=== PATIENT | female | born 1955 | race American Indian/Alaskan Native ===

== ENCOUNTER 2017-04-14 17:59 | Emergency (ER) | payer OTHER ==
[2017-04-14 18:11] VITALS: TEMP 98.7
[2017-04-14] MEDS ORDERED: Albuterol 0.083% Inhal Sol (2.5 mg/3 mL) UD INH STA (19:04)
[2017-04-14] MEDS ORDERED: Albuterol-Ipratrop 3 mg / 0.5 (3 ml) UD ONE (19:13)
--- NOTE | 2017-04-14 19:21 | ED PDOC ---
HPI: General Adult Time Seen by Provider: 04/14/17 18:43 Chief Complaint (Nursing): Cough, Cold, Congestion History Per: Patient Additional Complaint(s): Pt. states for the past week she's been having a cough productive of thick yellow sputum associated with SOB and wheezing. Pt. states she has been using Robitussin DM everyday for the past week without any relief. Pt. further reports having 2 episodes of post tussive vomiting but no nausea. Denies hemoptysis, palpitations, fever, sick contacts, recent travel, [place], leg pain. Past Medical History Reviewed: Historical Data, Nursing Documentation, Vital Signs Vital Signs: Last Vital Signs Temp 98.7 F 04/14/17 18:08 Pulse 80 04/14/17 19:45 Resp 22 04/14/17 18:08 BP 184/102 H 04/14/17 18:08 Pulse Ox 97 04/14/17 19:45 - Medical History PMH: Anemia, Arthritis, Asthma, HTN, Hypothyroidism, Chronic Kidney Disease - Family History Family History: States: No Known Family Hx - Home Medications Home Medications: Ambulatory Orders Medication Instructions Recorded Albuterol HFA [Ventolin HFA 90 2 puff IH Q4H PRN 12/09/16 mcg/actuation (8 g)] Cinacalcet [Sensipar] 60 mg PO DAILY 12/09/16 Ergocalciferol (Vitamin D2) 50,000 unit PO MO 12/09/16 [Vitamin D2] Esomeprazole Magnesium [Nexium] 40 mg PO DAILY 12/09/16 Febuxostat [Uloric] 80 mg PO DAILY 12/09/16 Iron Polysaccharide [Ferrex-150] 150 mg PO DAILY 12/09/16 Levothyroxine [Synthroid] 25 mcg PO DAILY 12/09/16 Losartan [Cozaar] 100 mg PO DAILY 12/09/16 Metoprolol Succinate 50 mg PO DAILY 12/09/16 amLODIPine [Norvasc] 5 mg PO DAILY 12/09/16 Fluticasone/Salmeterol 250/50 1 dsk IH Q12 #1 puff 12/14/16 [Advair Diskus] Moxifloxacin [Avelox] 400 mg PO DAILY #7 tab 12/14/16 Prednisone [Deltasone] 20 mg PO BID #21 tablet 03/01/17 - Allergies Allergies/Adverse Reactions: Allergies Allergy/AdvReac Type Severity Reaction Status Date / Time aspirin Allergy other Verified 12/09/16 12:18 metoclopramide HCl Allergy other Verified 12/09/16 12:18 [From Reglan] Review of Systems ROS Statement: Except As Marked, All Systems Reviewed And Found Negative Respiratory: Positive for: Cough, Wheezing Physical Exam - Reviewed Nursing Documentation Reviewed: Yes Vital Signs Reviewed: Yes - Physical Exam Appears: Positive for: Well, Non-toxic, No Acute Distress Head Exam: Positive for: ATRAUMATIC, NORMAL INSPECTION, NORMOCEPHALIC Skin: Positive for: Normal Color, Warm. Negative for: Rash Eye Exam: Positive for: EOMI, Normal appearance, PERRL ENT: Positive for: Normal ENT Inspection Neck: Positive for: Normal, Painless ROM Cardiovascular/Chest: Positive for: Regular Rate, Rhythm Respiratory: Positive for: Decreased Breath Sounds (b/l), Wheezing. Negative for: Accessory Muscle Use, Respiratory Distress Gastrointestinal/Abdominal: Positive for: Normal Exam, Soft. Negative for: Tenderness Back: Positive for: Normal Inspection Extremity: Positive for: Normal ROM Neurologic/Psych: Positive for: Alert, Oriented. Negative for: Aphasia, Facial Droop - Laboratory Results Result Diagrams: 04/14/17 19:28 04/14/17 19:28 - ECG ECG: Positive for: Interpreted By Me ECG Rhythm: Positive for: Sinus Rhythm. Negative for: ST/T Changes Rate: 60 O2 Sat by Pulse Oximetry: 97 - Radiology X-Ray: Interpreted by Me (CXR) - Progress ED Course And Treament: Labs ordered. Solu-medrol 125mg IV, albuterol neb x 2 given. CXR ordered. EKG ordered. Disposition - Clinical Impression Clinical Impression: Cough - Patient ED Disposition Is Patient to be Admitted: Transfer of Care (Signed out to Cristela MCNEAL pending lab results.) - Disposition Disposition Time: 20:00 Condition: STABLE
[2017-04-14] MEDS ORDERED: Albuterol 0.083% Inhal Sol (2.5 mg/3 mL) UD ONE ×2 (19:23→19:43)
[2017-04-14 19:39] LABS: BASO % 0.2 % (0.0-2.0); EOS # 0.1 K/uL (0.0-0.7); EOS % 1.4 % (0.0-4.0); LYMPH # 1.1 K/uL (1.0-4.3); LYMPH % 18.3 % (20.0-40.0); MEAN CELL VOLUME 73.1 fl (81.0-99.0); MEAN CORPUSCULAR HGB CONC 28.8 g/dL (33.0-37.0); MEAN PLATELET VOLUME 9.7 fl (7.2-11.7); MONO # 0.6 K/uL (0.0-0.8); MONO % 9.2 % (0.0-10.0); NEUT # 4.4 K/uL (1.8-7.0); NEUT % 70.9 % (50.0-75.0); NRBC % 0.1 % (0.0-0.0); RBC 4.77 Mil/uL (3.80-5.20); RED CELL DISTRIBUTION WIDTH 16.5 % (11.5-14.5); WHITE BLOOD COUNT 6.3 K/uL (4.8-10.8)
[2017-04-14 19:51] LABS: ALB/GLOB RATIO 1.2 (1.0-2.1); ALBUMIN 3.7 g/dL (3.5-5.0); ALT/SGPT 27 U/L (9-52); AST/SGOT 18 U/L (14-36); BLOOD UREA NITROGEN 48 mg/dl (7-17); CALCIUM 10.2 mg/dL (8.4-10.2); GFR AFRICAN-AMERICAN 18; GFR NON-AFRICAN AMERICAN 15
[2017-04-14 20:03] LABS: B-TYPE NATRIURETIC PEPTIDE 1300 pg/ml (0-900)
[2017-04-14 20:19] VITALS: PULSE 60
[2017-04-14 20:21] VITALS: RESP 18; O2SAT 98
[2017-04-14 20:26] VITALS: BP 175/92
--- NOTE | 2017-04-14 21:50 | ED PDOC ---
- Laboratory Results Result Diagrams: 04/14/17 19:28 04/14/17 19:28 - ECG O2 Sat by Pulse Oximetry: 98 Medical Decision Making Medical Decision Making: Labs and case discussed with Dr. Uriostegui. Discussed with Dr. Brunner who will f/u with patient on monday. Pt states she is feeling better and has stuffy nose currently. Disposition - Clinical Impression Clinical Impression: Cough - POA Present On Arrival: None - Disposition Disposition: Routine/Home Disposition Time: 21:46 Condition: GOOD Additional Instructions: Return to ER for any worsening symptoms including increased cough, fever, or shortness of breath. Prescriptions: Albuterol 0.083% [Albuterol 0.083% Inhal Natacha (2.5 mg/3 ml) UD] 2.5 mg IH QID PRN #20 PRN Reason: Shortness Of Breath Albuterol HFA [Ventolin HFA 90 mcg/actuation (8 g)] 1 puff IH BID PRN #1 unit PRN Reason: Shortness Of Breath Azithromycin [Zithromax] 250 mg PO DAILY #6 tab predniSONE [predniSONE Tab] 20 mg PO DAILY #12 tab Instructions: Acute Cough (ED)
--- NOTE | 2017-04-15 07:44 | RAD ---
HISTORY: cough COMPARISON: No prior. TECHNIQUE: Chest PA and lateral FINDINGS: LUNGS: No active pulmonary disease. PLEURA: No significant pleural effusion identified. No pneumothorax apparent. CARDIOVASCULAR: Normal. OSSEOUS STRUCTURES: No significant abnormalities. VISUALIZED UPPER ABDOMEN: Normal. OTHER FINDINGS: None. IMPRESSION: No active disease.
--- NOTE | 2017-04-17 07:02 | CARD ---
APPROVED REPORT EKG Measurement Heart [id number] <Conclusion> Normal sinus rhythm Normal ECG
== END 2017-04-14 23:00 | disposition home or self-care (01) ==
LOC: H.ER 17:59
DX: R05 Cough (principal); R06.02 Shortness of breath; J45.909 Unspecified asthma, uncomplicated; I10 Essential (primary) hypertension

== ENCOUNTER 2017-09-02 12:47 | Inpatient (IN) | payer BC, OTHER ==
[2017-09-02] MEDS ORDERED: Albuterol-Ipratrop 3 mg / 0.5 (3 ml) UD INH STA ×2 (13:15→15:05)
--- NOTE | 2017-09-02 13:20 | ED PDOC ---
HPI: SOB/CHF/COPD Time Seen by Provider: 09/02/17 13:03 Chief Complaint (Nursing): Cough, Cold, Congestion Additional Complaint(s): Patient is a 61 y/o F with hx of HTN, Asthma, GERD, CKD, with stress test on showing EF 65-70%, with defect to inferolateral wall which could be technique vs lesion, presenting with shortness of breath. She reports that she has baseline SOB due to obesity but she reports her symptoms are worsening with exertion. She reports a 6 day history of productive cough with sputum and shortness of breath. She reports that she gets shortness of breath when lying down and improves when sitting upright. Denies pedal edema or leg swelling. Reports chest pain yesterday. Denies fever, rhinorrhea, abdominal pain, weakness, numbness. Using albuterol nebulizer without much relief PMD: Dr. Brunner Social Work Professor: Dr. Alivia Best Past Medical History Vital Signs: Last Vital Signs Temp 98.1 F 09/02/17 16:47 Pulse 75 09/02/17 16:47 Resp 20 09/02/17 16:47 BP 160/99 H 09/02/17 16:47 Pulse Ox 95 09/02/17 16:47 - Medical History PMH: Anemia, Arthritis, Asthma, HTN, Hypothyroidism, Chronic Kidney Disease - Family History Family History: States: Unknown Family Hx - Home Medications Home Medications: Ambulatory Orders Medication Instructions Recorded Albuterol HFA [Ventolin HFA 90 2 puff IH Q4 PRN 09/02/17 mcg/actuation (8 g)] Cinacalcet [Sensipar] 60 mg PO DAILY 09/02/17 Diclofenac Sodium [Voltaren] 100 gm TP DAILY 09/02/17 Febuxostat [Uloric] 2 tab PO DAILY 09/02/17 Iron Polysaccharide [Ferrex-150] 150 mg PO DAILY 09/02/17 Levothyroxine [Synthroid] 25 mcg PO DAILY 09/02/17 Metoprolol Succinate [Toprol XL] 50 mg PO DAILY 09/02/17 Omeprazole Magnesium [Prilosec Otc] 40 mg PO DAILY 09/02/17 amLODIPine [Norvasc] 10 mg PO DAILY 09/02/17 - Allergies Allergies/Adverse Reactions: Allergies Allergy/AdvReac Type Severity Reaction Status Date / Time aspirin Allergy other Verified 12/09/16 12:18 metoclopramide HCl Allergy other Verified 12/09/16 12:18 [From [facility]] Review of Systems ROS Statement: Except As Marked, All Systems Reviewed And Found Negative Constitutional: Negative for: Fever, Chills Cardiovascular: Positive for: Chest Pain (yesterday, none currently). Negative for: Edema, Light Headedness Respiratory: Positive for: Cough, Shortness of Breath, SOB with Exertion, Wheezing. Negative for: Pleuritic Pain Gastrointestinal: Negative for: Nausea, Vomiting, Abdominal Pain, Diarrhea, Constipation Genitourinary Female: Negative for: Dysuria Neurological: Negative for: Weakness, Numbness Physical Exam - Reviewed Nursing Documentation Reviewed: Yes Vital Signs Reviewed: Yes - Physical Exam Appears: Positive for: Well, Non-toxic Head Exam: Positive for: ATRAUMATIC, NORMAL INSPECTION Neck: Positive for: Normal, Supple Cardiovascular/Chest: Positive for: Regular Rate, Rhythm. Negative for: Edema Respiratory: Positive for: Decreased Breath Sounds, Wheezing. Negative for: Respiratory Distress Gastrointestinal/Abdominal: Positive for: Soft. Negative for: Tenderness Back: Positive for: Normal Inspection. Negative for: L CVA Tenderness, R CVA Tenderness Extremity: Positive for: Normal ROM - Laboratory Results Result Diagrams: 09/02/17 13:50 09/02/17 13:50 - ECG O2 Sat by Pulse Oximetry: 94 Medical Decision Making Medical Decision Making: Patient presenting with dyspnea on exertion. O2 sat:94% RA. --ekg --cxray --labs --duonebs 1:35PM EKG shows NSR at 70bpm with non-specific ST changes. Cxray shows mild pulmonary venous congestion consistent with chf. Trop x 1 negative. BNP elevated. Creatinine at baseline. K high normal. Some improvement after duoneb but due to persistent dyspnea on exertion will need admission for further evaluation. Asthma vs chf. Considered PE in differential but no hypoxia or complaint of leg swelling. Unable to get CTA due to creatinine, will need V/Q on Monday if inpatient team deems necessary. Spoke to Dr. Brunner. Will admit for further evaluation of worsening dyspnea on exertion. Disposition - Clinical Impression Clinical Impression: Dyspnea on exertion - Disposition Disposition Time: 15:05 Condition: FAIR - Pt Status Changed To: Hospital Disposition Of: Inpatient - Admit Certification Admit to Inpatient:: After my assessment, the patient will require hospitalization for at least two midnights. This is because of the severity of symptoms shown, intensity of services needed, and/or the medical risk in this patient being treated as an outpatient.
[2017-09-02 14:18] LABS: BASO % 0.3 % (0.0-2.0); EOS # 0.1 K/uL (0.0-0.7); EOS % 0.9 % (0.0-4.0); HEMATOCRIT 32.3 % (34.0-47.0); LYMPH # 0.8 K/uL (1.0-4.3); LYMPH % 13.2 % (20.0-40.0); MEAN CELL VOLUME 74.5 fl (81.0-99.0); MEAN CORPUSCULAR HGB CONC 28.2 g/dL (33.0-37.0); MEAN PLATELET VOLUME 9.2 fl (7.2-11.7); MONO # 0.5 K/uL (0.0-0.8); MONO % 8.3 % (0.0-10.0); NEUT # 4.7 K/uL (1.8-7.0); NEUT % 77.3 % (50.0-75.0); NRBC % 0.1 % (0.0-0.0); RED CELL DISTRIBUTION WIDTH 17.6 % (11.5-14.5); WHITE BLOOD COUNT 6.1 K/uL (4.8-10.8)
[2017-09-02 14:25] LABS: ALB/GLOB RATIO 1.1 (1.0-2.1); BILIRUBIN,TOTAL 0.5 mg/dl (0.2-1.3); CALCIUM 9.5 mg/dL (8.4-10.2); MAGNESIUM 1.2 MG/DL (1.6-2.3); PHOSPHOROUS 4.5 mg/dl (2.5-4.5); POTASSIUM 5.1 MMOL/L (3.6-5.0); TOTAL PROTEIN 6.6 G/DL (6.3-8.2)
[2017-09-02 14:36] LABS: TROPONIN I 0.017 ng/mL (0.00-0.120)
[2017-09-02] MEDS ORDERED: Albuterol-Ipratrop 3 mg / 0.5 (3 ml) UD ONE (16:10)
[2017-09-02] MEDS ORDERED: Albuterol-Ipratrop 3 mg / 0.5 (3 ml) UD INH PRN (16:42)
[2017-09-02] MEDS ORDERED: Sod Polystyrene Sulf 15 gm/60 ml Susp PO ONE (16:42)
[2017-09-02] MEDS ORDERED: FEBUXOSTAT PO SCH (17:00)
--- NOTE | 2017-09-02 18:03 | RAD ---
HISTORY: shortness of breath COMPARISON: Chest radiographs 04/14/2017. TECHNIQUE: Chest PA and lateral FINDINGS: LUNGS: No active pulmonary disease. Reticular markings are mildly increased diffusely. PLEURA: No significant pleural effusion identified. No pneumothorax apparent. CARDIOVASCULAR: Mild cardiomegaly is appreciated with prominent pulmonary vascular suggesting active CHF. OSSEOUS STRUCTURES: No significant abnormalities. VISUALIZED UPPER ABDOMEN: Normal. OTHER FINDINGS: None. IMPRESSION: Mild active CHF. No alveolar infiltrate bilaterally.
[2017-09-02] MEDS: Cinacalcet 60 MG TAB PO SCH (18:14)
[2017-09-02] MEDS: Metoprolol Succinate 50 mg XL Tab PO SCH (18:50)
[2017-09-02] MEDS ORDERED: Pneumococcal 23-Valent Vaccine IM ONE ×2 (20:01→21:00)
[2017-09-03] MEDS: Levothyroxine 25 MCG TAB PO SCH ×2 (05:46→08:55)
[2017-09-03] MEDS: Cinacalcet 60 MG TAB PO SCH (08:54)
[2017-09-03] MEDS: Pantoprazole 40 mg EC Tab PO SCH (08:54)
[2017-09-03] MEDS: Metoprolol Succinate 50 mg XL Tab PO SCH (08:55)
[2017-09-03] MEDS ORDERED: Metoprolol Succinate 50 mg XL Tab PO SCH (09:00)
--- NOTE | 2017-09-03 11:47 | CP.PCM.CON ---
History of Present Illness - History of Present Illness History of Present Illness: I was asked toe evaluate patient by Dr Brunner. Patient is a 61 year old female with PMH HTN, chronic renal insufficiency obestiy who presents with dysphnea on exertion. The patient states she has become incresing symptomatic with minimal walking. The patient walks less than one block before symptoms occur. She denies chest pain. She had a stress test of which I have reviewed. Review of Systems - Constitutional Constitutional: absent: As Per HPI, Anorexia, Chills, Daytime Sleepiness, Excessive Sweating, Fatigue, Fever, Frequent Falls, Headache, Increased Appetite , Lethargy, Malaise, Night Sweats, Snoring, Sleep Apnea, Weight Gain, Weight Loss, Weakness, Other - EENT Eyes: absent: As Per HPI, Blind Spots, Blurred Vision, Change in Vision, Decreased Night Vision, Diplopia, Discharge, Dry Eye, Exophthalmos, Floaters, Irritation, Itchy Eyes, Loss of Peripheral Vision, Pain, Photophobia, Requires Corrective Lenses, Sees Flashes, Spots in Vision, Tunnel Vision, Other Visual Disturbances, Loss of Vision, Other Ears: absent: As Per HPI, Decreased Hearing, Ear Discharge, Ear Pain, Tinnitus, Abnormal Hearing, Disequilibrium, Dizziness, Other Nose/Mouth/Throat: absent: As Per HPI, Epistaxis, Nasal Congestion, Nasal Discharge, Nasal Obstruction, Nasal Trauma, Nose Pain, Post Nasal Drip, Sinus Pain, Sinus Pressure, Bleeding Gums, Change in Voice, Dental Pain, Dry Mouth, Dysphagia, Halitosis, Hoarsness, Lip Swelling, Mouth Lesions, Mouth Pain, Odynophagia, Sore Throat, Throat Swelling, Tongue Swelling, Facial Pain, Neck Pain, Neck Mass, Other - Cardiovascular Cardiovascular: Dyspnea - Respiratory Respiratory: Dyspnea - Gastrointestinal Gastrointestinal: absent: As Per HPI, Abdominal Pain, Belching, Bloating, Change in Bowel Habits, Change in Stool Character, Coffee Ground Emesis, Constipation, Cramping, Diarrhea, Dyspepsia, Dysphagia, Early Satiety, Excessive Flatus, Fecal Incontinence, Heartburn, Hematemesis, Hematochezia, Loose Stools, Melena, Nausea, Odynophagia, Temesmus, Vomiting, Other - Genitourinary Genitourinary: absent: As Per HPI, Change in Urinary Stream, Difficulty Urinating, Dysuria, Flank Pain, Hematuria, Pyuria, Nocturia, Urinary Incontinence, Urinary Frequency, Urinary Hesitance, Urinary Urgency, Voiding Freq/Small Amts, Freq UTI, Hx Renal/Bladder Calculi, Hx /Renal Surgery, Bladder Distension, Other - Musculoskeletal Musculoskeletal: absent: As Per HPI, Abnormal Gait, Arthralgias, Atrophy, Back Pain, Deformity, Joint Swelling, Limited Range of Motion, Loss of Height, Muscle Cramps, Muscle Weakness, Myalgias, Neck Pain, Numbness, Radiating Pain into Limb, Stiffness, Tingling, Other - Integumentary Integumentary: absent: As Per HPI, Acne, Alopecia, Bleeding Lesions, Change in Hair, Change in Nails, Change in Pigmentation, Changing Lesions, Dry Skin, Erythema, Furuncle, Hirsutism, Lesions, New Lesions, Non-Healing Lesions, Photosensitivity, Pruritus, Rash, Skin Pain, Skin Ulcer, Sores, Striae, Swelling , Unusual Bruising, Wounds, Jaundice, Other - Neurological Neurological: absent: As Per HPI, Abnormal Gait, Abnormal Hearing, Abnormal Movements, Abnormal Speech, Behavioral Changes, Burning Sensations, Confusion, Convulsions, Disequilibrium, Dizziness, Numbness, Focal Weakness, Frequent Falls , Headaches, Lack of Coordination, Loss of Vision, Memory Loss, Paresthesias, Radicular Pain, Restless Legs, Sensory Deficit, Syncope, Tingling, Tremor, Vertigo, Weakness, Other Visual Disturbances, Other - Psychiatric Psychiatric: absent: As Per HPI, Abnormal Sleep Pattern, Anhedonia, Anxiety, Auditory Hallucinations, Behavioral Changes, Change in Appetite, Change in Libido, Confusion, Depression, Difficulty Concentrating, Hallucinations, Homicidal Ideation, Hopelessness, Irritability, Memory Loss, Mood Swings, Panic Attacks, Paranoia, Suicidal Ideation, Visual Hallucinations, Tactile Hallucinations, Other - Endocrine Endocrine: absent: As Per HPI, Change in Body Appearance, Change in Libido, Cold Intolorance, Deepening of Voice, Excessive Sweating, Fatigue, Flushing, Heat Intolorance, Increase in Ring/Shoe/Hat Size, Palpitations, Polydipsia, Polyphagia, Polyuria, Other - Hematologic/Lymphatic Hematologic: absent: As Per HPI, Easy Bleeding, Easy Bruising, Lymphadenopathy, Other Past Patient History - Infectious Disease Hx of Infectious Diseases: None - Past Medical History & Family History Past Medical History?: Yes - Past Social History Smoking Status: Never Smoked - CARDIAC Hx Hypertension: Yes - PULMONARY Hx Asthma: Yes - HEENT Hx Epistaxis: Yes (at young age) - RENAL Hx Chronic Kidney Disease: Yes - ENDOCRINE/METABOLIC Hx Hypothyroidism: Yes - HEMATOLOGICAL/ONCOLOGICAL Hx Anemia: Yes - MUSCULOSKELETAL/RHEUMATOLOGICAL Hx Arthritis: Yes - GASTROINTESTINAL Hx Diverticulitis: Yes Hx Gastroesophageal Reflux: Yes - PSYCHIATRIC Hx Substance Use: No - SURGICAL HISTORY Hx Herniorrhaphy: Yes (8 yrs ago) Other/Comment: lap band 8 yrs ago,obesity - ANESTHESIA Hx Anesthesia: Yes Hx Anesthesia Reactions: No Hx Malignant Hyperthermia: No Has any member of the family had a problem w/ anesthesia?: No Meds Allergies/Adverse Reactions: Allergies Allergy/AdvReac Type Severity Reaction Status Date / Time aspirin Allergy other Verified 12/09/16 12:18 metoclopramide HCl Allergy other Verified 12/09/16 12:18 [From Reglan] - Medications Medications: Current Medications Acetaminophen (Tylenol 325mg Tab) 650 mg PO Q4 PRN PRN Reason: Pain, Mild (1-3) Last Admin: 09/02/17 23:29 Dose: 650 mg Albuterol/Ipratropium (Duoneb 3 Mg/0.5 Mg (3 Ml) Ud) 3 ml INH RQ6 PRN PRN Reason: Shortness of Breath Amlodipine Besylate (Norvasc) 10 mg PO DAILY [facility] Last Admin: 09/03/17 08:54 Dose: 10 mg Cinacalcet (Sensipar) 60 mg PO DAILY [facility] Last Admin: 09/03/17 08:54 Dose: 60 mg Furosemide (Lasix) 40 mg IV Q12 [facility] Last Admin: 09/03/17 08:54 Dose: 40 mg Heparin Sodium (Porcine) (Heparin) 5,000 units SC Q8@0500,1300,2100 [facility] PRN Reason: Protocol Last Admin: 09/03/17 05:46 Dose: 5,000 units Home Med (Febuxostat [Uloric]) 2 tab PO DAILY [facility] Home Med (Iron Polysaccharide [Ferrex-150]) 150 mg PO DAILY [facility] Levothyroxine Sodium (Synthroid) 25 mcg PO DAILY [facility] Last Admin: 09/03/17 08:55 Dose: Not Given Metoprolol Succinate (Toprol Xl) 50 mg PO DAILY [facility] Last Admin: 11/19/17 08:55 Dose: 50 mg Pantoprazole Sodium (Protonix Ec Tab) 40 mg PO DAILY [facility] Last Admin: 09/03/17 08:54 Dose: 40 mg Physical Exam - Constitutional Appears: Non-toxic - Head Exam Head Exam: NORMAL INSPECTION - Eye Exam Eye Exam: Normal appearance - ENT Exam ENT Exam: Mucous Membranes Moist - Neck Exam Neck exam: Positive for: Full Rom - Respiratory Exam Respiratory Exam: NORMAL BREATHING PATTERN - Cardiovascular Exam Cardiovascular Exam: REGULAR RHYTHM - GI/Abdominal Exam GI & Abdominal Exam: Normal Bowel Sounds - Rectal Exam Rectal Exam: Deferred - Extremities Exam Extremities exam: Positive for: pedal edema - Back Exam Back exam: NORMAL INSPECTION - Neurological Exam Neurological exam: Alert, Oriented x3 - Psychiatric Exam Psychiatric exam: Normal Affect - Skin Skin Exam: Normal Color Results - Vital Signs Recent Vital Signs: Last Vital Signs Temp 98.5 F 09/03/17 08:00 Pulse 76 09/03/17 09:00 Resp 18 09/03/17 08:00 BP 174/94 H 09/03/17 08:55 Pulse Ox 94 L 09/03/17 08:00 - Labs Result Diagrams: 09/02/17 13:50 09/02/17 13:50 Labs: Laboratory Results - last 24 hr 09/02/17 09/02/17 09/03/17 13:50 13:50 06:10 WBC 6.1 RBC 4.34 Hgb 9.1 L Hct 32.3 L MCV 74.5 L MCH 21.0 L MCHC 28.2 L RDW 17.6 H Plt Count 207 MPV 9.2 Neut % (Auto) 77.3 H Lymph % (Auto) 13.2 L [place] % (Auto) 8.3 Eos % (Auto) 0.9 Baso % (Auto) 0.3 Neut # 4.7 Lymph # 0.8 L [place] # 0.5 Eos # 0.1 Baso # 0.0 Sodium 142 Potassium 5.1 H Chloride 111 H Carbon Dioxide 22 Anion Gap 14 BUN 46 H Creatinine 4.0 H Est GFR ( Amer) 14 Est GFR (Non-Af Amer) 11 Random Glucose 99 Calcium 9.5 Phosphorus 4.5 Magnesium 1.2 L Total Bilirubin 0.5 AST 19 ALT 32 Alkaline Phosphatase 99 Total Creatine Kinase 71 CK-MB (Mass) 1.59 Troponin I 0.0170 0.0210 NT-Pro-B Natriuret Pep 1820 H Total Protein 6.6 Albumin 3.5 Globulin 3.1 Albumin/Globulin Ratio 1.1 - EKG Data EKG Interpreted by: Myself Assessment & Plan (1) Dyspnea on exertion Assessment and Plan: I reviewed the stress test. THere does not appear to be an infeloateral wall defect. The patient may have underlying CAD, however she is at risk of contrat induced nephropathy if cardiac cath is performed. I agree with V/Q scan. check echocardiogram Status: Acute (2) HTN (hypertension) Assessment and Plan: blood pressure control. avoid nephrotoxic agnets Status: Acute
[2017-09-03] MEDS: Albuterol-Ipratrop 3 mg / 0.5 (3 ml) UD INH SCH ×2 (13:56→19:28)
[2017-09-03] MEDS: guaiFENesin 600 mg ER Tab PO SCH (17:14)
--- NOTE | 2017-09-03 18:14 | CP.PCM.CON ---
History of Present Illness - History of Present Illness History of Present Illness: pt is seen and examined, full consult is dictated #[id number] 1. htn 2. ckd-4, most likely sec to htn nephrosclerosis, can't r/o ch. Gn such as FSGS due to obesity 3. anemia, sec to ckd, r/o fe deficiency 4. hyperparathyroidism, primary and / or secondary 5. CHF vs acute bronchitis check ct scan to r/o pneumonia agree with gentle diuresis c/w current mamagement Past Patient History - Infectious Disease Hx of Infectious Diseases: None - Past Medical History & Family History Past Medical History?: Yes - Past Social History Smoking Status: Never Smoked - CARDIAC Hx Hypertension: Yes - PULMONARY Hx Asthma: Yes - HEENT Hx Epistaxis: Yes (at young age) - RENAL Hx Chronic Kidney Disease: Yes - ENDOCRINE/METABOLIC Hx Hypothyroidism: Yes - HEMATOLOGICAL/ONCOLOGICAL Hx Anemia: Yes - MUSCULOSKELETAL/RHEUMATOLOGICAL Hx Arthritis: Yes - GASTROINTESTINAL Hx Diverticulitis: Yes Hx Gastroesophageal Reflux: Yes - PSYCHIATRIC Hx Substance Use: No - SURGICAL HISTORY Hx Herniorrhaphy: Yes (8 yrs ago) Other/Comment: lap band 8 yrs ago,obesity - ANESTHESIA Hx Anesthesia: Yes Hx Anesthesia Reactions: No Hx Malignant Hyperthermia: No Has any member of the family had a problem w/ anesthesia?: No Meds Allergies/Adverse Reactions: Allergies Allergy/AdvReac Type Severity Reaction Status Date / Time aspirin Allergy other Verified 12/09/16 12:18 metoclopramide HCl Allergy other Verified 12/09/16 12:18 [From Reglan] shellfish derived Allergy SWELLING Verified 09/03/17 17:50 - Medications Medications: Current Medications Acetaminophen (Tylenol 325mg Tab) 650 mg PO Q4 PRN PRN Reason: Pain, Mild (1-3) Last Admin: 09/03/17 16:07 Dose: 650 mg Albuterol/Ipratropium (Duoneb 3 Mg/0.5 Mg (3 Ml) Ud) 3 ml INH RQ6 PRN PRN Reason: Shortness of Breath Albuterol/Ipratropium (Duoneb 3 Mg/0.5 Mg (3 Ml) Ud) 3 ml INH RQ6 [facility] Last Admin: 09/03/17 13:56 Dose: 3 ml Amlodipine Besylate (Norvasc) 10 mg PO DAILY [facility] Last Admin: 09/03/17 08:54 Dose: 10 mg Cinacalcet (Sensipar) 60 mg PO DAILY [facility] Last Admin: 09/03/17 08:54 Dose: 60 mg Furosemide (Lasix) 40 mg IV Q12 [facility] Last Admin: 09/03/17 08:54 Dose: 40 mg Guaifenesin (Mucinex La) 600 mg PO BID [facility] Last Admin: 09/03/17 17:14 Dose: 600 mg Heparin Sodium (Porcine) (Heparin) 5,000 units SC Q8@0500,1300,2100 [facility] PRN Reason: Protocol Last Admin: 09/03/17 12:21 Dose: 5,000 units Home Med (Febuxostat [Uloric]) 2 tab PO DAILY [facility] Home Med (Iron Polysaccharide [Ferrex-150]) 150 mg PO DAILY [facility] Levothyroxine Sodium (Synthroid) 25 mcg PO DAILY [facility] Last Admin: 09/03/17 08:55 Dose: Not Given Metoprolol Succinate (Toprol Xl) 50 mg PO DAILY [facility] Last Admin: 09/03/17 08:55 Dose: 50 mg Oxycodone/Acetaminophen (Percocet 5/325 Mg Tab) 2 tab PO Q6 PRN PRN Reason: Pain, severe (8-10) Stop: 09/06/17 17:01 Pantoprazole Sodium (Protonix Ec Tab) 40 mg PO DAILY [facility] Last Admin: 09/03/17 08:54 Dose: 40 mg Results - Vital Signs Recent Vital Signs: Last Vital Signs Temp 98.6 F 09/03/17 16:05 Pulse 74 09/03/17 16:05 Resp 16 09/03/17 16:05 BP 128/78 09/03/17 16:05 Pulse Ox 95 09/03/17 16:05 - Labs Result Diagrams: 09/02/17 13:50 09/02/17 13:50 Labs: Laboratory Results - last 24 hr 09/03/17 06:10 Troponin I 0.0210
[2017-09-03] MEDS: Oxycodone/Acetaminophen 5/325 mg Tab PO PRN (19:47)
--- NOTE | 2017-09-04 01:08 | HP ---
HISTORY OF PRESENT ILLNESS: This is a 61-year-old female who is morbidly obese status post bariatric surgery. The patient presented to emergency room with symptoms of progressive cough, mostly dry and shortness of breath over 1 week duration. The patient has tried to use [id number] medications without improvement.. The patient presented to emergency room for evaluation where she was found to have pulmonary congestion as well as serum creatinine of 4. Subsequently, the patient was admitted for further management. OTHER REVIEW OF SYSTEMS: Negative. ALLERGIES: POSITIVE FOR ASPIRIN, METOCLOPRAMIDE, SHELLFISH. SOCIAL HISTORY: No history of smoking, EtOH, or substance abuse. FAMILY HISTORY: Noncontributory. HOME MEDICATIONS: As per MAR. PAST MEDICAL HISTORY: Chronic kidney disease, stage IV; gouty arthritis; hypertension; morbid obesity status post complicated bariatric surgery; hypothyroidism; hyperparathyroidism. PHYSICAL EXAMINATION: GENERAL: The patient is in bed, not in any cardiopulmonary distress at the time of this examination though patient complained of exertional shortness of breath. VITAL SIGNS: Blood pressure is 128/78, temperature 98.6, respiratory rate 16, and pulse 74. HEENT: Pupils equal, reactive to light. Normal-appearing mucosa of the conjunctivae, oropharynx, and nasal membrane mucosa. NECK: Supple. No JVD. No carotid bruit. No lymph node. No thyromegaly. CHEST AND LUNGS: Bilateral symmetrical expansion. Good air exchange. No rales. No rhonchi. CARDIOVASCULAR SYSTEM: PMI not localized. S1 and S2. No additional sounds. ABDOMEN: Normoactive bowel sounds. No tenderness. No organomegaly. No masses. EXTREMITIES: No cyanosis. No clubbing. No edema. CENTRAL NERVOUS SYSTEM: Alert, awake, oriented x3. No neurological deficit could be appreciated. LABORATORY DATA: Chest x-ray showed bilateral pulmonary congestion. Again, serum creatinine 4. ASSESSMENT: 1. Progressive shortness of breath with pulmonary congestion and serum creatinine of 4. Likely volume overload with chronic kidney disease, stage IV. 2. Hypertension. 3. Gouty arthritis. 4. hypothyroidism. PLAN: We will discuss patient's condition with cold roll inspector and we will give the patient Lasix 40 mg IV push q. 12 hours. We will check V/Q scan and venous Doppler to rule out any thromboembolism. Cardiology consult. We will do also CT chest to rule out any underlying pulmonary infection. Same MD Kann[facility] # [id number]
[2017-09-04] MEDS: Albuterol-Ipratrop 3 mg / 0.5 (3 ml) UD INH SCH ×4 (01:33→19:50)
[2017-09-04] MEDS: Levothyroxine 25 MCG TAB PO SCH (06:40)
--- NOTE | 2017-09-04 08:50 | CON ---
RENAL CONSULTATION LOCATION: The patient is located in telemetry, room 414, bed 1. REQUESTING PHYSICIAN: Konstantin Brunner MD REASON FOR CONSULTATION: Chronic kidney disease with worsening renal function and shortness of breath. HISTORY OF PRESENT ILLNESS: Mrs. Hidalgo is a 61 years old morbidly obese, was admitted with chief complaints of shortness of breath for the last 7 days. As per the patient, she was fine until last week Monday and after working, she started having shortness of breath and it was gradually progressing to certain extent that she cannot even go to the bathroom and difficult to ambulate even from the bed to the bathroom, and also complains of cough associated with whitish sputum. Denies any fever. Denies any chest pain. Denies any palpitation. Denies any nausea, vomiting, diarrhea. Denies any abdominal pain. The patient does complain of slight lower extremity swelling. PAST MEDICAL HISTORY: Significant for arthritis, hypertension, hypothyroidism, chronic kidney disease stage IV and also proteinuria. PAST SURGICAL HISTORY: Denies. ALLERGIES: ALLERGIC TO ASPIRIN, REGLAN, SHELLFISH. SOCIAL HISTORY: No smoking. No alcohol. No drugs. CURRENT MEDICATION: Included DuoNeb inhaler, Ventolin, Sensipar, diclofenac, Uloric, Ferrex, Synthroid, metoprolol, omeprazole and amlodipine. FAMILY HISTORY: Is not significant. REVIEW OF SYSTEMS: Significant for shortness of breath, dyspnea on exertion, cough associated with white sputum. PHYSICAL EXAMINATION: VITAL SIGNS: As follows; blood pressure 145/80, pulse 68, respirations 16, temperature 98.9, saturation 100%. Height 5 feet 4 inches and weight is 320 pounds. GENERAL: Mrs. Hidalgo is 61 years old elderly, moderately obese -Citizen Of [place] female, not in acute distress, without any oxygen at this time. HEENT: Pupils normal, reactive to light and accommodation. Conjunctivae pink. Sclerae anicteric. Tongue is moist. Trachea is midline. LUNGS: Symmetric on both sides. Bilateral breath sounds present. Clear on auscultation. CARDIOVASCULAR SYSTEM: [place] at the fifth intercostal space, midclavicular line. S1 and S2 audible. No murmur or gallop. ABDOMEN: Protuberant, soft, tympanic. No guarding, no rigidity. No hepatosplenomegaly. CENTRAL NERVOUS SYSTEM: The patient is alert, awake, oriented x3. Nonfocal neuro examination. Cranial nerves II through XII grossly intact. Sensory and motor system are within normal limits. EXTREMITIES: No cyanosis, no clubbing. The patient has trace edema in both lower extremities. LABORATORY DATA: Include as follows as of 09/02/2017; WBC 6.1, hemoglobin 9.1, hematocrit is 32.3, MCV 74.5, platelets 207. Sodium 142, potassium 5.1, chloride 111, CO2 of 22, BUN 46, creatinine 4.0, glucose 99, calcium 9.5, phosphorus 4.5, magnesium 1.2, total bili 0.5, AST 19, ALT 32, alkaline phosphatase 99, CK-MB 1.59, CPK 71, total protein 0.017 and 0.021, proBNP 1820, total protein 6.6, albumin is 3.5. Other laboratory data as of 07/08/2017; WBC 5.5, hemoglobin 9.3,hematocrit is 32.4, platelets 212. Sodium 147, potassium 5.9, chloride 110, CO2 of 22, BUN 63, creatinine 4.2. As of 05/02/2017; BUN and creatinine are 60 and 3.9. A 24-hour urine volume is 1724. Urine protein is 4.86 g and creatinine clearance is 24 mL and with serum creatinine about 3.9. Also as of 05/02/2017; cholesterol is 204, triglyceride 82, LDL is 101 and HDL 54 and PTH is 859. As of 07/08/2017; PTH is 811. Myocardial perfusion scan as of 07/11/2017, abnormal relaxation with fixed lesion or poor technique. Clinical correlation is recommended and good contractility of all valves with ejection fraction about 65% to 70%. Chest x-ray as of 09/02/2017; mild active CHF, no alveolar infiltrate bilaterally. Other reports; rheumatoid arthritis panel is negative as of 07/24/2014 and serology as of 02/20/2015, hepatitis C antibody IgM is negative, B surface antigen is negative, B core antibody is negative, IgM hep C antibody was negative. ASSESSMENT: In summary, Mrs. Hidalgo is a 61 years old elderly obese -Citizen Of [place] female with history of hypertension, morbidly obese, proteinuria, chronic kidney disease, high PTH, hypothyroidism, gout with shortness of breath and cough associated with white sputum for 1 week and dyspnea on exertion. 1. Chronic kidney disease stage IV, most likely secondary to hypertensive nephrosclerosis, cannot rule out underlying chronic glomerulonephritis, such as focal segmental glomerulosclerosis due to morbid obesity. 2. Anemia secondary to chronic renal failure, rule-out iron-deficiency anemia. 3. Proteinuria, most likely secondary to chronic glomerulonephritis. 4. Dyspnea on exertion, shortness of breath, rule out acute bronchitis, rule out congestive heart failure. PLAN: Continue Lasix 40 mg b.i.d. and consider to get a CAT scan to rule out CHF versus pneumonia. Case discussed with Dr. Konstantin Brunner in rounds. I agree with the plan. We will check urine protein electrophoresis and serum protein electrophoresis and repeat hepatitis B and C serology and also continue Sensipar as per the Endocrinology recommendation for possible primary hyperparathyroidism. Thank you for allowing me to participate in your patient's care. Ember Nicole MD
[2017-09-04] MEDS: guaiFENesin 600 mg ER Tab PO SCH ×2 (09:29→18:02)
[2017-09-04] MEDS: Cinacalcet 60 MG TAB PO SCH (09:30)
[2017-09-04] MEDS: Metoprolol Succinate 50 mg XL Tab PO SCH (09:30)
[2017-09-04] MEDS: Pantoprazole 40 mg EC Tab PO SCH (09:30)
--- NOTE | 2017-09-04 10:14 | CT ---
PROCEDURE: CT Chest without contrast HISTORY: pneumonia COMPARISON: None. TECHNIQUE: Contiguous axial images were obtained through the chest without intravenous contrast enhancement. Sagittal and coronal reconstructions were performed. Radiation dose (DLP): 720.68 mGy-cm. This CT exam was performed using one or more of the following dose reduction techniques: Automated exposure control, adjustment of the mA and/or kV according to patient size, and/or use of iterative reconstruction technique. FINDINGS: LUNGS: Clear lungs. Visualized airway clear. MEDIASTINUM: Unremarkable thoracic aorta. No aneurysm. No radiographic findings to suggest acute or significant cardiovascular disease. Small pericardial effusion. Main pulmonary artery unremarkable. No vascular congestion. No lymphadenopathy. PLEURA: No pleural fluid. No pneumothorax. BONES: No fracture. No destructive lesion. UPPER ABDOMEN: Grossly unremarkable. Postoperative findings related lap band surgery. OTHER FINDINGS: Mildly enlarged thyroid without focal abnormalities apparent. IMPRESSION: No active pulmonary disease. Additional benign and/or incidental findings described above. Process
--- NOTE | 2017-09-04 10:31 | CARD ---
APPROVED REPORT EXAM: Two-dimensional and M-mode echocardiogram with Doppler and color Doppler. Other Information Quality : GoodRhythm : NSR INDICATION Hypertension/HCVD 2D DIMENSIONS IVSd1.35 (0.7-1.1cm)LVDd4.25 (3.9-5.9cm) LVOT Diameter1.99 (1.8-2.4cm)PWd1.28 (0.7-1.1cm) IVSs1.73 (0.8-1.2cm)LVDs3.00 (2.5-4.0cm) FS (%) 29.4 %PWs1.53 (0.8-1.2cm) M-Mode DIMENSIONS Left Atrium (MM)3.75 (2.5-4.0cm)IVSd1.22 (0.7-1.1cm) Aortic Root3.38 (2.2-3.7cm)LVDd5.47 (4.0-5.6cm) Aortic Cusp Exc.1.88 (1.5-2.0cm)PWd1.13 (0.7-1.1cm) IVSs1.88 cmFS (%) 41 % LVDs3.22 (2.0-3.8cm)PWs1.53 cm Mitral Valve MV E Ncluwzvt10.6cm/sMV DECEL [id number] A Qtaulviq09.2cm/s MV [id number]/A ratio0.7MVA (PHT)1.91cm2 TDI Lateral E' Peak V6.60cm/sMedial E' Peak V8.88cm/sE/Lateral E'10.1 E/Medial E'7.5 Pulmonary Valve PV Peak Dnxonljl505.0cm/s LEFT VENTRICLE The left ventricle is normal size. There is mild concentric left ventricular hypertrophy. Left ventricle systolic function is normal. The Ejection Fraction is 55-60%. There is normal LV segmental wall motion. Transmitral Doppler flow pattern is Grade I-abnormal relaxation pattern. RIGHT VENTRICLE The right ventricle is normal size. There is normal right ventricular wall thickness. The right ventricular systolic function is normal. ATRIA The left atrium size is normal. The right atrium size is normal. AORTIC VALVE The aortic valve is mildly sclerotic. There is mild aortic regurgitation. There is no aortic valvular stenosis. MITRAL VALVE The mitral valve is normal in structure. There is no evidence of mitral valve prolapse. There is no mitral valve stenosis. There is no mitral valve regurgitation noted. TRICUSPID VALVE The tricuspid valve is normal in structure. There is no tricuspid valve regurgitation noted. PULMONIC VALVE The pulmonary valve is normal in structure. There is no pulmonic valvular regurgitation. GREAT VESSELS The aortic root diameter was at upper limits of normal. Due to poor image quality, the IVC could not be assessed. PERICARDIAL EFFUSION The pericardium appears normal. <Conclusion> The echowindow was poor with suboptimal imges. The left ventricle is normal size. There is mild concentric left ventricular hypertrophy. There is normal LV segmental wall motion. Left ventricle systolic function is normal. The Ejection Fraction is 55-60%. Transmitral Doppler flow pattern is Grade I-abnormal relaxation pattern.
--- NOTE | 2017-09-04 10:50 | US ---
PROCEDURE: Bilateral lower extremity venous duplex Doppler. HISTORY: b/l lower extremity pain COMPARISON: None available. TECHNIQUE: Bilateral common femoral, superficial femoral, popliteal and posterior tibial veins were evaluated. Flow was assessed with color Doppler, compressibility, assessment of phasic flow and augmentation response. FINDINGS: COMMON FEMORAL VEIN: Right CFV: Unremarkable. Left CFV: Unremarkable. SUPERFICIAL FEMORAL VEIN: Right SFV: Unremarkable. Left SFV: Unremarkable. POPLITEAL VEIN: Right Popliteal: Unremarkable. Left Popliteal: Unremarkable. POSTERIOR TIBIAL VEIN: Right PTV: Unremarkable. Left PTV: Unremarkable. OTHER FINDINGS: None. IMPRESSION: No evidence of deep venous thrombosis.
--- NOTE | 2017-09-04 12:34 | CARD ---
APPROVED REPORT EKG Measurement Heart [id number] <Conclusion> Normal sinus rhythm Low voltage QRS Nonspecific ST abnormality Abnormal ECG
--- NOTE | 2017-09-04 15:33 | NM ---
COMPARISON: September 02, 2017X-ray chest September 04, 2017. CT Thorax TECHNIQUE: 31.2 mCi technetium 99-m DTPA aerosol. 5.7 MCI technetium 99-m MAA administered intravenously. FINDINGS: VENTILATION COMPONENT: Heterogeneous Ventilation. Retention of radionuclide in the tracheobronchial tree and ingestion of radionuclide in the stomach, incidental findings PERFUSION COMPONENT: Heterogeneous distribution of radionuclide. No geographic, segmental, lobar abnormalities apparent on the present examination. IMPRESSION: Low probability ventilation perfusion scan for pulmonary embolism.
[2017-09-04 16:53] LABS: BASO % 0.4 % (0.0-2.0); EOS # 0.1 K/uL (0.0-0.7); EOS % 1.2 % (0.0-4.0); LYMPH # 0.8 K/uL (1.0-4.3); LYMPH % 12.9 % (20.0-40.0); MEAN CELL VOLUME 73.5 fl (81.0-99.0); MEAN CORPUSCULAR HGB CONC 28.6 g/dL (33.0-37.0); MEAN PLATELET VOLUME 9.6 fl (7.2-11.7); MONO # 0.6 K/uL (0.0-0.8); MONO % 9.4 % (0.0-10.0); NEUT # 4.6 K/uL (1.8-7.0); NEUT % 76.1 % (50.0-75.0); NRBC % 0.1 % (0.0-0.0); RED CELL DISTRIBUTION WIDTH 17.4 % (11.5-14.5)
[2017-09-04 17:26] LABS: BILIRUBIN,TOTAL 0.4 mg/dl (0.2-1.3); CALCIUM 8.4 mg/dL (8.4-10.2); PHOSPHOROUS 4.2 mg/dl (2.5-4.5); POTASSIUM 4.9 MMOL/L (3.6-5.0); TOTAL PROTEIN 6.2 G/DL (6.3-8.2)
[2017-09-04 17:40] LABS: ALB/GLOB RATIO 1.2 (1.0-2.1)
--- NOTE | 2017-09-04 19:39 | CP.PCM.PN ---
Subjective - Date & Time of Evaluation Date of Evaluation: 09/04/17 Time of Evaluation: 19:20 - Subjective Subjective: patient feels better. less dyspnea Objective - Vital Signs/Intake and Output Vital Signs (last 24 hours): Temp Pulse Resp BP Pulse Ox 98.3 F 59 L 20 127/80 94 L 09/04/17 17:00 09/04/17 17:00 09/04/17 17:00 09/04/17 17:00 09/04/17 17:00 - Medications Medications: Current Medications Acetaminophen (Tylenol 325mg Tab) 650 mg PO Q4 PRN PRN Reason: Pain, Mild (1-3) Last Admin: 09/04/17 13:41 Dose: 650 mg Albuterol/Ipratropium (Duoneb 3 Mg/0.5 Mg (3 Ml) Ud) 3 ml INH RQ6 PRN PRN Reason: Shortness of Breath Albuterol/Ipratropium (Duoneb 3 Mg/0.5 Mg (3 Ml) Ud) 3 ml INH RQ6 [facility] Last Admin: 09/04/17 14:02 Dose: 3 ml Amlodipine Besylate (Norvasc) 10 mg PO DAILY [facility] Last Admin: 09/04/17 09:29 Dose: 10 mg Cinacalcet (Sensipar) 60 mg PO DAILY [facility] Last Admin: 09/04/17 09:30 Dose: 60 mg Furosemide (Lasix) 40 mg IV Q12 [facility] Last Admin: 09/04/17 09:29 Dose: 40 mg Guaifenesin (Mucinex La) 600 mg PO BID [facility] Last Admin: 09/04/17 18:02 Dose: 600 mg Heparin Sodium (Porcine) (Heparin) 5,000 units SC Q8@0500,1300,2100 [facility] PRN Reason: Protocol Last Admin: 09/04/17 13:42 Dose: 5,000 units Home Med (Febuxostat [Uloric]) 2 tab PO DAILY [facility] Home Med (Iron Polysaccharide [Ferrex-150]) 150 mg PO DAILY [facility] Levothyroxine Sodium (Synthroid) 25 mcg PO DAILY@0630 [facility] Last Admin: 09/04/17 06:40 Dose: 25 mcg Metoprolol Succinate (Toprol Xl) 50 mg PO DAILY [facility] Last Admin: 09/04/17 09:30 Dose: 50 mg Oxycodone/Acetaminophen (Percocet 5/325 Mg Tab) 2 tab PO Q6 PRN PRN Reason: Pain, severe (8-10) Stop: 09/06/17 17:01 Last Admin: 09/03/17 19:47 Dose: 2 tab Pantoprazole Sodium (Protonix Ec Tab) 40 mg PO DAILY [facility] Last Admin: 09/04/17 09:30 Dose: 40 mg - Labs Labs: 09/04/17 16:47 09/04/17 16:47 - Constitutional Appears: Non-toxic - Head Exam Head Exam: NORMAL INSPECTION - Eye Exam Eye Exam: Normal appearance - ENT Exam ENT Exam: Mucous Membranes Moist - Neck Exam Neck Exam: Full ROM - Respiratory Exam Respiratory Exam: NORMAL BREATHING PATTERN - Cardiovascular Exam Cardiovascular Exam: REGULAR RHYTHM - GI/Abdominal Exam GI & Abdominal Exam: Normal Bowel Sounds - Rectal Exam Rectal Exam: Deferred - Extremities Exam Extremities Exam: absent: Pedal Edema - Back Exam Back Exam: NORMAL INSPECTION - Neurological Exam Neurological Exam: Alert - Psychiatric Exam Psychiatric exam: Normal Affect - Skin Skin Exam: Normal Color Assessment and Plan (1) Dyspnea on exertion Assessment & Plan: Improved with blood pressure control. Symptoms likely due to diastolic dysfunction. Status: Acute (2) HTN (hypertension) Assessment & Plan: continue current regimen. Status: Acute
[2017-09-05] MEDS: Albuterol-Ipratrop 3 mg / 0.5 (3 ml) UD INH SCH ×4 (01:00→19:07)
[2017-09-05] MEDS: Levothyroxine 25 MCG TAB PO SCH (05:39)
[2017-09-05 06:37] LABS: ALB/GLOB RATIO 1.1 (1.0-2.1); BILIRUBIN,TOTAL 0.3 mg/dl (0.2-1.3); CALCIUM 8.2 mg/dL (8.4-10.2); POTASSIUM 4.7 MMOL/L (3.6-5.0)
[2017-09-05 06:44] LABS: HEMATOCRIT 29.7 % (34.0-47.0); MEAN CELL VOLUME 73.3 fl (81.0-99.0); MEAN CORPUSCULAR HEMOGLOBIN 21.6 pg (27.0-31.0); MEAN CORPUSCULAR HGB CONC 29.4 g/dL (33.0-37.0); WHITE BLOOD COUNT 5.3 K/uL (4.8-10.8)
[2017-09-05] MEDS: Cinacalcet 60 MG TAB PO SCH (08:26)
[2017-09-05] MEDS: guaiFENesin 600 mg ER Tab PO SCH ×2 (08:26→18:27)
[2017-09-05] MEDS: Pantoprazole 40 mg EC Tab PO SCH (08:26)
[2017-09-05] MEDS: Metoprolol Succinate 50 mg XL Tab PO SCH (08:27)
--- NOTE | 2017-09-05 09:21 | CP.PCM.PN ---
Subjective - Date & Time of Evaluation Date of Evaluation: 09/05/17 Time of Evaluation: 09:20 - Subjective Subjective: pt is s een and examined, follow up consult is dictated #[id number] vascular surgery consult for avf venous mapping of both ue avoid iv lines and blood draw from left UE hold diuretics Objective - Vital Signs/Intake and Output Vital Signs (last 24 hours): Temp Pulse Resp BP Pulse Ox 99.3 F 72 18 129/80 95 09/05/17 08:27 09/05/17 08:27 09/05/17 08:27 09/05/17 08:27 09/05/17 08:27 - Medications Medications: Current Medications Acetaminophen (Tylenol 325mg Tab) 650 mg PO Q4 PRN PRN Reason: Pain, Mild (1-3) Last Admin: 09/04/17 13:41 Dose: 650 mg Albuterol/Ipratropium (Duoneb 3 Mg/0.5 Mg (3 Ml) Ud) 3 ml INH RQ6 PRN PRN Reason: Shortness of Breath Albuterol/Ipratropium (Duoneb 3 Mg/0.5 Mg (3 Ml) Ud) 3 ml INH RQ6 [facility] Last Admin: 09/05/17 07:47 Dose: 3 ml Amlodipine Besylate (Norvasc) 10 mg PO DAILY [facility] Last Admin: 09/05/17 08:26 Dose: 10 mg Cinacalcet (Sensipar) 60 mg PO DAILY [facility] Last Admin: 09/05/17 08:26 Dose: 60 mg Guaifenesin (Mucinex La) 600 mg PO BID [facility] Last Admin: 09/05/17 08:26 Dose: 600 mg Heparin Sodium (Porcine) (Heparin) 5,000 units SC Q8@0500,1300,2100 [facility] PRN Reason: Protocol Last Admin: 09/05/17 05:39 Dose: 5,000 units Home Med (Febuxostat [Uloric]) 2 tab PO DAILY [facility] Home Med (Iron Polysaccharide [Ferrex-150]) 150 mg PO DAILY [facility] Levothyroxine Sodium (Synthroid) 25 mcg PO DAILY@0630 [facility] Last Admin: 09/05/17 05:39 Dose: 25 mcg Metoprolol Succinate (Toprol Xl) 50 mg PO DAILY [facility] Last Admin: 09/05/17 08:27 Dose: 50 mg Oxycodone/Acetaminophen (Percocet 5/325 Mg Tab) 2 tab PO Q6 PRN PRN Reason: Pain, severe (8-10) Stop: 09/06/17 17:01 Last Admin: 09/03/17 19:47 Dose: 2 tab Pantoprazole Sodium (Protonix Ec Tab) 40 mg PO DAILY [facility] Last Admin: 09/05/17 08:26 Dose: 40 mg - Labs Labs: 09/05/17 05:15 09/05/17 05:15
--- NOTE | 2017-09-05 09:59 | CP.PCM.CON ---
History of Present Illness - History of Present Illness History of Present Illness: Vascular surgery- Dr. Mcfarland 61year old morbidily obese female pmhx of ESRD stage IV admitted for shortness of breath, CHF exacerbation. Vascular was consulted for AV fistula formation, as patient will need dialysis in the future. No indications for urgent or emergent dialysis. During encounter patient sitting at bedside comfortably eating breakfast. Denies current fever, chills, chest pain, nausea, vomiting, blood in stool, changes in urinary or bowel habits PMH: Osteoarthritis, CHF, Asthma, HTN PSH: Ventral hernia repair, c-sec x2, tonsillectomy, lap band ALL: Asprin, metoclopramide, shellfish SocialHx: Former smoker quit 40years ago, social ETOH, denies recreational drug use Review of Systems - Review of Systems All systems: reviewed and no additional remarkable complaints except - Constitutional Constitutional: As Per HPI Past Patient History - Infectious Disease Hx of Infectious Diseases: None - Past Medical History & Family History Past Medical History?: Yes - Past Social History Smoking Status: Never Smoked - CARDIAC Hx Hypertension: Yes - PULMONARY Hx Asthma: Yes - HEENT Hx Epistaxis: Yes (at young age) - RENAL Hx Chronic Kidney Disease: Yes - ENDOCRINE/METABOLIC Hx Hypothyroidism: Yes - HEMATOLOGICAL/ONCOLOGICAL Hx Anemia: Yes - MUSCULOSKELETAL/RHEUMATOLOGICAL Hx Arthritis: Yes - GASTROINTESTINAL Hx Diverticulitis: Yes Hx Gastroesophageal Reflux: Yes - PSYCHIATRIC Hx Substance Use: No - SURGICAL HISTORY Hx Herniorrhaphy: Yes (8 yrs ago) Other/Comment: lap band 8 yrs ago,obesity - ANESTHESIA Hx Anesthesia: Yes Hx Anesthesia Reactions: No Hx Malignant Hyperthermia: No Has any member of the family had a problem w/ anesthesia?: No Meds Allergies/Adverse Reactions: Allergies Allergy/AdvReac Type Severity Reaction Status Date / Time aspirin Allergy other Verified 12/09/16 12:18 metoclopramide HCl Allergy other Verified 12/09/16 12:18 [From Reglan] shellfish derived Allergy SWELLING Verified 09/03/17 17:50 - Medications Medications: Current Medications Acetaminophen (Tylenol 325mg Tab) 650 mg PO Q4 PRN PRN Reason: Pain, Mild (1-3) Last Admin: 09/04/17 13:41 Dose: 650 mg Albuterol/Ipratropium (Duoneb 3 Mg/0.5 Mg (3 Ml) Ud) 3 ml INH RQ6 PRN PRN Reason: Shortness of Breath Albuterol/Ipratropium (Duoneb 3 Mg/0.5 Mg (3 Ml) Ud) 3 ml INH RQ6 [facility] Last Admin: 09/05/17 07:47 Dose: 3 ml Amlodipine Besylate (Norvasc) 10 mg PO DAILY [facility] Last Admin: 09/05/17 08:26 Dose: 10 mg Cinacalcet (Sensipar) 60 mg PO DAILY [facility] Last Admin: 09/05/17 08:26 Dose: 60 mg Guaifenesin (Mucinex La) 600 mg PO BID [facility] Last Admin: 09/05/17 08:26 Dose: 600 mg Heparin Sodium (Porcine) (Heparin) 5,000 units SC Q8@0500,1300,2100 [facility] PRN Reason: Protocol Last Admin: 09/05/17 05:39 Dose: 5,000 units Home Med (Febuxostat [Uloric]) 2 tab PO DAILY [facility] Home Med (Iron Polysaccharide [Ferrex-150]) 150 mg PO DAILY [facility] Levothyroxine Sodium (Synthroid) 25 mcg PO DAILY@0630 [facility] Last Admin: 09/05/17 05:39 Dose: 25 mcg Metoprolol Succinate (Toprol Xl) 50 mg PO DAILY [facility] Last Admin: 09/05/17 08:27 Dose: 50 mg Oxycodone/Acetaminophen (Percocet 5/325 Mg Tab) 2 tab PO Q6 PRN PRN Reason: Pain, severe (8-10) Stop: 09/06/17 17:01 Last Admin: 09/03/17 19:47 Dose: 2 tab Pantoprazole Sodium (Protonix Ec Tab) 40 mg PO DAILY [facility] Last Admin: 09/05/17 08:26 Dose: 40 mg Physical Exam - Constitutional Appears: Non-toxic, No Acute Distress - Eye Exam Eye Exam: EOMI. absent: Scleral icterus - ENT Exam ENT Exam: Mucous Membranes Moist - Respiratory Exam Respiratory Exam: NORMAL BREATHING PATTERN. absent: Accessory Muscle Use, Respiratory Distress - Cardiovascular Exam Cardiovascular Exam: Tachycardia, +S1, +S2. absent: Bradycardia - GI/Abdominal Exam GI & Abdominal Exam: Distended, Hernia, Soft. absent: Firm, Guarding, Tenderness Additional comments: Ventral Hernia at midline superior to the umbilicus - Extremities Exam Extremities exam: Positive for: pedal edema. Negative for: calf tenderness - Neurological Exam Neurological exam: Alert, Oriented x3 - Skin Skin Exam: Intact, Warm Results - Vital Signs Recent Vital Signs: Last Vital Signs Temp 99.3 F 09/05/17 08:27 Pulse 72 09/05/17 08:27 Resp 18 09/05/17 08:27 BP 129/80 09/05/17 08:27 Pulse Ox 95 09/05/17 08:27 - Labs Result Diagrams: 09/05/17 05:15 09/05/17 05:15 Labs: Laboratory Results - last 24 hr 09/04/17 09/04/17 09/05/17 16:47 16:47 05:15 WBC 6.0 5.3 RBC 4.07 4.05 Hgb 8.6 L 8.7 L Hct 30.0 L 29.7 L MCV 73.5 L 73.3 L MCH 21.0 L 21.6 L MCHC 28.6 L 29.4 L RDW 17.4 H 17.0 H Plt Count 186 177 MPV 9.6 Neut % (Auto) 76.1 H Lymph % (Auto) 12.9 L Grady % (Auto) 9.4 Eos % (Auto) 1.2 Baso % (Auto) 0.4 Neut # 4.6 Lymph # 0.8 L Grady # 0.6 Eos # 0.1 Baso # 0.0 Sodium 141 Potassium 4.9 Chloride 106 Carbon Dioxide 26 Anion Gap 14 BUN 47 H Creatinine 4.7 H Est GFR ( Amer) 11 Est GFR (Non-Af Amer) 9 Random Glucose 104 Calcium 8.4 Phosphorus 4.2 Total Bilirubin 0.4 AST 29 ALT 26 Alkaline Phosphatase 88 Total Protein 6.2 L Albumin 3.3 L Globulin 2.9 Albumin/Globulin Ratio 1.2 09/05/17 05:15 WBC RBC Hgb Hct MCV MCH MCHC RDW Plt Count MPV Neut % (Auto) Lymph % (Auto) Grady % (Auto) Eos % (Auto) Baso % (Auto) Neut # Lymph # Grady # Eos # Baso # Sodium 141 Potassium 4.7 Chloride 107 Carbon Dioxide 25 Anion Gap 14 BUN 47 H Creatinine 4.9 H Est GFR ( Amer) 11 Est GFR (Non-Af Amer) 9 Random Glucose 94 Calcium 8.2 L Phosphorus Total Bilirubin 0.3 AST 17 ALT 28 Alkaline Phosphatase 82 Total Protein 6.0 L Albumin 3.2 L Globulin 2.8 Albumin/Globulin Ratio 1.1 Assessment & Plan - Assessment and Plan (Free Text) Assessment: 61F admitted for shortness of breath w/ ESRD consulted for AV fistula Plan: - vein mapping - no need for emergent dialysis, no temporary dialysis catheter at this time - will plan for AV fisuta possibly monday pending vein mapping - continue medical management per primary team - discussed w/ Dr. Bruna Carey PGY1
--- NOTE | 2017-09-05 11:26 | PN ---
DATE: 09/05/2017 SUBJECTIVE: Patient is seen today, 09/05/2017. She is less short of breath, but her serum creatinine went up to 4.9. PHYSICAL EXAMINATION VITAL SIGNS: Blood pressure is 145/80, temperature 98.9, respiratory rate 18, pulse 71. HEENT: Pupils equal, reactive to light. Normal-appearing mucosa of the conjunctivae, oropharyngeal and nasal membrane mucosa. NECK: Supple. No JVD. No carotid bruit. No lymph node. No thyromegaly. CHEST AND LUNGS: Bilateral symmetrical expansion. Good air exchange. No rales, no rhonchi. CARDIOVASCULAR SYSTEM: PMI not localized. S1 and S2. No additional sounds. ABDOMEN: Normoactive bowel sounds. No tenderness. No organomegaly, no masses. EXTREMITIES: No cyanosis, no clubbing, no edema. CENTRAL NERVOUS SYSTEM: Alert, awake, oriented x3. No neurological deficit could be appreciated. ASSESSMENT: 1. Exertional shortness of breath likely secondary to volume overload as patient's GFR has been decreasing to 10 mL per minute. CAT scan of the chest as well as VQ scan were unremarkable. 2. Gouty arthritis. 3. Primary hyperparathyroidism. 4. Morbid obesity. PLAN: We will discuss with glove factory sewer regarding the further recommendation for possible starting hemodialysis. Discussed with patient who is considering the option also. Konstantin Brunner MD
[2017-09-05] MEDS: Oxycodone/Acetaminophen 5/325 mg Tab PO PRN (12:13)
[2017-09-05] MEDS ORDERED: FEBUXOSTAT PO SCH (12:18)
[2017-09-05 15:14] LABS: IRON 34 ug/dL (37-170)
--- NOTE | 2017-09-05 15:55 | PN ---
DATE: 09/04/2017 SUBJECTIVE: She was seen on 09/04/2017. She still has exertional shortness of breath. PHYSICAL EXAMINATION VITAL SIGNS: Blood pressure 125/82, temperature 98.5, respiratory rate 20, pulse 69. HEENT: Pupils equal, reactive to light. Normal-appearing mucosa of the conjunctivae, oropharyngeal and nasal membrane mucosa. NECK: Supple. No JVD. No carotid bruit. No lymph node. No thyromegaly. CHEST AND LUNGS: Bilateral symmetrical expansion. Good air exchange. No rales, no rhonchi. CARDIOVASCULAR SYSTEM: PMI not localized. S1 and S2. No additional sounds. ABDOMEN: Normoactive bowel sounds. No tenderness. No organomegaly, no masses. EXTREMITIES: No cyanosis, no clubbing, no edema. CENTRAL NERVOUS SYSTEM: Alert, awake, oriented x3. No neurological deficit could be appreciated. ASSESSMENT: Pulmonary congestion likely secondary to volume overload. Rule out pulmonary embolism. Rule out underlying lower respiratory tract infection. Patient is for CAT scan and VQ scan on 09/04/2017. Further recommendations of literacy teacher regarding the worsening of her kidney function. Konstantin Brunner MD
[2017-09-05 16:05] VITALS: BP 104/65; PULSE 58; RESP 20; TEMP 98.1; O2SAT 96
--- NOTE | 2017-09-05 17:03 | US ---
PROCEDURE: Bilateral duplex Doppler upper extremity venous ultrasound HISTORY: venous mapping for HD access COMPARISON: Not available TECHNIQUE: Ultrasound examination of the upper extremities was performed utilizing a linear array color Doppler transducer. The internal jugular vein, subclavian, axillary, tracheal and basilic and cephalic veins were evaluated bilaterally. The right ulnar and radial veins are also evaluated. The left ulnar and radial veins were not visualized due to the presence of an intravenous catheter. Examined vessels were evaluated for compressibility, augmentation and respiratory phasic behavior. FINDINGS: There is no evidence of deep venous thrombosis in the right or left upper extremity. No intraluminal thrombus is identified. Examined vessels are compressible throughout their examined length. Measurements of the basilic and cephalic veins were made: Right basilic: Mid 5 mm and distal 5 mm proximal basilic not visualized. Right cephalic: Proximal 4 mm, mid 5 mm and distal 6 mm Left basilic: Proximal not visualized. Mid 6 mm and distal 6 mm Left cephalic: Proximal 5 mm, mid 5 mm and distal 6 mm IMPRESSION: No evidence of right or left upper extremity deep venous thrombosis. Basilic and cephalic diameters as detailed above.
--- NOTE | 2017-09-06 06:58 | PN ---
LOCATION: The patient is located in room 414, bed 1. REQUESTING PHYSICIAN: Konstantin Brunner MD REASON FOR FOLLOWUP: Acute renal failure, chronic kidney disease, here for further evaluation. HISTORY OF PRESENT ILLNESS: Mrs. Hidalgo is a 61-year-old morbidly obese -Burkinan female with past medical history significant for hypertension, asthma, CHF, osteoarthritis, history of ventral hernia repair, x2, tonsillectomy, lap band, who was admitted with chief complaints of dyspnea on exertion, shortness of breath, cough associated with white sputum. CAT scan was negative for CHF or pneumonia. The patient was given Lasix for 2 days, and serum creatinine gaetano to 4.7 and Lasix was discontinued this morning. The patient is feeling better, not in any acute distress. Denies any headache or dizziness. Denies any chest pain or palpitations. Denies any fever or cough. No abdominal pain. No nausea, vomiting, or diarrhea. PHYSICAL EXAMINATION: VITAL SIGNS: This morning, blood pressure 129/80, pulse 72, respirations 18, temperature 99.3, saturations 94%. Height 5 feet 4 inches and weight is 314 pounds. GENERAL: Mrs. Hidalgo is a 61-year-old morbidly obese -Burkinan female, not in any acute distress. HEENT: Pupils normal, reactive to light and accommodation. Conjunctivae pink. Sclerae anicteric. Tongue is moist. Trachea is midline. LUNGS: Symmetric on both sides. Bilateral breath sounds present. Clear on auscultation. CARDIOVASCULAR: [place] at the fifth intercostal space, midclavicular line. S1 and S2 audible. No murmur or gallop. ABDOMEN: Normal in appearance. Soft, tympanic. No guarding. No rigidity. No hepatosplenomegaly. CENTRAL NERVOUS SYSTEM: The patient is alert, awake, oriented x3. Nonfocal neuro examination. Cranial nerves II through XII are grossly intact. Sensory and motor system are within normal limits. EXTREMITIES: No cyanosis. No clubbing. No edema. CURRENT MEDICATIONS: Include Xyzal 5 mg daily, Prilosec 40 mg p.o. daily, Ventolin inhaler 2 puffs q. 4 hours p.r.n., Sensipar 60 mg p.o. daily, Voltaren topical daily, Uloric 2 tablets p.o. daily, Ferrex 150 mg p.o. daily, Synthroid 25 mcg daily, amlodipine 10 mg daily, metoprolol 50 mg p.o. daily, and pneumococcal vaccine given on 12/09/2016. LABORATORY DATA: Include as follows: As of 09/05/2017, WBC 5.3, hemoglobin 8.7, hematocrit is 29.7, MCV 73.3, platelets 177,000. Sodium 141, potassium 4.7, chloride 107, CO2 of 21, BUN 47, creatinine 4.9, glucose 94, calcium 8.2, total bili 0.3, AST 17, ALT 28, alkaline phosphatase 82, total protein 6.0, albumin 3.2. B12 is 259, iodine is 34, TIBC is 236, ferritin is 55, and saturation is *------*. ASSESSMENT: In summary, Mrs. Hidalgo is a 61-year-old elderly obese -Burkinan female with history of hypertension, hypothyroidism, hyperparathyroidism, chronic kidney disease stage IV, nephrotic-range proteinuria, asthma, congestive heart failure, arthritis, who was admitted with shortness of breath, cough, associated with white sputum, status post Lasix 40 b.i.d. x2 days with increasing serum creatinine from 4 to 4.7 and Lasix was discontinued this morning. 1. Renal failure, chronic kidney disease, stage IV. 2. Acute on chronic kidney disease secondary to diuretics. The patient is off diuretics this morning. 3. Anemia secondary to chronic kidney disease and iron deficiency anemia. 4. Rule out acute bronchitis. 5. Hypothyroidism. 6. Hyperparathyroidism, most likely secondary to primary hyperparathyroidism. PLAN: Venous mapping and also Vascular Surgery consult for AV fistula placement, if possible as an inpatient, otherwise as an outpatient. Case discussed with the nurse practitioner in rounds. We will follow up with you. I agree to discontinue IV Lasix. Thank you for allowing me to participate in your patient's care. Ember Nicole MD
--- NOTE | 2017-09-06 08:04 | DS ---
REASON FOR ADMISSION: This is a 61-year-old morbidly obese female was admitted for exertional shortness of breath. The patient was evaluated. COURSE OF HOSPITALIZATION: The patient was admitted to telemetry floor and she had an initial chest x-ray showed pulmonary congestion. CAT scan of the chest was done that did not show any active pulmonary disease. The patient was placed on 40 mg Lasix IV q.12 hours. The patient's symptoms were relieved. The patient had Nephrology consultation done by Dr. Nicole and Cardiology consult done by Dr. Best. The patient also had a vascular surgery done by Dr. Mcfarland. The patient had venous mapping on the left upper extremity and she was discharged home in a stable condition to have an AV fistula placed as an outpatient. The patient stated that she would like to think about the start of dialysis as she feels she is not ready for this. FINAL DIAGNOSES: 1. Volume overload secondary to chronic kidney disease stage V. 2. Morbid obesity. 3. Hypertension. 4. Primary hyperparathyroidism. Konstantin Brunner MD
== END 2017-09-05 19:20 | disposition home or self-care (01) | DRG 292 ==
LOC: H.ER 12:47 → H.ERHOLD 15:03 → H.TEL 16:22
PROVIDERS: ADMIT Internal Medicine; ATTEND Internal Medicine
PROC: 3E0F7GC Introduction of Other Therapeutic Substance into Respiratory Tract, Via Natural or Artificial Opening (ICD-10-PCS; principal; 2017-09-03)
DX: I13.2 Hypertensive heart and chronic kidney disease with heart failure and with stage 5 chronic kidney disease, or end stage renal disease (principal); N18.5 Chronic kidney disease, stage 5; I50.9 Heart failure, unspecified; N17.9 Acute kidney failure, unspecified; Z68.43 Body mass index [BMI] 50.0-59.9, adult; K21.9 Gastro-esophageal reflux disease without esophagitis; E66.01 Morbid (severe) obesity due to excess calories; M19.90 Unspecified osteoarthritis, unspecified site; D64.9 Anemia, unspecified; M10.9 Gout, unspecified; E21.0 Primary hyperparathyroidism; D63.1 Anemia in chronic kidney disease; R80.9 Proteinuria, unspecified; D50.9 Iron deficiency anemia, unspecified; T50.2X5A Adverse effect of carbonic-anhydrase inhibitors, benzothiadiazides and other diuretics, initial encounter; E03.9 Hypothyroidism, unspecified; Z98.84 Bariatric surgery status; Z87.891 Personal history of nicotine dependence

== ENCOUNTER 2017-09-14 07:23 | Inpatient (IN) | payer BC ==
[2017-09-14 07:45] VITALS: BMI 53.5
[2017-09-14 08:20] LABS: BASO % 0.3 % (0.0-2.0); EOS # 0.2 K/uL (0.0-0.7); EOS % 2.2 % (0.0-4.0); HEMATOCRIT 32.3 % (34.0-47.0); LYMPH % 14.4 % (20.0-40.0); MEAN CELL VOLUME 72.9 fl (81.0-99.0); MEAN CORPUSCULAR HEMOGLOBIN 21.3 pg (27.0-31.0); MEAN CORPUSCULAR HGB CONC 29.2 g/dL (33.0-37.0); MEAN PLATELET VOLUME 9.5 fl (7.2-11.7); MONO # 0.5 K/uL (0.0-0.8); MONO % 7.1 % (0.0-10.0); NEUT # 5.4 K/uL (1.8-7.0); NRBC % 0.1 % (0.0-0.0); RED CELL DISTRIBUTION WIDTH 16.8 % (11.5-14.5); WHITE BLOOD COUNT 7.1 K/uL (4.8-10.8)
[2017-09-14 08:46] LABS: ALB/GLOB RATIO 1.1 (1.0-2.1); BILIRUBIN,TOTAL 0.4 mg/dl (0.2-1.3); CALCIUM 8.8 mg/dL (8.4-10.2); POTASSIUM 5.9 MMOL/L (3.6-5.0); TOTAL PROTEIN 6.7 G/DL (6.3-8.2)
[2017-09-14] MEDS ORDERED: Protamine 50mg/5mL Inj IV ONE (09:11)
[2017-09-14] MEDS ORDERED: Lidocaine 1% Inj (20ml) ONE (09:11)
[2017-09-14] MEDS ORDERED: ceFAZolin IV 1 gm in Dextrose 1 GM/50 ML BAG IVPB ONE (09:12)
[2017-09-14] MEDS ORDERED: Dextrose 50% SYRINGE Inj (50 ml) IVP ONE (09:26)
[2017-09-14] MEDS ORDERED: Propofol 10 mg/ml Inj (20 ML) ONE (09:51)
[2017-09-14] MEDS ORDERED: Phenylephrine 10 mg/ml Inj ONE (09:51)
[2017-09-14] MEDS ORDERED: Midazolam 2 MG/2 ML VIAL ONE ×2 (09:51→10:58)
[2017-09-14] MEDS ORDERED: Succinylcholine 200 mg/10 ml Inj IV ONE (09:51)
[2017-09-14] MEDS ORDERED: ePHEDrine 50 mg/ml Inj ONE (09:51)
[2017-09-14 10:33] LABS: CALCIUM 8.8 mg/dL (8.4-10.2); POTASSIUM 5.5 MMOL/L (3.6-5.0)
[2017-09-14] MEDS ORDERED: Ketamine 50 mg/ml Inj (10 ml) ONE (10:40)
[2017-09-14] MEDS ORDERED: Sodium Chloride 0.9% 500 ML IV ONE (11:15)
[2017-09-14] MEDS ORDERED: ceFAZolin IV 1 gm in Dextrose 2 GM/100 ML BAG IVPB ONE (11:16)
[2017-09-14] MEDS ORDERED: Lidocaine 1% Inj (20ml) IJ ONE (11:25)
--- NOTE | 2017-09-14 13:29 | PCM.SURG1 ---
Surgeon's Initial Post Op Note - Surgeon's Notes Surgeon: Dr. Mcfarland Aviation Safety Technician: Dr. Carey PGY1 Type of Anesthesia: General IV Pre-Operative Diagnosis: CKD Operative Findings: see dictation Post-Operative Diagnosis: same Operation Performed: Right AV fistula Specimen/Specimens Removed: none Estimated Blood Loss: EBL {In ML}: 40 Drains Used: No Drains Post-Op Condition: Good Date of Surgery/Procedure: 09/14/17 Time of Surgery/Procedure: 11:10
[2017-09-14] MEDS ORDERED: Oxycodone/Acetaminophen 5/325 mg Tab PO PRN (13:32)
[2017-09-14] MEDS ORDERED: Albuterol HFA 90 mcg/actuation (8 g) IH PRN (13:38)
[2017-09-14] MEDS ORDERED: Sodium Chloride 0.9% 250 ML IV SCH (15:00)
[2017-09-14] MEDS ORDERED: Sodium Chloride 0.9% 1,000 ML IV SCH (15:30)
[2017-09-14] MEDS: HYDROmorphone 0.5 mg/0.5 ml ISec IVP PRN ×2 (17:17→23:40)
--- NOTE | 2017-09-14 18:14 | CP.PCM.PN ---
Subjective - Date & Time of Evaluation Date of Evaluation: 09/14/17 Time of Evaluation: 18:13 - Subjective Subjective: pt is seen and examined, follow up consult is dictated #[id number] Objective - Vital Signs/Intake and Output Vital Signs (last 24 hours): Temp Pulse Resp BP Pulse Ox 97.8 F 44 L 20 124/69 94 L 09/14/17 15:55 09/14/17 15:55 09/14/17 15:55 09/14/17 15:55 09/14/17 15:55 Intake and Output: 09/14/17 09/14/17 06:59 18:59 Intake Total 450 Balance 450 - Medications Medications: Current Medications Acetaminophen (Tylenol 325mg Tab) 650 mg PO Q6 PRN PRN Reason: Fever >100.4 F/ mild pain Last Admin: 09/14/17 14:43 Dose: 650 mg Albuterol (Ventolin Hfa 90 Mcg/Actuation (8 G)) 2 puff IH Q4 PRN PRN Reason: Shortness of Breath Albuterol/Ipratropium (Duoneb 3 Mg/0.5 Mg (3 Ml) Ud) 3 ml INH RQ4 [facility] Amlodipine Besylate (Norvasc) 10 mg PO DAILY [facility] Cinacalcet (Sensipar) 60 mg PO DAILY [facility] Home Med (Diclofenac Sodium [Voltaren]) 100 gm TP DAILY [facility] Home Med (Febuxostat [Uloric]) 2 tab PO DAILY [facility] Home Med (Iron Polysaccharide [Ferrex-150]) 150 mg PO DAILY [facility] Home Med (Levocetirizine Dihydrochloride [Xyzal]) 5 mg PO DAILY [facility] Home Med (Omeprazole Magnesium [Prilosec Otc]) 40 mg PO DAILY [facility] Hydromorphone HCl (Dilaudid) 0.5 mg IVP Q3 PRN PRN Reason: Pain, severe (8-10) Stop: 09/15/17 14:16 Last Admin: 09/14/17 17:17 Dose: 0.5 mg Sodium Chloride (Sodium Chloride 0.9%) 250 mls @ 250 mls/hr IV .Q1H NINA Stop: 09/15/17 14:50 Last Admin: 09/14/17 15:00 Dose: 250 mls Sodium Chloride (Sodium Chloride 0.9%) 1,000 mls @ 70 mls/hr IV .[id number] [facility] Stop: 09/15/17 15:41 Last Admin: 09/14/17 15:54 Dose: 70 mls/hr Insulin Human Regular (Humulin R) 5 units IV ONCE ONE Stop: 09/15/17 09:26 Levothyroxine Sodium (Synthroid) 25 mcg PO DAILY@0630 [facility] Metoprolol Succinate (Toprol Xl) 50 mg PO DAILY [facility] Ondansetron HCl (Zofran Inj) 4 mg IVP Q4 PRN PRN Reason: Nausea/Vomiting Oxycodone/Acetaminophen (Percocet 5/325 Mg Tab) 1 tab PO Q4 PRN PRN Reason: Pain, moderate (4-7) Stop: 09/17/17 13:33 Pantoprazole Sodium (Protonix Ec Tab) 40 mg PO DAILY [facility] - Labs Labs: 09/14/17 08:06 09/14/17 10:09 PT 12.2 Seconds (9.8-13.1) 09/14/17 08:06 INR 1.1 (0.9-1.2) 09/14/17 08:06 APTT 34.0 Seconds (25.6-37.1) 09/14/17 08:06
[2017-09-14] MEDS: Albuterol-Ipratrop 3 mg / 0.5 (3 ml) UD INH SCH (19:01)
[2017-09-15] MEDS: Albuterol-Ipratrop 3 mg / 0.5 (3 ml) UD INH SCH ×6 (00:19→19:23)
--- NOTE | 2017-09-15 00:30 | PN ---
DATE: FOLLOWUP RENAL CONSULTATION LOCATION: The patient is located in room 414. REQUESTED BY: Konstantin Brunner MD. REASON FOR FOLLOWUP: CKD IV and for further evaluation status post AV fistula. SUBJECTIVE: Mrs. Hidalgo is an about 62-year-old morbidly obese -Chinese female with a past medical history significant for hypertension, COPD, asthma, obstructive sleep apnea and hypothyroidism, hyperparathyroidism, proteinuria and chronic kidney disease stage IV, was recently admitted with a cough, shortness of breath, status post treatment for acute bronchitis and the patient was seen by Vascular Surgery for possible AV fistula and the patient was discharged home and brought for the surgery this morning. The patient underwent right elbow AV fistula placement this morning. Postoperatively, the patient was hypotensive. Subsequently, the patient was given normal saline about 800 mL and also another bolus 250 mL and then placed on IV fluids normal saline about 70-80 mL per hour. The patient was feeling much better now. Complains no chest pain, no palpitation, no fever, no cough. No abdominal pain. No nausea, vomiting, diarrhea. Her current vital signs and physical exam as follows. PHYSICAL EXAMINATION: GENERAL: Mrs. Hidalgo is a 62 years old obese -Chinese female, well built, well nourished, not in any distress. VITAL SIGNS: Blood pressure 124/69, pulse 44, respirations 20, temperature 97.8, saturation 94% and repeat blood pressure 158/74, pulse 69, respirations 20, temperature 98.7, saturation 91%. Height 5 feet 4 inches and weight is 312 pounds. HEENT: Pupils normal and reactive to light and accommodation. Conjunctivae pink. Sclerae are anicteric. Tongue is moist and trachea is midline. LUNGS: Symmetric on both sides. Bilateral breath sounds present. Clear on auscultation. CARDIOVASCULAR SYSTEM: [place] at the fifth intercostal space, midclavicular line. S1 and S2 audible. No murmur or gallop. ABDOMEN: Normal in appearance, soft, tympanic. No guarding. No rigidity. No hepatosplenomegaly. Protuberant. CENTRAL NERVOUS SYSTEM: The patient is alert, awake, oriented x3. Nonfocal neuro examination. Cranial nerves II through XII grossly intact. Sensory and motor system is within normal limits. EXTREMITIES: No cyanosis. No clubbing. No edema. Skin turgor is poor. LABORATORY DATA: Her laboratory data includes as follows. As of 09/14/2017, WBC 7.1, hemoglobin 9.4, hematocrit is 32.3, MCV 72.9, platelets 256. PT 12.2 and PTT 34. Sodium 142, potassium is 5.5, chloride 109, CO2 of 26, BUN 54, creatinine 4.5 and GFR is about 12 and glucose 130, calcium 8.8, total bili 0.4, AST 43, ALT 23, alkaline phos is 81, total protein 6.7, albumin is 3.5. MEDICATIONS: Her current medications include as follows; Claritin 10 mg p.o. daily, Dilaudid 0.5 mg IV q. 3 hours p.r.n., DuoNeb inhaler 3 mL q. 4 hours and Humulin R 5 units IV x1 and amlodipine 10 mg daily, Percocet 1 tablet q. 4 hours p.r.n. and Protonix 40 mg p.o. daily and Sensipar 60 mg p.o. daily, Synthroid 25 mcg p.o. daily and metoprolol 50 mg p.o. daily, Tylenol and Ventolin inhaler and also Zofran 4 mg IV q. 4 hours p.r.n. ASSESSMENT AND PLAN: In summary, Mrs. Hidalgo is a 62 years old obese -Chinese female with a history of hypertension, hypothyroidism, hyperparathyroidism, chronic obstructive pulmonary disease, asthma, obstructive sleep apnea, who was admitted for hypotension after postoperative arteriovenous fistula placement. 1. Chronic kidney disease stage IV to V, most likely secondary to hypertensive nephrosclerosis, cannot rule out an underlying chronic glomerulonephritis such as focal segmental glomerulosclerosis secondary to obesity. 2. Anemia. 3. Hypertension. 4. Hypothyroidism. 5. Hyperparathyroidism. Continue her current medications as per Dr. Brunner and we will also start Ferrlecit 125 mg IV piggyback daily, first dose today and also Epogen 10,000 units subcutaneous x1 dose. We will also add Nephro Caps 1 tablet p.o. daily. We will follow up with you. Thank you for allowing me to participate in your patient's care. Ember Nicole MD
[2017-09-15] MEDS: HYDROmorphone 0.5 mg/0.5 ml ISec IVP PRN ×2 (05:31→11:32)
[2017-09-15 06:22] LABS: BASO % 0.2 % (0.0-2.0); EOS % 0.5 % (0.0-4.0); HEMATOCRIT 31.3 % (34.0-47.0); LYMPH # 0.9 K/uL (1.0-4.3); LYMPH % 9.8 % (20.0-40.0); MEAN CELL VOLUME 73.9 fl (81.0-99.0); MEAN CORPUSCULAR HGB CONC 28.5 g/dL (33.0-37.0); MEAN PLATELET VOLUME 10.2 fl (7.2-11.7); MONO # 0.7 K/uL (0.0-0.8); MONO % 7.4 % (0.0-10.0); NEUT # 7.7 K/uL (1.8-7.0); NEUT % 82.1 % (50.0-75.0); PLATELET COUNT 231 K/uL (130-400); RED CELL DISTRIBUTION WIDTH 16.9 % (11.5-14.5); WHITE BLOOD COUNT 9.3 K/uL (4.8-10.8)
[2017-09-15 06:45] LABS: POTASSIUM 6.2 MMOL/L (3.6-5.0)
[2017-09-15] MEDS ORDERED: Sod Polystyrene Sulf 15 gm/60 ml Susp PO ONE ×2 (07:16→10:49)
[2017-09-15] MEDS ORDERED: Epoetin Alfa 20000 UNIT/ML (RENAL DOSE) SC ONE (09:00)
[2017-09-15] MEDS ORDERED: FEBUXOSTAT PO SCH (09:00)
[2017-09-15] MEDS ORDERED: Pantoprazole 40 mg EC Tab PO SCH (09:00)
[2017-09-15] MEDS: Cinacalcet 60 MG TAB PO SCH (09:00)
[2017-09-15] MEDS: Multivitamin Vitamin B Complex (Nephro-Vite) Tab PO SCH (09:03)
[2017-09-15] MEDS: Pantoprazole 40 mg EC Tab PO SCH (09:04)
[2017-09-15] MEDS: Metoprolol Succinate 50 mg XL Tab PO SCH (09:04)
[2017-09-15] MEDS: Levothyroxine 25 MCG TAB PO SCH (09:04)
--- NOTE | 2017-09-15 09:07 | CP.PCM.PN ---
Subjective - Date & Time of Evaluation Date of Evaluation: 09/15/17 Time of Evaluation: 09:05 - Subjective Subjective: Vascular Surgery progress note for Dr. Haily Chung, PGY-1 Pt S & E at bedside.f Pt reports pain well controlled overnight with pain regimen, right upper extremity with some occasional tenderness. Some Left hand cramping. Denies N & V, F & C, cold hand, cramping of right hand, other complaints. Tolerating diet. Objective - Vital Signs/Intake and Output Vital Signs (last 24 hours): Temp Pulse Resp BP Pulse Ox 99.4 F 77 18 145/71 94 L 09/15/17 07:49 09/15/17 07:49 09/15/17 07:49 09/15/17 07:49 09/15/17 07:49 - Medications Medications: Current Medications Acetaminophen (Tylenol 325mg Tab) 650 mg PO Q6 PRN PRN Reason: Fever >100.4 F/ mild pain Last Admin: 09/14/17 14:43 Dose: 650 mg Albuterol (Ventolin Hfa 90 Mcg/Actuation (8 G)) 2 puff IH Q4 PRN PRN Reason: Shortness of Breath Albuterol/Ipratropium (Duoneb 3 Mg/0.5 Mg (3 Ml) Ud) 3 ml INH RQ4 [facility] Last Admin: 09/15/17 07:29 Dose: 3 ml Amlodipine Besylate (Norvasc) 10 mg PO DAILY [facility] Cinacalcet (Sensipar) 60 mg PO DAILY [facility] Home Med (Diclofenac Sodium [Voltaren]) 100 gm TP DAILY [facility] Home Med (Febuxostat [Uloric]) 2 tab PO DAILY [facility] Home Med (Iron Polysaccharide [Ferrex-150]) 150 mg PO DAILY [facility] Hydromorphone HCl (Dilaudid) 0.5 mg IVP Q3 PRN PRN Reason: Pain, severe (8-10) Stop: 09/15/17 14:16 Last Admin: 09/15/17 05:31 Dose: 0.5 mg Sodium Chloride (Sodium Chloride 0.9%) 250 mls @ 250 mls/hr IV .Q1H [facility] Stop: 09/15/17 14:50 Last Admin: 09/14/17 15:00 Dose: 250 mls Iron Sucrose 100 mg/ Sodium (Chloride) 105 mls @ 105 mls/hr IVPB DAILY [facility] Stop: 09/18/17 09:01 Insulin Human Regular (Humulin R) 5 units IV ONCE ONE Stop: 09/15/17 09:26 Insulin Human Regular (Humulin R) 5 units IV ONCE ONE Stop: 09/15/17 09:16 Levothyroxine Sodium (Synthroid) 25 mcg PO DAILY@0630 [facility] Loratadine (Claritin) 10 mg PO DAILY [facility] Metoprolol Succinate (Toprol Xl) 50 mg PO DAILY [facility] Ondansetron HCl (Zofran Inj) 4 mg IVP Q4 PRN PRN Reason: Nausea/Vomiting Oxycodone/Acetaminophen (Percocet 5/325 Mg Tab) 1 tab PO Q4 PRN PRN Reason: Pain, moderate (4-7) Stop: 09/17/17 13:33 Pantoprazole Sodium (Protonix Ec Tab) 40 mg PO DAILY [facility] Vitamin B Complex/Vit C/Folic Acid (Nephro-Maria Del Carmen) 1 tab PO DAILY [facility] - Labs Labs: 09/15/17 05:30 09/15/17 05:30 PT 12.2 Seconds (9.8-13.1) 09/14/17 08:06 INR 1.1 (0.9-1.2) 09/14/17 08:06 APTT 34.0 Seconds (25.6-37.1) 09/14/17 08:06 - Constitutional Appears: Non-toxic, No Acute Distress - Head Exam Head Exam: ATRAUMATIC, NORMAL INSPECTION, NORMOCEPHALIC - Eye Exam Eye Exam: EOMI, Normal appearance - ENT Exam ENT Exam: Mucous Membranes Moist, Normal Exam - Neck Exam Neck Exam: Full ROM, Normal Inspection - Respiratory Exam Respiratory Exam: Clear to Ausculation Bilateral, NORMAL BREATHING PATTERN - Cardiovascular Exam Cardiovascular Exam: REGULAR RHYTHM, +S1, +S2 - GI/Abdominal Exam GI & Abdominal Exam: Soft, Normal Bowel Sounds. absent: Distended (obese), Tenderness - Extremities Exam Extremities Exam: Full ROM, Normal Inspection. absent: Tenderness Additional comments: Left upper extremity with dressing in place over antecubital fossa, minimal serous strike through on dressing, otherwise intact. Audible bruit, no palpable thrill. Radial pulse palpable. Hand with full ROM, slight coldness at fingertips. - Neurological Exam Neurological Exam: Alert, Awake, CN II-XII Intact, Oriented x3 - Psychiatric Exam Psychiatric exam: Normal Affect, Normal Mood - Skin Skin Exam: Dry, Intact, Normal Color, Warm Assessment and Plan - Assessment and Plan (Free Text) Assessment: 62F POD # 1 s/p Right upper extremity AVF creation, doing well overnight. Plan: K 6.3 from 5.5 today Monitor Right upper extremity pulses If need HD catheter placed, please let surgery know/consult for HD catheter Further mgmt as per medicine team ELIA attending Juliet, PGY-1
[2017-09-15] MEDS ORDERED: Insulin Regular 100 units/ml IV ONE ×2 (09:15→09:25)
--- NOTE | 2017-09-15 10:56 | CP.PCM.PN ---
Subjective - Date & Time of Evaluation Date of Evaluation: 09/15/17 Time of Evaluation: 10:56 - Subjective Subjective: follow up consult is dictated #[id number] Objective - Vital Signs/Intake and Output Vital Signs (last 24 hours): Temp Pulse Resp BP Pulse Ox 99.4 F 77 18 145/71 94 L 09/15/17 07:49 09/15/17 09:04 09/15/17 07:49 09/15/17 09:04 09/15/17 07:49 - Medications Medications: Current Medications Acetaminophen (Tylenol 325mg Tab) 650 mg PO Q6 PRN PRN Reason: Fever >100.4 F/ mild pain Last Admin: 09/14/17 14:43 Dose: 650 mg Albuterol (Ventolin Hfa 90 Mcg/Actuation (8 G)) 2 puff IH Q4 PRN PRN Reason: Shortness of Breath Albuterol/Ipratropium (Duoneb 3 Mg/0.5 Mg (3 Ml) Ud) 3 ml INH RQ4 [facility] Last Admin: 09/15/17 07:29 Dose: 3 ml Amlodipine Besylate (Norvasc) 10 mg PO DAILY [facility] Last Admin: 09/15/17 09:03 Dose: 10 mg Cinacalcet (Sensipar) 60 mg PO DAILY [facility] Hydromorphone HCl (Dilaudid) 0.5 mg IVP Q3 PRN PRN Reason: Pain, severe (8-10) Stop: 09/15/17 14:16 Last Admin: 09/15/17 05:31 Dose: 0.5 mg Iron Sucrose 100 mg/ Sodium (Chloride) 105 mls @ 105 mls/hr IVPB DAILY [facility] Stop: 09/18/17 09:01 Levothyroxine Sodium (Synthroid) 25 mcg PO DAILY@0630 [facility] Last Admin: 09/15/17 09:04 Dose: 25 mcg Loratadine (Claritin) 10 mg PO DAILY [facility] Last Admin: 09/15/17 09:04 Dose: 10 mg Metoprolol Succinate (Toprol Xl) 50 mg PO DAILY [facility] Last Admin: 09/15/17 09:04 Dose: 50 mg Ondansetron HCl (Zofran Inj) 4 mg IVP Q4 PRN PRN Reason: Nausea/Vomiting Oxycodone/Acetaminophen (Percocet 5/325 Mg Tab) 1 tab PO Q4 PRN PRN Reason: Pain, moderate (4-7) Stop: 09/17/17 13:33 Pantoprazole Sodium (Protonix Ec Tab) 40 mg PO DAILY [facility] Last Admin: 09/15/17 09:04 Dose: 40 mg Vitamin B Complex/Vit C/Folic Acid (Nephro-Maria Del Carmen) 1 tab PO DAILY [facility] Last Admin: 09/15/17 09:03 Dose: 1 tab - Labs Labs: 09/15/17 05:30 09/15/17 05:30 PT 12.2 Seconds (9.8-13.1) 09/14/17 08:06 INR 1.1 (0.9-1.2) 09/14/17 08:06 APTT 34.0 Seconds (25.6-37.1) 09/14/17 08:06
[2017-09-15 11:14] LABS: NEUTROPHIL 86 % (42-75); TOTAL CELLS COUNTED 100
[2017-09-15 11:16] LABS: LARGE PLATELETS PRESENT
[2017-09-15] MEDS: Sodium Chloride 0.45% 1,000 ML IV SCH (12:12)
--- NOTE | 2017-09-15 14:15 | HP ---
HISTORY OF PRESENT ILLNESS: The patient is a 62-year-old -Luxembourger female with history of multiple medical problems including chronic kidney disease stage V, was admitted postoperative. The patient had an AV fistula done on the right upper arm by vascular surgery. The patient was hyperkalemic and due to the patient's multiple comorbidities, she was admitted to telemetry floor postoperatively. The patient denied to have any chest pain or shortness of breath at the time of this examination. Other review of systems is negative. ALLERGIES: MULTIPLE ALLERGIES TO ASPIRIN, METOCLOPRAMIDE, SHELLFISH. SOCIAL HISTORY: No history of smoking, EtOH or substance abuse. FAMILY HISTORY: Noncontributory. MEDICATIONS: As per MAR. PHYSICAL EXAMINATION GENERAL: The patient was in bed, not in any cardiopulmonary distress. VITAL SIGNS: Blood pressure was 158/74, temperature 98.7, respiratory rate 20, pulse 69. HEENT: Pupils equal, reactive to light. Normal-appearing mucosa of the conjunctivae, oropharynx and nasal membrane mucosa. NECK: Supple. No JVD. No carotid bruit. No lymph node. No thyromegaly. CHEST/LUNGS: Bilateral symmetrical expansion. Good air exchange. No rales or rhonchi. CARDIOVASCULAR SYSTEM: PMI not localized. S1, S2. No additional sounds. ABDOMEN: Normoactive bowel sounds. No tenderness. No organomegaly. No masses. EXTREMITIES: No cyanosis, no clubbing, no edema. RESTAURANT CULINARY MANAGER: Alert, awake, oriented x3. No neurological deficit could be appreciated. ASSESSMENT 1. Chronic kidney disease stage V. 2. Hypertension. 3. Morbid obesity. 4. Gouty arthritis. 5. Primary hyperparathyroidism. PLAN: IV fluids to maintain blood pressure around 120. Resume the patient's home medications. Discussed the patient's condition with terrazzo journeyman. Monitor on telemetry. Konstantin Brunner MD
[2017-09-15 16:24] LABS: CALCIUM 8.7 mg/dL (8.4-10.2); POTASSIUM 5.5 MMOL/L (3.6-5.0)
[2017-09-16] MEDS: Albuterol-Ipratrop 3 mg / 0.5 (3 ml) UD INH SCH ×6 (00:29→19:14)
[2017-09-16] MEDS: Sodium Chloride 0.45% 1,000 ML IV SCH (03:11)
[2017-09-16] MEDS: Oxycodone/Acetaminophen 5/325 mg Tab PO PRN ×3 (03:14→22:22)
--- NOTE | 2017-09-16 06:14 | CP.PCM.PN ---
Subjective - Date & Time of Evaluation Date of Evaluation: 09/16/17 Time of Evaluation: 05:00 - Subjective Subjective: Vascular Surgery progress note for Dr. Haily Chung, PGY-1 Pt S & E at bedside. Pt reports hand pain improved with elevation of Right limb. Continues to require pain medication occasionally. Occasionally becomes cold. Slightly tolerating diet- does not like the hospital food. Denies F & C, chest pain, SOB , other complaints. Objective - Vital Signs/Intake and Output Vital Signs (last 24 hours): Temp Pulse Resp BP Pulse Ox 99.1 F 79 18 124/68 94 L 09/16/17 04:47 09/16/17 04:47 09/16/17 04:47 09/16/17 04:47 09/16/17 04:47 Intake and Output: 09/15/17 09/16/17 18:59 06:59 Intake Total 1195 Balance 1195 - Medications Medications: Current Medications Acetaminophen (Tylenol 325mg Tab) 650 mg PO Q6 PRN PRN Reason: Fever >100.4 F/ mild pain Last Admin: 09/14/17 14:43 Dose: 650 mg Albuterol (Ventolin Hfa 90 Mcg/Actuation (8 G)) 2 puff IH Q4 PRN PRN Reason: Shortness of Breath Albuterol/Ipratropium (Duoneb 3 Mg/0.5 Mg (3 Ml) Ud) 3 ml INH RQ4 [facility] Last Admin: 09/16/17 05:30 Dose: 3 ml Amlodipine Besylate (Norvasc) 10 mg PO DAILY [facility] Last Admin: 09/15/17 09:03 Dose: 10 mg Cinacalcet (Sensipar) 60 mg PO DAILY [facility] Last Admin: 09/15/17 09:00 Dose: 60 mg Iron Sucrose 100 mg/ Sodium (Chloride) 105 mls @ 105 mls/hr IVPB DAILY [facility] Stop: 09/18/17 09:01 Last Admin: 09/15/17 11:32 Dose: 105 mls/hr Sodium Chloride (Sodium Chloride 0.45%) 1,000 mls @ 70 mls/hr IV .[id number] [facility] Stop: 09/16/17 11:42 Last Admin: 09/16/17 03:11 Dose: Not Given Levothyroxine Sodium (Synthroid) 25 mcg PO DAILY@0630 [facility] Last Admin: 09/15/17 09:04 Dose: 25 mcg Loratadine (Claritin) 10 mg PO DAILY [facility] Last Admin: 09/15/17 09:04 Dose: 10 mg Metoprolol Succinate (Toprol Xl) 50 mg PO DAILY [facility] Last Admin: 09/15/17 09:04 Dose: 50 mg Ondansetron HCl (Zofran Inj) 4 mg IVP Q4 PRN PRN Reason: Nausea/Vomiting Oxycodone/Acetaminophen (Percocet 5/325 Mg Tab) 1 tab PO Q4 PRN PRN Reason: Pain, moderate (4-7) Stop: 09/17/17 13:33 Last Admin: 09/15/17 17:01 Dose: 1 tab Oxycodone/Acetaminophen (Percocet 5/325 Mg Tab) 2 tab PO Q4 PRN PRN Reason: Pain, severe (8-10) Stop: 09/19/17 02:11 Last Admin: 09/16/17 03:14 Dose: 2 tab Pantoprazole Sodium (Protonix Ec Tab) 40 mg PO DAILY [facility] Last Admin: 09/15/17 09:04 Dose: 40 mg Vitamin B Complex/Vit C/Folic Acid (Nephro-Maria Del Carmen) 1 tab PO DAILY [facility] Last Admin: 09/15/17 09:03 Dose: 1 tab - Labs Labs: 09/15/17 05:30 09/15/17 16:04 PT 12.2 Seconds (9.8-13.1) 09/14/17 08:06 INR 1.1 (0.9-1.2) 09/14/17 08:06 APTT 34.0 Seconds (25.6-37.1) 09/14/17 08:06 - Constitutional Appears: Non-toxic, No Acute Distress - Head Exam Head Exam: ATRAUMATIC, NORMAL INSPECTION, NORMOCEPHALIC - Eye Exam Eye Exam: EOMI, Normal appearance - ENT Exam ENT Exam: Mucous Membranes Moist, Normal Exam - Neck Exam Neck Exam: Full ROM, Normal Inspection - Respiratory Exam Respiratory Exam: Clear to Ausculation Bilateral, NORMAL BREATHING PATTERN - Cardiovascular Exam Cardiovascular Exam: REGULAR RHYTHM, +S1, +S2 - GI/Abdominal Exam GI & Abdominal Exam: Soft, Normal Bowel Sounds. absent: Distended (morbidly obese), Tenderness - Extremities Exam Additional comments: R antecubital fosssa with dressing in place, minimal serosanguinous strike through, non tender to palpation, no palpable thrill, audible bruit, warm extremity - Neurological Exam Neurological Exam: Alert, Awake, CN II-XII Intact, Oriented x3 - Psychiatric Exam Psychiatric exam: Normal Affect, Normal Mood - Skin Skin Exam: Dry, Intact, Normal Color, Warm Assessment and Plan - Assessment and Plan (Free Text) Assessment: 62F POD # 2 s/p Right upper extremity AVF creation, doing ok overnight. Plan: K 4.7 from 5.5 Cont to monitor electrolytes Please re-consult vascular if HD catheter needed Cont Mgmt as per primary team Thank you for this consult Will ELIA attending Juliet, PGY-1
[2017-09-16] MEDS: Levothyroxine 25 MCG TAB PO SCH (06:34)
[2017-09-16 07:53] LABS: CALCIUM 8.5 mg/dL (8.4-10.2); POTASSIUM 4.7 MMOL/L (3.6-5.0)
[2017-09-16] MEDS: Metoprolol Succinate 50 mg XL Tab PO SCH (08:07)
[2017-09-16] MEDS: Cinacalcet 60 MG TAB PO SCH (08:08)
[2017-09-16] MEDS: Multivitamin Vitamin B Complex (Nephro-Vite) Tab PO SCH (08:09)
[2017-09-16] MEDS: Pantoprazole 40 mg EC Tab PO SCH (08:09)
--- NOTE | 2017-09-16 11:03 | CP.PCM.PN ---
Subjective - Date & Time of Evaluation Date of Evaluation: 09/16/17 Time of Evaluation: 11:02 - Subjective Subjective: pt is seen and examined, follow up consult is dictated #[id number] Objective - Vital Signs/Intake and Output Vital Signs (last 24 hours): Temp Pulse Resp BP Pulse Ox 98.3 F 80 18 146/81 96 09/16/17 08:15 09/16/17 08:15 09/16/17 08:15 09/16/17 08:15 09/16/17 08:15 - Medications Medications: Current Medications Acetaminophen (Tylenol 325mg Tab) 650 mg PO Q6 PRN PRN Reason: Fever >100.4 F/ mild pain Last Admin: 09/14/17 14:43 Dose: 650 mg Albuterol (Ventolin Hfa 90 Mcg/Actuation (8 G)) 2 puff IH Q4 PRN PRN Reason: Shortness of Breath Albuterol/Ipratropium (Duoneb 3 Mg/0.5 Mg (3 Ml) Ud) 3 ml INH RQ4 [facility] Last Admin: 09/16/17 07:30 Dose: 3 ml Amlodipine Besylate (Norvasc) 10 mg PO DAILY [facility] Last Admin: 09/16/17 08:08 Dose: 10 mg Cinacalcet (Sensipar) 60 mg PO DAILY [facility] Last Admin: 09/16/17 08:08 Dose: 60 mg Home Med (Patient's Own Medication) 0 unit TOP Q8 [facility] Iron Sucrose 100 mg/ Sodium (Chloride) 105 mls @ 105 mls/hr IVPB DAILY [facility] Stop: 09/18/17 09:01 Last Admin: 09/15/17 11:32 Dose: 105 mls/hr Sodium Chloride (Sodium Chloride 0.45%) 1,000 mls @ 70 mls/hr IV .[id number] [facility] Stop: 09/16/17 11:42 Last Admin: 09/16/17 03:11 Dose: Not Given Levothyroxine Sodium (Synthroid) 25 mcg PO DAILY@0630 [facility] Last Admin: 09/16/17 06:34 Dose: 25 mcg Loratadine (Claritin) 10 mg PO DAILY [facility] Last Admin: 09/16/17 08:09 Dose: 10 mg Metoprolol Succinate (Toprol Xl) 50 mg PO DAILY [facility] Last Admin: 09/16/17 08:07 Dose: 50 mg Ondansetron HCl (Zofran Inj) 4 mg IVP Q4 PRN PRN Reason: Nausea/Vomiting Oxycodone/Acetaminophen (Percocet 5/325 Mg Tab) 1 tab PO Q4 PRN PRN Reason: Pain, moderate (4-7) Stop: 09/17/17 13:33 Last Admin: 09/15/17 17:01 Dose: 1 tab Oxycodone/Acetaminophen (Percocet 5/325 Mg Tab) 2 tab PO Q4 PRN PRN Reason: Pain, severe (8-10) Stop: 09/19/17 02:11 Last Admin: 09/16/17 08:11 Dose: 2 tab Pantoprazole Sodium (Protonix Ec Tab) 40 mg PO DAILY [facility] Last Admin: 09/16/17 08:09 Dose: 40 mg Vitamin B Complex/Vit C/Folic Acid (Nephro-Maria Del Carmen) 1 tab PO DAILY [facility] Last Admin: 09/16/17 08:09 Dose: 1 tab - Labs Labs: 09/15/17 05:30 09/16/17 05:20 PT 12.2 Seconds (9.8-13.1) 09/14/17 08:06 INR 1.1 (0.9-1.2) 09/14/17 08:06 APTT 34.0 Seconds (25.6-37.1) 09/14/17 08:06
[2017-09-16] MEDS: DICLOFENAC SODIUM 1% TOP SCH (17:38)
[2017-09-17] MEDS: Albuterol-Ipratrop 3 mg / 0.5 (3 ml) UD INH SCH ×6 (00:21→19:26)
[2017-09-17] MEDS: DICLOFENAC SODIUM 1% TOP SCH ×2 (02:02→09:18)
[2017-09-17] MEDS: Oxycodone/Acetaminophen 5/325 mg Tab PO PRN ×2 (05:57→10:45)
[2017-09-17] MEDS: Levothyroxine 25 MCG TAB PO SCH (07:30)
[2017-09-17] MEDS: Multivitamin Vitamin B Complex (Nephro-Vite) Tab PO SCH (09:08)
[2017-09-17] MEDS: Cinacalcet 60 MG TAB PO SCH (09:08)
[2017-09-17] MEDS: Pantoprazole 40 mg EC Tab PO SCH (09:08)
[2017-09-17] MEDS: Metoprolol Succinate 50 mg XL Tab PO SCH (09:09)
[2017-09-17 13:18] LABS: CALCIUM 8.2 mg/dL (8.4-10.2); POTASSIUM 4.4 MMOL/L (3.6-5.0)
--- NOTE | 2017-09-17 16:35 | PN ---
DATE: FOLLOWUP RENAL CONSULTATION LOCATION: Patient is located in room 414, bed 1. REQUESTED BY: Konstantin Brunner MD. REASON FOR FOLLOWUP: Acute renal failure on chronic kidney disease, hyperkalemia, for further evaluation, status post AV fistula. HISTORY OF PRESENT ILLNESS: Ms. Hidalgo is a 62-year-old obese female with a past medical history significant for hypertension, osteoarthritis, chronic kidney disease stage IV to V, hypothyroidism, hyperparathyroidism, was admitted electively for same day surgery for the AV fistula placement. Subsequently, the patient was admitted to telemetry for hypotension postop. The patient was initially given IV fluids, responded well, and subsequently IV fluids were discontinued last night. The patient was found to have hyperkalemia this morning. The patient was given Kayexalate 30 g x2 doses and also restarted on IV fluids with worsening renal function. The patient is not in acute distress. Denies any chest pain or palpitation. Denies any fever or cough. No abdominal pain. No nausea, vomiting, diarrhea. PHYSICAL EXAMINATION: VITAL SIGNS: As follows, blood pressure 145/71, pulse 77, respiration 18, temperature 98.7, saturation 97%. Height 5 feet 4 inches and weight is 304 pounds. GENERAL: Ms. Hidalgo is a 62-year-old obese elderly female, well built, well nourished, not in distress. HEENT: Pupils normal and reactive to light and accommodation. Conjunctivae pink. Sclerae anicteric. Tongue is moist. Trachea is midline. LUNGS: Symmetric on both sides. Bilateral breath sounds present. Clear on auscultation. CARDIOVASCULAR: [place] at the fifth intercostal space, midclavicular line. S1 and S2 audible. No murmur or gallop. ABDOMEN: Normal in appearance, soft, tympanic. No guarding. No rigidity. No hepatosplenomegaly. CENTRAL NERVOUS SYSTEM: The patient is alert, awake, oriented x3. Nonfocal neuro examination. Cranial nerves II through XII grossly intact. Sensory and motor system is within normal limits. EXTREMITIES: No cyanosis, no clubbing, no edema. LABORATORY DATA: Include as follows, as of 09/15/2017, WBC 9.3, hemoglobin 8.9, hematocrit is 31.3, MCV 73.9, platelets 231. Sodium 141, potassium is 6.2, chloride 108, CO2 of 24, BUN 61, creatinine 5.2, glucose is 110, and calcium is 9.0. ASSESSMENT: In summary, Ms. Hidalgo is a 62-year-old obese female with hypertension, osteoarthritis, hypothyroidism, hypoparathyroidism, chronic obstructive pulmonary disease, asthma, who was admitted to same-day surgery for an arteriovenous fistula placement, status post right elbow arteriovenous placement with a good bruit, status post hypotension postop with increase in BUN and creatinine and high potassium. 1. Acute renal failure, chronic kidney disease. 2. Hyperkalemia most likely secondary to worsening renal function. 3. Chronic obstructive pulmonary disease and asthma. 4. Anemia secondary to renal failure and iron deficiency anemia. The patient was given Kayexalate. PLAN: Repeat potassium at 03:00 p.m. and also we will start IV fluids half-normal saline at 70 mL per hour. Repeat BMP in the a.m., and low sodium and low potassium diet. We will follow with you. Consider ABG to rule out respiratory acidosis. Thank you for allowing me to participate in your patient's care. Ember Nicole MD
--- NOTE | 2017-09-17 16:35 | PN ---
DATE: 09/15/2017 SUBJECTIVE: She is not generally feeling well and she has exertional shortness of breath. PHYSICAL EXAMINATION: VITAL SIGNS: Blood pressure 145/71, temperature 98.7, respiratory rate 18, and pulse 77. HEENT: Pale mucosa of the conjunctiva. NECK: Supple. No JVD. No carotid bruit. No lymph node. No thyromegaly. CHEST/LUNGS: Bilateral symmetrical expansion. Good air exchange. No rales, no rhonchi. CARDIOVASCULAR: PMI not localized. S1 and S2. No additional sounds. ABDOMEN: Normoactive bowel sounds. No tenderness. No organomegaly. No masses. EXTREMITIES: There is dressing at the site of the surgery of the right upper arm. No cyanosis, no clubbing. 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 No neurological deficit could be appreciated. LABORATORY DATA: Blood work today showed potassium increased to 5.5, BUN of 60, and creatinine of 5.3. ASSESSMENT: 1. Hyperkalemia. 2. Chronic kidney disease stage V. 3. Gouty arthritis. 4. Morbid obesity. PLAN: We will give the patient Kayexalate x2 and we will discuss with the patient the possibility of the need for dialysis. Will be guided by the recommendations of dental chairside assistant. Konstantin Brunner MD
--- NOTE | 2017-09-17 16:40 | PN ---
DATE: FOLLOWUP RENAL CONSULTATION LOCATION: The patient is located in [facility], room 414, bed 1. REQUESTED BY: Dr. Konstantin Brunner. REASON FOR FOLLOWUP: Acute renal failure, chronic kidney disease, hyperkalemia status post right AV fistula. SUBJECTIVE: Mrs. Chaves is a 62 years old elderly, obese female with a past medical history significant for hypertension, chronic kidney disease, proteinuria, asthma, osteoarthritis, was admitted to Same Day surgery for the AV fistula placement. Her postop course was complicated by hypertension requiring admission to the telemetry and also the patient was found to have severe hyperkalemia yesterday status post treatment for the hyperkalemia with Kayexalate and IV fluids. Patient is feeling much better today and patient claims that she had a good breakfast and able to tolerate the food. No shortness of breath. No chest pain. No palpitations. No fever, no cough, no abdominal pain, no nausea, vomiting, or diarrhea today. PHYSICAL EXAMINATION: GENERAL: Mrs. Chaves is a 62 years old obese female well built, well nourished, not in distress. VITAL SIGNS: Her vital signs as follows; this morning, blood pressure 146/81, pulse 80, respirations 18, temperature 98.3, saturation 96%, height 5 feet 4 inches, her weight is 308 pounds. HEENT: Pupils normal, react to light and accommodation. Conjunctivae pink. Sclerae anicteric. Tongue is moist. Trachea is midline. LUNGS: Symmetric on both sides. Bilateral breath sounds present. Clear to auscultation. CARDIOVASCULAR SYSTEM: [place] at the fifth intercostal space, midclavicular line. S1 and S2 audible. No murmur or gallop. ABDOMEN: Normal in appearance. Soft, tympanic. No guarding. No hepatosplenomegaly. CENTRAL NERVOUS SYSTEMS: Patient is alert, awake, and oriented x3. Nonfocal neuro examination. Cranial nerves II through XII grossly intact. Sensory and motor system is within normal limits. EXTREMITIES: No cyanosis, no clubbing, no edema. CURRENT MEDICATIONS: Include as follows: Claritin 10 mg p.o. daily, DuoNeb inhaler, Venofer 100 mg daily, Nephro-Maria Del Carmen one tablet daily, amlodipine 10 mg daily, Percocet one tablet q.4 hours, Protonix 40 mg daily, Sensipar 60 mg p.o. daily, Synthroid 25 mcg p.o., metoprolol 50 mg p.o. daily, Tylenol, albuterol inhaler, and Zofran 4 mg IV q.4 hours p.r.n. LABORATORY DATA: Her laboratory data this morning includes as follows, as of 09/16/2017, sodium 139, potassium 4.7, chloride 107, CO2 of 24, BUN 56, creatinine 5.1, glucose 86, calcium is 8.5. ASSESSMENT: In summary, Mrs. Chaves is a 62 years old obese, female with a history of hypertension, asthma, chronic kidney disease, proteinuria, hypothyroidism, and hyperparathyroidism, who was admitted for the arteriovenous fistula. 1. Acute renal failure on chronic kidney disease, most likely secondary to hypertension. 2. Status post hypertension, now blood pressure is back to her baseline. 3. Anemia secondary to renal failure and iron deficiency. 4. Hypothyroidism. 5. Hyperparathyroidism. PLAN: Continue Sensipar, continue Synthroid, repeat BMP in a.m., reduce IV fluids and encourage p.o. fluid intake. No fluid restriction at this time and no Lasix at this time. Thank you for allowing me to participate in your patient's care. Ember Nicole MD MTDD
[2017-09-18] MEDS: Albuterol-Ipratrop 3 mg / 0.5 (3 ml) UD INH SCH ×7 (00:13→23:34)
[2017-09-18] MEDS: Oxycodone/Acetaminophen 5/325 mg Tab PO PRN ×4 (01:37→23:09)
[2017-09-18] MEDS: DICLOFENAC SODIUM 1% TOP SCH ×3 (01:40→18:55)
[2017-09-18] MEDS: Levothyroxine 25 MCG TAB PO SCH (06:26)
--- NOTE | 2017-09-18 07:13 | PN ---
DATE: 09/17/2017 SUBJECTIVE: Patient is seen today, 09/17/2017. She has generalized weakness with unsteadiness and need of walker to ambulate. PHYSICAL EXAMINATION: VITAL SIGNS: Blood pressure is 137/76, temperature 98.5, respiratory rate 20, and pulse 73. HEENT: Pupils equal, reactive to light. Normal-appearing mucosa of the conjunctivae, oropharynx, and nasal membrane mucosa. NECK: Supple. No JVD. No carotid bruit. No lymph node. No thyromegaly. CHEST AND LUNGS: Bilateral symmetrical expansion. Good air exchange. Decreased air entry, both lower lung [place]. CARDIOVASCULAR SYSTEM: PMI not localized. S1 and S2. No additional sounds. ABDOMEN: Normoactive bowel sounds. No tenderness. No organomegaly. No masses. EXTREMITIES: No cyanosis, no clubbing, no edema. CENTRAL NERVOUS SYSTEM: Alert, awake, oriented x3. No neurological deficit could be appreciated. ASSESSMENT: 1. Postoperative status post arteriovenous fistula placed on the right upper arm. 2. [id number] kidney injury. 3. Anemia, multifactorial. 4. History of gouty arthritis. 5. Hyperparathyroidism. PLAN: We can stop IV fluid and we will do physical therapy and discharge to subacute rehab if it is needed. We will hold amlodipine as blood pressure is getting low. Konstantin Brunner MD
[2017-09-18] MEDS: Multivitamin Vitamin B Complex (Nephro-Vite) Tab PO SCH (09:08)
[2017-09-18] MEDS: Cinacalcet 60 MG TAB PO SCH (09:08)
[2017-09-18] MEDS: Pantoprazole 40 mg EC Tab PO SCH (09:09)
[2017-09-18] MEDS: Metoprolol Succinate 50 mg XL Tab PO SCH (11:05)
[2017-09-18 11:06] LABS: CALCIUM 8.3 mg/dL (8.4-10.2); POTASSIUM 4.4 MMOL/L (3.6-5.0)
--- NOTE | 2017-09-18 11:33 | CP.PCM.PN ---
Subjective - Date & Time of Evaluation Date of Evaluation: 09/18/17 Time of Evaluation: 11:32 - Subjective Subjective: pt is seen and examined, follow up consult is dictated #[id number] Objective - Vital Signs/Intake and Output Vital Signs (last 24 hours): Temp Pulse Resp BP Pulse Ox 97.4 F L 73 18 156/73 H 95 09/18/17 07:58 09/18/17 11:05 09/18/17 07:58 09/18/17 11:05 09/18/17 07:58 - Medications Medications: Current Medications Acetaminophen (Tylenol 325mg Tab) 650 mg PO Q6 PRN PRN Reason: Fever >100.4 F/ mild pain Last Admin: 09/14/17 14:43 Dose: 650 mg Albuterol (Ventolin Hfa 90 Mcg/Actuation (8 G)) 2 puff IH Q4 PRN PRN Reason: Shortness of Breath Albuterol/Ipratropium (Duoneb 3 Mg/0.5 Mg (3 Ml) Ud) 3 ml INH RQ4 [facility] Last Admin: 09/18/17 07:55 Dose: 3 ml Cinacalcet (Sensipar) 60 mg PO DAILY [facility] Last Admin: 09/18/17 09:08 Dose: 60 mg Home Med (Patient's Own Medication) 0 unit TOP Q8 [facility] Last Admin: 09/18/17 09:10 Dose: 1 unit Levothyroxine Sodium (Synthroid) 25 mcg PO DAILY@0630 [facility] Last Admin: 09/18/17 06:26 Dose: 25 mcg Loratadine (Claritin) 10 mg PO DAILY [facility] Last Admin: 09/18/17 09:08 Dose: 10 mg Metoprolol Succinate (Toprol Xl) 50 mg PO DAILY [facility] Last Admin: 09/18/17 11:05 Dose: 50 mg Ondansetron HCl (Zofran Inj) 4 mg IVP Q4 PRN PRN Reason: Nausea/Vomiting Last Admin: 09/17/17 14:46 Dose: 4 mg Oxycodone/Acetaminophen (Percocet 5/325 Mg Tab) 2 tab PO Q4 PRN PRN Reason: Pain, severe (8-10) Stop: 09/19/17 02:11 Last Admin: 09/18/17 06:26 Dose: 2 tab Pantoprazole Sodium (Protonix Ec Tab) 40 mg PO DAILY [facility] Last Admin: 09/18/17 09:09 Dose: 40 mg Vitamin B Complex/Vit C/Folic Acid (Nephro-Maria Del Carmen) 1 tab PO DAILY [facility] Last Admin: 09/18/17 09:08 Dose: 1 tab - Labs Labs: 09/15/17 05:30 09/18/17 09:35 PT 12.2 Seconds (9.8-13.1) 09/14/17 08:06 INR 1.1 (0.9-1.2) 09/14/17 08:06 APTT 34.0 Seconds (25.6-37.1) 09/14/17 08:06
--- NOTE | 2017-09-18 13:04 | CP.PCM.PCO ---
Physician Communication Note - Physician Communication Note Physician Communication Note: Pls give pt soft ball to exercise R hand, warm blanket around R arm
[2017-09-19] MEDS: DICLOFENAC SODIUM 1% TOP SCH ×3 (01:03→09:36)
[2017-09-19] MEDS: Oxycodone/Acetaminophen 5/325 mg Tab PO PRN ×3 (04:10→09:40)
[2017-09-19] MEDS: Albuterol-Ipratrop 3 mg / 0.5 (3 ml) UD INH SCH ×3 (04:45→11:34)
[2017-09-19] MEDS: Levothyroxine 25 MCG TAB PO SCH (05:31)
[2017-09-19 06:11] VITALS: RESP 18
--- NOTE | 2017-09-19 07:52 | PN ---
DATE: FOLLOWUP RENAL CONSULTATION LOCATION: The patient is located in telemetry room 414, bed 1. REQUESTED BY: Konstantin Brunner MD REASON FOR FOLLOWUP: Renal failure, status post right elbow AV fistula placement. HISTORY OF PRESENT ILLNESS: Ms. Hidalgo is a 62-year-old morbidly obese female with a past medical history significant for longstanding hypertension, chronic kidney disease, hypothyroidism, hyperparathyroidism, asthma, COPD, with worsening renal function and proteinuria, underwent right upper extremity AV fistula placement, now the patient was complaining of pain in the right arm on and off, and also occasional tingling sensation. Denies any chest pain or palpitation. Denies any fever or cough. No nausea, vomiting, diarrhea. PHYSICAL EXAMINATION: VITAL SIGNS: As follows, blood pressure 156/73, pulse 73, respirations 18, temperature 98.6. Height 5 feet 4 inches, weight is 308 pounds. GENERAL: Ms. Hidalgo is a 62-year-old obese elderly female, well built, well nourished, not in distress. HEENT: Pupils normal, reactive to light and accommodation. Conjunctiva pink. Sclerae anicteric. Tongue is moist. Trachea is midline. LUNGS: Symmetric on both sides. Bilateral breath sounds present. Clear on auscultation. CARDIOVASCULAR: [place] at the fifth intercostal space, midclavicular line. S1 and S2 audible. No murmur or gallop. ABDOMEN: Protuberant, soft, tympanic. No guarding. No rigidity. No hepatosplenomegaly. CENTRAL NERVOUS SYSTEM: The patient is alert, awake, oriented x3. Nonfocal neuro examination. Cranial nerves II through XII grossly intact. Sensory and motor system is within normal limits. EXTREMITIES: No cyanosis, no clubbing, no edema. The patient has a good bruit over the right elbow AV fistula. Right arm, fingers have slightly bluish discoloration, but patient has very good hand public policy mediator in the right upper extremity. Weakness on the left upper extremity and public policy mediator, with pain in the wrist. CURRENT MEDICATIONS: Include as follows, Claritin 10 mg p.o. daily, DuoNeb inhaler, Nephro-Maria Del Carmen 1 tablet daily, Percocet tablets p.o. q.4h. p.r.n., Protonix 40 mg p.o. daily, Sensipar 60 mg p.o. daily, Synthroid 25 mcg daily, Toprol-XL 50 mg p.o. daily, Tylenol, Ventolin, and Zofran. LABORATORY DATA: Include as follows, as of 09/18/2017, sodium 137, potassium 4.4, chloride 103, CO2 of 23, BUN 59, creatinine 5.2, glucose 110, and calcium 8.3. GFR is about 10. I's and O's as of 09/17/2017, intake is 1570 and unable to quantify urine output. ASSESSMENT AND PLAN: In summary, Ms. Hidalgo is a 62-year-old obese female with hypertension, renal failure, proteinuria, worsening renal function, hypothyroidism, hyperparathyroidism, and low hemoglobin and hematocrit. 1. 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 2. Hypertension. 3. Anemia secondary to renal failure and iron deficiency anemia. Continue Procrit 3 times a week, and repeat CBC and BMP in the a.m. Check 24-hour urine protein, creatinine, creatinine clearance, and continue Nephrocaps, and we will also check phosphorus and PTH intact level in a.m. No need for emergency hemodialysis at this time. Case discussed with Dr. Brunner, agree with the plan. Thank you for allowing me to participate in your patient's care and follow up with Vascular Surgery to rule out any steal syndrome. Ember Nicole MD
--- NOTE | 2017-09-19 07:54 | PN ---
DATE: 09/18/2017 SUBJECTIVE: The patient is seen today, 09/18/2017. She complains of bluish discoloration of the right more than left hand. PHYSICAL EXAMINATION: VITAL SIGNS: Blood pressure 114/68, temperature 99.1, respiratory rate 20, and pulse 66. HEENT: Pupils equal, reactive to light. Normal-appearing mucosa of the conjunctivae, oropharynx, and nasal membrane mucosa. NECK: Supple. No JVD. No carotid bruit. No lymph node. No thyromegaly. CHEST AND LUNGS: Bilateral symmetrical expansion. Good air exchange. No rales. No rhonchi. CARDIOVASCULAR SYSTEM: PMI not localized. S1 and S2. No additional sounds. ABDOMEN: Normoactive bowel sounds. No tenderness. No organomegaly. No masses. EXTREMITIES: No cyanosis. No clubbing. No edema. CENTRAL NERVOUS SYSTEM: Alert, awake, oriented x3. No neurological deficits could be appreciated. ASSESSMENT: 1. Postoperative day #4 status post right upper arm IV fistula. 2. Anemia, multifactorial. 3. Worsening of kidney function with BUN of 59 and creatinine 5.2. 4. Gouty arthritis. 5. Morbid obesity. PLAN: We will continue current medications. Discussed the patient's condition with Dr. Nicole. We will re-consult Vascular Surgery regarding the bluish discoloration. Physical therapy. Plan to discharge to Transitional Care Unit for deconditioning. Collect urine 24 hours for creatinine clearance and protein. Konstantin Brunner MD
[2017-09-19] MEDS: Multivitamin Vitamin B Complex (Nephro-Vite) Tab PO SCH (09:35)
[2017-09-19] MEDS: Pantoprazole 40 mg EC Tab PO SCH (09:36)
[2017-09-19] MEDS: Cinacalcet 60 MG TAB PO SCH (09:36)
[2017-09-19] MEDS: Metoprolol Succinate 50 mg XL Tab PO SCH (09:37)
--- NOTE | 2017-09-19 11:00 | CP.PCM.PN ---
Subjective - Date & Time of Evaluation Date of Evaluation: 09/19/17 Time of Evaluation: 10:59 - Subjective Subjective: pt is seen and examiend, follow up consult is dictated #[id number] will add epogen 04947 units sc TTS, first dose today Objective - Vital Signs/Intake and Output Vital Signs (last 24 hours): Temp Pulse Resp BP Pulse Ox 99.3 F 77 18 120/66 93 L 09/19/17 08:00 09/19/17 09:37 09/19/17 08:00 09/19/17 09:37 09/19/17 08:00 - Medications Medications: Current Medications Acetaminophen (Tylenol 325mg Tab) 650 mg PO Q6 PRN PRN Reason: Fever >100.4 F/ mild pain Last Admin: 09/14/17 14:43 Dose: 650 mg Albuterol (Ventolin Hfa 90 Mcg/Actuation (8 G)) 2 puff IH Q4 PRN PRN Reason: Shortness of Breath Albuterol/Ipratropium (Duoneb 3 Mg/0.5 Mg (3 Ml) Ud) 3 ml INH RQ4 [facility] Last Admin: 09/19/17 08:11 Dose: 3 ml Cinacalcet (Sensipar) 60 mg PO DAILY [facility] Last Admin: 09/19/17 09:36 Dose: 60 mg Home Med (Patient's Own Medication) 0 unit TOP Q8 [facility] Last Admin: 09/19/17 09:36 Dose: 1 unit Lactulose (Enulose) 10 gm PO DAILY PRN PRN Reason: Constipation Last Admin: 09/19/17 09:41 Dose: 10 gm Levothyroxine Sodium (Synthroid) 25 mcg PO DAILY@0630 [facility] Last Admin: 09/19/17 05:31 Dose: 25 mcg Loratadine (Claritin) 10 mg PO DAILY [facility] Last Admin: 09/19/17 09:35 Dose: 10 mg Metoprolol Succinate (Toprol Xl) 50 mg PO DAILY [facility] Last Admin: 09/19/17 09:37 Dose: 50 mg Ondansetron HCl (Zofran Inj) 4 mg IVP Q4 PRN PRN Reason: Nausea/Vomiting Last Admin: 09/17/17 14:46 Dose: 4 mg Oxycodone/Acetaminophen (Percocet 5/325 Mg Tab) 2 tab PO Q4 PRN PRN Reason: Pain, severe (8-10) Stop: 09/22/17 04:01 Last Admin: 09/19/17 09:40 Dose: 2 tab Pantoprazole Sodium (Protonix Ec Tab) 40 mg PO DAILY [facility] Last Admin: 09/19/17 09:36 Dose: 40 mg Vitamin B Complex/Vit C/Folic Acid (Nephro-Maria Del Carmen) 1 tab PO DAILY [facility] Last Admin: 09/19/17 09:35 Dose: 1 tab - Labs Labs: 09/15/17 05:30 09/18/17 09:35 PT 12.2 Seconds (9.8-13.1) 09/14/17 08:06 INR 1.1 (0.9-1.2) 09/14/17 08:06 APTT 34.0 Seconds (25.6-37.1) 09/14/17 08:06
[2017-09-19] MEDS ORDERED: EPOETIN ALFA 10,000 UNIT/ML ML SC SCH (11:45)
[2017-09-19 12:13] VITALS: BP 115/68; PULSE 80; TEMP 99.4; O2SAT 94
--- NOTE | 2017-09-19 22:02 | PN ---
DATE: FOLLOWUP RENAL CONSULTATION LOCATION: Room 414, bed 1. REQUESTING PHYSICIAN: Konstantin Brunner MD. REASON FOR FOLLOWUP: CKD 5, hypertension, status post AV fistula, status post hyperkalemia, for further evaluation. SUBJECTIVE: Mrs. Hidalgo is a 62-year-old morbidly obese female with a past medical history significant for long-standing hypertension, osteoarthritis, hypothyroidism, hyperparathyroidism, who initially came to [facility] for AV fistula placement and subsequently patient developed hypotension post AV fistula placement and subsequently admitted to telemetry for further management. Hospital course is complicated by hyperkalemia and worsening renal function, requiring treatment for hyperkalemia and IV hydration. Patient is feeling better this morning. Patient has complaints of pain the left wrist and slight pain in the right hand. No chest pain. No palpitation. No fever. No cough. No abdominal pain. No nausea, vomiting, diarrhea. PHYSICAL EXAMINATION: VITAL SIGNS: This morning as follows: Blood pressure is 120/66, pulse 77, respiration 18, temperature 99.4, saturation 94%. Height 5 feet 4 inches, weight is 308 pounds. GENERAL: Mrs. Hidalgo is a 62-year-old obese female, morbidly obese, not in distress. HEENT: Pupils normal, reactive to light and accommodation. Conjunctiva pink. Sclerae anicteric. Tongue is moist. Trachea is midline. LUNGS: Symmetric on both sides. Bilateral breath sounds present. Clear on auscultation. CARDIOVASCULAR SYSTEM: [place] at the fifth intercostal space, midclavicular line. S1 and S2 audible. No murmur or gallop. ABDOMEN: Normal in appearance, soft, tympanic. No guarding. No rigidity. No hepatosplenomegaly. Abdomen is protuberant. CENTRAL NERVOUS SYSTEM: Patient is alert, awake, oriented x3. Nonfocal neuro examination. Cranial nerves II through XII grossly intact. Sensory and motor system is within normal limits. EXTREMITIES: No cyanosis, no clubbing, no edema. LABORATORY DATA: As of 09/18/2017, sodium 137, potassium 4.4, chloride 103, CO2 of 23, BUN 59, creatinine 5.2, glucose 110, and calcium 8.3. Accu-Chek this morning is 97. No other labs are available. MEDICATIONS: Reviewed. Claritin 10 mg p.o. daily, DuoNeb inhaler, lactulose, Nephro-Maria Del Carmen, Percocet two tablets p.o. q. 4 hours. p.r.n., Procrit 10,000 units three times a week, Protonix 40 mg daily, Sensipar 60 mg p.o. daily, Synthroid 25 mcg daily, metoprolol 50 mg p.o. daily, albuterol inhaler two puffs q. 4 hours. ASSESSMENT AND PLAN: In summary, Mrs. Hidalgo is a 62-year-old elderly obese female with a history of hypertension, morbidly obese, osteoarthritis, hypothyroidism, hyperparathyroidism, renal failure with worsening creatinine slowly, status post hyperkalemia and status post right upper extremity arteriovenous fistula placement. 1. Renal failure, chronic kidney disease 4 to 5, most likely secondary to hypertension and nephrosclerosis, cannot rule out underlying chronic glomerulonephritis secondary to focal segmental glomerulosclerosis, secondary to morbid obesity. 2. Anemia secondary to renal failure. Continue Epogen 3 times a week and continue Nephrocaps. 3. Hypertension, blood pressure is stable. Continue her current medications including metoprolol and amlodipine. Continue physical therapy for possible transfer to transitional care unit for ambulational therapy. Case discussed with the patient's nurse in rounds regarding the plan. Thank you for allowing me to participate in your patient's care. Ember Nicole MD
--- NOTE | 2017-09-20 12:17 | DS ---
REASON FOR ADMISSION: This is a 62-year-old female who was admitted to telemetry floor postoperative status after right arm AV fistula. COURSE OF HOSPITALIZATION: Patient was admitted to telemetry floor and she had hyperkalemia for which patient was given frequent doses of Kayexalate. Patient also was advised for possible hemodialysis if she will continue to feel generalized weakness and fatigue. Patient had vascular surgery followup while she was in the floor. Patient was started on physical therapy and discharged to the Transitional Care Unit for further management and deconditioning. FINAL DIAGNOSES: 1. Chronic kidney disease, stage V. 2. Status post right upper arm arteriovenous fistula. 3. Hypertension. 4. Gouty arthritis. [facility] MD Kannan
--- NOTE | 2017-10-01 09:23 | CON ---
FOLLOWUP RENAL CONSULTATION LOCATION: Patient is located in room 713, bed 1, transitional care unit. REQUESTED BY: Konstantin Brunner MD. REASON FOR FOLLOWUP: CKD IV, further evaluation. HISTORY OF PRESENT ILLNESS: Ms. Hidalgo is a 62 years old obese female with a history of hypertension, COPD, asthma, hypothyroidism and also hyperparathyroidism, primary CKD IV, was admitted to rehab after transfer from the medical floor, admitted for right upper extremity AV fistula. The patient is feeling much better, not in acute distress. No chest pain, no palpitation, no fever, no cough. Patient has complaints of persistent bilateral leg swelling. PHYSICAL EXAMINATION: VITAL SIGNS: As follows: Blood pressure 138/71, pulse 70, respirations 20, temperature 98.2, saturation 96%. Height 5 feet 4 inches, weight is 316 pounds. GENERAL: Ms. Hidalgo is a 62 years old morbidly obese female, well built, well nourished, not in distress. HEENT: Pupils are normal, reactive to light and accommodation. Conjunctivae pink. Sclerae are anicteric. Tongue is moist. Trachea is midline. LUNGS: Symmetric on both sides. Bilateral breath sounds present. Clear on auscultation. CARDIOVASCULAR SYSTEM: [place] at the fifth intercostal space, midclavicular line, S1, S2 audible. No murmur, gallop. ABDOMEN: Protuberant, soft, tympanic. No guarding, no rigidity, no hepatosplenomegaly. CENTRAL NERVOUS SYSTEM: Patient is alert, awake, oriented x3, nonfocal neuro examination. Cranial nerves II through XII grossly intact. Sensory and motor system is within normal limits. EXTREMITIES: No cyanosis, no clubbing. Patient has a 2+ edema in both lower extremities. Right upper extremity AV fistula, patient has a good bruit. CURRENT MEDICATIONS: Include as follows: Claritin 10 mg p.o. daily, DuoNeb inhaler, lactulose 10 g p.o. daily, ferrous gluconate 324 mg p.o. b.i.d., Lasix 40 mg p.o. daily, Maalox 30 mL q. 4 hours p.r.n., MiraLax, also Nephro-Maria Del Carmen one tablet daily, Pamelor 25 mg p.o. at bedtime, Percocet two tablets q. 4 hours p.r.n., Epogen 20,000 units subcu 3 times a week, Protonix 40 mg daily, Renvela 800 mg two tablets p.o. t.i.d., Sensipar 60 mg p.o. daily, levothyroxine 25 mcg p.o. daily, metoprolol 50 mg p.o. daily, and albuterol two puffs inhaler q. 4 hours p.r.n. LABORATORY DATA: No new labs are available for today. As of 09/27/2017, WBC 4.7, hemoglobin 8, hematocrit is 26.7, MCV is 72.4, and platelets 274. Sodium 136, potassium is 5, chloride 102, CO2 of 24, BUN 68, creatinine 4.8, glucose 84, calcium 8.4. Total bili 0.3, AST 22, ALT 30, alkaline phosphatase 71, total protein 6.5, albumin is 3.3. ASSESSMENT AND PLAN: In summary, Ms. Hidalgo is a 62 years old elderly morbidly obese female with hypertension, chronic kidney disease IV, proteinuria, chronic obstructive pulmonary disease, asthma, hypothyroidism, hyperparathyroidism, status post arteriovenous fistula with bilateral carpal tunnel syndrome. 1. Chronic kidney disease IV, most likely secondary to hypertension or nephrosclerosis, cannot rule out underlying chronic due to morbid obesity. 2. Hypertension, blood pressure is stable. Continue her current medications, metoprolol 50 mg p.o. daily. 3. Bilateral lower extremity edema, most likely fluid overload. We will increase Lasix to 40 mg p.o. b.i.d. 4. Anemia secondary to renal failure. Continue ferrous gluconate, continue Nephro-Maria Del Carmen one tablet daily, and Procrit and repeat CBC and BMP in a.m. Restrict fluids to 1500 mL per day. Thank you for allowing me to participate in your patient's care. Ember Nicole MD
--- NOTE | 2017-10-03 08:40 | OP ---
PROCEDURE DATE: 09/14/2017 PREOPERATIVE DIAGNOSIS: End-stage renal disease. POSTOPERATIVE DIAGNOSIS: End-stage renal disease. PROCEDURE: Creation of right brachiocephalic arteriovenous fistula. SURGEON: Matt Mcfarland MD COMPLICATIONS: No complications. INDICATIONS: Ms. Hidalgo is 62-year-old female patient with multiple medical problems. The patient had end-stage renal disease and on hemodialysis via left IJ PermCath. The patient was brought for creation of AV fistula. Risks and benefits explained to her and her family, and they agreed to proceed. DESCRIPTION OF PROCEDURE: The patient came to the operating room. She was lying in a supine position. She was prepped and draped in the usual sterile fashion. Sedation was given for her and local anesthesia with 1% lidocaine was used to infiltrate the right arm. Incision was made transversely at the lower crease of the arm. Incision was carried down to the subcutaneous tissue down to the fascia. We dissected subcutaneously to identify the cephalic vein and dissected the cephalic vein proximally and distally, and we ligated it far distally to be able to move it forward through the brachial artery. After we have a good length of the cephalic vein, we started to dissect the brachial artery. Dissection of brachial artery done on the anterior surface of the artery. We dissected the vena comitans going with the artery and we cleared about 1-1/2 to 2 inches of the artery where the anastomosis which was done was used to control the artery. A 5000 units of heparin was given, and using #11 blade, I opened the brachial artery and extended the incision using a Pott scissors. I fashioned the end of the cephalic artery in such a way to be able to fit with the arteriotomy. 6-0 Prolene was used to do the end-to-side anastomosis between the vein and the artery. Before we started to do the anastomosis, Silvia catheter was used to check the patency of the vein for any blockage in it and passage up to this entire vein was no problem. Before the last stage of anastomosis, I flushed the artery forward and backward and so I allowed back polanco or back flow from the vein and then injected heparin, saline and after that I finished the last couple of stitches. Hemostasis was checked and it was found there was an excellent thrill in the fistula and there is a good distal perfusion and distal pulse in the radial artery. No complication. The patient tolerated the procedure well. We irrigated the wound several times with saline solution and we closed in layer using 3-0 Vicryl and 4-0 Monocryl for the skin. No complication during the procedure. The patient tolerated well and transferred to recovery room and after that, be back to the floor. Matt Mcfarland MD
== END 2017-09-19 13:45 | DRG 674 ==
LOC: H.OPSURG 07:23 → H.TEL 13:49 → OBSVTOIN 09-15 10:29
PROVIDERS: ADMIT Internal Medicine; ATTEND Internal Medicine
PROC: 03170ZD Bypass Right Brachial Artery to Upper Arm Vein, Open Approach (ICD-10-PCS; principal; 2017-09-14 09:15)
DX: N17.9 Acute kidney failure, unspecified (principal); I12.0 Hypertensive chronic kidney disease with stage 5 chronic kidney disease or end stage renal disease; E66.01 Morbid (severe) obesity due to excess calories; Z68.43 Body mass index [BMI] 50.0-59.9, adult; E87.5 Hyperkalemia; N18.5 Chronic kidney disease, stage 5; D63.1 Anemia in chronic kidney disease; I95.81 Postprocedural hypotension; E21.0 Primary hyperparathyroidism; E20.9 Hypoparathyroidism, unspecified; E03.9 Hypothyroidism, unspecified; D50.9 Iron deficiency anemia, unspecified; G47.33 Obstructive sleep apnea (adult) (pediatric); M10.9 Gout, unspecified; J44.9 Chronic obstructive pulmonary disease, unspecified; M19.90 Unspecified osteoarthritis, unspecified site; Z99.2 Dependence on renal dialysis; Z88.6 Allergy status to analgesic agent; Z91.013 Allergy to seafood

== ENCOUNTER 2017-09-19 11:28 | Inpatient (IN) | payer BC, OTHER ==
[2017-09-19 14:21] VITALS: BMI 54.1
[2017-09-19] MEDS ORDERED: Albuterol HFA 90 mcg/actuation (8 g) IH PRN (15:01)
[2017-09-19 15:32] VITALS: RESP 20
[2017-09-19] MEDS: Albuterol-Ipratrop 3 mg / 0.5 (3 ml) UD INH SCH ×2 (16:20→19:20)
[2017-09-19] MEDS: Oxycodone/Acetaminophen 5/325 mg Tab PO PRN (16:26)
[2017-09-20] MEDS: Albuterol-Ipratrop 3 mg / 0.5 (3 ml) UD INH SCH ×6 (00:05→19:05)
[2017-09-20] MEDS: Oxycodone/Acetaminophen 5/325 mg Tab PO PRN ×4 (02:18→20:07)
[2017-09-20] MEDS: Levothyroxine 25 MCG TAB PO SCH (05:54)
[2017-09-20] MEDS: Pantoprazole 40 mg EC Tab PO SCH (08:21)
[2017-09-20] MEDS: Metoprolol Succinate 50 mg XL Tab PO SCH (08:21)
[2017-09-20] MEDS: Multivitamin Vitamin B Complex (Nephro-Vite) Tab PO SCH (08:21)
[2017-09-20] MEDS: Cinacalcet 60 MG TAB PO SCH (08:21)
--- NOTE | 2017-09-20 17:07 | CP.PCM.CON ---
History of Present Illness - History of Present Illness History of Present Illness: Dr Marino PMR consultation on Cori Hidalgo, born 1955, who has been admitted to [facility] TCU for acute rehab following a right AV shunt procedure. She is morbidly obese. +HTN/DM. She has bilateral hand swelling and numbness worse on the left than right. The right has sharp pains and numbness after the surgery. She has not had an emg/ncs which will clearly need to be performed. I told her that I would bring my machine in either or monday to proceed with the study Review of Systems - Constitutional Constitutional: absent: Anorexia, Chills - EENT Eyes: absent: Change in Vision Ears: absent: Decreased Hearing, Ear Discharge Nose/Mouth/Throat: absent: Nasal Congestion - Cardiovascular Cardiovascular: absent: Chest Pain - Respiratory Respiratory: Dyspnea on Exertion - Gastrointestinal Gastrointestinal: absent: Abdominal Pain - Neurological Neurological: Numbness, Paresthesias, Weakness. absent: Disequilibrium Past Patient History - Infectious Disease Hx of Infectious Diseases: None - Past Medical History & Family History Past Medical History?: Yes - Past Social History Smoking Status: Former Smoker Alcohol: Occasional Drugs: Denies - CARDIAC Hx Cardiac Disorders: Yes (htn) Hx Congestive Heart Failure: Yes (pulmonary congestion) - PULMONARY Hx Chronic Obstructive Pulmonary Disease (COPD): Yes (asthma, bronchitis) - HEENT Hx Epistaxis: Yes (at young age) - RENAL Hx Chronic Kidney Disease: Yes Other/Comment: CKD-no dialysis - ENDOCRINE/METABOLIC Hx Hypothyroidism: Yes - HEMATOLOGICAL/ONCOLOGICAL Hx AIDS: No Hx Anemia: Yes Hx Human Immunodeficiency Virus (HIV): No - MUSCULOSKELETAL/RHEUMATOLOGICAL Hx 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) - GASTROINTESTINAL Hx Diverticulitis: Yes Hx Gastroesophageal Reflux: Yes - PSYCHIATRIC Hx Substance Use: No - SURGICAL HISTORY Hx Herniorrhaphy: Yes (8 yrs ago) Other/Comment: lap band 8 yrs ago,obesity - ANESTHESIA Hx Anesthesia: Yes Hx Anesthesia Reactions: No Hx Malignant Hyperthermia: No Meds Allergies/Adverse Reactions: Allergies Allergy/AdvReac Type Severity Reaction Status Date / Time aspirin Allergy other Verified 09/19/17 13:26 metoclopramide HCl Allergy other Verified 09/19/17 13:26 [From Reglan] shellfish derived Allergy SWELLING Verified 09/19/17 13:26 - Medications Medications: Current Medications Albuterol (Ventolin Hfa 90 Mcg/Actuation (8 G)) 2 puff IH Q4 PRN PRN Reason: Shortness of Breath Albuterol/Ipratropium (Duoneb 3 Mg/0.5 Mg (3 Ml) Ud) 3 ml INH RQ4 [facility] Last Admin: 09/20/17 16:02 Dose: 3 ml Cinacalcet (Sensipar) 60 mg PO DAILY [facility] Last Admin: 09/20/17 08:21 Dose: 60 mg Epoetin [place] (Procrit) 10,000 unit SC TTS [facility] Home Med (Diclofenac Sodium [Voltaren]) 100 gm TP Q8 PRN PRN Reason: Pain, moderate (4-7) Lactulose (Enulose) 10 gm PO DAILY PRN PRN Reason: Constipation Levothyroxine Sodium (Synthroid) 25 mcg PO DAILY@0630 [facility] Last Admin: 09/20/17 05:54 Dose: 25 mcg Loratadine (Claritin) 10 mg PO DAILY [facility] Last Admin: 09/20/17 08:21 Dose: 10 mg Metoprolol Succinate (Toprol Xl) 50 mg PO DAILY [facility] Last Admin: 09/20/17 08:21 Dose: 50 mg Oxycodone/Acetaminophen (Percocet 5/325 Mg Tab) 2 tab PO Q4 PRN PRN Reason: Pain, severe (8-10) Stop: 09/22/17 15:02 Last Admin: 09/20/17 09:50 Dose: 2 tab Pantoprazole Sodium (Protonix Ec Tab) 40 mg PO DAILY [facility] Last Admin: 09/20/17 08:21 Dose: 40 mg Vitamin B Complex/Vit C/Folic Acid (Nephro-Maria [place] Carmen) 1 tab PO DAILY [facility] Last Admin: 09/20/17 08:21 Dose: 1 tab Physical Exam - Constitutional Appears: Non-toxic, No Acute Distress - Head Exam Head Exam: ATRAUMATIC, NORMAL INSPECTION, NORMOCEPHALIC (Obese) - Eye Exam Eye Exam: EOMI - ENT Exam ENT Exam: Mucous Membranes Moist - Respiratory Exam Respiratory Exam: NORMAL BREATHING PATTERN - Cardiovascular Exam Cardiovascular Exam: REGULAR RHYTHM - GI/Abdominal Exam GI & Abdominal Exam: Distended. absent: Firm Results - Vital Signs Recent Vital Signs: Last Vital Signs Temp 97.9 F 12/06/17 15:41 Pulse 86 09/20/17 15:42 Resp 20 09/20/17 15:41 BP 114/58 L 09/20/17 15:41 Pulse Ox 96 09/20/17 15:42 Assessment & Plan - Assessment and Plan (Free Text) Assessment: I will do an emg/ncs on Cori to determine presence of weakness and radicular pain. I will start on Marty as well
--- NOTE | 2017-09-20 17:28 | CP.PCM.PN ---
Subjective - Date & Time of Evaluation Date of Evaluation: 09/20/17 Time of Evaluation: 17:26 - Subjective Subjective: Vascular surgery progress note for Dr. Mcfarland-Nicole Chung, PGY-1 Pt S & E at bedside. Pt reports marked improvement in RUE pain- decreased frequency and duration. Pt reports occasional episodes of coldness to RUE, some bluish discoloration. Denies N & V- tolerating diet. Spoke with Dr. Brunner who is concerned about possibility of Steal Syndrome- asked to have pt seen every few days while in TCU. Objective - Vital Signs/Intake and Output Vital Signs (last 24 hours): Temp Pulse Resp BP Pulse Ox 97.9 F 86 20 114/58 L 96 09/20/17 15:41 09/20/17 15:42 09/20/17 15:41 09/20/17 15:41 09/20/17 15:42 - Medications Medications: Current Medications Albuterol (Ventolin Hfa 90 Mcg/Actuation (8 G)) 2 puff IH Q4 PRN PRN Reason: Shortness of Breath Albuterol/Ipratropium (Duoneb 3 Mg/0.5 Mg (3 Ml) Ud) 3 ml INH RQ4 [facility] Last Admin: 09/20/17 16:02 Dose: 3 ml Cinacalcet (Sensipar) 60 mg PO DAILY [facility] Last Admin: 09/20/17 08:21 Dose: 60 mg Epoetin [place] (Procrit) 10,000 unit SC TTS [facility] Home Med (Diclofenac Sodium [Voltaren]) 100 gm TP Q8 PRN PRN Reason: Pain, moderate (4-7) Lactulose (Enulose) 10 gm PO DAILY PRN PRN Reason: Constipation Levothyroxine Sodium (Synthroid) 25 mcg PO DAILY@0630 [facility] Last Admin: 09/20/17 05:54 Dose: 25 mcg Loratadine (Claritin) 10 mg PO DAILY [facility] Last Admin: 09/20/17 08:21 Dose: 10 mg Metoprolol Succinate (Toprol Xl) 50 mg PO DAILY [facility] Last Admin: 09/20/17 08:21 Dose: 50 mg Nortriptyline HCl (Pamelor) 25 mg PO HS [facility] Oxycodone/Acetaminophen (Percocet 5/325 Mg Tab) 2 tab PO Q4 PRN PRN Reason: Pain, severe (8-10) Stop: 09/22/17 15:02 Last Admin: 09/20/17 09:50 Dose: 2 tab Pantoprazole Sodium (Protonix Ec Tab) 40 mg PO DAILY [facility] Last Admin: 09/20/17 08:21 Dose: 40 mg Vitamin B Complex/Vit C/Folic Acid (Nephro-Maria [place] Carmen) 1 tab PO DAILY [facility] Last Admin: 09/20/17 08:21 Dose: 1 tab - Constitutional Appears: Non-toxic, No Acute Distress - Head Exam Head Exam: ATRAUMATIC, NORMAL INSPECTION, NORMOCEPHALIC - Eye Exam Eye Exam: EOMI, Normal appearance - ENT Exam ENT Exam: Mucous Membranes Moist, Normal Exam - Neck Exam Neck Exam: Full ROM, Normal Inspection - Respiratory Exam Respiratory Exam: NORMAL BREATHING PATTERN - Cardiovascular Exam Cardiovascular Exam: REGULAR RHYTHM, +S1, +S2 - Extremities Exam Extremities Exam: Tenderness (over left wrist) Additional comments: Right radial and ulnar pulses palpable, RUE non tender, bruit over antecubital fossa, no palpable thrill, dressing in place- some dried strike through. Hand and fingers are warm, slight bluish discoloration, however not marked compared to left hand. Full motor strength. - Neurological Exam Neurological Exam: Alert, Awake, CN II-XII Intact, Oriented x3 - Psychiatric Exam Psychiatric exam: Normal Affect, Normal Mood - Skin Skin Exam: Dry, Intact, Warm Assessment and Plan - Assessment and Plan (Free Text) Assessment: 62F POD#6 s/p R AVF creation- doing well, pain improving Plan: Monitor pulses pain control Encourage hand exercises Warm blanked to RUE Further mgmt as per primary team Will ELIA attending Juliet, PGY-1
[2017-09-21] MEDS: Albuterol-Ipratrop 3 mg / 0.5 (3 ml) UD INH SCH ×6 (00:27→19:11)
[2017-09-21] MEDS: Oxycodone/Acetaminophen 5/325 mg Tab PO PRN ×3 (02:32→20:42)
--- NOTE | 2017-09-21 04:29 | HP ---
HISTORY OF PRESENT ILLNESS: This is a 62-year-old female with history of multiple medical problems, recently was admitted to acute care floor post AV fistula placement on the right upper arm. Patient was complaining of pain in both hands with some bluish discoloration. Patient also was complaining of generalized weakness and unsteadiness. Patient denied having any chest pain. Positive exertional shortness of breath symptoms. OTHER REVIEW OF SYSTEMS: Negative. ALLERGIES: POSITIVE FOR ASPIRIN, METOCLOPRAMIDE, SHELLFISH. SOCIAL HISTORY: No history of smoking, EtOH, or substance abuse. PAST MEDICAL HISTORY: Hypertension, status post gastric bypass surgery, hypothyroidism, primary hyperparathyroidism, and chronic kidney disease, stage V. MEDICATIONS: As per MAR. PHYSICAL EXAMINATION: GENERAL: Patient is in bed, not in any cardiopulmonary distress at the time of this examination. VITAL SIGNS: With blood pressure 114/58, temperature 97.9, respiratory rate 20, and pulse 86. HEENT: Pupils equal, reactive to light. Normal-appearing mucosa of the conjunctivae, oropharynx, and nasal membrane mucosa. NECK: Supple. No JVD. No carotid bruit. No lymph node. No thyromegaly. CHEST AND LUNGS: Bilateral symmetrical expansion. Good air exchange. No rales, no rhonchi. CARDIOVASCULAR SYSTEM: PMI not localized. S1, S2. No additional sounds. ABDOMEN: Normoactive bowel sounds. No tenderness. No organomegaly. No masses. EXTREMITIES: No cyanosis, no clubbing, no edema. CENTRAL NERVOUS SYSTEM: Alert, awake, oriented x3. No neurological deficit could be appreciated. ASSESSMENT: Status post arteriovenous fistula placement, right upper arm; chronic kidney disease, stage V; morbid obesity; hypertension; hyperparathyroidism. PLAN: Continue current medications and follow nephrology as well as vascular surgery recommendations, physical therapy and occupational therapy. Konstantin Brunner MD
[2017-09-21] MEDS: Levothyroxine 25 MCG TAB PO SCH (05:34)
[2017-09-21 06:40] LABS: BASO % 0.3 % (0.0-2.0); EOS # 0.2 K/uL (0.0-0.7); EOS % 3.3 % (0.0-4.0); HEMATOCRIT 25.1 % (34.0-47.0); LYMPH % 17.5 % (20.0-40.0); MEAN CELL VOLUME 73.5 fl (81.0-99.0); MEAN CORPUSCULAR HEMOGLOBIN 21.3 pg (27.0-31.0); MEAN CORPUSCULAR HGB CONC 28.9 g/dL (33.0-37.0); MEAN PLATELET VOLUME 8.6 fl (7.2-11.7); MONO # 0.7 K/uL (0.0-0.8); MONO % 11.4 % (0.0-10.0); NEUT # 3.9 K/uL (1.8-7.0); NEUT % 67.5 % (50.0-75.0); NRBC % 0.1 % (0.0-0.0); RED CELL DISTRIBUTION WIDTH 16.3 % (11.5-14.5); WHITE BLOOD COUNT 5.8 K/uL (4.8-10.8)
[2017-09-21 07:05] LABS: BILIRUBIN,TOTAL 0.3 mg/dl (0.2-1.3); PHOSPHOROUS 7.1 mg/dl (2.5-4.5); POTASSIUM 5.1 MMOL/L (3.6-5.0); TOTAL PROTEIN 6.2 G/DL (6.3-8.2)
[2017-09-21] MEDS: Cinacalcet 60 MG TAB PO SCH (08:22)
[2017-09-21] MEDS: Pantoprazole 40 mg EC Tab PO SCH (08:22)
[2017-09-21] MEDS: Metoprolol Succinate 50 mg XL Tab PO SCH (08:22)
[2017-09-21] MEDS: Multivitamin Vitamin B Complex (Nephro-Vite) Tab PO SCH (08:22)
[2017-09-21] MEDS ORDERED: EPOETIN ALFA 10,000 UNIT/ML ML SC SCH (09:00)
--- NOTE | 2017-09-21 09:35 | CP.PCM.PN ---
Subjective - Date & Time of Evaluation Date of Evaluation: 09/21/17 Time of Evaluation: 09:33 - Subjective Subjective: pt is seen and examined, follow up consult is dictated #[id number] Objective - Vital Signs/Intake and Output Vital Signs (last 24 hours): Temp Pulse Resp BP Pulse Ox 97.3 F L 77 20 127/79 100 09/21/17 07:42 09/21/17 08:22 09/21/17 07:42 09/21/17 08:22 09/21/17 07:42 - Medications Medications: Current Medications Albuterol (Ventolin Hfa 90 Mcg/Actuation (8 G)) 2 puff IH Q4 PRN PRN Reason: Shortness of Breath Albuterol/Ipratropium (Duoneb 3 Mg/0.5 Mg (3 Ml) Ud) 3 ml INH RQ4 [facility] Last Admin: 09/21/17 07:35 Dose: 3 ml Cinacalcet (Sensipar) 60 mg PO DAILY [facility] Last Admin: 09/21/17 08:22 Dose: 60 mg Epoetin Shelton (Procrit) 20,000 unit SC TTS [facility] Ferrous Gluconate (Fergon) 324 mg PO BID [facility] Home Med (Diclofenac Sodium [Voltaren]) 100 gm TP Q8 PRN PRN Reason: Pain, moderate (4-7) Lactulose (Enulose) 10 gm PO DAILY PRN PRN Reason: Constipation Levothyroxine Sodium (Synthroid) 25 mcg PO DAILY@0630 [facility] Last Admin: 09/21/17 05:34 Dose: 25 mcg Loratadine (Claritin) 10 mg PO DAILY [facility] Last Admin: 09/21/17 08:22 Dose: 10 mg Metoprolol Succinate (Toprol Xl) 50 mg PO DAILY [facility] Last Admin: 09/21/17 08:22 Dose: 50 mg Nortriptyline HCl (Pamelor) 25 mg PO HS [facility] Last Admin: 09/20/17 21:21 Dose: Not Given Oxycodone/Acetaminophen (Percocet 5/325 Mg Tab) 2 tab PO Q4 PRN PRN Reason: Pain, severe (8-10) Stop: 09/22/17 15:02 Last Admin: 09/21/17 08:21 Dose: 2 tab Pantoprazole Sodium (Protonix Ec Tab) 40 mg PO DAILY [facility] Last Admin: 09/21/17 08:22 Dose: 40 mg Vitamin B Complex/Vit C/Folic Acid (Nephro-Maria Del Carmen) 1 tab PO DAILY [facility] Last Admin: 09/21/17 08:22 Dose: 1 tab - Labs Labs: 09/21/17 06:00 09/21/17 07:37
[2017-09-21] MEDS: Epoetin Alfa 20000 UNIT/ML Inj SC SCH (11:54)
[2017-09-21] MEDS: Lactulose 10 gm/15 ml Syrup PO PRN (16:27)
[2017-09-22] MEDS: Oxycodone/Acetaminophen 5/325 mg Tab PO PRN ×3 (00:16→23:01)
[2017-09-22] MEDS: Albuterol-Ipratrop 3 mg / 0.5 (3 ml) UD INH SCH ×7 (00:51→23:38)
[2017-09-22] MEDS: Levothyroxine 25 MCG TAB PO SCH (05:54)
[2017-09-22] MEDS: Cinacalcet 60 MG TAB PO SCH (09:13)
[2017-09-22] MEDS: Multivitamin Vitamin B Complex (Nephro-Vite) Tab PO SCH (09:13)
[2017-09-22] MEDS: Metoprolol Succinate 50 mg XL Tab PO SCH (09:14)
[2017-09-22] MEDS: Pantoprazole 40 mg EC Tab PO SCH (09:14)
[2017-09-22] MEDS ORDERED: Sod Polystyrene Sulf 15 gm/60 ml Susp PO ONE (11:01)
[2017-09-22 11:55] LABS: HEMATOCRIT 27.3 % (34.0-47.0); MEAN CELL VOLUME 73.2 fl (81.0-99.0); MEAN CORPUSCULAR HGB CONC 28.6 g/dL (33.0-37.0); RED CELL DISTRIBUTION WIDTH 16.3 % (11.5-14.5)
--- NOTE | 2017-09-22 15:18 | CP.PCM.PN ---
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 There was not a significant side to side variation that would be discernable as a problem from the AV shunt site continue with current care Objective - Vital Signs/Intake and Output Vital Signs (last 24 hours): Temp Pulse Resp BP Pulse Ox 97.2 F L 70 20 138/73 99 09/22/17 08:31 09/22/17 09:14 09/22/17 08:31 09/22/17 09:14 09/22/17 08:31 - Medications Medications: Current Medications Albuterol (Ventolin Hfa 90 Mcg/Actuation (8 G)) 2 puff IH Q4 PRN PRN Reason: Shortness of Breath Albuterol/Ipratropium (Duoneb 3 Mg/0.5 Mg (3 Ml) Ud) 3 ml INH RQ4 [facility] Last Admin: 09/22/17 11:15 Dose: 3 ml Cinacalcet (Sensipar) 60 mg PO DAILY [facility] Last Admin: 09/22/17 09:13 Dose: 60 mg Epoetin Shelton (Procrit) 20,000 unit SC TTS [facility] Last Admin: 09/21/17 11:54 Dose: 20,000 unit Ferrous Gluconate (Fergon) 324 mg PO BID [facility] Last Admin: 09/22/17 09:13 Dose: 324 mg Furosemide (Lasix) 40 mg PO Q12 [facility] Last Admin: 09/22/17 14:58 Dose: Not Given Home Med (Diclofenac Sodium [Voltaren]) 100 gm TP Q8 PRN PRN Reason: Pain, moderate (4-7) Lactulose (Enulose) 10 gm PO DAILY PRN PRN Reason: Constipation Last Admin: 09/21/17 16:27 Dose: 10 gm Levothyroxine Sodium (Synthroid) 25 mcg PO DAILY@0630 [facility] Last Admin: 09/22/17 05:54 Dose: 25 mcg Loratadine (Claritin) 10 mg PO DAILY [facility] Last Admin: 09/22/17 09:14 Dose: 10 mg Metoprolol Succinate (Toprol Xl) 50 mg PO DAILY [facility] Last Admin: 09/22/17 09:14 Dose: 50 mg Nortriptyline HCl (Pamelor) 25 mg PO HS [facility] Last Admin: 09/21/17 21:16 Dose: Not Given Pantoprazole Sodium (Protonix Ec Tab) 40 mg PO DAILY [facility] Last Admin: 09/22/17 09:14 Dose: 40 mg Vitamin B Complex/Vit C/Folic Acid (Nephro-Maria Del Carmen) 1 tab PO DAILY [facility] Last Admin: 09/22/17 09:13 Dose: 1 tab - Labs Labs: 09/22/17 11:25 09/21/17 07:37
--- NOTE | 2017-09-23 01:12 | PN ---
DATE: 09/22/2017 DAILY PROGRESS NOTE SUBJECTIVE: The patient is seen today, 09/22/2017. She is not in any cardiopulmonary distress. Hemoglobin was 7.3. PHYSICAL EXAMINATION: VITAL SIGNS: Blood pressure is 123/66, temperature 98.1, respiratory rate 20 and pulse 73. HEENT: Pupils equal, reactive to light. Pale mucosa of the conjunctivae. No exudation or congestion of the nasopharyngeal or oropharyngeal mucosa. NECK: Supple. No JVD. No carotid bruit. No lymph node. No thyromegaly. CHEST AND LUNGS: Bilateral symmetrical expansion. Good air exchange. No rales, no rhonchi. CARDIOVASCULAR SYSTEM: PMI not localized. S1, S2. No additional sounds. ABDOMEN: Normoactive bowel sounds. No tenderness. No organomegaly. No masses. EXTREMITIES: No cyanosis, no clubbing, no edema. CENTRAL NERVOUS SYSTEM: Alert, awake, oriented X3. No neurological deficits could be appreciated. ASSESSMENT: Chronic kidney disease stage V; gouty arthritis; hypertension; anemia, multifactorial. PLAN: Repeat hemoglobin and hematocrit today. Continue current medications and physical therapy. Follow up with Vascular Surgery for the AV fistula placed in the right arm. Konstantin Brunner MD
[2017-09-23] MEDS: Albuterol-Ipratrop 3 mg / 0.5 (3 ml) UD INH SCH ×5 (04:03→19:46)
[2017-09-23] MEDS: Levothyroxine 25 MCG TAB PO SCH (05:31)
[2017-09-23] MEDS: Cinacalcet 60 MG TAB PO SCH (09:18)
[2017-09-23] MEDS: Pantoprazole 40 mg EC Tab PO SCH (09:18)
[2017-09-23] MEDS: Multivitamin Vitamin B Complex (Nephro-Vite) Tab PO SCH (09:19)
[2017-09-23] MEDS: Metoprolol Succinate 50 mg XL Tab PO SCH (09:20)
[2017-09-23] MEDS: Epoetin Alfa 20000 UNIT/ML Inj SC SCH (09:21)
--- NOTE | 2017-09-23 10:28 | CP.PCM.PN ---
Subjective - Date & Time of Evaluation Date of Evaluation: 09/23/17 Time of Evaluation: 10:27 - Subjective Subjective: pt is seen and examined, follow up consult is dictated #[id number] add renvela 800 mg po tid with food Objective - Vital Signs/Intake and Output Vital Signs (last 24 hours): Temp Pulse Resp BP Pulse Ox 98.1 F 83 20 140/67 97 09/23/17 07:54 09/23/17 09:20 09/23/17 07:54 09/23/17 09:20 09/23/17 07:54 - Medications Medications: Current Medications Albuterol (Ventolin Hfa 90 Mcg/Actuation (8 G)) 2 puff IH Q4 PRN PRN Reason: Shortness of Breath Albuterol/Ipratropium (Duoneb 3 Mg/0.5 Mg (3 Ml) Ud) 3 ml INH RQ4 [facility] Last Admin: 09/23/17 07:41 Dose: 3 ml Cinacalcet (Sensipar) 60 mg PO DAILY [facility] Last Admin: 09/23/17 09:18 Dose: 60 mg Epoetin Shelton (Procrit) 20,000 unit SC TTS [facility] Last Admin: 09/23/17 09:21 Dose: 20,000 unit Ferrous Gluconate (Fergon) 324 mg PO BID [facility] Last Admin: 09/23/17 09:19 Dose: 324 mg Furosemide (Lasix) 40 mg PO Q12@0900,1700 [facility] Last Admin: 09/23/17 09:19 Dose: 40 mg Home Med (Diclofenac Sodium [Voltaren]) 100 gm TP Q8 PRN PRN Reason: Pain, moderate (4-7) Lactulose (Enulose) 10 gm PO DAILY PRN PRN Reason: Constipation Last Admin: 09/21/17 16:27 Dose: 10 gm Levothyroxine Sodium (Synthroid) 25 mcg PO DAILY@0630 [facility] Last Admin: 09/23/17 05:31 Dose: 25 mcg Loratadine (Claritin) 10 mg PO DAILY [facility] Last Admin: 09/23/17 09:19 Dose: 10 mg Metoprolol Succinate (Toprol Xl) 50 mg PO DAILY [facility] Last Admin: 09/23/17 09:20 Dose: 50 mg Nortriptyline HCl (Pamelor) 25 mg PO HS [facility] Last Admin: 09/22/17 21:27 Dose: Not Given Oxycodone/Acetaminophen (Percocet 5/325 Mg Tab) 2 tab PO Q4 PRN PRN Reason: Pain, severe (8-10) Stop: 09/25/17 22:02 Last Admin: 09/22/17 23:01 Dose: 2 tab Pantoprazole Sodium (Protonix Ec Tab) 40 mg PO DAILY [facility] Last Admin: 09/23/17 09:18 Dose: 40 mg Vitamin B Complex/Vit C/Folic Acid (Nephro-Maria Del Carmen) 1 tab PO DAILY [facility] Last Admin: 09/23/17 09:19 Dose: 1 tab - Labs Labs: 09/22/17 11:25 09/21/17 07:37
--- NOTE | 2017-09-23 11:39 | PN ---
DATE: FOLLOWUP RENAL CONSULTATION LOCATION: The patient is located in room 713, room 2 at [facility] REQUESTED BY: Konstantin Brunner MD. REASON FOR FOLLOWUP: CKD IV, anemia, for further evaluation. SUBJECTIVE: Mrs. Hidalgo is a 62-year-old elderly morbidly obese -[place] female with a past medical history significant for hypertension, proteinuria, chronic kidney disease, COPD, asthma, obstructive sleep apnea, hypothyroidism, hyperparathyroidism, who was admitted initially to same day surgery for the AV fistula placement and subsequently the patient was hypotensive postop and admitted to telemetry for fluid resuscitation and further management. The patient was complaining of pain in the both arms and also hyperkalemia, status post treatment for hyperkalemia. The patient is now in Transitional Care Unit for the physical therapy and ambulation. The patient is feeling slightly better. Mild shortness of breath and also complains of pain in both hands. No chest pain. No palpitation. No nausea, vomiting, diarrhea. PHYSICAL EXAMINATION: GENERAL: Mrs. Hidalgo is a 62 years old morbidly obese -[place] female, well built, well nourished, not in any distress. VITAL SIGNS: As follows; blood pressure 140/67, pulse 83, respirations 20, temperature 98.1, saturation 97%. Height 5 feet 4 inches. Weight is 316 pounds. HEENT: Pupils are normal and reactive to light and accommodation. Conjunctivae slightly pale. Sclerae are anicteric. Tongue is moist. Trachea is midline. LUNGS: Symmetric on both sides. Bilateral breath sounds present. Clear on auscultation. CARDIOVASCULAR SYSTEM: [place] at the fifth intercostal space, midclavicular line. S1 and S2 audible. No murmur or gallop. ABDOMEN: Protuberant, soft, tympanic. No guarding. No rigidity. No hepatosplenomegaly. CENTRAL NERVOUS SYSTEM: The patient is alert, awake, oriented x3. Sensory and motor system is grossly within normal limits. EXTREMITIES: No cyanosis. No clubbing. The patient has 1 to 2+ edema in both the lower extremities. LABORATORY DATA: Include as follows; as of 09/22/2017, WBC 6, hemoglobin 7.8, hematocrit is 27.3, platelets 292. 24-hour urine collection as of 09/21/2017, urine volume is 950, urine creatinine is 1486 mg and urine protein is 2441 mg and creatinine clearance 18 mL. Sodium 137, potassium 5.1, chloride 104, CO2 of 22, BUN 79, creatinine 5.6, glucose 88, calcium 8.0 and phosphorus 7.1. MEDICATIONS: Her current medications include as follows; Claritin 10 mg p.o. daily, DuoNeb inhaler 3 mL inhaler q. 4 hours and lactulose 10 g p.o. daily, ferrous gluconate 324 mg p.o. b.i.d., Lasix 40 mg q. 12 hours and Nephro-Maria Del Carmen 1 tablet daily, Pamelor 25 mg p.o. at bedtime and Percocet 1 to 2 tablets p.o. q. 4 hours p.r.n. for pain, Procrit 20,000 units 3 times a week and Protonix 40 mg p.o. daily and Sensipar 60 mg p.o. daily and levothyroxine 25 mcg daily, metoprolol 50 mg p.o. daily and albuterol inhaler 2 puffs q. 4 hours. ASSESSMENT AND PLAN: In summary, Mrs. Hidalgo is a 62 years old morbidly obese female with hypertension, renal failure, chronic kidney disease IV, proteinuria, chronic obstructive pulmonary disease, asthma, obstructive sleep apnea with bilateral wrist pains consistent with carpal tunnel syndrome. 1. Chronic kidney disease IV, most likely secondary to hypertensive nephrosclerosis. Cannot rule out underlying chronic kidney disease secondary to focal segmental glomerulosclerosis secondary to morbidly obesity cannot be ruled out. 2. Anemia secondary to renal failure and iron-deficiency anemia. 3. Obstructive sleep apnea and chronic obstructive pulmonary disease. Continue inhalers and we will also add Renvela 800 mg p.o. t.i.d. with food and continue Procrit. Continue Sensipar and Nephro-Maria Del Carmen. 4. Fluid overload. Continue Lasix 40 mg p.o. b.i.d. Repeat CBC, CMP and phosphorus level on Monday and also check PTH intact level. We will follow up with you. Thank you for allowing me to participate in your patient's care. Ember Nicole MD
[2017-09-23] MEDS: Sevelamer Carb 0.8 gm/Packet PO SCH ×3 (12:56→17:30)
[2017-09-23] MEDS: Lactulose 10 gm/15 ml Syrup PO PRN (17:53)
[2017-09-23] MEDS: Oxycodone/Acetaminophen 5/325 mg Tab PO PRN (21:23)
[2017-09-24] MEDS: Albuterol-Ipratrop 3 mg / 0.5 (3 ml) UD INH SCH ×6 (00:46→19:21)
[2017-09-24] MEDS: Oxycodone/Acetaminophen 5/325 mg Tab PO PRN ×2 (03:38→22:59)
[2017-09-24] MEDS: Levothyroxine 25 MCG TAB PO SCH (07:07)
[2017-09-24] MEDS: Pantoprazole 40 mg EC Tab PO SCH (08:59)
[2017-09-24] MEDS: Metoprolol Succinate 50 mg XL Tab PO SCH (08:59)
[2017-09-24] MEDS: Multivitamin Vitamin B Complex (Nephro-Vite) Tab PO SCH (09:00)
[2017-09-24] MEDS: Cinacalcet 60 MG TAB PO SCH (09:00)
[2017-09-25] MEDS: Albuterol-Ipratrop 3 mg / 0.5 (3 ml) UD INH SCH ×6 (00:56→19:12)
--- NOTE | 2017-09-25 02:17 | PN ---
DATE: 09/23/2017 SUBJECTIVE: The patient was seen on 09/23/2017. She has less pain in her hand and she is cooperative with physical therapy and occupational therapy. PHYSICAL EXAMINATION: VITAL SIGNS: Blood pressure 140/67, temperature 97.9, respiratory rate 20, and pulse 83. HEENT: Pupils equal, reactive to light. Normal-appearing mucosa of the conjunctivae, oropharynx, and nasal membrane mucosa. NECK: Supple. No JVD. No carotid bruit. No lymph node. No thyromegaly. CHEST/LUNGS: Bilateral symmetrical expansion. Good air exchange. No rales, no rhonchi. CARDIOVASCULAR SYSTEM: PMI not localized. S1, S2; no additional sounds. ABDOMEN: Normoactive bowel sounds. No tenderness. No organomegaly. No masses. EXTREMITIES: No cyanosis, no clubbing, no edema. 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 No neurological deficit could be appreciated. ASSESSMENT: 1. Chronic kidney disease, stage V. 2. Status post arteriovenous fistula of the right upper arm. 3. Hypertension. 4. Gouty arthritis. 5. Osteoarthritis. PLAN: Continue current medications and management, and physical therapy and occupational therapy. Konstantin Brunner MD
[2017-09-25 05:36] LABS: BASO % 0.2 % (0.0-2.0); EOS # 0.1 K/uL (0.0-0.7); HEMATOCRIT 26.8 % (34.0-47.0); LYMPH # 0.9 K/uL (1.0-4.3); LYMPH % 18.6 % (20.0-40.0); MEAN CELL VOLUME 73.2 fl (81.0-99.0); MEAN CORPUSCULAR HEMOGLOBIN 21.2 pg (27.0-31.0); MEAN CORPUSCULAR HGB CONC 28.9 g/dL (33.0-37.0); MEAN PLATELET VOLUME 7.9 fl (7.2-11.7); MONO # 0.5 K/uL (0.0-0.8); MONO % 10.1 % (0.0-10.0); NEUT # 3.3 K/uL (1.8-7.0); NEUT % 68.1 % (50.0-75.0); NRBC % 0.5 % (0.0-0.0); RED CELL DISTRIBUTION WIDTH 16.4 % (11.5-14.5); WHITE BLOOD COUNT 4.8 K/uL (4.8-10.8)
[2017-09-25 05:44] LABS: BILIRUBIN,TOTAL 0.3 mg/dl (0.2-1.3); CALCIUM 8.6 mg/dL (8.4-10.2); PHOSPHOROUS 5.9 mg/dl (2.5-4.5); POTASSIUM 4.2 MMOL/L (3.6-5.0); TOTAL PROTEIN 6.6 G/DL (6.3-8.2)
[2017-09-25] MEDS: Levothyroxine 25 MCG TAB PO SCH (06:29)
[2017-09-25] MEDS: Pantoprazole 40 mg EC Tab PO SCH (09:34)
[2017-09-25] MEDS: Metoprolol Succinate 50 mg XL Tab PO SCH (09:35)
[2017-09-25] MEDS: Cinacalcet 60 MG TAB PO SCH (09:35)
[2017-09-25] MEDS: Multivitamin Vitamin B Complex (Nephro-Vite) Tab PO SCH (09:35)
[2017-09-25] MEDS: Lactulose 10 gm/15 ml Syrup PO PRN (16:00)
[2017-09-25] MEDS: Lactulose 10 gm/15 ml Syrup PO SCH (21:13)
--- NOTE | 2017-09-25 22:29 | PN ---
DATE: 09/25/2017 DAILY PROGRESS NOTE SUBJECTIVE: The patient is seen today, 09/25/2017. She complains of constipation. PHYSICAL EXAMINATION: VITAL SIGNS: Blood pressure 144/90, temperature 97.9, respiratory rate 20 and pulse 79. HEENT: Pale mucosa of the conjunctivae. NECK: Supple. No JVD. No carotid bruit. No lymph node. No thyromegaly. CHEST AND LUNGS: Bilateral symmetrical expansion. Good air exchange. No rales. No rhonchi. CARDIOVASCULAR SYSTEM: PMI not localized. S1, S2. No additional sounds. ABDOMEN: Normoactive bowel sounds. No tenderness. No organomegaly. No masses. EXTREMITIES: No cyanosis, no clubbing, no edema. CENTRAL NERVOUS SYSTEM: Alert, awake, oriented x3. No neurological deficit could be appreciated. ASSESSMENT: 1. Status post right upper arm arteriovenous fistula. 2. Chronic kidney disease stage V. 3. Hypertension. 4. Constipation. 5. Morbid obesity. 6. Primary hyperparathyroidism. PLAN: We will start the patient on MiraLax and continue current medications and follow recommendations of washer cutter. Continue physical therapy. Konstantin Brunner MD
[2017-09-26] MEDS: Albuterol-Ipratrop 3 mg / 0.5 (3 ml) UD INH SCH ×5 (00:49→15:28)
[2017-09-26] MEDS: Levothyroxine 25 MCG TAB PO SCH (05:45)
[2017-09-26] MEDS: Epoetin Alfa 20000 UNIT/ML Inj SC SCH (08:58)
[2017-09-26] MEDS: Multivitamin Vitamin B Complex (Nephro-Vite) Tab PO SCH (08:58)
[2017-09-26] MEDS: Metoprolol Succinate 50 mg XL Tab PO SCH (08:59)
[2017-09-26] MEDS: Pantoprazole 40 mg EC Tab PO SCH (08:59)
[2017-09-26] MEDS: Cinacalcet 60 MG TAB PO SCH (08:59)
[2017-09-26] MEDS: POLYETHYLENE GLYCOL 3350 17 GM/Dose PACKET PO PRN ×2 (09:00)
[2017-09-26] MEDS: Lactulose 10 gm/15 ml Syrup PO PRN (11:05)
[2017-09-26] MEDS ORDERED: Oxycodone/Acetaminophen 5/325 mg Tab PO PRN (18:57)
[2017-09-26] MEDS: Lactulose 10 gm/15 ml Syrup PO SCH (21:12)
[2017-09-27] MEDS: Albuterol-Ipratrop 3 mg / 0.5 (3 ml) UD INH PRN ×2 (00:56→15:25)
[2017-09-27] MEDS: Levothyroxine 25 MCG TAB PO SCH (05:58)
[2017-09-27] MEDS: Metoprolol Succinate 50 mg XL Tab PO SCH (08:49)
[2017-09-27] MEDS: Pantoprazole 40 mg EC Tab PO SCH (08:49)
[2017-09-27] MEDS: Multivitamin Vitamin B Complex (Nephro-Vite) Tab PO SCH (08:49)
[2017-09-27] MEDS: Cinacalcet 60 MG TAB PO SCH (08:49)
[2017-09-27 11:18] LABS: HEMATOCRIT 26.7 % (34.0-47.0); MEAN CELL VOLUME 72.4 fl (81.0-99.0); MEAN CORPUSCULAR HEMOGLOBIN 21.8 pg (27.0-31.0); RED CELL DISTRIBUTION WIDTH 16.9 % (11.5-14.5); WHITE BLOOD COUNT 4.7 K/uL (4.8-10.8)
[2017-09-27 11:32] LABS: BILIRUBIN,TOTAL 0.3 mg/dl (0.2-1.3); CALCIUM 8.4 mg/dL (8.4-10.2); TOTAL PROTEIN 6.5 G/DL (6.3-8.2)
[2017-09-27] MEDS: Lactulose 10 gm/15 ml Syrup PO SCH (21:23)
[2017-09-28] MEDS: POLYETHYLENE GLYCOL 3350 17 GM/Dose PACKET PO PRN ×2 (00:01→21:24)
[2017-09-28] MEDS: Albuterol-Ipratrop 3 mg / 0.5 (3 ml) UD INH PRN ×3 (01:08→23:53)
[2017-09-28] MEDS: Levothyroxine 25 MCG TAB PO SCH (06:24)
[2017-09-28] MEDS: Metoprolol Succinate 50 mg XL Tab PO SCH (09:13)
[2017-09-28] MEDS: Pantoprazole 40 mg EC Tab PO SCH (09:14)
[2017-09-28] MEDS: Cinacalcet 60 MG TAB PO SCH (09:14)
[2017-09-28] MEDS: Multivitamin Vitamin B Complex (Nephro-Vite) Tab PO SCH (09:15)
[2017-09-28] MEDS: Epoetin Alfa 20000 UNIT/ML Inj SC SCH (09:17)
[2017-09-28] MEDS: Lactulose 10 gm/15 ml Syrup PO PRN (12:24)
--- NOTE | 2017-09-28 19:25 | CP.PCM.PN ---
Subjective - Date & Time of Evaluation Date of Evaluation: 09/28/17 Time of Evaluation: 19:25 - Subjective Subjective: pt is seen and examined, feeling better, no sob, no cp, palpitation, no nausea, no vomitings Objective - Vital Signs/Intake and Output Vital Signs (last 24 hours): Temp Pulse Resp BP Pulse Ox 97.9 F 65 20 138/65 96 09/28/17 16:56 09/28/17 16:56 09/28/17 16:56 09/28/17 16:56 09/28/17 16:56 - Medications Medications: Current Medications Albuterol (Ventolin Hfa 90 Mcg/Actuation (8 G)) 2 puff IH Q4 PRN PRN Reason: Shortness of Breath Albuterol/Ipratropium (Duoneb 3 Mg/0.5 Mg (3 Ml) Ud) 3 ml INH RQ4 PRN PRN Reason: Shortness of Breath Last Admin: 09/28/17 09:57 Dose: 3 ml Cinacalcet (Sensipar) 60 mg PO DAILY [facility] Last Admin: 09/28/17 09:14 Dose: 60 mg Epoetin Shelton (Procrit) 20,000 unit SC TTS [facility] Last Admin: 09/28/17 09:17 Dose: 20,000 unit Ferrous Gluconate (Fergon) 324 mg PO BID [facility] Last Admin: 09/28/17 09:15 Dose: 324 mg Furosemide (Lasix) 40 mg PO DAILY [facility] Last Admin: 09/28/17 09:15 Dose: 40 mg Home Med (Diclofenac Sodium [Voltaren]) 100 gm TP Q8 PRN PRN Reason: Pain, moderate (4-7) Lactulose (Enulose) 10 gm PO DAILY PRN PRN Reason: Constipation Last Admin: 09/28/17 12:24 Dose: 10 gm Lactulose (Enulose) 10 gm PO HS [facility] Last Admin: 09/27/17 21:23 Dose: Not Given Levothyroxine Sodium (Synthroid) 25 mcg PO DAILY@0630 [facility] Last Admin: 09/28/17 06:24 Dose: 25 mcg Loratadine (Claritin) 10 mg PO DAILY [facility] Last Admin: 09/28/17 09:15 Dose: 10 mg Metoprolol Succinate (Toprol Xl) 50 mg PO DAILY [facility] Last Admin: 09/28/17 09:13 Dose: 50 mg Nortriptyline HCl (Pamelor) 25 mg PO HS [facility] Last Admin: 09/27/17 21:21 Dose: 25 mg Oxycodone/Acetaminophen (Percocet 5/325 Mg Tab) 2 tab PO Q4 PRN PRN Reason: Pain, severe (8-10) Stop: 09/29/17 18:58 Last Admin: 09/27/17 05:58 Dose: 2 tab Pantoprazole Sodium (Protonix Ec Tab) 40 mg PO DAILY [facility] Last Admin: 09/28/17 09:14 Dose: 40 mg Polyethylene Glycol (Miralax) 17 gm PO DAILY PRN PRN Reason: Constipation Last Admin: 09/28/17 00:01 Dose: 17 gm Sevelamer HCl (Renagel) 1,600 mg PO TID [facility] Last Admin: 09/28/17 16:46 Dose: 1,600 mg Vitamin B Complex/Vit C/Folic Acid (Nephro-Maria Del Carmen) 1 tab PO DAILY [facility] Last Admin: 09/28/17 09:15 Dose: 1 tab - Labs Labs: 09/27/17 11:00 09/27/17 11:00 - Constitutional Appears: Well, Non-toxic, No Acute Distress - Head Exam Head Exam: ATRAUMATIC, NORMAL INSPECTION, NORMOCEPHALIC - Eye Exam Eye Exam: EOMI, Normal appearance, PERRL Pupil Exam: NORMAL ACCOMODATION, PERRL - ENT Exam ENT Exam: Mucous Membranes Moist, Normal Exam - Neck Exam Neck Exam: Full ROM, Normal Inspection - Respiratory Exam Respiratory Exam: Clear to Ausculation Bilateral, NORMAL BREATHING PATTERN - Cardiovascular Exam Cardiovascular Exam: REGULAR RHYTHM, +S1, +S2 - GI/Abdominal Exam GI & Abdominal Exam: Soft, Normal Bowel Sounds Additional comments: non tender, no hepato splenomegaly - Rectal Exam Rectal Exam: Deferred - Extremities Exam Additional comments: 2+ ededma - Neurological Exam Neurological Exam: Alert, Awake, CN II-XII Intact, Normal Gait, Oriented x3 - Skin Skin Exam: Normal Color, Warm - Additional Findings Additional findings: rt elbow avf with good bruit++ Assessment and Plan - Assessment and Plan (Free Text) Plan: 62 yo obese AA female with pmh/o htn, ckd4, copd/ asthma, anemai, sec .hpth 1. ckd-4 2. htn, bp is stbale 3. anemia, sec to ckd 4. mild fluid over load c/w current anti htn meds c/w epogen 3 x a week c/w lasix c/w physical therapy
[2017-09-28] MEDS: Lactulose 10 gm/15 ml Syrup PO SCH (22:43)
[2017-09-29] MEDS: Levothyroxine 25 MCG TAB PO SCH (06:01)
[2017-09-29] MEDS: POLYETHYLENE GLYCOL 3350 17 GM/Dose PACKET PO PRN (08:31)
[2017-09-29] MEDS: Lactulose 10 gm/15 ml Syrup PO PRN (08:31)
[2017-09-29] MEDS: Pantoprazole 40 mg EC Tab PO SCH (08:32)
[2017-09-29] MEDS: Cinacalcet 60 MG TAB PO SCH (08:32)
[2017-09-29] MEDS: Multivitamin Vitamin B Complex (Nephro-Vite) Tab PO SCH (08:33)
[2017-09-29] MEDS: Metoprolol Succinate 50 mg XL Tab PO SCH (08:33)
[2017-09-29] MEDS: Albuterol-Ipratrop 3 mg / 0.5 (3 ml) UD INH PRN (13:54)
[2017-09-29] MEDS ORDERED: Alum-Mag Hydrox-Simethicone Susp (30 mL) PO PRN (20:40)
[2017-09-29] MEDS: Lactulose 10 gm/15 ml Syrup PO SCH (22:00)
--- NOTE | 2017-09-29 23:35 | PN ---
DATE: 09/29/2017 DAILY PROGRESS NOTE SUBJECTIVE: The patient is seen today on 09/29/2017. She is not in any cardiopulmonary distress. PHYSICAL EXAMINATION: VITAL SIGNS: Blood pressure 143/84, temperature 97.0, respiratory rate 20 and pulse 86. HEENT: Pupils equal, reactive to light. Normal-appearing mucosa of the conjunctivae, oropharyngeal and nasal membrane mucosa. NECK: Supple. No JVD. No carotid bruit. No lymph nodes. No thyromegaly. CHEST AND LUNGS: Bilateral symmetrical expansion. Good air exchange. No rales. No rhonchi. CARDIOVASCULAR SYSTEM: PMI not localized. S1, S2. No additional sounds. ABDOMEN: Normoactive bowel sounds. No tenderness. No organomegaly. No masses. EXTREMITIES: No cyanosis, no clubbing, no edema. SENIOR PHYSICIAN: Alert, awake, oriented x2. No neurological deficit could be appreciated. ASSESSMENT: 1. Status post arteriovenous fistula placement. 2. Chronic kidney disease stage V. 3. Hypertension. 4. Morbid obesity. PLAN: Continue current medications and continue Procrit and iron supplement for the anemia. The patient's hemoglobin is 8 grams, which is stable level. Continue current medications and physical therapy. Konstantin rBunner MD
[2017-09-30] MEDS: Levothyroxine 25 MCG TAB PO SCH (06:50)
[2017-09-30] MEDS: Albuterol-Ipratrop 3 mg / 0.5 (3 ml) UD INH PRN (07:53)
[2017-09-30] MEDS ORDERED: Oxycodone/Acetaminophen 5/325 mg Tab PO ONE (08:46)
[2017-09-30] MEDS: Cinacalcet 60 MG TAB PO SCH (09:00)
[2017-09-30] MEDS: Metoprolol Succinate 50 mg XL Tab PO SCH (09:00)
[2017-09-30] MEDS: Multivitamin Vitamin B Complex (Nephro-Vite) Tab PO SCH (09:00)
[2017-09-30] MEDS: Epoetin Alfa 20000 UNIT/ML Inj SC SCH (09:00)
[2017-09-30] MEDS: Pantoprazole 40 mg EC Tab PO SCH (09:01)
[2017-09-30] MEDS ORDERED: Oxycodone/Acetaminophen 5/325 mg Tab PO PRN ×2 (09:04→22:55)
--- NOTE | 2017-09-30 14:53 | CP.PCM.PN ---
Subjective - Date & Time of Evaluation Date of Evaluation: 09/30/17 Time of Evaluation: 14:52 - Subjective Subjective: pt is seen and examined, follow up consult is dictated #[id number] Objective - Vital Signs/Intake and Output Vital Signs (last 24 hours): Temp Pulse Resp BP Pulse Ox 98.2 F 70 20 138/71 96 09/30/17 08:41 09/30/17 09:00 09/30/17 08:41 09/30/17 09:00 09/30/17 08:41 - Medications Medications: Current Medications Al Hydrox/Mg Hydrox/Simethicone (Maalox Plus 30 Ml) 30 ml PO Q4 PRN PRN Reason: Indigestion / Heartburn Last Admin: 09/29/17 21:11 Dose: 30 ml Albuterol (Ventolin Hfa 90 Mcg/Actuation (8 G)) 2 puff IH Q4 PRN PRN Reason: Shortness of Breath Albuterol/Ipratropium (Duoneb 3 Mg/0.5 Mg (3 Ml) Ud) 3 ml INH RQ4 PRN PRN Reason: Shortness of Breath Last Admin: 09/30/17 07:53 Dose: 3 ml Cinacalcet (Sensipar) 60 mg PO DAILY [facility] Last Admin: 09/30/17 09:00 Dose: 60 mg Epoetin Shelton (Procrit) 20,000 unit SC TTS [facility] Last Admin: 09/30/17 09:00 Dose: 20,000 unit Ferrous Gluconate (Fergon) 324 mg PO BID [facility] Last Admin: 09/30/17 08:59 Dose: 324 mg Furosemide (Lasix) 40 mg PO DAILY [facility] Last Admin: 09/30/17 08:59 Dose: 40 mg Home Med (Diclofenac Sodium [Voltaren]) 100 gm TP Q8 PRN PRN Reason: Pain, moderate (4-7) Lactulose (Enulose) 10 gm PO DAILY PRN PRN Reason: Constipation Last Admin: 09/29/17 08:31 Dose: 10 gm Lactulose (Enulose) 10 gm PO HS [facility] Last Admin: 09/29/17 22:00 Dose: Not Given Levothyroxine Sodium (Synthroid) 25 mcg PO DAILY@0630 [facility] Last Admin: 09/30/17 06:50 Dose: 25 mcg Loratadine (Claritin) 10 mg PO DAILY [facility] Last Admin: 09/30/17 08:59 Dose: 10 mg Metoprolol Succinate (Toprol Xl) 50 mg PO DAILY [facility] Last Admin: 09/30/17 09:00 Dose: 50 mg Nortriptyline HCl (Pamelor) 25 mg PO HS [facility] Last Admin: 09/30/17 00:21 Dose: 25 mg Oxycodone/Acetaminophen (Percocet 5/325 Mg Tab) 2 tab PO Q4 PRN PRN Reason: Pain, severe (8-10) Stop: 10/03/17 09:05 Pantoprazole Sodium (Protonix Ec Tab) 40 mg PO DAILY [facility] Last Admin: 09/30/17 09:01 Dose: 40 mg Polyethylene Glycol (Miralax) 17 gm PO DAILY PRN PRN Reason: Constipation Last Admin: 09/29/17 08:31 Dose: 17 gm Sevelamer HCl (Renagel) 1,600 mg PO TID [facility] Last Admin: 09/30/17 12:27 Dose: 1,600 mg Vitamin B Complex/Vit C/Folic Acid (Nephro-Maria Del Carmen) 1 tab PO DAILY [facility] Last Admin: 09/30/17 09:00 Dose: 1 tab - Labs Labs: 09/27/17 11:00 09/27/17 11:00
[2017-09-30] MEDS: Lactulose 10 gm/15 ml Syrup PO SCH (22:00)
[2017-09-30] MEDS: POLYETHYLENE GLYCOL 3350 17 GM/Dose PACKET PO PRN (22:14)
[2017-10-01] MEDS: Levothyroxine 25 MCG TAB PO SCH (05:54)
[2017-10-01] MEDS: Albuterol-Ipratrop 3 mg / 0.5 (3 ml) UD INH PRN ×2 (08:44→16:12)
[2017-10-01] MEDS: Multivitamin Vitamin B Complex (Nephro-Vite) Tab PO SCH (10:22)
[2017-10-01] MEDS: Pantoprazole 40 mg EC Tab PO SCH (10:22)
[2017-10-01] MEDS: Metoprolol Succinate 50 mg XL Tab PO SCH (10:23)
[2017-10-01] MEDS: Cinacalcet 60 MG TAB PO SCH (10:23)
[2017-10-01 13:55] LABS: BASO % 0.2 % (0.0-2.0); EOS # 0.1 K/uL (0.0-0.7); HEMATOCRIT 29.9 % (34.0-47.0); LYMPH # 0.8 K/uL (1.0-4.3); LYMPH % 16.7 % (20.0-40.0); MEAN CELL VOLUME 73.2 fl (81.0-99.0); MEAN CORPUSCULAR HGB CONC 28.6 g/dL (33.0-37.0); MEAN PLATELET VOLUME 7.4 fl (7.2-11.7); MONO # 0.6 K/uL (0.0-0.8); MONO % 12.3 % (0.0-10.0); NEUT # 3.1 K/uL (1.8-7.0); NEUT % 68.8 % (50.0-75.0); NRBC % 0.2 % (0.0-0.0); RED CELL DISTRIBUTION WIDTH 17.2 % (11.5-14.5); WHITE BLOOD COUNT 4.6 K/uL (4.8-10.8)
[2017-10-01 14:45] LABS: ALB/GLOB RATIO 1.1 (1.0-2.1); BILIRUBIN,TOTAL 0.3 mg/dl (0.2-1.3); CALCIUM 8.5 mg/dL (8.4-10.2); PHOSPHOROUS 4.8 mg/dl (2.5-4.5); POTASSIUM 5.3 MMOL/L (3.6-5.0); TOTAL PROTEIN 6.4 G/DL (6.3-8.2)
[2017-10-01] MEDS: Lactulose 10 gm/15 ml Syrup PO PRN (18:44)
[2017-10-01] MEDS: POLYETHYLENE GLYCOL 3350 17 GM/Dose PACKET PO PRN (18:44)
[2017-10-01] MEDS ORDERED: Sod Polystyrene Sulf 15 gm/60 ml Susp PO ONE (19:38)
[2017-10-01] MEDS: Lactulose 10 gm/15 ml Syrup PO SCH (21:47)
[2017-10-02] MEDS: Albuterol-Ipratrop 3 mg / 0.5 (3 ml) UD INH PRN (00:19)
--- NOTE | 2017-10-02 01:47 | PN ---
DATE: 10/01/2017 DAILY PROGRESS NOTE SUBJECTIVE: The patient is seen today on 10/01/2017. The patient has nausea, but there is no vomiting. PHYSICAL EXAMINATION: VITAL SIGNS: Blood pressure 120/63, temperature 97.3, respiratory rate 20, and pulse 62. HEENT: Pupils equal, reactive to light. Normal-appearing mucosa of the conjunctive, oropharyngeal and nasal membrane mucosa. NECK: Supple. No JVD. No carotid bruit. No lymph node. No thyromegaly. CHEST AND LUNGS: Bilateral symmetrical expansion. Good air exchange. No rales. No rhonchi. CARDIOVASCULAR SYSTEM: PMI not localized. S1 and S2. No additional sounds. ABDOMEN: Normoactive bowel sounds. No tenderness. No organomegaly. No masses. EXTREMITIES: No cyanosis. No clubbing. No edema. CENTRAL NERVOUS SYSTEM: Alert, awake, oriented x3. No neurological deficit could be appreciated. ASSESSMENT: 1. Chronic kidney disease, stage 5 with nausea, likely uremic gastritis. 2. Status post arteriovenous fistula in the right upper arm. 3. Hypertension. 4. Gouty arthritis. 5. Morbid obesity. PLAN: 1. Continue current medications with physical therapy and occupational therapy. 2. We will give the patient Zofran 4 mg Solutab every 8 hours p.r.n. 3. We will give the patient Kayexalate as well as Renvela for elevated phosphorus to 4.8. Konstantin Brunner MD
[2017-10-02] MEDS: Levothyroxine 25 MCG TAB PO SCH (06:20)
[2017-10-02 06:30] LABS: CALCIUM 8.2 mg/dL (8.4-10.2); POTASSIUM 4.9 MMOL/L (3.6-5.0)
[2017-10-02] MEDS: Metoprolol Succinate 50 mg XL Tab PO SCH (08:35)
[2017-10-02] MEDS: Multivitamin Vitamin B Complex (Nephro-Vite) Tab PO SCH (08:35)
[2017-10-02] MEDS: Cinacalcet 60 MG TAB PO SCH (08:35)
[2017-10-02] MEDS: Pantoprazole 40 mg EC Tab PO SCH (08:35)
[2017-10-02 17:30] VITALS: BP 143/67; PULSE 66; TEMP 97.9; O2SAT 96
== END 2017-10-02 17:47 | disposition home health service (06) | DRG 949 ==
LOC: H.TCU 14:22
PROVIDERS: ADMIT Internal Medicine; ATTEND Internal Medicine
PROC: F07M6FZ Therapeutic Exercise Treatment of Musculoskeletal System - Whole Body using Assistive, Adaptive, Supportive or Protective Equipment (ICD-10-PCS; principal; 2017-09-19)
PROC: F08Z4FZ Home Management Treatment using Assistive, Adaptive, Supportive or Protective Equipment (ICD-10-PCS; 2017-09-19)
PROC: 3E0F7GC Introduction of Other Therapeutic Substance into Respiratory Tract, Via Natural or Artificial Opening (ICD-10-PCS; 2017-09-19)
DX: Z48.812 Encounter for surgical aftercare following surgery on the circulatory system (principal); I13.2 Hypertensive heart and chronic kidney disease with heart failure and with stage 5 chronic kidney disease, or end stage renal disease; E11.22 Type 2 diabetes mellitus with diabetic chronic kidney disease; N18.5 Chronic kidney disease, stage 5; E66.01 Morbid (severe) obesity due to excess calories; Z68.43 Body mass index [BMI] 50.0-59.9, adult; I50.9 Heart failure, unspecified; J44.9 Chronic obstructive pulmonary disease, unspecified; K21.9 Gastro-esophageal reflux disease without esophagitis; K29.70 Gastritis, unspecified, without bleeding; K59.00 Constipation, unspecified; M10.9 Gout, unspecified; M19.90 Unspecified osteoarthritis, unspecified site; M54.10 Radiculopathy, site unspecified; Z87.891 Personal history of nicotine dependence; Z98.84 Bariatric surgery status; Z99.2 Dependence on renal dialysis; E21.3 Hyperparathyroidism, unspecified; R09.89 Other specified symptoms and signs involving the circulatory and respiratory systems; M79.601 Pain in right arm; M79.89 Other specified soft tissue disorders; R80.9 Proteinuria, unspecified; D50.9 Iron deficiency anemia, unspecified; D63.1 Anemia in chronic kidney disease; E03.9 Hypothyroidism, unspecified; E21.0 Primary hyperparathyroidism; E87.5 Hyperkalemia; G47.33 Obstructive sleep apnea (adult) (pediatric); G56.00 Carpal tunnel syndrome, unspecified upper limb

== ENCOUNTER 2018-03-22 19:14 | Inpatient (IN) | payer OTHER ==
[2018-03-22 19:27] VITALS: BMI 47.2
--- NOTE | 2018-03-22 20:10 | ED PDOC ---
HPI: General Adult Time Seen by Provider: 03/22/18 19:25 Chief Complaint (Provider): cough History Per: Patient History/Exam Limitations: no limitations Onset/Duration Of Symptoms: Hrs Current Symptoms Are (Timing): Still Present Additional Complaint(s): 62 year old obese female with a past medical history of chronic kidney disease, anemia, hyperparathyroidism, and asthma presents to the ED by Dr. Nicole for admission. Patient reports of cough with productive white phlegm, shortness of breath, epigastric pain, and nausea. Denies fever, vomiting, and diarrhea. PMD: Konstantin Brunner Past Medical History Reviewed: Historical Data, Nursing Documentation, Vital Signs Vital Signs: Last Vital Signs Temp 98.9 F 03/23/18 01:00 Pulse 80 03/23/18 03:56 Resp 20 03/23/18 01:46 BP 187/86 H 03/23/18 01:58 Pulse Ox 97 03/23/18 01:00 - Medical History PMH: Anemia, Arthritis (OA of (L)UE and (L)LE), Asthma, CHF (pulmonary congestion), COPD (asthma, bronchitis), Diverticulitis, HTN, Hypothyroidism, Chronic Kidney Disease Denies: HIV - Surgical History Surgical History: Hernia Repair, Other surgeries: Lap Band - Family History Family History: States: Unknown Family Hx - Social History Current smoker - smoking cessation education provided: No Ex-Smoker (has not smoked in the last 12 months): Yes (40 years ago) Alcohol: None Drugs: Denies - Home Medications Home Medications: Ambulatory Orders Medication Instructions Recorded Albuterol HFA [Ventolin HFA 90 2 puff IH Q4 PRN 09/02/17 mcg/actuation (8 g)] Cinacalcet [Sensipar] 60 mg PO DAILY 09/02/17 Diclofenac Sodium [Voltaren] 100 gm TP DAILY 09/02/17 Febuxostat [Uloric] 1 tab PO DAILY 09/02/17 Iron Polysaccharide [Ferrex-150] 150 mg PO DAILY 09/02/17 Levothyroxine [Synthroid] 25 mcg PO DAILY 09/02/17 Metoprolol Succinate [Toprol XL] 50 mg PO DAILY 09/02/17 Omeprazole Magnesium [Prilosec Otc] 40 mg PO DAILY 09/02/17 Levocetirizine Dihydrochloride 5 mg PO DAILY 09/04/17 [Xyzal] Albuterol/Ipratropium [Duoneb 3 3 ml INH RQ4 neb 09/19/17 mg/0.5 mg (3 ml) UD] Epoetin Shelton [Procrit] 10,000 unit SQ MWF #10 ml 09/19/17 oxyCODONE/Acetaminophen [Percocet 2 tab PO Q4 PRN #15 tab 09/19/17 5/325 mg Tab] Ferrous Gluconate [Fergon] 324 mg PO BID 10/02/17 Furosemide [Lasix] 40 mg PO DAILY 10/02/17 Loratadine [Claritin] 10 mg PO DAILY 10/02/17 Nortriptyline [Nortriptyline HCl] 25 mg PO HS 10/02/17 Ondansetron HCl [Zofran] 4 mg PO Q4 PRN 10/02/17 Sevelamer [Renagel] 1,600 mg PO TID 10/02/17 Vitamin B Complex/Vit C/Folic 1 tab PO DAILY 10/02/17 [Nephro-Maria Del Carmen] amLODIPine [Norvasc] 10 mg PO DAILY 03/22/18 - Allergies Allergies/Adverse Reactions: Allergies Allergy/AdvReac Type Severity Reaction Status Date / Time aspirin Allergy other Verified 09/19/17 13:26 metoclopramide HCl Allergy other Verified 09/19/17 13:26 [From Reglan] shellfish derived Allergy SWELLING Verified 09/19/17 13:26 Review of Systems ROS Statement: Except As Marked, All Systems Reviewed And Found Negative Constitutional: Positive for: Other (referral for admission by Dr. Nicole) . Negative for: Fever Respiratory: Positive for: Cough (productive with white phlegm), Shortness of Breath Gastrointestinal: Positive for: Nausea, Abdominal Pain (epigastric pain). Negative for: Vomiting, Diarrhea Physical Exam - Reviewed Nursing Documentation Reviewed: Yes Vital Signs Reviewed: Yes - Physical Exam Appears: Positive for: Non-toxic, No Acute Distress (obese) Head Exam: Positive for: ATRAUMATIC, NORMOCEPHALIC Skin: Positive for: Normal Color, Warm, Dry Eye Exam: Positive for: Normal appearance, EOMI, PERRL ENT: Positive for: Normal ENT Inspection Neck: Positive for: Normal, Painless ROM, Supple Cardiovascular/Chest: Positive for: Regular Rate, Rhythm. Negative for: Murmur Respiratory: Positive for: Rhonchi Gastrointestinal/Abdominal: Positive for: Normal Exam, Hernia (palpable hernia, reductable above umbilicus) Back: Positive for: Normal Inspection Extremity: Positive for: Normal ROM. Negative for: Pedal Edema, Deformity Neurologic/Psych: Positive for: Alert, Oriented. Negative for: Motor/Sensory Deficits - Laboratory Results Result Diagrams: 03/22/18 20:40 03/22/18 20:40 - ECG ECG Rhythm: Positive for: Sinus Rhythm Rate: 75 O2 Sat by Pulse Oximetry: 91 (NC) Medical Decision Making Medical Decision Making: Time: 2005 COUGH NAUSEMA ANEMIA RULE OUT HYPERKALEMIA Plan: -- CXR Two Views -- CBC with differentials -- CMP Time: 2224 -- Dr. Brunner called. -- Labs are back. Noted anemia and elevated potassium of 5.7. hyperkalemia treated. Time: 2233 -- Case discussed with Dr. Brunner, patient will be admitted. Dr. Brunner would like Dr. Nicole RENAL for a consultation. 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 Time: 2252 -- Dr. Nicole called for consultation. Time: 2309 --Dr. Nicole evaluated patient who will get a dialysis catheter placed tomorrow, npo tonight since the fistula is not yet matured. Scribe Attestation: Documented by Ryan Kauffman, acting as a scribe for Dr. Eden Castellanos MD. Provider Scribe Attestation: All medical record entries made by the Scribe were at my direction and personally dictated by me. I have reviewed the chart and agree that the record accurately reflects my personal performance of the history, physical exam, medical decision making, and the department course for this patient. I have also personally directed, reviewed, and agree with the discharge instructions and disposition. Disposition - Clinical Impression Clinical Impression: Cough, Chronic congestive heart failure - Patient ED Disposition Is Patient to be Admitted: Yes Counseled Patient/Family Regarding: Studies Performed, Diagnosis - Disposition Disposition Time: 21:00 Condition: STABLE
[2018-03-22] MEDS ORDERED: Albuterol 0.083% Inhal Sol (2.5 mg/3 mL) UD INH ONE (20:46)
[2018-03-22 20:51] LABS: BASO # 0.1 K/uL (0.0-0.2); BASO % 1.3 % (0.0-2.0); EOS # 0.1 K/uL (0.0-0.7); EOS % 1.1 % (0.0-4.0); HEMOGLOBIN 8.9 g/dL (12.0-16.0); LYMPH # 0.9 K/uL (1.0-4.3); LYMPH % 14.1 % (20.0-40.0); MEAN CELL VOLUME 74.3 fl (81.0-99.0); MEAN CORPUSCULAR HEMOGLOBIN 21.7 pg (27.0-31.0); MEAN CORPUSCULAR HGB CONC 29.2 g/dL (33.0-37.0); MEAN PLATELET VOLUME 9.4 fl (7.2-11.7); MONO # 0.4 K/uL (0.0-0.8); MONO % 6.6 % (0.0-10.0); NEUT # 4.7 K/uL (1.8-7.0); NEUT % 76.9 % (50.0-75.0); NRBC % 0.1 % (0.0-0.0); RBC 4.08 Mil/uL (3.80-5.20); RED CELL DISTRIBUTION WIDTH 18.9 % (11.5-14.5); WHITE BLOOD COUNT 6.1 K/uL (4.8-10.8)
[2018-03-22 21:01] LABS: ALB/GLOB RATIO 1.1 (1.0-2.1); ALBUMIN 3.8 g/dL (3.5-5.0); CALCIUM 10.5 mg/dL (8.4-10.2)
[2018-03-22] MEDS ORDERED: Sod Polystyrene Sulf 15 gm/60 ml Susp PO ONE (22:25)
[2018-03-22] MEDS ORDERED: Insulin Regular 100 units/ml SC STA (22:36)
[2018-03-22] MEDS ORDERED: Albuterol-Ipratrop 3 mg / 0.5 (3 ml) UD INH STA (22:36)
[2018-03-22] MEDS ORDERED: Dextrose 50% SYRINGE Inj (50 ml) IVP ONE (22:53)
[2018-03-22] MEDS ORDERED: Insulin Regular 100 units/ml ONE (23:02)
[2018-03-22] MEDS ORDERED: Sod Polystyrene Sulf 15 gm/60 ml Susp ONE (23:02)
[2018-03-22] MEDS ORDERED: Albuterol-Ipratrop 3 mg / 0.5 (3 ml) UD ONE (23:02)
[2018-03-22] MEDS ORDERED: Dextrose 50% SYRINGE Inj (50 ml) ONE (23:02)
--- NOTE | 2018-03-22 23:27 | RAD ---
EXAM: XR Chest, 2 Views CLINICAL HISTORY: 62 years old, female; Signs and symptoms; Cough; Symptoms not specified TECHNIQUE: Frontal and lateral views of the chest. COMPARISON: CR - CHEST TWO VIEWS (PA/LAT) 2017-09-02 13:50 FINDINGS: Limitations: Radiographic technique - mild. Lungs: No consolidation. Pleural space: No pleural effusion. No pneumothorax. Heart: [id number] cardiomegaly, stable. Mediastinum: Unremarkable. Bones/joints: No acute fracture. IMPRESSION: 1. No definite acute cardiopulmonary disease. If symptoms persist, consider CT for further evaluation. 2. Incidental/non-acute findings are described above.
[2018-03-23] MEDS ORDERED: Albuterol HFA 90 mcg/actuation (8 g) IH PRN (01:37)
[2018-03-23] MEDS: Metoprolol Succinate 50 mg XL Tab PO SCH ×2 (01:50→19:43)
[2018-03-23] MEDS: Albuterol-Ipratrop 3 mg / 0.5 (3 ml) UD INH SCH ×5 (03:56→20:28)
[2018-03-23] MEDS: Levothyroxine 25 MCG TAB PO SCH (05:47)
[2018-03-23] MEDS ORDERED: EPOETIN ALFA 10,000 UNIT/ML ML IV SCH (09:00)
[2018-03-23 09:40] LABS: IRON 32 ug/dL (37-170)
[2018-03-23 09:49] LABS: % IRON SATURATION 13 % (20-55); TOTAL IRON BINDING CAPACITY 237 ug/dL (250-450)
--- NOTE | 2018-03-23 09:54 | CP.PCM.CON ---
History of Present Illness - History of Present Illness History of Present Illness: pt is seen and examined, full consult is dictated # 1. ESRd 2. anemia sec to esrd 3. remia 4. weight loss 5. sob r/o exaccerbation of asthma 6. hyperkalemia 7.primary hyperparathyroidism for hd today after perma cath see orders Past Patient History - Infectious Disease Hx of Infectious Diseases: None - Past Medical History & Family History Past Medical History?: Yes - Past Social History Alcohol: None Drugs: Denies - CARDIAC Hx Congestive Heart Failure: Yes (pulmonary congestion) Hx Hypertension: Yes - PULMONARY Hx Asthma: Yes Hx Chronic Obstructive Pulmonary Disease (COPD): Yes (asthma, bronchitis) - NEUROLOGICAL Hx Neurological Disorder: No - HEENT Hx HEENT Problems: Yes Hx Epistaxis: Yes (at young age) - RENAL Hx Chronic Kidney Disease: Yes - ENDOCRINE/METABOLIC Hx Hypothyroidism: Yes - HEMATOLOGICAL/ONCOLOGICAL Hx Anemia: Yes Hx Human Immunodeficiency Virus (HIV): No - INTEGUMENTARY Hx Dermatological Problems: No - MUSCULOSKELETAL/RHEUMATOLOGICAL Hx 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) - GASTROINTESTINAL Hx Diverticulitis: Yes - GENITOURINARY/GYNECOLOGICAL Hx Genitourinary Disorders: No - PSYCHIATRIC Hx Psychophysiologic Disorder: No Hx Substance Use: No - SURGICAL HISTORY Hx Surgeries: Yes Hx Section: Yes Hx Herniorrhaphy: Yes (8 yrs ago) Other/Comment: lap band 8 yrs ago,obesity,right upper arm fistula placement aug 2017 - ANESTHESIA Hx Anesthesia: Yes Hx Anesthesia Reactions: No Hx Malignant Hyperthermia: No Has any member of the family had a problem w/ anesthesia?: No Meds Allergies/Adverse Reactions: Allergies Allergy/AdvReac Type Severity Reaction Status Date / Time aspirin Allergy other Verified 09/19/17 13:26 metoclopramide HCl Allergy other Verified 09/19/17 13:26 [From Reglan] shellfish derived Allergy SWELLING Verified 09/19/17 13:26 - Medications Medications: Current Medications Albuterol (Ventolin Hfa 90 Mcg/Actuation (8 G)) 2 puff IH Q4 PRN PRN Reason: Shortness of Breath Albuterol/Ipratropium (Duoneb 3 Mg/0.5 Mg (3 Ml) Ud) 3 ml INH RQ4 NINA Last Admin: 03/23/18 07:59 Dose: 3 ml Amlodipine Besylate (Norvasc) 10 mg PO DAILY [facility] Last Admin: 03/23/18 01:58 Dose: 10 mg Cinacalcet (Sensipar) 60 mg PO DAILY [facility] Epoetin Shelton (Procrit) 20,000 unit IV MWF [facility] Ferrous Gluconate (Fergon) 324 mg PO BID [facility] Furosemide (Lasix) 40 mg PO DAILY [facility] Home Med (Diclofenac Sodium [Voltaren]) 100 gm TP DAILY [facility] Home Med (Febuxostat [Uloric]) 1 tab PO DAILY [facility] Home Med (Iron Polysaccharide [Ferrex-150]) 150 mg PO DAILY [facility] Levothyroxine Sodium (Synthroid) 25 mcg PO DAILY@0630 [facility] Last Admin: 03/23/18 05:47 Dose: Not Given Loratadine (Claritin) 10 mg PO DAILY [facility] Metoprolol Succinate (Toprol Xl) 50 mg PO DAILY [facility] Last Admin: 03/23/18 01:50 Dose: 50 mg Nortriptyline HCl (Pamelor) 25 mg PO HS [facility] Ondansetron HCl (Zofran Tab) 4 mg PO Q4 PRN PRN Reason: Nausea/Vomiting Oxycodone/Acetaminophen (Percocet 5/325 Mg Tab) 2 tab PO Q4 PRN PRN Reason: Pain, severe (8-10) Stop: 03/26/18 01:38 Pantoprazole Sodium (Protonix Ec Tab) 40 mg PO DAILY [facility] Sevelamer Carbonate (Renvela) 0.8 gm PO TIDWM [facility] Vitamin B Complex/Vit C/Folic Acid (Nephro-Maria Del Carmen) 1 tab PO DAILY [facility] Results - Vital Signs Recent Vital Signs: Last Vital Signs Temp 98.5 F 03/23/18 08:03 Pulse 67 03/23/18 08:03 Resp 18 03/23/18 08:03 BP 155/73 H 03/23/18 08:03 Pulse Ox 94 L 03/23/18 08:03 - Labs Result Diagrams: 03/22/18 20:40 03/22/18 20:40 Labs: Laboratory Results - last 24 hr 03/22/18 03/22/18 03/22/18 20:40 20:40 23:36 WBC 6.1 RBC 4.08 Hgb 8.9 L Hct 30.4 L MCV 74.3 L D MCH 21.7 L MCHC 29.2 L RDW 18.9 H Plt Count 232 MPV 9.4 Neut % (Auto) 76.9 H Lymph % (Auto) 14.1 L [place] % (Auto) 6.6 Eos % (Auto) 1.1 Baso % (Auto) 1.3 Neut # (Auto) 4.7 Lymph # (Auto) 0.9 L [place] # (Auto) 0.4 Eos # (Auto) 0.1 Baso # (Auto) 0.1 Sodium 139 Potassium 5.7 H Chloride 108 H Carbon Dioxide 22 Anion Gap 15 BUN 63 H Creatinine 6.4 H Est GFR ( Amer) 8 Est GFR (Non-Af Amer) 7 Random Glucose 96 Calcium 10.5 H Phosphorus 5.5 H Iron TIBC % Saturation Ferritin Total Bilirubin 0.6 AST 20 ALT 18 Alkaline Phosphatase 65 Total Protein 7.1 Albumin 3.8 Globulin 3.3 Albumin/Globulin Ratio 1.1 03/23/18 03/23/18 08:51 08:51 WBC RBC Hgb Hct MCV MCH MCHC RDW Plt Count MPV Neut % (Auto) Lymph % (Auto) [place] % (Auto) Eos % (Auto) Baso % (Auto) Neut # (Auto) Lymph # (Auto) [place] # (Auto) Eos # (Auto) Baso # (Auto) Sodium Potassium Chloride Carbon Dioxide Anion Gap BUN Creatinine Est GFR ( Amer) Est GFR (Non-Af Amer) Random Glucose Calcium Phosphorus Iron 32 L TIBC 237 L % Saturation 13 L Ferritin 127.0 Total Bilirubin AST ALT Alkaline Phosphatase Total Protein Albumin Globulin Albumin/Globulin Ratio
[2018-03-23 10:44] LABS: INR 1.1 (0.9-1.2)
[2018-03-23] MEDS ORDERED: Midazolam 2 MG/2 ML VIAL ONE (12:05)
[2018-03-23] MEDS ORDERED: LIDOCAINE 2% 10ML 20 MG/ML VIAL IJ ONE (12:17)
--- NOTE | 2018-03-23 12:24 | PCM.SURG1 ---
Surgeon's Initial Post Op Note - Surgeon's Notes Surgeon: Aleksander Black MD Can Repairer: NONE Type of Anesthesia: IV Sedation Pre-Operative Diagnosis: Renal failure Operative Findings: US showed patent right IJV Post-Operative Diagnosis: Renal failure Operation Performed: Tunneled HD catheter placement right IJV, 19 cm tip-to- cuff. Tip of HD catheter is in the SVC. Specimen/Specimens Removed: NONE Estimated Blood Loss: EBL {In ML}: 4 Blood Products Given: N/A Drains Used: No Drains Post-Op Condition: Fair Date of Surgery/Procedure: 03/23/18 Time of Surgery/Procedure: 12:30
[2018-03-23] MEDS ORDERED: Sodium Chloride 0.9% 250 ML IV ONE (12:40)
--- NOTE | 2018-03-23 13:32 | VASCULAR ---
PROCEDURE: Date of procedure: 03/23/2018 Procedure: 1. Placement of right IJ tunneled hemodialysis catheter, CPT 27577 Medications: 9cc 2 percent lidocaine, IV sedation and physiologic monitoring performed by the anesthesiologist. EBL: 4 cm Radiation: 3.05mGy Fluoro time: 11 seconds Images: 2 HISTORY: Renal failure requiring hemodialysis TECHNIQUE: Following informed consent and procedure time-out, the patient was placed supine on the interventional table and the skin was marked. A limited ultrasound patient's right neck showed a patent compressible right internal jugular vein. Under direct ultrasound guidance, the right internal jugular vein was accessed with micropuncture technique and a guidewire was advanced under fluoroscopic guidance into the superior vena cava. An image documenting ultrasound guidance for vascular access was permanently saved. A 19 centimeter cuff to tip hemodialysis catheter was then tunneled under the skin and hold the venotomy site. The venotomy was then serially dilated to accommodate the peel-away sheath. The hemodialysis catheter was then advanced through a peel-away sheath. The catheter is positioned with tip in the superior vena cava confirm with fluoroscopic image. The catheter was tested and has adequate blood flow for hemodialysis. The catheter was flushed and locked with heparin per specified amount. The catheter secured to the skin with a 0 silk suture. IMPRESSION: Placement of right tunneled hemodialysis 19 cm cuff-to-tip catheter The catheter tip is confirmed with spot radiograph and is in the superior vena cava. The catheter is functional and ready for use.
[2018-03-23] MEDS: Oxycodone/Acetaminophen 5/325 mg Tab PO PRN (15:08)
[2018-03-23] MEDS: Multivitamin Vitamin B Complex (Nephro-Vite) Tab PO SCH (15:11)
[2018-03-23] MEDS: Sevelamer Carb 0.8 gm/Packet PO SCH ×2 (15:13→17:30)
[2018-03-23] MEDS: Pantoprazole 40 mg EC Tab PO SCH (15:14)
[2018-03-23] MEDS: FEBUXOSTAT PO SCH (15:16)
--- NOTE | 2018-03-23 16:22 | CARD ---
APPROVED REPORT EKG Measurement Heart [id number] MD [id number] <Conclusion> Normal sinus rhythm Normal ECG
--- NOTE | 2018-03-23 18:12 | CP.PCM.CON ---
History of Present Illness - History of Present Illness History of Present Illness: Vascular Surgery Consult note. Dr. Mcfarland 62yo F with PMHx of CKD, Anemia, Hyperparathyroidism, Asthma, CHF, HTN, COPD admitted due to nausea, vomiting and hyperkalemia. Patient is known to the surgical service as she had a Right Brachicephalic AVF created on 09/14/18. She states that she has been doing well post-operatively and denies any complaints. She does report that she has not required any dialysis until this admission. She obtained a RIJ tunnelled catheter placed by IR this morning and she is scheduled to receive HD today. She states that her flight mechanic has mentioned that her R AVF is not accessible for HD as it is not superficial enough. She currently denies any symptoms. No F/C. No N/V/D currently. No CP/SOB. PMD: Dr. Brunner Python Architect: Dr. Nicole. PMHx: CKD, Anemia, Hyperparathyroidism, Asthma, CHF, HTN, COPD PSHx: Right Brachiocephalic AVF 09/14/18, Lap Band, , ventral hernia repair, tonsillectomy Family Hx: Father - CKD Social Hx: Former smoker quit 40 years ago, Social ETOH use, Denies illicit drugs Allergy: ASA, Metoclopramide, Shellfish Review of Systems - Review of Systems All systems: reviewed and no additional remarkable complaints except - Constitutional Constitutional: absent: Chills, Fever - Cardiovascular Cardiovascular: absent: Chest Pain, Dyspnea - Gastrointestinal Gastrointestinal: Abdominal Pain, Nausea, Vomiting. absent: Diarrhea Past Patient History - Infectious Disease Hx of Infectious Diseases: None - Past Medical History & Family History Past Medical History?: Yes - Past Social History Smoking Status: Former Smoker Alcohol: None Drugs: Denies - CARDIAC Hx Congestive Heart Failure: Yes (pulmonary congestion) Hx Hypertension: Yes - PULMONARY Hx Asthma: Yes Hx Chronic Obstructive Pulmonary Disease (COPD): Yes (asthma, bronchitis) - NEUROLOGICAL Hx Neurological Disorder: No - HEENT Hx HEENT Problems: Yes Hx Epistaxis: Yes (at young age) - RENAL Hx Chronic Kidney Disease: Yes - ENDOCRINE/METABOLIC Hx Hypothyroidism: Yes - HEMATOLOGICAL/ONCOLOGICAL Hx Anemia: Yes Hx Human Immunodeficiency Virus (HIV): No - INTEGUMENTARY Hx Dermatological Problems: No - MUSCULOSKELETAL/RHEUMATOLOGICAL Hx 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) - GASTROINTESTINAL Hx Diverticulitis: Yes - GENITOURINARY/GYNECOLOGICAL Hx Genitourinary Disorders: No - PSYCHIATRIC Hx Psychophysiologic Disorder: No Hx Substance Use: No - SURGICAL HISTORY Hx Surgeries: Yes Hx Section: Yes Hx Herniorrhaphy: Yes (8 yrs ago) Other/Comment: lap band 8 yrs ago,obesity,right upper arm fistula placement aug 2017 - ANESTHESIA Hx Anesthesia: Yes Hx Anesthesia Reactions: No Hx Malignant Hyperthermia: No Has any member of the family had a problem w/ anesthesia?: No Meds Allergies/Adverse Reactions: Allergies Allergy/AdvReac Type Severity Reaction Status Date / Time aspirin Allergy other Verified 09/19/17 13:26 metoclopramide HCl Allergy other Verified 09/19/17 13:26 [From Reglan] shellfish derived Allergy SWELLING Verified 09/19/17 13:26 - Medications Medications: Current Medications Albuterol (Ventolin Hfa 90 Mcg/Actuation (8 G)) 2 puff IH Q4 PRN PRN Reason: Shortness of Breath Albuterol/Ipratropium (Duoneb 3 Mg/0.5 Mg (3 Ml) Ud) 3 ml INH RQ4 [facility] Last Admin: 03/23/18 16:05 Dose: 3 ml Amlodipine Besylate (Norvasc) 10 mg PO DAILY [facility] Last Admin: 03/23/18 01:58 Dose: 10 mg Cinacalcet (Sensipar) 60 mg PO DAILY [facility] Last Admin: 03/23/18 15:14 Dose: 60 mg Epoetin Shelton (Procrit) 20,000 unit IV F [facility] Ferrous Gluconate (Fergon) 324 mg PO BID [facility] Last Admin: 03/23/18 15:11 Dose: 324 mg Furosemide (Lasix) 40 mg PO DAILY [facility] Home Med (Febuxostat [Uloric]) 1 tab PO DAILY [facility] Last Admin: 03/23/18 15:16 Dose: 1 tab Home Med (Iron Polysaccharide [Ferrex-150]) 150 mg PO DAILY [facility] Last Admin: 03/23/18 15:11 Dose: 150 mg Levothyroxine Sodium (Synthroid) 25 mcg PO DAILY@0630 [facility] Last Admin: 03/23/18 05:47 Dose: Not Given Loratadine (Claritin) 10 mg PO DAILY [facility] Last Admin: 03/23/18 15:12 Dose: 10 mg Metoprolol Succinate (Toprol Xl) 50 mg PO DAILY [facility] Last Admin: 03/23/18 01:50 Dose: 50 mg Nortriptyline HCl (Pamelor) 25 mg PO HS [facility] Ondansetron HCl (Zofran Tab) 4 mg PO Q4 PRN PRN Reason: Nausea/Vomiting Oxycodone/Acetaminophen (Percocet 5/325 Mg Tab) 2 tab PO Q4 PRN PRN Reason: Pain, severe (8-10) Stop: 03/26/18 01:38 Last Admin: 03/23/18 15:08 Dose: 2 tab Pantoprazole Sodium (Protonix Ec Tab) 40 mg PO DAILY [facility] Last Admin: 03/23/18 15:14 Dose: 40 mg Sevelamer Carbonate (Renvela) 0.8 gm PO TIDWM [facility] Last Admin: 03/23/18 15:13 Dose: Not Given Vitamin B Complex/Vit C/Folic Acid (Nephro-Maria Del Carmen) 1 tab PO DAILY [facility] Last Admin: 03/23/18 15:11 Dose: 1 tab Physical Exam - Constitutional Appears: Non-toxic, No Acute Distress - Head Exam Head Exam: ATRAUMATIC, NORMAL INSPECTION, NORMOCEPHALIC - Eye Exam Eye Exam: EOMI, Normal appearance - ENT Exam ENT Exam: Mucous Membranes Moist - Neck Exam Additional comments: Right IJ permacath in place. Dressing clean, dry and intact. - Respiratory Exam Respiratory Exam: NORMAL BREATHING PATTERN. absent: Accessory Muscle Use, Respiratory Distress - Cardiovascular Exam Cardiovascular Exam: RRR. absent: JVD - GI/Abdominal Exam GI & Abdominal Exam: Soft. absent: Distended, Guarding, Rebound, Tenderness - Extremities Exam Additional comments: Right AVF with palpable thrill. Distal Radial and ulnar pulses palpable. Neurovascularly intact. - Neurological Exam Neurological exam: Alert, Oriented x3 Results - Vital Signs Recent Vital Signs: Last Vital Signs Temp 98.7 F 03/23/18 16:31 Pulse 72 03/23/18 16:31 Resp 18 03/23/18 16:31 BP 125/89 03/23/18 16:31 Pulse Ox 99 03/23/18 16:31 - Labs Result Diagrams: 03/22/18 20:40 03/22/18 20:40 Labs: Laboratory Results - last 24 hr 03/22/18 03/22/18 03/22/18 20:40 20:40 23:36 WBC 6.1 RBC 4.08 Hgb 8.9 L Hct 30.4 L MCV 74.3 L D MCH 21.7 L MCHC 29.2 L RDW 18.9 H Plt Count 232 MPV 9.4 Neut % (Auto) 76.9 H Lymph % (Auto) 14.1 L [place] % (Auto) 6.6 Eos % (Auto) 1.1 Baso % (Auto) 1.3 Neut # (Auto) 4.7 Lymph # (Auto) 0.9 L [place] # (Auto) 0.4 Eos # (Auto) 0.1 Baso # (Auto) 0.1 PT INR Sodium 139 Potassium 5.7 H Chloride 108 H Carbon Dioxide 22 Anion Gap 15 BUN 63 H Creatinine 6.4 H Est GFR ( Amer) 8 Est GFR (Non-Af Amer) 7 Random Glucose 96 Calcium 10.5 H Phosphorus 5.5 H Iron TIBC % Saturation Ferritin Total Bilirubin 0.6 AST 20 ALT 18 Alkaline Phosphatase 65 Total Protein 7.1 Albumin 3.8 Globulin 3.3 Albumin/Globulin Ratio 1.1 03/23/18 03/23/18 03/23/18 08:51 08:51 10:33 WBC RBC Hgb Hct MCV MCH MCHC RDW Plt Count MPV Neut % (Auto) Lymph % (Auto) [place] % (Auto) Eos % (Auto) Baso % (Auto) Neut # (Auto) Lymph # (Auto) [place] # (Auto) Eos # (Auto) Baso # (Auto) PT 12.0 INR 1.1 Sodium Potassium Chloride Carbon Dioxide Anion Gap BUN Creatinine Est GFR ( Amer) Est GFR (Non-Af Amer) Random Glucose Calcium Phosphorus Iron 32 L TIBC 237 L % Saturation 13 L Ferritin 127.0 Total Bilirubin AST ALT Alkaline Phosphatase Total Protein Albumin Globulin Albumin/Globulin Ratio Assessment & Plan - Assessment and Plan (Free Text) Assessment: 62yo F s/p R Barchiocephalic AVF on 09/14/18. Surgery consulted for possible superficialization. Plan: - Continue HD via [facility] permacat for now - Patient may follow up as outpatient in clinic to schedule for OR electively - May consider OR next Monday or Monday if patient is still in house Further recs as per Dr. Bruna Brown PGY1 surgery pager: [phone]
[2018-03-23] MEDS: Epoetin Alfa 20000 UNIT/ML Inj IV SCH (20:30)
[2018-03-23 21:19] LABS: HEPATITIS B SURFACE AG Negative (NEGATIVE)
[2018-03-23 21:25] LABS: HEPATITIS A IGM NEGATIVE (NEGATIVE); HEPATITIS B CORE AB NEGATIVE (NEGATIVE)
[2018-03-23 21:36] LABS: HEPATITIS C ANTIBODY NEGATIVE (NEGATIVE)
--- NOTE | 2018-03-23 23:59 | HP ---
HISTORY OF PRESENT ILLNESS: This is a 62-year-old female with history of multiple medical problems including chronic kidney disease stage V, presented to emergency room with symptoms of nausea, frequent vomiting, and generalized weakness.. The patient was seen last week by her research associate and she was advised to start hemodialysis at this point due to the uremia symptoms. REVIEW OF SYSTEMS: Other review of systems is negative. ALLERGIES: THE PATIENT HAS ALLERGY TO ASPIRIN, SHELLFISH, AND METOCLOPRAMIDE. FAMILY HISTORY: Noncontributory. SOCIAL HISTORY: No history of smoking, EtOH, or substance abuse. MEDICATIONS: As per MAR. PAST MEDICAL HISTORY: Status post gastric bypass surgery, hypertension, hypothyroidism, primary hyperparathyroidism, and morbid obesity. PHYSICAL EXAMINATION: GENERAL: The patient is in bed, not in any cardiopulmonary distress. VITAL SIGNS: Blood pressure 152/80, temperature 98.3, respiratory rate 18, and pulse 66. HEENT: Slightly pale mucosa of the conjunctivae. NECK: Supple. No JVD. No carotid bruit. No lymph node. No thyromegaly. CHEST AND LUNGS: Bilateral symmetrical expansion. Good air exchange. No rales. No rhonchi. CARDIOVASCULAR: PMI not localized. S1 and S2. No additional sounds. ABDOMEN: Normoactive bowel sounds. No tenderness. No organomegaly. No masses. EXTREMITIES: No cyanosis. No clubbing. No edema. CENTRAL NERVOUS SYSTEM: Alert, awake, and oriented x2. No neurological deficit could be appreciated. ASSESSMENT: End-stage renal disease and will need to start hemodialysis. Currently, the patient has an arteriovenous fistula, which did not mature and the patient is for PermCath insertion. Hypertension, anemia of chronic disease, and primary hyperparathyroidism. PLAN: The patient is for PermCath insertion and starting hemodialysis. The patient was given Kayexalate for hyperkalemia. We will monitor the potassium level. Konstantin Brunner MD
[2018-03-24] MEDS: Albuterol-Ipratrop 3 mg / 0.5 (3 ml) UD INH SCH ×7 (00:51→23:05)
[2018-03-24] MEDS ORDERED: Trimethobenzamide 200 mg/2 mL Inj IM SCH (01:00)
[2018-03-24] MEDS: Oxycodone/Acetaminophen 5/325 mg Tab PO PRN ×2 (04:58→16:30)
[2018-03-24] MEDS: Levothyroxine 25 MCG TAB PO SCH (06:02)
--- NOTE | 2018-03-24 06:49 | CON ---
DATE: 03/23/2018 RENAL CONSULTATION LOCATION: The patient is located in room 403, bed 2. REQUESTED BY: Konstantin Brunner MD. HISTORY OF PRESENT ILLNESS: Mrs. Hidalgo is a 62-year-old elderly morbidly obese female with a past medical history significant for longstanding hypertension, proteinuria, chronic kidney disease stage V, hyperkalemia, asthma, primary hyperparathyroidism who was admitted some time in August for AV fistula placement. Subsequently, the patient developed shortness of breath and debility, admitted to rehab. From there, the patient was discharged home. After that, the patient lost to follow up and came to the office recently after 6 months complaining of weight loss about 40 to 50 pounds in the last 6 months and poor appetite, dyspnea on exertion, cannot walk even from one room to the other room. The patient was unable to continue her regular work, and the patient retired recently. The patient complains of poor appetite and also found to have worsening renal function and hyperkalemia. The patient was advised to go to the emergency room for possible initiation of the renal replacement therapy, has AV fistula also immature. PAST MEDICAL HISTORY: Significant for longstanding hypertension, asthma, chronic kidney disease, anemia, hyperkalemia. PAST SURGICAL HISTORY: Status post right upper extremity AV fistula. ALLERGIES: ALLERGIC TO ASPIRIN, METOCLOPRAMIDE, AND SHELL FISH. SOCIAL HISTORY: Denies any smoking, alcohol, or drugs. The patient was an ex-smoker, PERSONAL HISTORY: No smoking, alcohol, or drugs. FAMILY HISTORY: Not significant. PAST SURGICAL HISTORY: Status post hernia repair, , and lap band. REVIEW OF SYSTEMS: Significant for nausea, poor appetite, weight loss, weakness, significant for anemia, dyspnea on exertion. All other review of systems are reviewed and are negative. PHYSICAL EXAMINATION: VITAL SIGNS: Blood pressure 155/73, pulse 67, respirations 18, temperature 98.5, saturation 94% to 98%, height 5 feet and 4 inches, weight 275 pounds. She used to be 310 to 320 pounds in the past. GENERAL: The patient is a 62-year-old elderly obese female, well built, well nourished, not in distress. HEENT: Pupils normal and reactive to light and accommodation. Conjunctivae pink. Sclerae anicteric. Tongue is moist. Trachea is midline. LUNGS: Symmetric on both sides, bilateral breath sounds present. Clear to auscultation. CARDIOVASCULAR: [place] of the fifth intercostal space, midclavicular line. S1 and S2 audible. No murmur. No gallop. ABDOMEN: Normal in appearance, soft, and tympanic. No guarding. No rigidity. No hepatosplenomegaly. SAT TUTOR: The patient is alert, awake, and oriented x3. Nonfocal neuro examination. Cranial nerves II through XII grossly intact. Sensory and motor system is within normal limits. EXTREMITIES: No cyanosis. No clubbing. No edema. CURRENT MEDICATIONS: Include as follows: Claritin 10 mg p.o. daily, DuoNeb inhaler, ferrous gluconate 324 mg p.o. b.i.d., Lasix 40 mg p.o. daily, Nephro-javi 1 tablet daily, Norvasc 10 mg daily, nortriptyline 25 mg p.o. at bedtime, Percocet two tablets p.o. every 4 hours p.r.n., Procrit 20,000 units three times a week, Protonix 40 mg daily, Renvela 800 mg p.o. t.i.d., Sensipar 60 mg p.o. daily, levothyroxine 25 mcg daily, and Tigan 200 mg IM every 8 hours, metoprolol 50 mg p.o. daily, and Zofran. LABORATORY DATA: Include as follows, as of 03/22/2018, WBC 6.1, hemoglobin 8.9, hematocrit 30.4, MCV 74, platelets 232. PT 12, INR is 1.1. Sodium 139, potassium 5.7, chloride 100, CO2 of 22, BUN 63, creatinine 6.4, GFR 8, calcium 10.5, phosphorus 5.5, total bilirubin 0.6, AST 20, ALT 18, alkaline phosphatase 65, total protein 7.1, albumin 3.8. Hepatitis C IgM antibody is negative; hepatitis B surface antigen negative, core antibody is negative, and hepatitis C antibody is negative. Iron 32, TIBC 237, is 13, ferritin level is 127. ASSESSMENT: In summary, Mrs. Hidalgo is a 62-year-old obese elderly female with a history of hypertension, chronic kidney disease, proteinuria, hyperparathyroidism, hypothyroidism, asthma, status post gastric lap band who was admitted with generalized weakness, dyspnea on exertion and shortness of breath and anemia, worsening renal function, hyperkalemia. 1. End-stage renal disease, most likely secondary to hypertensive nephrosclerosis, cannot rule out underlying chronic glomerulonephritis secondary to focal segmental glomerulonephritis secondary to obesity. 2. Anemia secondary to renal failure. 3. Hyperkalemia secondary to renal failure. 4. Hypercalcemia secondary to primary hyperparathyroidism and elevated phosphorus secondary to the renal failure. PLAN: Discussed with the patient regarding the renal replacement therapy. The patient agreed for initiation of the hemodialysis and also agreed for PermCath placement. We will request IR for PermCath placement, and then we will schedule for hemodialysis after PermCath and also follow up with the social service for outpatient hemodialysis unit placement in [facility] if possible, and check PTH intact level also. I will consider IV iron therapy and also continue Epogen, multivitamins, and Renvela. We will follow with you. Thank you for allowing me to participate in your patient's care. Ember Nicole MD
[2018-03-24] MEDS: Sevelamer Carb 0.8 gm/Packet PO SCH ×3 (08:35→16:19)
[2018-03-24] MEDS: Multivitamin Vitamin B Complex (Nephro-Vite) Tab PO SCH (08:36)
[2018-03-24] MEDS: FEBUXOSTAT PO SCH (08:36)
[2018-03-24] MEDS: Pantoprazole 40 mg EC Tab PO SCH (08:36)
[2018-03-24] MEDS: Metoprolol Succinate 50 mg XL Tab PO SCH (08:37)
--- NOTE | 2018-03-24 10:42 | CP.PCM.PN ---
Subjective - Date & Time of Evaluation Date of Evaluation: 03/24/18 Time of Evaluation: 10:41 - Subjective Subjective: pt is seen and examined, follow up consult is dictated #[id number] s/p first hd yesterday for hd today and mwf next week Objective - Vital Signs/Intake and Output Vital Signs (last 24 hours): Temp Pulse Resp BP Pulse Ox 97.8 F 75 18 133/75 98 03/24/18 07:48 03/24/18 08:37 03/24/18 07:48 03/24/18 08:37 03/24/18 07:48 - Medications Medications: Current Medications Albuterol (Ventolin Hfa 90 Mcg/Actuation (8 G)) 2 puff IH Q4 PRN PRN Reason: Shortness of Breath Albuterol/Ipratropium (Duoneb 3 Mg/0.5 Mg (3 Ml) Ud) 3 ml INH RQ4 [facility] Last Admin: 03/24/18 08:05 Dose: 3 ml Amlodipine Besylate (Norvasc) 10 mg PO DAILY [facility] Last Admin: 03/24/18 08:34 Dose: 10 mg Cinacalcet (Sensipar) 60 mg PO DAILY [facility] Last Admin: 03/24/18 08:36 Dose: 60 mg Epoetin Shelton (Procrit) 20,000 unit IV MWF [facility] Last Admin: 03/23/18 20:30 Dose: 20,000 unit Ferrous Gluconate (Fergon) 324 mg PO BID [facility] Last Admin: 03/24/18 08:35 Dose: 324 mg Furosemide (Lasix) 40 mg PO DAILY [facility] Last Admin: 03/24/18 08:37 Dose: 40 mg Home Med (Febuxostat [Uloric]) 1 tab PO DAILY [facility] Last Admin: 03/24/18 08:36 Dose: 1 tab Home Med (Iron Polysaccharide [Ferrex-150]) 150 mg PO DAILY [facility] Last Admin: 03/24/18 08:39 Dose: Not Given Levothyroxine Sodium (Synthroid) 25 mcg PO DAILY@0630 [facility] Last Admin: 03/24/18 06:02 Dose: 25 mcg Loratadine (Claritin) 10 mg PO DAILY [facility] Last Admin: 03/24/18 08:38 Dose: 10 mg Metoprolol Succinate (Toprol Xl) 50 mg PO DAILY [facility] Last Admin: 03/24/18 08:37 Dose: 50 mg Nortriptyline HCl (Pamelor) 25 mg PO HS [facility] Last Admin: 03/23/18 22:16 Dose: 25 mg Ondansetron HCl (Zofran Tab) 4 mg PO Q4 PRN PRN Reason: Nausea/Vomiting Last Admin: 03/23/18 22:17 Dose: 4 mg Ondansetron HCl (Zofran Inj) 4 mg IVP Q6 PRN PRN Reason: Nausea/Vomiting Oxycodone/Acetaminophen (Percocet 5/325 Mg Tab) 2 tab PO Q4 PRN PRN Reason: Pain, severe (8-10) Stop: 03/26/18 01:38 Last Admin: 03/24/18 04:58 Dose: 2 tab Pantoprazole Sodium (Protonix Ec Tab) 40 mg PO DAILY [facility] Last Admin: 03/24/18 08:36 Dose: 40 mg Sevelamer Carbonate (Renvela) 0.8 gm PO TIDWM [facility] Last Admin: 03/24/18 08:35 Dose: 0.8 gm Trimethobenzamide HCl (Tigan) 200 mg IM Q8 PRN PRN Reason: Nausea/Vomiting Vitamin B Complex/Vit C/Folic Acid (Nephro-Maria Del Carmen) 1 tab PO DAILY [facility] Last Admin: 03/24/18 08:36 Dose: 1 tab - Labs Labs: 03/22/18 20:40 03/22/18 20:40 PT 12.0 Seconds (9.8-13.1) 03/23/18 10:33 INR 1.1 (0.9-1.2) 03/23/18 10:33
[2018-03-24 11:56] LABS: HEMOGLOBIN 8.5 g/dL (12.0-16.0); MEAN CELL VOLUME 74.8 fl (81.0-99.0); MEAN CORPUSCULAR HEMOGLOBIN 21.3 pg (27.0-31.0); MEAN CORPUSCULAR HGB CONC 28.5 g/dL (33.0-37.0); RBC 3.98 Mil/uL (3.80-5.20); RED CELL DISTRIBUTION WIDTH 18.7 % (11.5-14.5); WHITE BLOOD COUNT 6.2 K/uL (4.8-10.8)
[2018-03-24] MEDS: Trimethobenzamide 200 mg/2 mL Inj IM PRN (12:06)
[2018-03-24 12:17] LABS: CALCIUM 9.2 mg/dL (8.4-10.2)
--- NOTE | 2018-03-24 22:38 | PN ---
DAILY PROGRESS NOTE DATE: 03/24/2018 SUBJECTIVE: The patient is seen today 03/24/2018, status post hemodialysis through the [facility] and the patient generally feels better. OBJECTIVE: VITAL SIGNS: Blood pressure 132/63, temperature 98.3, respiratory rate 20, and pulse 59. HEENT: Pupils equal and reactive to light. Normal-appearing mucosa of the conjunctivae, oropharynx, and nasal membrane mucosa. NECK: Supple. No JVD. No carotid bruit. No lymph node. No thyromegaly. CHEST AND LUNGS: Bilateral symmetrical expansion. Good air exchange. No rales. No rhonchi. CARDIOVASCULAR: PMI not localized. S1 and S2. No additional sounds. ABDOMEN: Normoactive bowel sounds. No tenderness. No organomegaly. No masses. EXTREMITIES: No cyanosis. No clubbing. No edema. CENTRAL NERVOUS SYSTEM: Alert, awake, and oriented x2. No neurological deficit could be appreciated. ASSESSMENT: End-stage renal disease started on hemodialysis this admission, hypertension, status post gastric bypass surgery, gouty osteoarthritis, and primary hyperparathyroidism. PLAN: Continue current medications and follow Nephrology recommendations and the patient will be started on Procrit for the anemia. Konstantin Brunner MD
[2018-03-25] MEDS: Oxycodone/Acetaminophen 5/325 mg Tab PO PRN (00:58)
[2018-03-25] MEDS: Albuterol-Ipratrop 3 mg / 0.5 (3 ml) UD INH SCH ×5 (04:30→19:11)
[2018-03-25] MEDS: Levothyroxine 25 MCG TAB PO SCH (06:56)
[2018-03-25] MEDS: FEBUXOSTAT PO SCH (08:38)
[2018-03-25] MEDS: Multivitamin Vitamin B Complex (Nephro-Vite) Tab PO SCH (08:41)
[2018-03-25] MEDS: Pantoprazole 40 mg EC Tab PO SCH (08:41)
[2018-03-25] MEDS: Sevelamer Carb 0.8 gm/Packet PO SCH ×4 (08:42→17:35)
[2018-03-25] MEDS: Metoprolol Succinate 50 mg XL Tab PO SCH (08:43)
[2018-03-25] MEDS: Trimethobenzamide 200 mg/2 mL Inj IM PRN (15:04)
[2018-03-26] MEDS: Albuterol-Ipratrop 3 mg / 0.5 (3 ml) UD INH SCH ×6 (00:27→19:18)
[2018-03-26] MEDS: Levothyroxine 25 MCG TAB PO SCH (06:03)
--- NOTE | 2018-03-26 08:46 | PN ---
DATE: 03/24/2018 FOLLOWUP RENAL CONSULTATION The patient is located in room 403, bed 2. REQUESTED BY: REASON FOR FOLLOWUP: End-stage renal disease, continuation of hemodialysis, and initiation of hemodialysis. 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 The patient was found to have worsening renal function and also hyperkalemia with nonfunctioning AV fistula. The patient was admitted for possible initiation of hemodialysis. The patient agreed for the initiation of the hemorenal replacement therapy and underwent PermCath placement yesterday by Interventional Radiology and also completed first hemodialysis last night. The patient is not in acute distress. Denies any headache, dizziness. Denies any chest pain, palpitation. No nausea and no vomiting today, resting comfortably. PHYSICAL EXAMINATION: VITAL SIGNS: Blood pressure 133/75, pulse 75, respirations 18, temperature 97.8, saturation 98%, height 5 feet 4 inches, weight is 275 pounds. GENERAL: The patient is a 62-year-old elderly obese female, well built, well nourished, not in distress. HEENT: Pupils normally reactive to light and accommodation. Conjunctivae pink. Sclerae anicteric. Tongue is moist. Trachea is midline. LUNGS: Symmetric on both sides, bilateral breath sounds present. Clear to auscultation. CVS: [place] on the fifth intercostal space, midclavicular line. S1 and S2 audible. No murmur. No gallop. ABDOMEN: Normal in appearance, soft, tympanic. No guarding. No rigidity. No hepatosplenomegaly. PULP BEATER: The patient is alert, awake, and oriented x3. Nonfocal neuro examination. Cranial nerves II through XII grossly intact. Sensory and motor system is within normal limits. EXTREMITIES: No cyanosis. No clubbing. No edema. CURRENT MEDICATIONS: Include as follows: Claritin 10 mg p.o. daily, DuoNeb inhaler, ferrous gluconate 324 mg p.o. b.i.d., Lasix 40 mg p.o. daily, Nephro-[place] 1 tablet daily, Norvasc 10 mg daily, Pamelor 25 mg p.o. at bedtime, Percocet two tablets p.o. every 4 hours p.r.n., Procrit 20,000 units three times a week, Protonix 40 mg daily, Renvela 800 mg p.o. t.i.d., Sensipar 60 mg p.o. daily, levothyroxine 25 mcg p.o. daily, Tigan 200 mg IM every 8 hours, Toprol-XL 50 mg p.o. daily, and Zofran. LABORATORY DATA: No new labs available for today. ASSESSMENT AND PLAN: In summary, the patient is a 62-year-old obese elderly female with hypertension, asthma, primary hyperparathyroidism, morbidly obese, status post lap band, nephrotic range proteinuria, chronic kidney disease with worsening renal function, poor appetite, weight loss, dyspnea on exertion, severe generalized weakness, and weight loss about 35-40 pounds. 1. End-stage renal disease, most likely secondary to chronic cannot rule out underlying evidence of nephrosclerosis. Continue hemodialysis three times a week. The patient received first time dialysis yesterday. We will give another dialysis today and then starting Monday three times a week. 2. Anemia secondary to renal failure, rule out also iron deficiency. Continue ferrous gluconate and we will consider to wean off if no allergy. 3. Asthma. 4. Primary hyperparathyroidism. 5. Status post hyperkalemia. No new labs available. We will check BMP, CBC, and phosphorus level today. Follow with social service for outpatient hemodialysis unit placement. We will follow with you. Thank you for allowing me to participate in your patient's care. Ember Nicole MD
[2018-03-26] MEDS: FEBUXOSTAT PO SCH (08:54)
[2018-03-26] MEDS: Multivitamin Vitamin B Complex (Nephro-Vite) Tab PO SCH (08:54)
[2018-03-26] MEDS: Pantoprazole 40 mg EC Tab PO SCH (08:55)
[2018-03-26] MEDS: Sevelamer Carb 0.8 gm/Packet PO SCH ×3 (08:55→17:40)
[2018-03-26] MEDS: Metoprolol Succinate 50 mg XL Tab PO SCH (08:56)
--- NOTE | 2018-03-26 09:51 | CP.PCM.PN ---
Subjective - Date & Time of Evaluation Date of Evaluation: 03/26/18 Time of Evaluation: 09:50 - Subjective Subjective: pt is seen and examined, follow up consult is dictated #[id number] Objective - Vital Signs/Intake and Output Vital Signs (last 24 hours): Temp Pulse Resp BP Pulse Ox 100.3 F H 78 18 122/60 94 L 03/26/18 07:54 03/26/18 08:56 03/26/18 07:54 03/26/18 08:56 03/26/18 07:54 - Medications Medications: Current Medications Albuterol (Ventolin Hfa 90 Mcg/Actuation (8 G)) 2 puff IH Q4 PRN PRN Reason: Shortness of Breath Albuterol/Ipratropium (Duoneb 3 Mg/0.5 Mg (3 Ml) Ud) 3 ml INH RQ4 [facility] Last Admin: 03/26/18 08:13 Dose: 3 ml Amlodipine Besylate (Norvasc) 10 mg PO DAILY [facility] Last Admin: 03/26/18 08:54 Dose: 10 mg Cinacalcet (Sensipar) 60 mg PO DAILY [facility] Last Admin: 03/26/18 08:55 Dose: 60 mg Epoetin Shelton (Procrit) 20,000 unit IV MWF [facility] Last Admin: 03/23/18 20:30 Dose: 20,000 unit Ferrous Gluconate (Fergon) 324 mg PO BID [facility] Last Admin: 03/26/18 08:55 Dose: 324 mg Furosemide (Lasix) 40 mg PO DAILY [facility] Last Admin: 03/26/18 08:54 Dose: 40 mg Home Med (Febuxostat [Uloric]) 1 tab PO DAILY [facility] Last Admin: 03/26/18 08:54 Dose: 1 tab Home Med (Iron Polysaccharide [Ferrex-150]) 150 mg PO DAILY [facility] Last Admin: 03/26/18 08:54 Dose: 150 mg Lactulose (Enulose) 20 gm PO Q6 PRN PRN Reason: Constipation Last Admin: 03/25/18 13:37 Dose: 20 gm Levothyroxine Sodium (Synthroid) 25 mcg PO DAILY@0630 [facility] Last Admin: 03/26/18 06:03 Dose: 25 mcg Loratadine (Claritin) 10 mg PO DAILY [facility] Last Admin: 03/26/18 08:55 Dose: 10 mg Metoprolol Succinate (Toprol Xl) 50 mg PO DAILY [facility] Last Admin: 03/26/18 08:56 Dose: 50 mg Nortriptyline HCl (Pamelor) 25 mg PO HS [facility] Last Admin: 03/25/18 21:08 Dose: 25 mg Ondansetron HCl (Zofran Tab) 4 mg PO Q4 PRN PRN Reason: Nausea/Vomiting Last Admin: 03/25/18 14:18 Dose: 4 mg Ondansetron HCl (Zofran Inj) 4 mg IVP Q6 PRN PRN Reason: Nausea/Vomiting Pantoprazole Sodium (Protonix Ec Tab) 40 mg PO DAILY [facility] Last Admin: 03/26/18 08:55 Dose: 40 mg Sevelamer Carbonate (Renvela) 0.8 gm PO TIDWM [facility] Last Admin: 03/26/18 08:55 Dose: 0.8 gm Trimethobenzamide HCl (Tigan) 200 mg IM Q8 PRN PRN Reason: Nausea/Vomiting Last Admin: 03/25/18 15:04 Dose: 200 mg Vitamin B Complex/Vit C/Folic Acid (Nephro-Maria [place] Carmen) 1 tab PO DAILY [facility] Last Admin: 03/26/18 08:54 Dose: 1 tab - Labs Labs: 03/24/18 11:30 03/24/18 11:30 PT 12.0 Seconds (9.8-13.1) 03/23/18 10:33 INR 1.1 (0.9-1.2) 03/23/18 10:33
[2018-03-26] MEDS ORDERED: Oxycodone/Acetaminophen 5/325 mg Tab PO PRN ×2 (12:18→12:26)
[2018-03-26 13:53] LABS: BASO % 0.2 % (0.0-2.0); EOS # 0.1 K/uL (0.0-0.7); EOS % 1.5 % (0.0-4.0); LYMPH # 0.8 K/uL (1.0-4.3); LYMPH % 14.8 % (20.0-40.0); MEAN CELL VOLUME 76.4 fl (81.0-99.0); MEAN CORPUSCULAR HEMOGLOBIN 21.6 pg (27.0-31.0); MEAN CORPUSCULAR HGB CONC 28.3 g/dL (33.0-37.0); MEAN PLATELET VOLUME 9.4 fl (7.2-11.7); MONO # 0.6 K/uL (0.0-0.8); MONO % 11.1 % (0.0-10.0); NEUT % 72.4 % (50.0-75.0); NRBC % 0.1 % (0.0-0.0); RBC 3.49 Mil/uL (3.80-5.20); RED CELL DISTRIBUTION WIDTH 18.4 % (11.5-14.5); WHITE BLOOD COUNT 5.5 K/uL (4.8-10.8)
--- NOTE | 2018-03-26 14:01 | PN ---
DATE: 03/26/2018 FOLLOWUP RENAL CONSULTATION LOCATION: The patient is located in room 403, bed 2. REQUESTING PHYSICIAN: Konstantin Brunner MD. REASON FOR FOLLOWUP: End-stage renal disease, continuation of hemodialysis. HISTORY OF PRESENT ILLNESS: Mrs. Hidalgo is a 62-year-old obese -Monegas[place] female with a past medical history significant for hypertension, asthma, end-stage renal disease, primary hyperparathyroidism, hyperkalemia, metabolic acidosis, who was admitted with chief complaints of weight loss and poor appetite, and feeling weak, tired, and dyspnea on exertion. The patient was started on hemodialysis last week, Monday. The patient is feeling better today, not in any distress. No nausea. No vomiting. No abdominal pain. No fever. No cough. No chest pain or palpitations. PHYSICAL EXAMINATION: VITAL SIGNS: Blood pressure is 122/60, pulse is 78, respirations are 18, and temperature is 100.3 this morning. GENERAL: Mrs. Hidalgo is a 62-year-old obese female, well built and well nourished, not in distress. HEENT: Pupils are normally reactive to light and accommodation. Conjunctivae pink. Sclerae anicteric. Tongue is moist. Trachea is midline. LUNGS: Symmetric on both sides, bilateral breath sounds present. Clear to auscultation. CARDIOVASCULAR SYSTEM: [place] on the fifth intercostal space, midclavicular line. S1 and S2 audible. No murmur. No gallop. ABDOMEN: Normal in appearance, soft, and tympanic. No guarding. No rigidity. No hepatosplenomegaly. CENTRAL NERVOUS SYSTEM: The patient is alert, awake, and oriented x3. Nonfocal neuro examination. Cranial nerves II through XII grossly intact. Sensory and motor system is within normal limits. EXTREMITIES: No cyanosis. No clubbing. No edema. CURRENT MEDICATIONS: Include as follows: Claritin 10 mg p.o. daily, DuoNeb inhaler, lactulose 20 grams p.o. every 6 hours p.r.n., ferrous gluconate 324 mg p.o. b.i.d., Lasix 40 mg p.o. daily, Nephro-Maria [place]en 1 tablet daily, amlodipine 10 mg daily, Pamelor 25 mg p.o. at bedtime, Procrit 20,000 units three times a week, Protonix 40 mg p.o. daily, Renvela 800 mg p.o. t.i.d., Sensipar 60 mg p.o. daily, levothyroxine 25 mcg daily, Tigan, metoprolol 50 mg p.o. daily, Ventolin inhaler, and Zofran. LABORATORY DATA: As of 03/24/2018, WBC of 6.2, hemoglobin of 8.5, hematocrit is 29.7, MCV of 74.8, and platelets of 160. Sodium of 138, potassium of 4.8, chloride of 101, CO2 of 29, BUN of 32, creatinine of 4.5, glucose of 108, calcium of 9.2 phosphorus of 5.6, and ferritin is 141. ASSESSMENT AND PLAN: In summary, Mrs. Hidalgo is a 62- years-old elderly obese -Monegasque female with a history of hypertension, end-stage renal disease, proteinuria nephrotic range, primary hyperparathyroidism and asthma, who was admitted with anemia, generalized weakness, worsening renal function, hyperkalemia, started on hemodialysis with nonfunctioning poorly maturing right upper extremity arteriovenous fistula status post right ventricular PermCath. 1. End-stage renal disease. Continue hemodialysis three times a week, Monday, Monday, and Monday. The patient is scheduled for dialysis today. 2. Anemia secondary to renal failure, and iron deficiency. Continue p.o. iron. We will give intravenous iron during dialysis, and Venofer 100 mg every hemodialysis. 3. Primary hyperparathyroidism. Continue Sensipar 60 mg p.o. daily. Followup calcium level and PTH. 4. Nonfunctioning arteriovenous fistula. Followup with the Vascular Surgery for superficialization and possible angioplasty. Consider physical therapy evaluation and also follow up with the social organization professor for outpatient hemodialysis unit placement. 5. Hypothyroidism. Continue levothyroxine 25 mcg daily. We will follow with you. Thank you for allowing me to participate in your patient's care. Ember Nicole MD
[2018-03-26 14:07] LABS: CALCIUM 8.9 mg/dL (8.4-10.2)
[2018-03-26 14:08] LABS: HEMOGLOBIN 7.6 g/dL (12.0-16.0)
[2018-03-26] MEDS: Epoetin Alfa 20000 UNIT/ML Inj IV SCH (16:16)
[2018-03-26] MEDS: Iron Sucrose 100 mg/5 ml Inj IVP SCH (16:17)
--- NOTE | 2018-03-26 22:22 | PN ---
DATE: 03/26/2018 SUBJECTIVE: The patient is seen today 03/26/2018. She was seen during hemodialysis. The patient was complaining of constipation. PHYSICAL EXAMINATION: VITAL SIGNS: Blood pressure is 155/74, temperature 98.3, respiratory rate 20, and pulse 70. HEENT: Pupils are equal and reactive to light. Normal-appearing mucosa of the conjunctivae, oropharynx, and nasal membrane mucosa. NECK: Supple. No JVD. No carotid bruit. No lymph node. No thyromegaly. CHEST AND LUNGS: Bilateral symmetrical expansion. Good air exchange. No rales. No rhonchi. CARDIOVASCULAR: PMI not localized. S1 and S2. No additional sounds. ABDOMEN: Normoactive bowel sounds. No tenderness. No organomegaly. No masses. EXTREMITIES: No cyanosis. No clubbing. No edema. CENTRAL NERVOUS SYSTEM: Alert, awake, and oriented x2. No neurological deficit could be appreciated. ASSESSMENT: End-stage renal disease started on hemodialysis at this admission, hypertension, gouty osteoarthritis, and primary hyperparathyroidism. PLAN: Continue current home medications dose if needed. Konstantin Brunner MD
[2018-03-27] MEDS: Albuterol-Ipratrop 3 mg / 0.5 (3 ml) UD INH SCH ×6 (00:27→19:25)
[2018-03-27] MEDS: Levothyroxine 25 MCG TAB PO SCH (05:41)
[2018-03-27 06:49] LABS: HEMOGLOBIN 8.3 g/dL (12.0-16.0); MEAN CELL VOLUME 76.6 fl (81.0-99.0); MEAN CORPUSCULAR HEMOGLOBIN 22.6 pg (27.0-31.0); MEAN CORPUSCULAR HGB CONC 29.5 g/dL (33.0-37.0); RBC 3.65 Mil/uL (3.80-5.20); RED CELL DISTRIBUTION WIDTH 18.1 % (11.5-14.5); WHITE BLOOD COUNT 6.5 K/uL (4.8-10.8)
[2018-03-27] MEDS: Sevelamer Carb 0.8 gm/Packet PO SCH ×3 (08:55→17:48)
[2018-03-27] MEDS: FEBUXOSTAT PO SCH (08:55)
[2018-03-27] MEDS: Pantoprazole 40 mg EC Tab PO SCH (08:56)
[2018-03-27] MEDS: Multivitamin Vitamin B Complex (Nephro-Vite) Tab PO SCH (08:56)
[2018-03-27] MEDS: Metoprolol Succinate 50 mg XL Tab PO SCH (08:57)
--- NOTE | 2018-03-28 01:26 | PN ---
DATE: 03/27/2018 SUBJECTIVE: The patient is seen today, 03/27/2018. She is not in cardiopulmonary distress. The patient moves her bowel. The patient had hemodialysis yesterday. PHYSICAL EXAMINATION: VITAL SIGNS: Blood pressure 123/76, temperature 98.5, respiratory rate 18, pulse 64. HEENT: Slightly pale mucosa of the conjunctivae. NECK: Supple. No JVD. No carotid bruits. No lymph nodes. No thyromegaly. CHEST AND LUNGS: Bilateral, symmetrical expansion. Good air exchange. No rales. No rhonchi. CARDIOVASCULAR SYSTEM: PMI not localized. S1, S2. No additional sounds. ABDOMEN: Normoactive bowel sounds. No tenderness. No organomegaly. No masses. EXTREMITIES: No cyanosis, no clubbing, no edema. SPECTROSCOPIST: Alert, awake, oriented x2. No neurological deficits could be appreciated. ASSESSMENT: 1. End-stage renal disease, on hemodialysis, started on hemodialysis this admission through a PermCath, status post arteriovenous fistula placement. 2. Hypertension. 3. Hyperparathyroidism. 4. Type 2 diabetes mellitus. 5. The patient is still waiting for the Social Service for dialysis schedule and insurance settlement. Konstantin Brunner MD
[2018-03-28] MEDS: Albuterol-Ipratrop 3 mg / 0.5 (3 ml) UD INH SCH ×6 (01:29→19:03)
[2018-03-28] MEDS: Levothyroxine 25 MCG TAB PO SCH (05:31)
[2018-03-28] MEDS: FEBUXOSTAT PO SCH (08:46)
[2018-03-28] MEDS: Multivitamin Vitamin B Complex (Nephro-Vite) Tab PO SCH (08:47)
[2018-03-28] MEDS: Metoprolol Succinate 50 mg XL Tab PO SCH (08:47)
[2018-03-28] MEDS: Sevelamer Carb 0.8 gm/Packet PO SCH ×3 (08:48→17:47)
[2018-03-28] MEDS: Pantoprazole 40 mg EC Tab PO SCH (08:48)
[2018-03-28] MEDS: Iron Sucrose 100 mg/5 ml Inj IVP SCH (15:09)
[2018-03-28] MEDS: Epoetin Alfa 20000 UNIT/ML Inj IV SCH (15:09)
--- NOTE | 2018-03-28 16:31 | CP.PCM.PN ---
Subjective - Date & Time of Evaluation Date of Evaluation: 03/28/18 Time of Evaluation: 12:40 - Subjective Subjective: pt is seen and examined, follow up consult is dictated #[id number] for hd today Objective - Vital Signs/Intake and Output Vital Signs (last 24 hours): Temp Pulse Resp BP Pulse Ox 97.8 F 64 20 138/63 96 03/28/18 15:37 03/28/18 15:37 03/28/18 15:37 03/28/18 15:37 03/28/18 15:37 - Medications Medications: Current Medications Albuterol (Ventolin Hfa 90 Mcg/Actuation (8 G)) 2 puff IH Q4 PRN PRN Reason: Shortness of Breath Albuterol/Ipratropium (Duoneb 3 Mg/0.5 Mg (3 Ml) Ud) 3 ml INH RQ4 [facility] Last Admin: 03/28/18 15:32 Dose: 3 ml Amlodipine Besylate (Norvasc) 10 mg PO DAILY [facility] Last Admin: 03/28/18 08:49 Dose: 10 mg Cinacalcet (Sensipar) 60 mg PO DAILY [facility] Last Admin: 03/28/18 08:48 Dose: 60 mg Epoetin Shelton (Procrit) 20,000 unit IV MWF [facility] Last Admin: 03/28/18 15:09 Dose: 20,000 unit Ferrous Gluconate (Fergon) 324 mg PO BID [facility] Last Admin: 03/28/18 08:46 Dose: 324 mg Home Med (Febuxostat [Uloric]) 1 tab PO DAILY [facility] Last Admin: 03/28/18 08:46 Dose: 1 tab Home Med (Iron Polysaccharide [Ferrex-150]) 150 mg PO DAILY [facility] Last Admin: 03/28/18 08:47 Dose: 150 mg Iron Sucrose (Venofer) 100 mg IVP F [facility] Stop: 04/14/18 23:59 Last Admin: 03/28/18 15:09 Dose: 100 mg Lactulose (Enulose) 20 gm PO Q6 PRN PRN Reason: Constipation Last Admin: 03/26/18 23:35 Dose: 20 gm Levothyroxine Sodium (Synthroid) 25 mcg PO DAILY@0630 [facility] Last Admin: 03/28/18 05:31 Dose: 25 mcg Loratadine (Claritin) 10 mg PO DAILY [facility] Last Admin: 03/28/18 08:46 Dose: 10 mg Metoprolol Succinate (Toprol Xl) 50 mg PO DAILY [facility] Last Admin: 03/28/18 08:47 Dose: 50 mg Nortriptyline HCl (Pamelor) 25 mg PO HS [facility] Last Admin: 03/27/18 22:07 Dose: 25 mg Ondansetron HCl (Zofran Tab) 4 mg PO Q4 PRN PRN Reason: Nausea/Vomiting Last Admin: 03/25/18 14:18 Dose: 4 mg Ondansetron HCl (Zofran Inj) 4 mg IVP Q6 PRN PRN Reason: Nausea/Vomiting Oxycodone/Acetaminophen (Percocet 5/325 Mg Tab) 2 tab PO Q4 PRN PRN Reason: severe pain 8-10 Stop: 03/29/18 12:19 Last Admin: 03/28/18 12:08 Dose: 2 tab Oxycodone/Acetaminophen (Percocet 5/325 Mg Tab) 1 tab PO Q6 PRN PRN Reason: moderate pain 4-7 Stop: 03/29/18 12:27 Last Admin: 03/26/18 22:19 Dose: 1 tab Pantoprazole Sodium (Protonix Ec Tab) 40 mg PO DAILY [facility] Last Admin: 03/28/18 08:48 Dose: 40 mg Sevelamer Carbonate (Renvela) 0.8 gm PO TIDWM [facility] Last Admin: 03/28/18 12:10 Dose: 0.8 gm Trimethobenzamide HCl (Tigan) 200 mg IM Q8 PRN PRN Reason: Nausea/Vomiting Last Admin: 03/25/18 15:04 Dose: 200 mg Vitamin B Complex/Vit C/Folic Acid (Nephro-Maria Del Carmen) 1 tab PO DAILY [facility] Last Admin: 03/28/18 08:47 Dose: 1 tab - Labs Labs: 03/27/18 06:30 03/26/18 13:42 PT 12.0 Seconds (9.8-13.1) 03/23/18 10:33 INR 1.1 (0.9-1.2) 03/23/18 10:33
[2018-03-29] MEDS: Trimethobenzamide 200 mg/2 mL Inj IM PRN (00:18)
[2018-03-29] MEDS: Albuterol-Ipratrop 3 mg / 0.5 (3 ml) UD INH SCH ×5 (00:50→20:04)
--- NOTE | 2018-03-29 02:27 | PN ---
DATE: 03/28/2018 SUBJECTIVE: The patient is seen today, 03/28/2018. She is not in any cardiopulmonary distress. The patient was scheduled for hemodialysis today. PHYSICAL EXAMINATION: VITAL SIGNS: Blood pressure 164/98, temperature 98.3, respiratory rate 20, and pulse 59. HEENT: Pupils are equal and reactive to light. Slightly pale mucosa of the conjunctivae. NECK: Supple. No JVD. No carotid bruits. No lymph nodes. No thyromegaly. CHEST AND LUNGS: Bilateral symmetrical expansion. Good air exchange. No rales. No rhonchi. CARDIOVASCULAR SYSTEM: PMI not localized. S1 and S2. No additional sounds. ABDOMEN: Normoactive bowel sounds. No tenderness. No organomegaly. No masses. EXTREMITIES: No cyanosis. No clubbing. No edema. CENTRAL NERVOUS SYSTEM: Alert, awake, and oriented x2. No neurological deficit could be appreciated. ASSESSMENT: 1. End-stage renal disease. Started her on hemodialysis this admission. 2. Hypertension. 3. Hyperparathyroidism. 4. Gouty arthritis. PLAN: We will transfuse 1 unit of packed RBCs today during hemodialysis, as hemoglobin was 8.3, and we will start physical therapy and follow nephrology recommendations. Konstantin Brunner MD
[2018-03-29] MEDS: Levothyroxine 25 MCG TAB PO SCH (05:37)
--- NOTE | 2018-03-29 07:00 | PN ---
DATE: 03/28/2018 LOCATION: Room 403, Bed 2. REQUESTED BY: Konstantin Brunner MD REASON FOR FOLLOWUP: End-stage renal disease, continuation of hemodialysis. HISTORY: The patient is a 62-year-old obese, -Stateless female with a past medical history significant for longstanding hypertension, primary hyperparathyroidism, end-stage renal disease, diabetes, hypothyroidism, who was admitted with a chief complaint of not feeling well, weakness, and tired and difficult to ambulate from room to room. The patient was found to have worsening renal function, started on hemodialysis. The patient was also given 1 unit of packed RBC yesterday and scheduled to receive second unit during dialysis today. The patient denies any chest pain, palpitation. Today, the patient is complaining still feeling weak and tired. Tried to ambulate. PHYSICAL EXAMINATION: VITAL SIGNS: This morning, blood pressure 112/67, pulse 78, respirations 18, temperature 98.9, saturation 100%, height 5 feet 4 inches, weight is 275 pounds. GENERAL: The patient is a 62-year-old obese, elderly -Stateless female, well built, well nourished, not in any distress. HEENT: Pupils normal and reactive to light and accommodation. Conjunctivae pink. Sclerae anicteric. Tongue is moist. Trachea is midline. LUNGS: Symmetric on both sides. Bilateral breath sounds present. Clear to auscultation. CVS: [place] at the fifth intercostal space, midclavicular line. S1, S2 audible. No murmur or gallop. ABDOMEN: Normal in appearance. Soft, tympanic. No guarding. No rigidity. No hepatosplenomegaly. 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 Nonfocal neuro examination. Cranial nerves II through XII grossly intact. Sensory and motor system is within normal limits. EXTREMITIES: No cyanosis, no clubbing, no edema. MEDICATIONS: Include as follows: Claritin 10 mg daily, DuoNeb inhaler, lactulose 20 gm p.o. every 6 hours, ferrous gluconate 324 mg p.o. t.i.d., NephroVite one tablet daily, Pamelor 25 mg p.o. at bedtime, Percocet 2 tablets p.o. every 4 hours p.r.n. Procrit 20,000 units three times a week, Protonix 40 mg p.o. daily, Renvela 800 mg p.o. t.i.d., Sensipar 60 mg p.o. daily, levothyroxine 25 mcg daily, Tigan 200 mg IM every 8 hours p.r.n., metoprolol 50 mg p.o. daily, Venofer 100 mg three times a week, albuterol inhaler, and Zofran. LABORATORY DATA: Includes as follows: As of 03/27/2018: WBC 6.5, hemoglobin 8.3, hematocrit is 28, platelets 139 post transfusion. Hepatitis B surface antibody was negative. In summary, the patient is a 62-year-old obese, elderly female with hypertension, diabetes, hypothyroidism, primary hyperparathyroidism, end-stage renal disease with generalized weakness, feeling tired, shortness of breath, and dyspnea on exertion. 1. 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 2. Anemia secondary to renal failure and iron deficiency. 3. Primary hyperparathyroidism. 4. Hypertension. Blood pressure is stable. PLAN: Continue transfusion as per the primary team, 2 units. Continue physical therapy. Continue hemodialysis. The patient is scheduled for hemodialysis this afternoon. The patient is stable from the renal standpoint for possible discharge. The patient was accepted to outpatient hemodialysis unit in [facility]. Thank you for allowing me to participate in your patient's care. Ember Nicole MD
[2018-03-29] MEDS: Sevelamer Carb 0.8 gm/Packet PO SCH ×3 (08:54→16:59)
[2018-03-29] MEDS: FEBUXOSTAT PO SCH (08:54)
[2018-03-29] MEDS: Multivitamin Vitamin B Complex (Nephro-Vite) Tab PO SCH (08:55)
[2018-03-29] MEDS: Metoprolol Succinate 50 mg XL Tab PO SCH (08:56)
[2018-03-29] MEDS: Pantoprazole 40 mg EC Tab PO SCH (08:57)
--- NOTE | 2018-03-29 13:31 | US ---
PROCEDURE: GoBilateral lower extremity venous duplex Doppler. HISTORY: swelling COMPARISON: None available. TECHNIQUE: Bilateral common femoral, superficial femoral, popliteal and posterior tibial veins were evaluated. Flow was assessed with color Doppler, compressibility, assessment of phasic flow and augmentation response. FINDINGS: COMMON FEMORAL VEIN: Right CFV: Unremarkable. Left CFV: Unremarkable. SUPERFICIAL FEMORAL VEIN: Right SFV: Unremarkable. Left SFV: Unremarkable. POPLITEAL VEIN: Right Popliteal: Unremarkable. Left Popliteal: Unremarkable. POSTERIOR TIBIAL VEIN: Right PTV: Unremarkable. Left PTV: Unremarkable. OTHER FINDINGS: Right popliteal fossa cyst containing debris measuring 1.2 x 2.5 x 2.6 cm IMPRESSION: No evidence of deep venous thrombosis.
[2018-03-29] MEDS: Oxycodone/Acetaminophen 5/325 mg Tab PO PRN (14:05)
[2018-03-30] MEDS: Albuterol-Ipratrop 3 mg / 0.5 (3 ml) UD INH SCH ×2 (00:03→04:36)
[2018-03-30] MEDS: Oxycodone/Acetaminophen 5/325 mg Tab PO PRN ×2 (02:28→08:37)
--- NOTE | 2018-03-30 02:43 | PN ---
DATE: 03/29/2018 SUBJECTIVE: The patient is seen today, 03/29/2018. She is complaining of left lower extremity pain and swelling. OBJECTIVE: VITAL SIGNS: Blood pressure 124/83, temperature 98.1, respiratory rate 20, and pulse 57. HEENT: Pupils are equal, reactive to light. Slightly pale mucosa of the conjunctivae. NECK: Supple. No JVD. No carotid bruit. No lymph node. No thyromegaly. CHEST AND LUNGS: Bilateral symmetrical expansion. Good air exchange. No rales, no rhonchi. CARDIOVASCULAR SYSTEM: PMI not localized. S1, S2. No additional sounds. ABDOMEN: Normoactive bowel sounds. No tenderness. No organomegaly. No masses. EXTREMITIES: No cyanosis, no clubbing, no edema. AIR PUMPER: Alert, awake, and oriented x2. No neurological deficit could be appreciated. ASSESSMENT: 1. End-stage renal disease, recently started on hemodialysis. 2. Anemia, multifactorial. 3. Hypertension. 4. Hyperparathyroidism. 5. Gouty arthritis. PLAN: Continue current medication. We will do venous Doppler. Follow solar electric installer recommendations. Konstantin Brunner MD
[2018-03-30] MEDS: Levothyroxine 25 MCG TAB PO SCH (06:49)
[2018-03-30] MEDS: FEBUXOSTAT PO SCH (08:35)
[2018-03-30] MEDS: Pantoprazole 40 mg EC Tab PO SCH (08:38)
[2018-03-30] MEDS: Sevelamer Carb 0.8 gm/Packet PO SCH ×3 (08:39→17:57)
[2018-03-30] MEDS: Multivitamin Vitamin B Complex (Nephro-Vite) Tab PO SCH (08:40)
[2018-03-30] MEDS: Metoprolol Succinate 50 mg XL Tab PO SCH (08:42)
[2018-03-30] MEDS: Iron Sucrose 100 mg/5 ml Inj IVP SCH (11:17)
[2018-03-30] MEDS: Epoetin Alfa 20000 UNIT/ML Inj IV SCH (11:17)
[2018-03-30] MEDS: Albuterol-Ipratrop 3 mg / 0.5 (3 ml) UD INH PRN ×2 (13:35→19:49)
--- NOTE | 2018-03-30 14:39 | RAD ---
PROCEDURE: Left Foot Radiographs. HISTORY: Pain. No history of recent/ related trauma provided COMPARISON: None. FINDINGS: BONES: Normal. No fracture. JOINTS: Multiple hammertoe deformities. SOFT TISSUES: Generalized soft tissue swelling/lower extremity edema. OTHER FINDINGS: None. IMPRESSION: Soft tissue swelling without acute articular or osseous abnormality.
--- NOTE | 2018-03-30 15:52 | CP.PCM.CON ---
History of Present Illness - History of Present Illness History of Present Illness: Podiatry Consult Note- Dr. Jeffries Patient is a 62 y.o female with PMH of CKD, anemia, hyperparathyroidism, asthma , CHF, HTN, COPD, gout seen and evaluated at bedside for left ankle pain. Patient reports that the pain started 5 days ago. Reports pain started suddenly. Denies trauma or recent injury . Describes the pain as a throbbing pain. Rates the pain 8/10 at the moment. Worse with pressure. Worse at the end of the day and with ambulation. Reports extreme pain when sheets touch the ankle. Denies numbness or tingling. Denies nausea, fever, shortness of breath, chest pain or chills PMH: CKD, anemia, hyperparathyroidism, asthma, CHF, HTN, COPD, gout PSH: lap band, , ventral hernia repair, tonsillectomy, right brachiocephalic AVF ALL: shellfish, aspriin, metoclopramide FH: father-DM, CKD mother-HTN SH: former smoker, quit 20 years ago, 1ppd for 20 years, social drinks EtOh, denies illicit drug use Past Patient History - Infectious Disease Hx of Infectious Diseases: None - Past Medical History & Family History Past Medical History?: Yes - Past Social History Smoking Status: Former Smoker Alcohol: None Drugs: Denies - CARDIAC Hx Congestive Heart Failure: Yes (pulmonary congestion) Hx Hypertension: Yes - PULMONARY Hx Asthma: Yes Hx Chronic Obstructive Pulmonary Disease (COPD): Yes (asthma, bronchitis) - NEUROLOGICAL Hx Neurological Disorder: No - HEENT Hx HEENT Problems: Yes Hx Epistaxis: Yes (at young age) - RENAL Hx Chronic Kidney Disease: Yes - ENDOCRINE/METABOLIC Hx Hypothyroidism: Yes - HEMATOLOGICAL/ONCOLOGICAL Hx Anemia: Yes Hx Human Immunodeficiency Virus (HIV): No - INTEGUMENTARY Hx Dermatological Problems: No - MUSCULOSKELETAL/RHEUMATOLOGICAL Hx 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) - GASTROINTESTINAL Hx Diverticulitis: Yes - GENITOURINARY/GYNECOLOGICAL Hx Genitourinary Disorders: No - PSYCHIATRIC Hx Psychophysiologic Disorder: No Hx Substance Use: No - SURGICAL HISTORY Hx Surgeries: Yes Hx Section: Yes Hx Herniorrhaphy: Yes (8 yrs ago) Other/Comment: lap band 8 yrs ago,obesity,right upper arm fistula placement aug 2017 - ANESTHESIA Hx Anesthesia: Yes Hx Anesthesia Reactions: No Hx Malignant Hyperthermia: No Has any member of the family had a problem w/ anesthesia?: No Meds Allergies/Adverse Reactions: Allergies Allergy/AdvReac Type Severity Reaction Status Date / Time aspirin Allergy other Verified 09/19/17 13:26 metoclopramide HCl Allergy other Verified 09/19/17 13:26 [From Reglan] shellfish derived Allergy SWELLING Verified 09/19/17 13:26 - Medications Medications: Current Medications Albuterol (Ventolin Hfa 90 Mcg/Actuation (8 G)) 2 puff IH Q4 PRN PRN Reason: Shortness of Breath Albuterol/Ipratropium (Duoneb 3 Mg/0.5 Mg (3 Ml) Ud) 3 ml INH RQ6 PRN PRN Reason: Shortness of Breath Last Admin: 03/30/18 13:35 Dose: 3 ml Amlodipine Besylate (Norvasc) 10 mg PO DAILY [facility] Last Admin: 03/30/18 08:36 Dose: 10 mg Cinacalcet (Sensipar) 60 mg PO DAILY [facility] Last Admin: 03/30/18 08:39 Dose: 60 mg Epoetin Shelton (Procrit) 20,000 unit IV [facility] [place] Last Admin: 03/30/18 11:17 Dose: 20,000 unit Ferrous Gluconate (Fergon) 324 mg PO BID [facility] Last Admin: 03/30/18 08:40 Dose: 324 mg Home Med (Febuxostat [Uloric]) 1 tab PO DAILY [facility] Last Admin: 03/30/18 08:35 Dose: 1 tab Home Med (Iron Polysaccharide [Ferrex-150]) 150 mg PO DAILY [facility] Last Admin: 03/30/18 08:47 Dose: Not Given Iron Sucrose (Venofer) 100 mg IVP MWF [facility] Stop: 04/14/18 23:59 Last Admin: 03/30/18 11:17 Dose: 100 mg Lactulose (Enulose) 20 gm PO Q6 PRN PRN Reason: Constipation Last Admin: 03/29/18 16:59 Dose: 20 gm Levothyroxine Sodium (Synthroid) 25 mcg PO DAILY@0630 [facility] Last Admin: 03/30/18 06:49 Dose: 25 mcg Loratadine (Claritin) 10 mg PO DAILY [facility] Last Admin: 03/30/18 08:48 Dose: 10 mg Metoprolol Succinate (Toprol Xl) 50 mg PO DAILY [facility] Last Admin: 03/30/18 08:42 Dose: 50 mg Nortriptyline HCl (Pamelor) 25 mg PO HS [facility] Last Admin: 03/29/18 21:14 Dose: 25 mg Ondansetron HCl (Zofran Tab) 4 mg PO Q4 PRN PRN Reason: Nausea/Vomiting Last Admin: 03/29/18 00:05 Dose: 4 mg Ondansetron HCl (Zofran Inj) 4 mg IVP Q6 PRN PRN Reason: Nausea/Vomiting Oxycodone/Acetaminophen (Percocet 5/325 Mg Tab) 1 tab PO Q6 PRN PRN Reason: Pain, severe (8-10) Stop: 04/01/18 13:55 Last Admin: 03/30/18 08:37 Dose: 1 tab Pantoprazole Sodium (Protonix Ec Tab) 40 mg PO DAILY [facility] Last Admin: 03/30/18 08:38 Dose: 40 mg Sevelamer Carbonate (Renvela) 0.8 gm PO TIDWM [facility] Last Admin: 03/30/18 12:43 Dose: 0.8 gm Trimethobenzamide HCl (Tigan) 200 mg IM Q8 PRN PRN Reason: Nausea/Vomiting Last Admin: 03/29/18 00:18 Dose: 200 mg Vitamin B Complex/Vit C/Folic Acid (Nephro-Maria Del Carmen) 1 tab PO DAILY [facility] Last Admin: 03/30/18 08:40 Dose: 1 tab Physical Exam - Constitutional Appears: Well, Non-toxic, No Acute Distress - Extremities Exam Extremities exam: Negative for: calf tenderness Additional comments: VASC: DP 2/4 B/L and PT 1/4 B/L, CFT < 3 seconds x 10 digits, temperature gradient warm to cool from proximal knees to distal toes, mild no pitting edema noted localized to dorsum of the foot ORTHO: severe pain with left ankle ROM, pain with palpation to the ankle joint and medial glutter. Mild pain to the lateral gutter. Diffuse pain to entire left foot. MM is 4/5 in all four compartments: dorsiflexion, plantarflexion, inversion and eversion NEURO: gross sensation intact, protective sensation diminished DERM: no open lesions, no ecchymosis, no open lesions, no erythema, no abscess or fluctanance, no clinical signs of infection - Neurological Exam Neurological exam: Alert - Psychiatric Exam Psychiatric exam: Normal Affect, Normal Mood Results - Vital Signs Recent Vital Signs: Last Vital Signs Temp 98.6 F 03/30/18 15:39 Pulse 64 03/30/18 15:39 Resp 20 03/30/18 15:39 BP 134/70 03/30/18 15:39 Pulse Ox 97 03/30/18 15:39 - Labs Result Diagrams: 03/27/18 06:30 03/26/18 13:42 Assessment & Plan - Assessment and Plan (Free Text) Assessment: 62 y.o female with PMH of CKD, anemia, hyperparathyroidism, asthma, CHF, HTN, COPD, gout with left ankle pain may be likely contusion to left ankle or left ankle gout exacerbation Plan: Patient seen and examined Chart, vitals reviewed Discussed plan with attending Dr. Jeffries X-rays reviewed- soft tissue swelling without acute articular or osseous abnormality Clinical symptoms and examination can be likely contusion to left ankle or left ankle gout exacerbation Recommends RICE protocol Recommends low-dose Indomethacin/Colchicine if pain persist Patient may WBAT in surgical shoe C/w physical therapy Thank you for allowing us to participate in patient's care
--- NOTE | 2018-03-31 01:14 | PN ---
DATE: 03/30/2018 SUBJECTIVE: The patient is seen today 03/30/2018. She is still complaining of pain on the left foot on walking. PHYSICAL EXAMINATION: VITAL SIGNS: Blood pressure 126/72, temperature 98.6, respiratory rate 20 and pulse 68. HEENT: Pupils equal, reactive to light. Normal-appearing mucosa of the conjunctivae, oropharynx and nasal membrane mucosa. NECK: Supple. No JVD. No carotid bruit. No lymph node. No thyromegaly. CHEST AND LUNGS: Bilaterally symmetrical expansion. Good air exchange. No rales, no rhonchi. CARDIOVASCULAR SYSTEM: PMI not localized, S1 and S2. No additional sounds. ABDOMEN: Normoactive bowel sounds. No tenderness. No organomegaly. No masses. EXTREMITIES: No cyanosis, no clubbing, no edema. 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 No neurological deficit could be appreciated. ASSESSMENT: End-stage renal disease started on hemodialysis this admission, hypercalcemia secondary to hyperparathyroidism, hypertension, morbid obesity, pain on walking of the left foot with no apparent swelling or tenderness. PLAN: We will do x-ray of the left foot and podiatry consult. We will start the patient on prednisone treating possible acute gouty attack as the patient had acute gout before. Konstantin Brunner MD
[2018-03-31] MEDS: Levothyroxine 25 MCG TAB PO SCH (06:10)
[2018-03-31] MEDS: Albuterol-Ipratrop 3 mg / 0.5 (3 ml) UD INH PRN ×2 (07:13→19:11)
[2018-03-31] MEDS: Sevelamer Carb 0.8 gm/Packet PO SCH ×3 (08:56→17:49)
[2018-03-31] MEDS: Multivitamin Vitamin B Complex (Nephro-Vite) Tab PO SCH (08:56)
[2018-03-31] MEDS: Oxycodone/Acetaminophen 5/325 mg Tab PO PRN ×2 (08:56→22:08)
[2018-03-31] MEDS: PrednisoLONE 15 mg/5 ml Oral Syrup (240 ml) PO SCH (08:57)
[2018-03-31] MEDS: FEBUXOSTAT PO SCH (08:57)
[2018-03-31] MEDS: Metoprolol Succinate 50 mg XL Tab PO SCH (08:59)
[2018-03-31] MEDS: Pantoprazole 40 mg EC Tab PO SCH (08:59)
--- NOTE | 2018-03-31 11:03 | PN ---
DATE: 03/31/2018 SUBJECTIVE: The patient is seen today 03/31/2018. She is not in any cardiopulmonary distress. The patient still has some pain on the left foot on bearing weight. X-ray of the foot did not show any bony or joint abnormality. PHYSICAL EXAMINATION: VITAL SIGNS: Blood pressure 145/73, temperature 99, respiratory rate 17 and pulse 68. HEENT: Pupils equal, reactive to light. Normal-appearing mucosa of the conjunctivae, oropharynx and nasal membrane mucosa. NECK: Supple. No JVD, no carotid bruit, no lymph node, no thyromegaly. CHEST AND LUNGS: Bilateral symmetrical expansion. Good air exchange. No rales, no rhonchi. CARDIOVASCULAR SYSTEM: PMI not localized. S1, S2. No additional sounds. ABDOMEN: Normoactive bowel sounds. No tenderness. No organomegaly. No masses. EXTREMITIES: No cyanosis, no clubbing, no edema. DIRECTOR RELIGIOUS EDUCATION: Alert, awake, oriented x3. No neurological deficit could be appreciated. ASSESSMENT: End-stage renal disease started on hemodialysis this admission, gouty arthritis, hypertension, hypercalcemia with hyperparathyroidism. PLAN: We will give the patient prednisone 40 mg daily for 5 days. Continue current medications and physical therapy. Sheela MD Kannan
[2018-04-01] MEDS: Multivitamin Vitamin B Complex (Nephro-Vite) Tab PO SCH (09:57)
[2018-04-01] MEDS: FEBUXOSTAT PO SCH (09:57)
[2018-04-01] MEDS: Sevelamer Carb 0.8 gm/Packet PO SCH ×3 (09:58→17:45)
[2018-04-01] MEDS: Pantoprazole 40 mg EC Tab PO SCH (09:58)
[2018-04-01] MEDS: PrednisoLONE 15 mg/5 ml Oral Syrup (240 ml) PO SCH (09:58)
[2018-04-01] MEDS: Levothyroxine 25 MCG TAB PO SCH (09:59)
[2018-04-01] MEDS: Metoprolol Succinate 50 mg XL Tab PO SCH (09:59)
[2018-04-02] MEDS: Levothyroxine 25 MCG TAB PO SCH (05:02)
[2018-04-02 08:22] VITALS: O2SAT 100
[2018-04-02] MEDS: PrednisoLONE 15 mg/5 ml Oral Syrup (240 ml) PO SCH (08:37)
[2018-04-02] MEDS: Sevelamer Carb 0.8 gm/Packet PO SCH (08:37)
[2018-04-02] MEDS: FEBUXOSTAT PO SCH (08:39)
[2018-04-02] MEDS: Multivitamin Vitamin B Complex (Nephro-Vite) Tab PO SCH (08:40)
[2018-04-02] MEDS: Pantoprazole 40 mg EC Tab PO SCH (08:40)
[2018-04-02] MEDS: Metoprolol Succinate 50 mg XL Tab PO SCH (08:41)
[2018-04-02 12:56] VITALS: BP 174/91; PULSE 74; RESP 91; TEMP 98.5
--- NOTE | 2018-04-03 08:03 | PQF ANEMIA ---
This form is a permanent part of the medical record Clarification of your documentation is requested to better reflect the severity of illness and intensity of treatment of your patient. Indicators present [] Anemia [] Drop in H&H from []___ to []___ [] Hypotension [] GI Bleed [] Transfusion(s) [] Acute bleed other sites [] Tachycardia [] Surgical Procedure Blood Loss (expected not a complication) Other:[] Location in the medical record that reflects the above clinical findings: [] Treatment Provided: [] PHYSICIAN'S RESPONSE Based on your medical judgment of the clinical indicators outlined above, are you treating this patient for a known or suspected: [] Acute blood loss anemia [] Chronic blood loss anemia [] Acute on Chronic blood loss anemia [] Anemia due to malignancy [] Anemia due to chemotherapy or radiation therapy [] Anemia of Chronic Disease, please specify: [] [] Other, please indicate type of anemia []____ [] If Unable to Determine, please check the box, sign and date. Present On Admission (POA) Indicator: [] Present at the time of admission [] Not present at the time of admission [] Clinically Undetermined In responding to this query, please exercise your independent professional judgment. The fact that a question is asked does not imply that any particular answer is desired or expected. Thank you for your clarification on this documentation. If you have any questions please call:[ ] * Thank you, [ ] tank officer ROLAND
== END 2018-04-02 15:04 | disposition home or self-care (01) | DRG 127 ==
LOC: H.ER 19:14 → H.ERHOLD 22:53 → H.TEL 03-23 00:53
PROVIDERS: ADMIT Internal Medicine; ATTEND Internal Medicine
PROC: 05HM33Z Insertion of Infusion Device into Right Internal Jugular Vein, Percutaneous Approach (ICD-10-PCS; principal; 2018-03-23 12:15)
PROC: 5A1D70Z Performance of Urinary Filtration, Intermittent, Less than 6 Hours Per Day (ICD-10-PCS; 2018-03-24)
DX: I13.2 Hypertensive heart and chronic kidney disease with heart failure and with stage 5 chronic kidney disease, or end stage renal disease (principal); E87.5 Hyperkalemia; J44.9 Chronic obstructive pulmonary disease, unspecified; I50.9 Heart failure, unspecified; N18.6 End stage renal disease; E11.22 Type 2 diabetes mellitus with diabetic chronic kidney disease; D63.1 Anemia in chronic kidney disease; E03.9 Hypothyroidism, unspecified; E21.0 Primary hyperparathyroidism; Z98.84 Bariatric surgery status; Z68.42 Body mass index [BMI] 45.0-49.9, adult; Z99.2 Dependence on renal dialysis; Z87.891 Personal history of nicotine dependence; E66.01 Morbid (severe) obesity due to excess calories; Z88.6 Allergy status to analgesic agent; Z91.013 Allergy to seafood; M10.9 Gout, unspecified; K59.00 Constipation, unspecified

== ENCOUNTER 2018-12-15 15:52 | Inpatient (IN) | payer MEDICARE ==
[2018-12-15 15:53] VITALS: BMI 47.2
[2018-12-15] MEDS ORDERED: Albuterol 0.083% Inhal Sol (2.5 mg/3 mL) UD INH STA (16:33)
--- NOTE | 2018-12-15 17:55 | RAD ---
Date of service: 12/15/2018 PROCEDURE: CHEST RADIOGRAPH, 1 VIEW HISTORY: chest pain COMPARISON: Chest radiograph dated 03/22/2018. FINDINGS: LUNGS: Clear. PLEURA: No pneumothorax or pleural fluid seen. CARDIOVASCULAR: Aortic atherosclerotic calcifications. Cardiomediastinal silhouette stably enlarged. OSSEOUS STRUCTURES: Unchanged. VISUALIZED UPPER ABDOMEN: Normal. OTHER FINDINGS: None. IMPRESSION: No active disease.
[2018-12-15] MEDS ORDERED: Albuterol 0.083% Inhal Sol (2.5 mg/3 mL) UD ONE (17:57)
[2018-12-15 18:04] LABS: BASO % 0.2 % (0.0-2.0); EOS % 0.7 % (0.0-4.0); HEMOGLOBIN 10.7 g/dL (12.0-16.0); LYMPH # 0.7 K/uL (1.0-4.3); LYMPH % 12.3 % (20.0-40.0); MEAN CELL VOLUME 77.8 fl (81.0-99.0); MEAN CORPUSCULAR HEMOGLOBIN 23.5 pg (27.0-31.0); MEAN CORPUSCULAR HGB CONC 30.2 g/dL (33.0-37.0); MEAN PLATELET VOLUME 9.1 fl (7.2-11.7); MONO # 0.5 K/uL (0.0-0.8); MONO % 8.7 % (0.0-10.0); NEUT # 4.8 K/uL (1.8-7.0); NEUT % 78.1 % (50.0-75.0); RBC 4.56 Mil/uL (3.80-5.20); RED CELL DISTRIBUTION WIDTH 18.4 % (11.5-14.5); WHITE BLOOD COUNT 6.1 K/uL (4.8-10.8)
--- NOTE | 2018-12-15 18:12 | ED PDOC ---
HPI: Chest Pain Time Seen by Provider: 12/15/18 16:17 Chief Complaint (Nursing): Chest Pain Chief Complaint (Provider): Chest Pain History Per: Patient History/Exam Limitations: no limitations Onset/Duration Of Symptoms: Hrs (x1) Current Symptoms Are (Timing): Still Present Additional Complaint(s): 63 y/o female presents to the ED for evaluation of left sided chest pain lasting for about one hour. Patient reports she was receiving dialysis(usually Monday, and Monday) when she developed the pain and resolved after dialysis. Patient states she decided not to go home but come here for further evaluation. Patient reports of experiencing left shoulder chronic pain due to arthritis. Patient notes of having left shoulder pain that has been radiating down the left arm and left chest since yesterday. Patient reports of having chronic dyspnea due to Asthma. Patient notes of additionally getting nauseous every time she goes to dialysis. Patient additionally notes of having one episode of diarrhea yesterday. Otherwise, patient denies abdominal pain and fever. 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 Center: [facility] Past Medical History Reviewed: Historical Data, Nursing Documentation, Vital Signs Vital Signs: Last Vital Signs Temp 98.6 F 12/15/18 16:02 Pulse 94 H 12/15/18 16:02 Resp 18 12/15/18 16:02 BP 173/90 H 12/15/18 16:02 Pulse Ox 94 L 12/15/18 16:02 - Medical History PMH: Anemia, Arthritis (OA of (L)UE and (L)LE), Asthma, Bronchitis, CHF (pulmonary congestion), COPD (asthma, bronchitis), Diverticulitis, HTN, Hypothyroidism, Chronic Kidney Disease Denies: HIV - Surgical History Surgical History: Hernia Repair, - Family History Family History: States: Unknown Family Hx - Home Medications Home Medications: Ambulatory Orders Medication Instructions Recorded Albuterol HFA [Ventolin HFA 90 2 puff IH Q4 PRN 09/02/17 mcg/actuation (8 g)] Cinacalcet [Sensipar] 60 mg PO DAILY 09/02/17 Diclofenac Sodium [Voltaren] 100 gm TP DAILY 09/02/17 Febuxostat [Uloric] 1 tab PO DAILY 09/02/17 Iron Polysaccharide [Ferrex-150] 150 mg PO DAILY 09/02/17 Levothyroxine [Synthroid] 25 mcg PO DAILY 09/02/17 Metoprolol Succinate XL [Toprol XL] 50 mg PO DAILY 09/02/17 Omeprazole Magnesium [Prilosec Otc] 40 mg PO DAILY 09/02/17 Levocetirizine Dihydrochloride 5 mg PO DAILY 09/04/17 [Xyzal] Ferrous Gluconate [Fergon] 324 mg PO BID 10/02/17 Loratadine [Claritin] 10 mg PO DAILY 10/02/17 Nortriptyline [Pamelor] 25 mg PO HS 10/02/17 Ondansetron HCl [Zofran] 4 mg PO Q4 PRN 10/02/17 Sevelamer [Renagel] 1,600 mg PO TID 10/02/17 Vitamin B Complex/Vit C/Folic 1 tab PO DAILY 10/02/17 [Nephro-Maria Del Carmen] amLODIPine [Norvasc] 10 mg PO DAILY 03/22/18 Prednisone [Bay] 10 mg PO DAILY #6 tablet. 04/02/18 - Allergies Allergies/Adverse Reactions: Allergies Allergy/AdvReac Type Severity Reaction Status Date / Time aspirin Allergy other Verified 09/19/17 13:26 metoclopramide HCl Allergy other Verified 09/19/17 13:26 [From Reglan] shellfish derived Allergy SWELLING Verified 09/19/17 13:26 MICHAEL Risk Score for UA/NSTEMI - MICHAEL Risk Score Age > 64: NO 3 or more CAD Risk Factors: YES Known CAD (Stenosis greater than 50%): NO Aspirin use in past 7 days: NO Severe Angina: NO EKG ST changes greater than 0.5mm: NO Positive Cardiac Marker: NO MICHAEL Score: 1 Risk %: 5% Wells Criteria for PE - Wells Criteria for Pulmonary Embolism Clinical Signs and Symptoms of DVT: No P.E is #1 Diagnosis, or Equally Likely: No Heart Rate >100: No Immobilization at least 3 days;Surgery previous 4 weeks: No Previous, objectively diagnosed PE or DVT: No Hemoptysis: No Malignancy w/treatment within 6 months, or palliative: No Total Score: 0 Review of Systems ROS Statement: Except As Marked, All Systems Reviewed And Found Negative Cardiovascular: Positive for: Chest Pain Gastrointestinal: Positive for: Nausea Musculoskeletal: Positive for: Shoulder Pain, Arm Pain Physical Exam - Reviewed Nursing Documentation Reviewed: Yes Vital Signs Reviewed: Yes - Physical Exam Appears: Positive for: No Acute Distress (but obese) Head Exam: Positive for: ATRAUMATIC, NORMOCEPHALIC Skin: Positive for: Normal Color, Warm, Dry Eye Exam: Positive for: Normal appearance, EOMI, PERRL Neck: Positive for: Normal, Painless ROM, Supple Cardiovascular/Chest: Positive for: Regular Rate, Rhythm. Negative for: Murmur Respiratory: Positive for: Wheezing (occasional bilateral expiratory wheeze) Gastrointestinal/Abdominal: Positive for: Normal Exam, Soft. Negative for: T enderness Extremity: Positive for: Swelling, Other (varicose vein knots present). Negative for: Tenderness Neurologic/Psych: Positive for: Alert, Oriented. Negative for: Motor/Sensory Deficits - Laboratory Results Result Diagrams: 12/15/18 17:50 12/15/18 17:50 - ECG ECG: Positive for: Interpreted By Me, Viewed By Me ECG Rhythm: Positive for: Normal QRS, Normal ST Segment, Sinus Rhythm. Negative for: ST/T Changes Rate: 79 O2 Sat by Pulse Oximetry: 94 (RA) Pulse Ox Interpretation: Normal Medical Decision Making Medical Decision Making: Time: 1638 Impression: Chest Pain Differentials include but not limited to ACS, CHF, less likely PE Rule Out DVT and Volume Overload Plan: -- EKG -- BMP -- Troponin I -- CBC with Differentials -- CXR One View -- Albuterol 0.083% 2.5 mg Inh -- Zofran INJ 4 mg IV -- Zipper Setter Lockstitch Time: 1847 US RESULTS FINDINGS: DEEP VEINS: The common femoral, superficial femoral, and popliteal veins are echolucent and compressible. There is normal color Doppler flow throughout. The visualized calf veins appear patent. SUPERFICIAL VEINS: The visualized greater saphenous vein is patent. SOFT TISSUES: No popliteal fossa cyst or other abnormalities. IMPRESSION: No deep venous thrombosis evident on bilateral lower extremity examination. Electronically signed on Dec 15, 2018 6:47:30 PM EST by: Domenico Lewis M.D., Certified by ABR, Diagnostic Radiology Scribe Attestation: Documented by Ryan Kauffman, acting as a scribe for Aj Alonso MD. Provider Scribe Attestation: All medical record entries made by the Scribe were at my direction and personally dictated by me. I have reviewed the chart and agree that the record accurately reflects my personal performance of the history, physical exam, medical decision making, and the department course for this patient. I have also personally directed, reviewed, and agree with the discharge instructions and disposition. Disposition - Clinical Impression Clinical Impression: Chest pain, CRF (chronic renal failure), HTN (hypertension) - Patient ED Disposition Is Patient to be Admitted: Yes Discussed With : Konstantin Brunner Doctor Will See Patient In The: Hospital Counseled Patient/Family Regarding: Studies Performed, Diagnosis - Disposition Disposition Time: 18:50 Condition: FAIR - Pt Status Changed To: Hospital Disposition Of: Observation - POA Present On Arrival: None
[2018-12-15 18:16] LABS: CALCIUM 9.4 mg/dL (8.4-10.2)
[2018-12-15 18:27] LABS: TROPONIN I 0.03 ng/mL (0.00-0.120)
[2018-12-16] MEDS: Levothyroxine 25 MCG TAB PO SCH (06:15)
--- NOTE | 2018-12-16 08:38 | US ---
Date of service: 12/15/2018 PROCEDURE: Bilateral lower extremity venous duplex Doppler. HISTORY: nodes in lower legs COMPARISON: Bilateral lower extremity venous duplex ultrasound performed 03/29/2018 TECHNIQUE: Bilateral common femoral, superficial femoral, popliteal and posterior tibial veins were evaluated. Flow was assessed with color Doppler, compressibility, assessment of phasic flow and augmentation response. FINDINGS: COMMON FEMORAL VEIN: Right CFV: Unremarkable. Left CFV: Unremarkable. SUPERFICIAL FEMORAL VEIN: Right SFV: Unremarkable. Left SFV: Unremarkable. POPLITEAL VEIN: Right Popliteal: Unremarkable. Left Popliteal: Unremarkable. POSTERIOR TIBIAL VEIN: Right PTV: Unremarkable. Left PTV: Unremarkable. OTHER FINDINGS: None. IMPRESSION: No evidence of deep venous thrombosis.
[2018-12-16] MEDS: Multivitamin Vitamin B Complex (Nephro-Vite) Tab PO SCH (09:50)
[2018-12-16] MEDS: Pantoprazole 40 mg EC Tab PO SCH (09:50)
--- NOTE | 2018-12-16 11:47 | CP.PCM.CON ---
History of Present Illness - History of Present Illness History of Present Illness: pt is seen and examined, full consult is dictated #[id number] Past Patient History - Infectious Disease Hx of Infectious Diseases: None - Past Medical History & Family History Past Medical History?: Yes - Past Social History Smoking Status: Former Smoker - CARDIAC Hx Cardiac Disorders: Yes (CHF) - PULMONARY Hx Respiratory Disorders: Yes (Asthma, Bronchitis, COPD?) - NEUROLOGICAL Hx Neurological Disorder: No - HEENT Hx HEENT Problems: Yes Hx Epistaxis: Yes (at young age) - RENAL Hx Chronic Kidney Disease: Yes - ENDOCRINE/METABOLIC Hx Hypothyroidism: Yes - HEMATOLOGICAL/ONCOLOGICAL Hx Blood Disorders: Yes (anemia) - INTEGUMENTARY Hx Dermatological Problems: No - MUSCULOSKELETAL/RHEUMATOLOGICAL Hx 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) Hx Falls: Yes - GASTROINTESTINAL Hx Diverticulitis: Yes - GENITOURINARY/GYNECOLOGICAL Hx Genitourinary Disorders: No - PSYCHIATRIC Hx Psychophysiologic Disorder: No Hx Substance Use: No - SURGICAL HISTORY Hx Surgeries: Yes Hx Section: Yes Hx Herniorrhaphy: Yes (8 yrs ago) Other/Comment: lap band 8 yrs ago,obesity,right upper arm fistula placement aug 2017 - ANESTHESIA Hx Anesthesia: Yes Hx Anesthesia Reactions: No Hx Malignant Hyperthermia: No Meds Allergies/Adverse Reactions: Allergies Allergy/AdvReac Type Severity Reaction Status Date / Time aspirin Allergy other Verified 09/19/17 13:26 metoclopramide HCl Allergy other Verified 09/19/17 13:26 [From Reglan] shellfish derived Allergy SWELLING Verified 09/19/17 13:26 - Medications Medications: Current Medications Acetaminophen (Tylenol 325mg Tab) 650 mg PO Q6 PRN PRN Reason: Pain, moderate (4-7) Last Admin: 12/16/18 03:39 Dose: 650 mg Acetaminophen (Tylenol 325mg Tab) 325 mg PO Q6 PRN PRN Reason: Pain, Mild (1-3) Acetaminophen (Tylenol 325mg Tab) 975 mg PO Q6 PRN PRN Reason: Pain, severe (8-10) Last Admin: 12/16/18 11:38 Dose: 975 mg Albuterol (Ventolin Hfa 90 Mcg/Actuation (8 G)) 2 puff IH Q4 PRN PRN Reason: Shortness of Breath Amlodipine Besylate (Norvasc) 10 mg PO DAILY [facility] Last Admin: 12/16/18 09:50 Dose: 10 mg Cinacalcet (Sensipar) 60 mg PO DAILY [facility] Last Admin: 12/16/18 09:51 Dose: 60 mg Ferrous Gluconate (Fergon) 324 mg PO BID [facility] Last Admin: 12/16/18 09:48 Dose: 324 mg Heparin Sodium (Porcine) (Heparin) 5,000 units SC Q12 [facility]; Protocol Last Admin: 12/16/18 09:48 Dose: 5,000 units Home Med (Diclofenac Sodium [Voltaren]) 100 gm TP DAILY [facility] Home Med (Iron Polysaccharide [Ferrex-150]) 150 mg PO DAILY [facility] Levothyroxine Sodium (Synthroid) 25 mcg PO DAILY@0630 [facility] Last Admin: 12/16/18 06:15 Dose: 25 mcg Loratadine (Claritin) 10 mg PO DAILY [facility] Last Admin: 12/16/18 09:48 Dose: 10 mg Metoprolol Succinate (Toprol Xl) 50 mg PO DAILY [facility] Nortriptyline HCl (Pamelor) 25 mg PO HS [facility] Ondansetron HCl (Zofran Tab) 4 mg PO Q4 PRN PRN Reason: Nausea/Vomiting Pantoprazole Sodium (Protonix Ec Tab) 40 mg PO DAILY [facility] Last Admin: 12/16/18 09:50 Dose: 40 mg Vitamin B Complex/Vit C/Folic Acid (Nephro-Maria Del Carmen) 1 tab PO DAILY [facility] Last Admin: 12/16/18 09:50 Dose: 1 tab Results - Vital Signs Recent Vital Signs: Last Vital Signs Temp 99.3 F 12/16/18 07:57 Pulse 74 12/16/18 09:50 Resp 18 12/16/18 07:57 BP 111/71 12/16/18 09:50 Pulse Ox 96 12/16/18 07:57 - Labs Result Diagrams: 12/15/18 17:50 12/15/18 17:50 Labs: Laboratory Results - last 24 hr 12/15/18 12/15/18 12/16/18 17:50 17:50 06:01 WBC 6.1 RBC 4.56 Hgb 10.7 L D Hct 35.5 MCV 77.8 L MCH 23.5 L MCHC 30.2 L RDW 18.4 H Plt Count 222 MPV 9.1 Neut % (Auto) 78.1 H Lymph % (Auto) 12.3 L Craig % (Auto) 8.7 Eos % (Auto) 0.7 Baso % (Auto) 0.2 Neut # (Auto) 4.8 Lymph # (Auto) 0.7 L Craig # (Auto) 0.5 Eos # (Auto) 0.0 Baso # (Auto) 0.0 Sodium 136 Potassium 3.9 Chloride 92 L Carbon Dioxide 31 H Anion Gap 17 BUN 23 H Creatinine 3.7 H Est GFR ( Amer) 15 Est GFR (Non-Af Amer) 12 Random Glucose 85 Calcium 9.4 Troponin I 0.0300 0.0280
[2018-12-16] MEDS: Metoprolol Succinate 50 mg XL Tab PO SCH (13:11)
--- NOTE | 2018-12-16 15:11 | CP.PCM.CON ---
History of Present Illness - History of Present Illness History of Present Illness: I was asked to see patient by Dr Brunner Patient seen 12/16/18 [id number] Patient is a 63 year old female with HTN, ESRD, obesity who presents with chest pain. The patient states schest pain occurred during dailysis, and was described as sharp, nonradiating. The patient presents to [facility] for further eval. She currently has no chest pain. Cardiac enzymes are negative. Review of Systems - Constitutional Constitutional: absent: As Per HPI, Anorexia, Chills, Daytime Sleepiness, Excessive Sweating, Fatigue, Fever, Frequent Falls, Headache, Increased Appetite, Lethargy, Malaise, Night Sweats, Snoring, Sleep Apnea, Weight Gain, Weight Loss, Weakness, Other - EENT Eyes: absent: As Per HPI, Blind Spots, Blurred Vision, Change in Vision, Decreased Night Vision, Diplopia, Discharge, Dry Eye, Exophthalmos, Floaters, Irritation, Itchy Eyes, Loss of Peripheral Vision, Pain, Photophobia, Requires Corrective Lenses, Sees Flashes, Spots in Vision, Tunnel Vision, Other Visual Disturbances, Loss of Vision, Other Ears: absent: As Per HPI, Decreased Hearing, Ear Discharge, Ear Pain, Tinnitus, Abnormal Hearing, Disequilibrium, Dizziness, Other Nose/Mouth/Throat: absent: As Per HPI, Epistaxis, Nasal Congestion, Nasal Discharge, Nasal Obstruction, Nasal Trauma, Nose Pain, Post Nasal Drip, Sinus Pain, Sinus Pressure, Bleeding Gums, Change in Voice, Dental Pain, Dry Mouth, Dysphagia, Halitosis, Hoarsness, Lip Swelling, Mouth Lesions, Mouth Pain, Odynophagia, Sore Throat, Throat Swelling, Tongue Swelling, Facial Pain, Neck Pain, Neck Mass, Other - Breasts Breasts: absent: As Per HPI, Change in Shape, Mass, Pain, Nipple Discharge, Nipple Inversion, Skin Changes, Swelling, Other - Cardiovascular Cardiovascular: Chest Pain - Respiratory Respiratory: absent: As Per HPI, Cough, Dyspnea, Hemoptysis, Dyspnea on Exertion, Wheezing, Snoring, Stridor, Pain on Inspiration, Chest Congestion, Excessive Mucous Production, Change in Mucous Color, Pain with Coughing, Other - Gastrointestinal Gastrointestinal: absent: As Per HPI, Abdominal Pain, Belching, Bloating, Change in Bowel Habits, Change in Stool Character, Coffee Ground Emesis, Constipation, Cramping, Diarrhea, Dyspepsia, Dysphagia, Early Satiety, Excessive Flatus, Fecal Incontinence, Heartburn, Hematemesis, Hematochezia, Loose Stools, Melena, Nausea, Odynophagia, Temesmus, Vomiting, Other - Genitourinary Genitourinary: absent: As Per HPI, Change in Urinary Stream, Difficulty Urinating, Dysuria, Flank Pain, Hematuria, Pyuria, Nocturia, Urinary Incontinence, Urinary Frequency, Urinary Hesitance, Urinary Urgency, Voiding Freq/Small Amts, Freq UTI, Hx Renal/Bladder Calculi, Hx /Renal Surgery, Bladder Distension, Other - Musculoskeletal Musculoskeletal: absent: As Per HPI, Abnormal Gait, Arthralgias, Atrophy, Back Pain, Deformity, Joint Swelling, Limited Range of Motion, Loss of Height, Muscle Cramps, Muscle Weakness, Myalgias, Neck Pain, Numbness, Radiating Pain into Limb, Stiffness, Tingling, Other - Integumentary Integumentary: absent: As Per HPI, Acne, Alopecia, Bleeding Lesions, Change in Hair, Change in Nails, Change in Pigmentation, Changing Lesions, Dry Skin, Erythema, Furuncle, Hirsutism, Lesions, New Lesions, Non-Healing Lesions, Photosensitivity, Pruritus, Rash, Skin Pain, Skin Ulcer, Sores, Striae, Swelling, Unusual Bruising, Wounds, Jaundice, Other - Neurological Neurological: absent: As Per HPI, Abnormal Gait, Abnormal Hearing, Abnormal Movements, Abnormal Speech, Behavioral Changes, Burning Sensations, Confusion, Convulsions, Disequilibrium, Dizziness, Numbness, Focal Weakness, Frequent Falls, Headaches, Lack of Coordination, Loss of Vision, Memory Loss, Paresthesias, Radicular Pain, Restless Legs, Sensory Deficit, Syncope, Tingling, Tremor, Vertigo, Weakness, Other Visual Disturbances, Other - Psychiatric Psychiatric: absent: As Per HPI, Abnormal Sleep Pattern, Anhedonia, Anxiety, Auditory Hallucinations, Behavioral Changes, Change in Appetite, Change in Libido, Confusion, Depression, Difficulty Concentrating, Hallucinations, Ho micidal Ideation, Hopelessness, Irritability, Memory Loss, Mood Swings, Panic Attacks, Paranoia, Suicidal Ideation, Visual Hallucinations, Tactile Hallucinations, Other - Endocrine Endocrine: absent: As Per HPI, Change in Body Appearance, Change in Libido, Cold Intolorance, Deepening of Voice, Excessive Sweating, Fatigue, Flushing, Heat Intolorance, Increase in Ring/Shoe/Hat Size, Palpitations, Polydipsia, Polyphagia, Polyuria, Other - Hematologic/Lymphatic Hematologic: absent: As Per HPI, Easy Bleeding, Easy Bruising, Lymphadenopathy, Other Past Patient History - Infectious Disease Hx of Infectious Diseases: None - Past Medical History & Family History Past Medical History?: Yes - Past Social History Smoking Status: Former Smoker - CARDIAC Hx Cardiac Disorders: Yes (CHF) - PULMONARY Hx Respiratory Disorders: Yes (Asthma, Bronchitis, COPD?) - NEUROLOGICAL Hx Neurological Disorder: No - HEENT Hx HEENT Problems: Yes Hx Epistaxis: Yes (at young age) - RENAL Hx Chronic Kidney Disease: Yes - ENDOCRINE/METABOLIC Hx Hypothyroidism: Yes - HEMATOLOGICAL/ONCOLOGICAL Hx Blood Disorders: Yes (anemia) - INTEGUMENTARY Hx Dermatological Problems: No - MUSCULOSKELETAL/RHEUMATOLOGICAL Hx 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) Hx Falls: Yes - GASTROINTESTINAL Hx Diverticulitis: Yes - GENITOURINARY/GYNECOLOGICAL Hx Genitourinary Disorders: No - PSYCHIATRIC Hx Psychophysiologic Disorder: No Hx Substance Use: No - SURGICAL HISTORY Hx Surgeries: Yes Hx Section: Yes Hx Herniorrhaphy: Yes (8 yrs ago) Other/Comment: lap band 8 yrs ago,obesity,right upper arm fistula placement aug 2017 - ANESTHESIA Hx Anesthesia: Yes Hx Anesthesia Reactions: No Hx Malignant Hyperthermia: No Meds Allergies/Adverse Reactions: Allergies Allergy/AdvReac Type Severity Reaction Status Date / Time aspirin Allergy other Verified 09/19/17 13:26 metoclopramide HCl Allergy other Verified 09/19/17 13:26 [From Reglan] shellfish derived Allergy SWELLING Verified 09/19/17 13:26 - Medications Medications: Current Medications Acetaminophen (Tylenol 325mg Tab) 650 mg PO Q6 PRN PRN Reason: Pain, moderate (4-7) Last Admin: 12/16/18 03:39 Dose: 650 mg Acetaminophen (Tylenol 325mg Tab) 325 mg PO Q6 PRN PRN Reason: Pain, Mild (1-3) Acetaminophen (Tylenol 325mg Tab) 975 mg PO Q6 PRN PRN Reason: Pain, severe (8-10) Last Admin: 12/16/18 11:38 Dose: 975 mg Albuterol (Ventolin Hfa 90 Mcg/Actuation (8 G)) 2 puff IH Q4 PRN PRN Reason: Shortness of Breath Amlodipine Besylate (Norvasc) 10 mg PO DAILY [facility] Last Admin: 12/16/18 09:50 Dose: 10 mg Cinacalcet (Sensipar) 60 mg PO DAILY [facility] Last Admin: 12/16/18 09:51 Dose: 60 mg Ferrous Gluconate (Fergon) 324 mg PO BID [facility] Last Admin: 12/16/18 09:48 Dose: 324 mg Heparin Sodium (Porcine) (Heparin) 5,000 units SC Q12 [facility]; Protocol Last Admin: 12/16/18 09:48 Dose: 5,000 units Home Med (Diclofenac Sodium [Voltaren]) 100 gm TP DAILY [facility] Home Med (Iron Polysaccharide [Ferrex-150]) 150 mg PO DAILY [facility] Levothyroxine Sodium (Synthroid) 25 mcg PO DAILY@0630 [facility] Last Admin: 12/16/18 06:15 Dose: 25 mcg Loratadine (Claritin) 10 mg PO DAILY [facility] Last Admin: 12/16/18 09:48 Dose: 10 mg Metoprolol Succinate (Toprol Xl) 50 mg PO DAILY [facility] Last Admin: 12/16/18 13:11 Dose: 50 mg Nortriptyline HCl (Pamelor) 25 mg PO HS [facility] Ondansetron HCl (Zofran Tab) 4 mg PO Q4 PRN PRN Reason: Nausea/Vomiting Pantoprazole Sodium (Protonix Ec Tab) 40 mg PO DAILY [facility] Last Admin: 12/16/18 09:50 Dose: 40 mg Vitamin B Complex/Vit C/Folic Acid (Nephro-Maria Del Carmen) 1 tab PO DAILY [facility] Last Admin: 12/16/18 09:50 Dose: 1 tab Physical Exam - Constitutional Appears: Non-toxic - Head Exam Head Exam: NORMAL INSPECTION - Eye Exam Eye Exam: Normal appearance - ENT Exam ENT Exam: Mucous Membranes Moist - Neck Exam Neck exam: Positive for: Full Rom - Respiratory Exam Respiratory Exam: NORMAL BREATHING PATTERN - Cardiovascular Exam Cardiovascular Exam: REGULAR RHYTHM - GI/Abdominal Exam GI & Abdominal Exam: Normal Bowel Sounds - Rectal Exam Rectal Exam: Deferred - Extremities Exam Extremities exam: Negative for: pedal edema - Back Exam Back exam: NORMAL INSPECTION - Neurological Exam Neurological exam: Alert, Oriented x3 - Psychiatric Exam Psychiatric exam: Normal Affect - Skin Skin Exam: Normal Color Results - Vital Signs Recent Vital Signs: Last Vital Signs Temp 98.9 F 12/16/18 13:00 Pulse 85 12/16/18 13:11 Resp 19 12/16/18 13:00 BP 109/75 12/16/18 13:11 Pulse Ox 85 L 12/16/18 13:00 - Labs Result Diagrams: 12/15/18 17:50 12/15/18 17:50 Labs: Laboratory Results - last 24 hr 12/15/18 12/15/18 12/16/18 17:50 17:50 06:01 WBC 6.1 RBC 4.56 Hgb 10.7 L D Hct 35.5 MCV 77.8 L MCH 23.5 L MCHC 30.2 L RDW 18.4 H Plt Count 222 MPV 9.1 Neut % (Auto) 78.1 H Lymph % (Auto) 12.3 L Barber % (Auto) 8.7 Eos % (Auto) 0.7 Baso % (Auto) 0.2 Neut # (Auto) 4.8 Lymph # (Auto) 0.7 L Barber # (Auto) 0.5 Eos # (Auto) 0.0 Baso # (Auto) 0.0 Sodium 136 Potassium 3.9 Chloride 92 L Carbon Dioxide 31 H Anion Gap 17 BUN 23 H Creatinine 3.7 H Est GFR ( Amer) 15 Est GFR (Non-Af Amer) 12 Random Glucose 85 Calcium 9.4 Troponin I 0.0300 0.0280 12/16/18 14:23 WBC RBC Hgb Hct MCV MCH MCHC RDW Plt Count MPV Neut % (Auto) Lymph % (Auto) Barber % (Auto) Eos % (Auto) Baso % (Auto) Neut # (Auto) Lymph # (Auto) Barber # (Auto) Eos # (Auto) Baso # (Auto) Sodium Potassium Chloride Carbon Dioxide Anion Gap BUN Creatinine Est GFR ( Amer) Est GFR (Non-Af Amer) Random Glucose Calcium Troponin I 0.0410 - EKG Data EKG Interpreted by: Myself EKG shows normal: Sinus rhythm Assessment & Plan (1) Chest pain Assessment and Plan: cardiac enzymes are negative. There is no evidence of myocardial ischemia. Risk factor modification was discussed. Patient can be discharged to home and schedule outpatient stress test Status: Acute (2) CRF (chronic renal failure) Assessment and Plan: as per patient's curing supervisor. Status: Acute (3) HTN (hypertension) Assessment and Plan: blood pressure control. Status: Acute
--- NOTE | 2018-12-16 19:26 | CARD ---
APPROVED REPORT Date of service: 12/15/2018 EKG Measurement Heart [id number] <Conclusion> Normal sinus rhythm Possible Inferior infarct, age undetermined Abnormal ECG
--- NOTE | 2018-12-17 04:30 | HP ---
HISTORY OF PRESENT ILLNESS: This is a 63-year-old female with history of multiple medical problems including end-stage renal disease on hemodialysis, hypertension, gouty arthritis, morbid obesity status post gastric bypass surgery. The patient presented to emergency room with symptoms of chest pain as well as vomiting. The patient's symptoms started while the patient was on dialysis chair. She stated that it was retrosternal and pressure-like. The patient continued dialysis but as she was going home she started to have vomiting and the patient was brought to emergency room for evaluation and subsequently admitted. Other review of systems, pain in left shoulder and pain in left lower extremity. SOCIAL HISTORY: No history of smoking, EtOH or substance abuse. FAMILY HISTORY: Noncontributory. MEDICATIONS: Reviewed and ordered as per MAR. PHYSICAL EXAMINATION: GENERAL: The patient is in bed, not in any cardiopulmonary distress. VITAL SIGNS: Blood pressure 122/80, temperature 98.5, respiratory rate 18, pulse 72. HEENT: Pupils equal, reactive to light. Normal-appearing mucosa of the conjunctivae, oropharynx and nasal membrane mucosa. NECK: Supple. No JVD. No carotid bruit. No lymph node. No thyromegaly. CHEST AND LUNGS: Bilateral symmetrical expansion. Good air exchange. No rales, no rhonchi. CARDIOVASCULAR SYSTEM: PMI not localized. S1, S2. No additional sounds. ABDOMEN: Normoactive bowel sounds. No tenderness. No organomegaly. No masses. EXTREMITIES: No cyanosis, no clubbing, no edema. The patient has limited abduction of the left shoulder and she has hypersensitivity on the left lower extremity on the medial aspect. CENTRAL NERVOUS SYSTEM: Alert, awake, oriented x3. No neurological deficit could be appreciated. ASSESSMENT: 1. Chest pain, rule out myocardial infarction. 2. Possible gouty arthritis. 3. Diabetic neuropathy. 4. End-stage renal disease, on hemodialysis. 5. Hypertension. PLAN: Cardiology consult and follow recommendations. Continue current medications. We will give the patient Lidoderm patch for her left shoulder. GI consult for the epigastric pain and the frequent vomiting. Konstantin Brunner MD [facility] # [id number]
--- NOTE | 2018-12-17 05:38 | CON ---
DATE: 12/16/2018 RENAL CONSULTATION LOCATION: The patient is located in telemetry, room 412, bed 1. REQUESTED BY: Konstantin Brunner MD REASON FOR FOLLOWUP: End-stage renal disease, chest pain, for further evaluation. HISTORY OF PRESENT ILLNESS: Mrs. Hidalgo is a 63-year-old obese female with a past medical history significant for hypertension, COPD, asthma, arthritis, anemia, diverticulosis, hypothyroidism, primary hyperparathyroidism, end-stage renal disease, on hemodialysis three times a week for the last six months of Monday, and Monday who was admitted through the emergency room with a chief complaint of chest pain for about one hour during dialysis. The patient claims she has pressure-like symptoms during dialysis for about one hour, severity of 5/10 in a scale of 1-10. No radiation of the pain. No nausea or vomiting. The patient also complains of left shoulder pain, occasional radiation of the pain to the left shoulder and left arm. The patient also complains of vomiting post-dialysis at home for the last one to two months. Denies any hematemesis or melena. Denies any fever. Occasional cough. Denies any abdominal pain. Denies any dysuria or frequency. Complains of loose bowel movement x1. PAST MEDICAL HISTORY: Significant for hypertension, COPD, asthma, hypothyroidism, primary hyperparathyroidism, end-stage renal disease, arthritis of the shoulder. PAST SURGICAL HISTORY: Status post hernia repair and also . ALLERGIES: ALLERGIC TO ASPIRIN, METOCLOPRAMIDE, AND SHELLFISH. SOCIAL HISTORY: The patient was ex-smoker. No alcohol. No drugs. PERSONAL HISTORY: She has two children. FAMILY HISTORY: Not significant. CURRENT MEDICATIONS: Include as follows: Claritin 10 mg p.o. daily, ferrous gluconate 324 mg p.o. b.i.d., Flonase one spray b.i.d., subcu heparin 5000 units every 12 hours, Lidoderm patch, Nephro-Maria Del Carmen one tablet daily, amlodipine 10 mg p.o. daily, Pamelor 25 mg p.o. at bedtime, Protonix 40 mg p.o. daily, Sensipar 60 mg p.o. daily, Synthroid 25 mcg p.o. daily, metoprolol 50 mg p.o. daily, Tylenol, Ventolin, and Zofran. REVIEW OF SYSTEMS: Significant for chest discomfort, pressure like, no radiation; left shoulder pain; and occasional vomiting post-dialysis for the last two months. All other review of systems are reviewed and are negative except as mentioned. PHYSICAL EXAMINATION: VITAL SIGNS: Blood pressure 109/75, pulse 85, respirations 19, temperature 98.9, saturations 96%. Height 5 feet 4 inches. Weight is 266 pounds. BMI 44.8. GENERAL: Ms. Hidalgo is a 63-year-old elderly, obese -Sy[place] female, sitting at the edge of the bed, not in distress. HEENT: Pupils normal and reactive to light and accommodation. Conjunctivae pink. Sclerae anicteric. Tongue is moist. Trachea is midline. LUNGS: Symmetric on both sides. Bilateral breath sounds present. Clear to auscultation. CARDIOVASCULAR SYSTEM: [place] at the fifth intercostal space, midclavicular line. S1 and S2 audible. No murmur or gallop. ABDOMEN: Distended, protuberant. Incisional hernia present. Abdomen is soft, tympanitic. No guarding. No rigidity. No hepatosplenomegaly. CENTRAL NERVOUS SYSTEM: The patient is alert, awake, oriented x3. Nonfocal neuro examination. Cranial nerves II through XII grossly intact. Sensory and motor system is within normal limits. EXTREMITIES: No cyanosis. No clubbing. No edema. LABORATORY DATA: Include as follows: As of 12/15/2018, WBC 6.1, hemoglobin 10.7, hematocrit is 35.5, MCV is 77.8, and platelets 222. Sodium 136, potassium 3.9, chloride 92, CO2 of 31, BUN 23, creatinine 3.7, glucose 85, calcium 9.4. Troponin 0.03, 0.028, and 0.041, ruled out. Chest x-ray as of 12/15/2018; no active disease. Ultrasound of the lower extremities, o evidence of deep vein thrombosis. ASSESSMENT AND PLAN: In summary, Mrs. Hidalgo is a 63-year-old elderly, obese -Syrian female with a history of hypertension, chronic obstructive pulmonary disease, asthma, hypothyroidism, primary hyperparathyroidism, end-stage renal disease, arthritis who was admitted with chest discomfort, pressure like and also left shoulder pain and vomiting post-dialysis for the last two months on and off. 1. End-stage renal disease. Continue hemodialysis three times a week on Monday, , and Monday. 2. Hypertension. Blood pressure is stable. Continue her current antihypertensive medications, amlodipine and metoprolol. 3. Deep venous thrombosis prophylaxis. Continue subcutaneous heparin. Also gastrointestinal prophylaxis, Protonix 40 mg daily. 4. The patient is ruled out for acute myocardial infarction by cardiac enzymes x3. Follow up with Cardiology for further evaluation. 5. Continue analgesics as needed and also the Lidoderm patch to the left shoulder. We will follow up with you. Thank you for allowing me to participate in your patient's care. Ember Nicole MD
[2018-12-17] MEDS: Levothyroxine 25 MCG TAB PO SCH (05:54)
[2018-12-17] MEDS: Lidocaine 5% Patch TD SCH (08:31)
[2018-12-17] MEDS: Pantoprazole 40 mg EC Tab PO SCH (08:33)
[2018-12-17] MEDS: Metoprolol Succinate 50 mg XL Tab PO SCH (08:33)
[2018-12-17] MEDS: Multivitamin Vitamin B Complex (Nephro-Vite) Tab PO SCH (08:35)
--- NOTE | 2018-12-17 16:51 | CARD ---
APPROVED REPORT Date of service: 12/17/2018 EXAM: Two-dimensional and M-mode echocardiogram with Doppler and color Doppler. Other Information Quality : GoodRhythm : NSR INDICATION Chest Pain 2D DIMENSIONS IVSd1.72 (0.7-1.1cm)LVDd3.60 (3.9-5.9cm) LVOT Diameter2.76 (1.8-2.4cm)PWd2.40 (0.7-1.1cm) IVSs2.18 (0.8-1.2cm)LVDs3.28 (2.5-4.0cm) FS (%) 8.7 %PWs1.93 (0.8-1.2cm) M-Mode DIMENSIONS Left Atrium (MM)4.17 (2.5-4.0cm)IVSd1.46 (0.7-1.1cm) Aortic Root3.71 (2.2-3.7cm)LVDd4.50 (4.0-5.6cm) Aortic Cusp Exc.1.92 (1.5-2.0cm)PWd1.65 (0.7-1.1cm) IVSs2.08 cmFS (%) 47 % LVDs2.38 (2.0-3.8cm)PWs2.18 cm Aortic Valve AoV Peak Ztgfthkm020.6cm/sAoV VTI56.7cmAO Peak GR.38mmHg LVOT Peak Sqvaesbe383.2cm/sLVOT VTI21.84cmAO Mean GR.23mmHg MIK (VMAX)1.15no4QMS (VTI)1.05cm2 Mitral Valve MV E Qlvhsmmr709.5cm/sMV DECEL LFZK081guSC A Vpdvewhr644.7cm/s MV KNU29igO/A ratio1.1MVA (PHT)2.73cm2 TDI Lateral E' Peak V9.13cm/sMedial E' Peak V7.01cm/sE/Lateral E'13.3 E/Medial E'17.3 Tricuspid Valve TR Peak Cvsolsvc550ki/sRAP JIFEYDQE52ozSbUG Peak Gr.37mmHg OTND90qdQs LEFT VENTRICLE The left ventricle is normal size. There is mild to moderate concentric left ventricular hypertrophy. The left ventricular systolic function is normal. The estimated ejection fraction is 55-60% No regional wall motion abnormalities noted.. Transmitral Doppler flow pattern is Grade II-pseudonormal filling dynamics. No left ventricle thrombus noted on this study. There is no ventricular septal defect visualized. There is no left ventricular aneurysm. There is no mass noted in the left ventricle. RIGHT VENTRICLE The right ventricle is normal size. There is normal right ventricular wall thickness. The right ventricular systolic function is normal. ATRIA The left atrium is mildly dilated. The right atrium size is normal. The interatrial septum is intact with no evidence for an atrial septal defect. AORTIC VALVE The aortic valve is normal in structure. Mild aortic regurgitation is present. There is atleast mild aortic valvular stenosis. Peak aortic velocity is calculated at 3.1 m/sec with mean gradient of 25 mm Hg. Correlate clinically. There is no aortic valvular vegetation. MITRAL VALVE The mitral valve is normal in structure. There is no evidence of mitral valve prolapse. There is no mitral valve stenosis. There is no mitral valve regurgitation noted. TRICUSPID VALVE The tricuspid valve is normal in structure. There is mild tricuspid valve regurgitation noted. RVSP is calculated at 43 mm Hg. There is no tricuspid valve prolapse or vegetation. There is no tricuspid valve stenosis. PULMONIC VALVE The pulmonary valve is normal in structure. There is no pulmonic valvular regurgitation. There is no pulmonic valvular stenosis. GREAT VESSELS The aortic root is normal in size. The ascending aorta is normal in size. The pulmonary artery is normal. The IVC is normal in size and collapses >50% with inspiration. PERICARDIAL EFFUSION There is no pericardial effusion. There is no pleural effusion. <Conclusion> Technically difficult study There is mild to moderate concentric left ventricular hypertrophy. The estimated ejection fraction is 55-60% Transmitral Doppler flow pattern is Grade II-pseudonormal filling dynamics. The left atrium is mildly dilated. Mild aortic regurgitation is present. There is atleast mild aortic valvular stenosis. Peak aortic velocity is calculated at 3.1 m/sec with mean gradient of 25 mm Hg. Correlate clinically. There is mild tricuspid valve regurgitation noted. RVSP is calculated at 43 mm Hg.
--- NOTE | 2018-12-18 01:45 | PN ---
DATE: 12/17/2018 SUBJECTIVE: The patient is seen today on 12/17/2018. She is not in any cardiopulmonary distress. PHYSICAL EXAMINATION: VITAL SIGNS: Blood pressure 115/76, temperature 99.6, respiratory rate 18 and pulse 78. HEENT: Pupils equal, reactive to light. Normal-appearing mucosa of the conjunctivae, oropharynx and nasal membrane mucosa. NECK: Supple. No JVD. No carotid bruit. No lymph node. No thyromegaly. CHEST AND LUNGS: Bilateral symmetrical expansion. Good air exchange. No rales, no rhonchi. CARDIOVASCULAR SYSTEM: PMI not localized. S1, S2. No additional sounds. ABDOMEN: Normoactive bowel sounds. No tenderness. No organomegaly. No masses. EXTREMITIES: No cyanosis, no clubbing, no edema. GREY WASHER: Alert, awake, oriented x2. No neurological deficit could be appreciated. ASSESSMENT: 1. Chest pain, myocardial infarction was ruled out. The patient was seen by Dr. Best, who advised outpatient stress test. 2. Post-dialysis nausea and vomiting. Differential diagnosis include gastritis. We will start the patient on proton pump inhibitor and consult Gastroenterology. 3. Hypertension. 4. End-stage renal disease, on hemodialysis. 5. Gouty arthritis. 6. Morbid obesity, status post gastric sleeve. PLAN: The patient is for hemodialysis tomorrow morning and monitor the patient after dialysis for any nausea or vomiting. If the patient tolerates well and cleared by GI, he will be discharged home tomorrow morning. Konstantin Brunner MD
[2018-12-18] MEDS: Levothyroxine 25 MCG TAB PO SCH (06:06)
[2018-12-18] MEDS: Multivitamin Vitamin B Complex (Nephro-Vite) Tab PO SCH (09:00)
[2018-12-18] MEDS: Pantoprazole 40 mg EC Tab PO SCH (09:00)
[2018-12-18] MEDS: Metoprolol Succinate 50 mg XL Tab PO SCH (09:01)
[2018-12-18] MEDS: Lidocaine 5% Patch TD SCH (09:01)
--- NOTE | 2018-12-18 09:29 | CP.PCM.PCO ---
Assessment & Plan - Assessment and Plan (Free Text) Assessment: pt. seen and examined c/o cough, weakness, denies n/v/d Temp 101 noted from overnight, currently temp 99.9 villalobos cx ordered chest xray flu a/b consider iv abx pending cx/ cxray
[2018-12-18 09:53] LABS: HEMOGLOBIN 9.7 g/dL (12.0-16.0); MEAN CELL VOLUME 77.9 fl (81.0-99.0); MEAN CORPUSCULAR HEMOGLOBIN 23.4 pg (27.0-31.0); RBC 4.15 Mil/uL (3.80-5.20); RED CELL DISTRIBUTION WIDTH 17.8 % (11.5-14.5); WHITE BLOOD COUNT 4.8 K/uL (4.8-10.8)
[2018-12-18 10:43] LABS: CALCIUM 8.9 mg/dL (8.4-10.2)
--- NOTE | 2018-12-18 11:26 | RAD ---
Date of service: 12/18/2018 HISTORY: Fever COMPARISON: 12/15/2018. FINDINGS: LUNGS: The lungs are well inflated. There is mild pulmonary venous congestion. PLEURA: No pleural effusions or pneumothorax. CARDIOVASCULAR: Again seen is moderate cardiomegaly. No aortic atherosclerotic calcifications present. OSSEOUS STRUCTURES: Within normal limits for the patient's age. VISUALIZED UPPER ABDOMEN: Normal. OTHER FINDINGS: None. IMPRESSION: No acute findings.
[2018-12-18] MEDS: Epoetin Alfa 4000 UNIT/ML Inj SC SCH (15:35)
[2018-12-18] MEDS: Doxercalciferol 4 mcg/2 ml Inj IV SCH (15:36)
--- NOTE | 2018-12-18 21:17 | CON ---
DATE: 12/18/2018 REFERRING DOCTOR: Konstantin Brunner MD REASON FOR CONSULTATION: Nausea and vomiting. HISTORY OF PRESENT ILLNESS: This is a pleasant 63-year-old female with history of multiple medical problems including end-stage renal disease on hemodialysis, hypertension, arthritis, morbid obesity comes in for chest pain, vomiting. The patient states she gets this on dialysis. It is not really vomiting, but more of a mucousy type of sputum, there is no fluid coming up. The patient feels better at this point, tolerating diet, in no apparent distress. PAST MEDICAL HISTORY: As above. PAST SURGICAL HISTORY: As above. MEDICATIONS: Have been reviewed. REVIEW OF SYSTEMS: All other systems have been reviewed and negative apart from the HPI. PHYSICAL EXAMINATION: GENERAL: Pleasant elderly-appearing female, lying in bed comfortably, in no apparent distress. VITAL SIGNS: Here in the hospital are grossly unremarkable. HEENT: Head: Normocephalic, atraumatic. Eyes: Pupils equally reactive to light bilaterally. No conjunctival pallor or icterus. NECK: Supple. Normal range of motion. No lymphadenopathy appreciated. LUNGS: Coarse breath sounds bilaterally. HEART: S1, S2. Regular rate and rhythm. No S3. ABDOMEN: Soft, nontender. There is what looks like a large ventral hernia. RECTAL: Deferred. EXTREMITIES: Pulses felt bilaterally. SKIN: Warm, dry, and intact. NEUROLOGIC: A and O x3. LABORATORY DATA: Labs and radiology have been reviewed. WBC is 4.8, hemoglobin is 9.7, hematocrit is 32.3. LFTs are pending. ASSESSMENT AND PLAN: This is a 63-year-old female with nausea and vomiting. This is more likely secondary to dialysis related. Supportive care, Pepcid b.i.d. No further need of endoscopy at this point urgently. We will follow the patient with you. Thank you for the consult. Anthony George MD/ PhD cc: Konstantin Brunner MD
--- NOTE | 2018-12-18 21:34 | CP.PCM.PN ---
Subjective - Date & Time of Evaluation Date of Evaluation: 12/18/18 Time of Evaluation: 10:30 - Subjective Subjective: pt is seen and examined, follow up consult is dictate d# for hd [id number] Objective - Vital Signs/Intake and Output Vital Signs (last 24 hours): Temp Pulse Resp BP Pulse Ox 98.0 F 75 18 146/72 95 12/18/18 19:56 12/18/18 19:56 12/18/18 19:56 12/18/18 19:56 12/18/18 19:56 - Medications Medications: Current Medications Acetaminophen (Tylenol 325mg Tab) 650 mg PO Q6 PRN PRN Reason: Pain, moderate (4-7) Last Admin: 12/17/18 23:57 Dose: 650 mg Acetaminophen (Tylenol 325mg Tab) 325 mg PO Q6 PRN PRN Reason: Pain, Mild (1-3) Acetaminophen (Tylenol 325mg Tab) 975 mg PO Q6 PRN PRN Reason: Pain, severe (8-10) Last Admin: 12/16/18 11:38 Dose: 975 mg Acetaminophen (Tylenol 325mg Tab) 650 mg PO ONCE PRN PRN Reason: Fever >100.4 F Last Admin: 12/17/18 04:42 Dose: 650 mg Albuterol (Ventolin Hfa 90 Mcg/Actuation (8 G)) 2 puff IH Q4 PRN PRN Reason: Shortness of Breath Amlodipine Besylate (Norvasc) 10 mg PO DAILY [facility] Last Admin: 12/18/18 09:01 Dose: 10 mg Cinacalcet (Sensipar) 60 mg PO DAILY [facility] Last Admin: 12/18/18 09:01 Dose: 60 mg Doxercalciferol (Hectorol) 4 mcg IV TTS [facility] Last Admin: 12/18/18 15:36 Dose: 4 mcg Epoetin Shelton (Procrit) 4,000 unit SC TTS [facility] Last Admin: 12/18/18 15:35 Dose: 4,000 unit Ferrous Gluconate (Fergon) 324 mg PO BID [facility] Last Admin: 12/18/18 17:56 Dose: Not Given Fluticasone Propionate (Flonase) 1 spr SERVANDO BID [facility] Last Admin: 12/18/18 17:56 Dose: Not Given Heparin Sodium (Porcine) (Heparin) 5,000 units SC Q12 [facility]; Protocol Last Admin: 12/18/18 09:02 Dose: 5,000 units Levothyroxine Sodium (Synthroid) 25 mcg PO DAILY@0630 [facility] Last Admin: 12/18/18 06:06 Dose: 25 mcg Lidocaine (Lidoderm) 1 ea TD DAILY [facility] Last Admin: 12/18/18 09:01 Dose: 1 ea Loratadine (Claritin) 10 mg PO DAILY [facility] Last Admin: 12/18/18 09:03 Dose: 10 mg Metoprolol Succinate (Toprol Xl) 50 mg PO DAILY [facility] Last Admin: 12/18/18 09:01 Dose: 50 mg Nortriptyline HCl (Pamelor) 25 mg PO HS [facility] Last Admin: 12/17/18 22:38 Dose: 25 mg Ondansetron HCl (Zofran Tab) 4 mg PO Q4 PRN PRN Reason: Nausea/Vomiting Pantoprazole Sodium (Protonix Ec Tab) 40 mg PO DAILY [facility] Last Admin: 12/18/18 09:00 Dose: 40 mg Vitamin B Complex/Vit C/Folic Acid (Nephro-Maria Del Carmen) 1 tab PO DAILY [facility] Last Admin: 12/18/18 09:00 Dose: 1 tab - Labs Labs: 12/18/18 09:30 12/18/18 09:30
[2018-12-18 22:51] LABS: HEPATITIS B CORE AB NEGATIVE (NEGATIVE); HEPATITIS B SURFACE AG Negative (NEGATIVE); HEPATITIS C ANTIBODY Negative (NEGATIVE)
[2018-12-19] MEDS: Lidocaine 5% Patch TD SCH (08:38)
[2018-12-19] MEDS: Multivitamin Vitamin B Complex (Nephro-Vite) Tab PO SCH (08:39)
[2018-12-19] MEDS: Pantoprazole 40 mg EC Tab PO SCH (08:40)
[2018-12-19] MEDS: Metoprolol Succinate 50 mg XL Tab PO SCH (08:41)
[2018-12-19] MEDS: Levothyroxine 25 MCG TAB PO SCH (08:41)
--- NOTE | 2018-12-19 09:46 | CP.PCM.CON ---
History of Present Illness - History of Present Illness History of Present Illness: Infectious disease consultation note Asked to see this patient at the request of Dr. Brunner for fever and evaluation of left knee swelling. Patient is a pleasant 63-year-old female with past medical history of hypertension, end-stage renal disease on hemodialysis, obesity, who was admitted to the hospital with complaints of chest pain. The patient stated that her chest pain started right after dialysis. Currently she states that her chest pain has resolved however she was found to have fever of 102 earlier this morning and also last night she started to notice pain and swelling in her left knee that came about suddenly. She denies any trauma to the knee. She does state that she has history of gout but usually her gout flareups happen to occur in her ankle and her toes. She denies any abdominal pain she denies any nausea or vomiting and she denies any diarrhea. She does state that she has chronic cough and shortness of breath attributed to her obesity and asthma. She denies any sick contacts. She denies any recent travel. . Review of Systems - Review of Systems Review of Systems: Review of systems- + fever and chills and new onset left knee pain and swelling Patient denies any headaches, states has chronic cough and mild sob secondary to her obesity and asthma, she denies any chest pain now but had it on admission, denies any nausea vomiting, denies any abdominal pain, denies any diarrhea. Denies any recent travel Denies any sick contacts Denies any animal contact Past Patient History - Infectious Disease Hx of Infectious Diseases: None - Past Medical History & Family History Past Medical History?: Yes - Past Social History Smoking Status: Former Smoker Home Situation {Lives}: With Family - CARDIAC Hx Cardiac Disorders: Yes (CHF) - PULMONARY Hx Respiratory Disorders: Yes (Asthma, Bronchitis, COPD?) - NEUROLOGICAL Hx Neurological Disorder: No - HEENT Hx HEENT Problems: Yes Hx Epistaxis: Yes (at young age) - RENAL Hx Chronic Kidney Disease: Yes - ENDOCRINE/METABOLIC Hx Hypothyroidism: Yes - HEMATOLOGICAL/ONCOLOGICAL Hx Blood Disorders: Yes (anemia) - INTEGUMENTARY Hx Dermatological Problems: No - MUSCULOSKELETAL/RHEUMATOLOGICAL Hx 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) Hx Falls: Yes - GASTROINTESTINAL Hx Diverticulitis: Yes - GENITOURINARY/GYNECOLOGICAL Hx Genitourinary Disorders: No - PSYCHIATRIC Hx Psychophysiologic Disorder: No Hx Substance Use: No - SURGICAL HISTORY Hx Surgeries: Yes Hx Section: Yes Hx Herniorrhaphy: Yes (8 yrs ago) Other/Comment: lap band 8 yrs ago,obesity,right upper arm fistula placement aug 2017 - ANESTHESIA Hx Anesthesia: Yes Hx Anesthesia Reactions: No Hx Malignant Hyperthermia: No Meds Allergies/Adverse Reactions: Allergies Allergy/AdvReac Type Severity Reaction Status Date / Time aspirin Allergy other Verified 09/19/17 13:26 metoclopramide HCl Allergy other Verified 09/19/17 13:26 [From Reglan] shellfish derived Allergy SWELLING Verified 09/19/17 13:26 - Medications Medications: Current Medications Acetaminophen (Tylenol 325mg Tab) 650 mg PO Q6 PRN PRN Reason: Pain, moderate (4-7) Last Admin: 12/17/18 23:57 Dose: 650 mg Acetaminophen (Tylenol 325mg Tab) 325 mg PO Q6 PRN PRN Reason: Pain, Mild (1-3) Acetaminophen (Tylenol 325mg Tab) 975 mg PO Q6 PRN PRN Reason: Pain, severe (8-10) Last Admin: 12/19/18 08:33 Dose: 975 mg Acetaminophen (Tylenol 325mg Tab) 650 mg PO ONCE PRN PRN Reason: Fever >100.4 F Last Admin: 12/19/18 00:13 Dose: 650 mg Albuterol (Ventolin Hfa 90 Mcg/Actuation (8 G)) 2 puff IH Q4 PRN PRN Reason: Shortness of Breath Amlodipine Besylate (Norvasc) 10 mg PO DAILY [facility] Last Admin: 12/19/18 08:40 Dose: 10 mg Cinacalcet (Sensipar) 60 mg PO DAILY [facility] Last Admin: 12/19/18 08:40 Dose: 60 mg Doxercalciferol (Hectorol) 4 mcg IV TTS [facility] Last Admin: 12/18/18 15:36 Dose: 4 mcg Epoetin Shelton (Procrit) 4,000 unit SC TTS [facility] Last Admin: 12/18/18 15:35 Dose: 4,000 unit Ferrous Gluconate (Fergon) 324 mg PO BID [facility] Last Admin: 12/19/18 08:36 Dose: 324 mg Fluticasone Propionate (Flonase) 1 spr SERVANDO BID [facility] Last Admin: 12/19/18 08:36 Dose: 1 spr Heparin Sodium (Porcine) (Heparin) 5,000 units SC Q12 [facility]; Protocol Last Admin: 12/19/18 08:37 Dose: 5,000 units Levothyroxine Sodium (Synthroid) 25 mcg PO DAILY@0630 [facility] Last Admin: 12/19/18 08:41 Dose: 25 mcg Lidocaine (Lidoderm) 1 ea TD DAILY [facility] Last Admin: 12/19/18 08:38 Dose: 1 ea Loratadine (Claritin) 10 mg PO DAILY [facility] Last Admin: 12/19/18 08:35 Dose: 10 mg Metoprolol Succinate (Toprol Xl) 50 mg PO DAILY [facility] Last Admin: 12/19/18 08:41 Dose: 50 mg Nortriptyline HCl (Pamelor) 25 mg PO HS [facility] Last Admin: 12/18/18 23:02 Dose: 25 mg Ondansetron HCl (Zofran Tab) 4 mg PO Q4 PRN PRN Reason: Nausea/Vomiting Pantoprazole Sodium (Protonix Ec Tab) 40 mg PO DAILY [facility] Last Admin: 12/19/18 08:40 Dose: 40 mg Polyethylene Glycol (Miralax) 17 gm PO DAILY [facility] Vitamin B Complex/Vit C/Folic Acid (Nephro-Maria Del Carmen) 1 tab PO DAILY [facility] Last Admin: 12/19/18 08:39 Dose: 1 tab Physical Exam - Constitutional Appears: No Acute Distress Additional comments: Obese - Head Exam Head Exam: ATRAUMATIC - Eye Exam Eye Exam: EOMI, PERRL - ENT Exam ENT Exam: Normal Oropharynx - Neck Exam Neck exam: Positive for: Full Rom - Respiratory Exam Respiratory Exam: Clear to Auscultation Bilateral, NORMAL BREATHING PATTERN Additional comments: No wheezing - Cardiovascular Exam Cardiovascular Exam: RRR, +S1, +S2 - GI/Abdominal Exam GI & Abdominal Exam: Normal Bowel Sounds, Soft Additional comments: NT, ND - Extremities Exam Additional comments: left knee with edema, and warmth and tender to touch limited flexion secondary top pain no erythema + fluctuation present Right arm AV shunt- clean/dry/no erythema - Neurological Exam Neurological exam: Alert, Oriented x3 Results - Vital Signs Recent Vital Signs: Last Vital Signs Temp 98.1 F 12/19/18 08:43 Pulse 80 12/19/18 08:43 Resp 20 12/19/18 08:43 BP 152/84 H 12/19/18 08:43 Pulse Ox 97 12/19/18 08:43 - Labs Result Diagrams: 12/18/18 09:30 12/18/18 09:30 Labs: Laboratory Results - last 24 hr 12/18/18 12/18/18 12/18/18 08:30 09:30 09:30 WBC 4.8 RBC 4.15 Hgb 9.7 L Hct 32.3 L MCV 77.9 L MCH 23.4 L MCHC 30.0 L RDW 17.8 H Plt Count 197 Sodium 131 L Potassium 4.6 Chloride 88 L Carbon Dioxide 29 Anion Gap 19 BUN 59 H Creatinine 9.2 H* D Est GFR ( Amer) 5 Est GFR (Non-Af Amer) 4 Random Glucose 128 H Lactic Acid 0.8 Calcium 8.9 Hep Bs Antigen Hep B Core IgM Ab Hepatitis C Antibody 12/18/18 14:58 WBC RBC Hgb Hct MCV MCH MCHC RDW Plt Count Sodium Potassium Chloride Carbon Dioxide Anion Gap BUN Creatinine Est GFR ( Amer) Est GFR (Non-Af Amer) Random Glucose Lactic Acid Calcium Hep Bs Antigen Negative Hep B Core IgM Ab Negative Hepatitis C Antibody Negative Laboratory Results - last 72 hr 12/16/18 12/18/18 12/18/18 14:23 08:30 09:30 WBC 4.8 RBC 4.15 Hgb 9.7 L Hct 32.3 L MCV 77.9 L MCH 23.4 L MCHC 30.0 L RDW 17.8 H Plt Count 197 Sodium Potassium Chloride Carbon Dioxide Anion Gap BUN Creatinine Est GFR ( Amer) Est GFR (Non-Af Amer) Random Glucose Lactic Acid 0.8 Uric Acid Calcium Troponin I 0.0410 Hep Bs Antigen Hep B Core IgM Ab Hepatitis C Antibody 12/18/18 12/18/18 12/19/18 09:30 14:58 12:15 WBC RBC Hgb Hct MCV MCH MCHC RDW Plt Count Sodium 131 L Potassium 4.6 Chloride 88 L Carbon Dioxide 29 Anion Gap 19 BUN 59 H Creatinine 9.2 H* D Est GFR ( Amer) 5 Est GFR (Non-Af Amer) 4 Random Glucose 128 H Lactic Acid Uric Acid 5.2 Calcium 8.9 Troponin I Hep Bs Antigen Negative Hep B Core IgM Ab Negative Hepatitis C Antibody Negative Microbiology 12/18/18 15:14 Urine,Clean Catch Urine Culture - Final No Growth (<1,000 CFU/ML) 12/18/18 09:35 Blood Blood Culture - Preliminary NO GROWTH AFTER 24 HOURS 12/18/18 09:30 Blood-During Dialysis Blood Culture - Preliminary NO GROWTH AFTER 24 HOURS Accession No. : [id number] Patient Name / ID : JOSELYN AMOS C / [id number] Exam Date : 12/18/2018 09:28:57 ( Approved ) Study Comment : Sex / Age : F / 63Y Creator : Caro Champagne MD Dictator : Caro Champagne MD Respiratory Care Technician : [employer] Team Technician : Caro Champagne MD Approver2 : Report Date : 12/18/2018 11:20:38 My Comment : Date of service: 12/18/2018 HISTORY: Fever COMPARISON: 12/15/2018. FINDINGS: LUNGS: The lungs are well inflated. There is mild pulmonary venous congestion. PLEURA: No pleural effusions or pneumothorax. CARDIOVASCULAR: Again seen is moderate cardiomegaly. No aortic atherosclerotic calcifications present. OSSEOUS STRUCTURES: Within normal limits for the patient's age. VISUALIZED UPPER ABDOMEN: Normal. OTHER FINDINGS: None. IMPRESSION: No acute findings. Assessment & Plan (1) Fever Status: Acute (2) Swelling of left knee joint Status: Acute (3) Pain and swelling of left knee Status: Acute (4) CRF (chronic renal failure) Status: Acute - Assessment and Plan (Free Text) Assessment: A/P- 63-year-old female with history of hypertension, end-stage renal disease on hemodialysis who is now found to have fevers and new onset left knee edema and pain. Normal white blood cell count. T-max of 102.4 Based on history of gout and the fact that this pain occurred suddenly in the middle of the night and the fact that patient is end-stage renal disease suspect that this is inflammatory arthritis of the knee possibly gout flareup at the knee joint rather than an infectious process. Patient is also seen by the orthopedic doctor and they will perform an arthrocentesis. Plan Advised to check 2 blood cultures. Advised to send the synovial fluid for cell count Gram stain and culture in addition to crystal analysis of the joint fluid. Would advise to hold off on any antibiotics at this time pending results of the synovial fluid culture cell count Gram stains. Patient may benefit from short course of anti-inflammatory agent to help reduce her pain and inflammation and fever. All above discussed with patient and her questions were answered and she verbalizes full understanding of all the above. Thank you for allowing me to take part in the care of this patient. d/w and Ortho.
--- NOTE | 2018-12-19 12:07 | CP.PCM.PN ---
Subjective - Date & Time of Evaluation Date of Evaluation: 12/19/18 Time of Evaluation: 12:07 - Subjective Subjective: pt is seen and examined, follow up consult is dictated # [id number] 1. esrd 2. htn 3. left knee pain, r/o gout vs pesudogout blood c/s, urine c/s are negative consider iv solumedrol if sepsis is cleared for hd in am Objective - Vital Signs/Intake and Output Vital Signs (last 24 hours): Temp Pulse Resp BP Pulse Ox 98.1 F 80 20 152/84 H 97 12/19/18 08:43 12/19/18 08:43 12/19/18 08:43 12/19/18 08:43 12/19/18 08:43 - Medications Medications: Current Medications Acetaminophen (Tylenol 325mg Tab) 650 mg PO Q6 PRN PRN Reason: Pain, moderate (4-7) Last Admin: 12/17/18 23:57 Dose: 650 mg Acetaminophen (Tylenol 325mg Tab) 325 mg PO Q6 PRN PRN Reason: Pain, Mild (1-3) Acetaminophen (Tylenol 325mg Tab) 975 mg PO Q6 PRN PRN Reason: Pain, severe (8-10) Last Admin: 12/19/18 08:33 Dose: 975 mg Acetaminophen (Tylenol 325mg Tab) 650 mg PO ONCE PRN PRN Reason: Fever >100.4 F Last Admin: 12/19/18 00:13 Dose: 650 mg Albuterol (Ventolin Hfa 90 Mcg/Actuation (8 G)) 2 puff IH Q4 PRN PRN Reason: Shortness of Breath Amlodipine Besylate (Norvasc) 10 mg PO DAILY [facility] Last Admin: 12/19/18 08:40 Dose: 10 mg Cinacalcet (Sensipar) 60 mg PO DAILY [facility] Last Admin: 12/19/18 08:40 Dose: 60 mg Doxercalciferol (Hectorol) 4 mcg IV TTS [facility] Last Admin: 12/18/18 15:36 Dose: 4 mcg Epoetin Shelton (Procrit) 4,000 unit SC TTS [facility] Last Admin: 12/18/18 15:35 Dose: 4,000 unit Ferrous Gluconate (Fergon) 324 mg PO BID [facility] Last Admin: 12/19/18 08:36 Dose: 324 mg Fluticasone Propionate (Flonase) 1 spr SERVANDO BID [facility] Last Admin: 12/19/18 08:36 Dose: 1 spr Heparin Sodium (Porcine) (Heparin) 5,000 units SC Q12 [facility]; Protocol Last Admin: 12/19/18 08:37 Dose: 5,000 units Levothyroxine Sodium (Synthroid) 25 mcg PO DAILY@0630 [facility] Last Admin: 12/19/18 08:41 Dose: 25 mcg Lidocaine (Lidoderm) 1 ea TD DAILY [facility] Last Admin: 12/19/18 08:38 Dose: 1 ea Loratadine (Claritin) 10 mg PO DAILY [facility] Last Admin: 12/19/18 08:35 Dose: 10 mg Metoprolol Succinate (Toprol Xl) 50 mg PO DAILY [facility] Last Admin: 12/19/18 08:41 Dose: 50 mg Nortriptyline HCl (Pamelor) 25 mg PO HS [facility] Last Admin: 12/18/18 23:02 Dose: 25 mg Ondansetron HCl (Zofran Tab) 4 mg PO Q4 PRN PRN Reason: Nausea/Vomiting Pantoprazole Sodium (Protonix Ec Tab) 40 mg PO DAILY [facility] Last Admin: 12/19/18 08:40 Dose: 40 mg Polyethylene Glycol (Miralax) 17 gm PO DAILY [facility] Vitamin B Complex/Vit C/Folic Acid (Nephro-Maria Del Carmen) 1 tab PO DAILY [facility] Last Admin: 12/19/18 08:39 Dose: 1 tab - Labs Labs: 12/18/18 09:30 12/18/18 09:30
--- NOTE | 2018-12-19 13:20 | CP.PCM.CON ---
History of Present Illness - History of Present Illness History of Present Illness: Orthopedic consult: Dr. Mitchell Patient is a 63 y/o female who c/o of left knee and shoulder pain. The patient was admitted on 12/15/18 for chest pain and was evaluated negative for acute coronary incident. Last night she began to experience severe knee pain and swelling without incidence of injury or trauma. The pain is pressure like, intermittent and rated 8/10. The pain is worsened with movement and alleviated with rest. She denies any fever or redness to the knee recently. The patient denies radiation of pain, numbness and tingling. She has a history of gout attack only to both ankles and big toes but never to the knees. Currently, she denies CP/SOB/N/V/D/dysuria/melena. In regards to the left shoulder, she has had chronic shoulder pain, which had progressively worsened over the past week without injury or trauma. She notes pain with overhead and lifting activities. The pain is dull, sometimes sharp and intermittent. The pain is controlled when at rest. She denies radiation of pain/numbness/tingling. Review of Systems - Review of Systems All systems: reviewed and no additional remarkable complaints except Review of Systems: as per HPI Past Patient History - Infectious Disease Hx of Infectious Diseases: None - Past Medical History & Family History Past Medical History?: Yes Past Family History: Reviewed and not pertinent - Past Social History Smoking Status: Former Smoker Alcohol: None Drugs: Denies - CARDIAC Hx Cardiac Disorders: Yes (CHF) - PULMONARY Hx Respiratory Disorders: Yes (Asthma, Bronchitis, COPD?) - NEUROLOGICAL Hx Neurological Disorder: No - HEENT Hx HEENT Problems: Yes Hx Epistaxis: Yes (at young age) - RENAL Hx Chronic Kidney Disease: Yes (ESRD on HD) - ENDOCRINE/METABOLIC Hx Hypothyroidism: Yes - HEMATOLOGICAL/ONCOLOGICAL Hx Blood Disorders: Yes (anemia) - INTEGUMENTARY Hx Dermatological Problems: No - MUSCULOSKELETAL/RHEUMATOLOGICAL Hx 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) Hx Falls: Yes - GASTROINTESTINAL Hx Diverticulitis: Yes - GENITOURINARY/GYNECOLOGICAL Hx Genitourinary Disorders: No - PSYCHIATRIC Hx Psychophysiologic Disorder: No Hx Substance Use: No - SURGICAL HISTORY Hx Surgeries: Yes Hx Section: Yes Hx Herniorrhaphy: Yes (8 yrs ago) Other/Comment: lap band 8 yrs ago,obesity,right upper arm fistula placement aug 2017 - ANESTHESIA Hx Anesthesia: Yes Hx Anesthesia Reactions: No Hx Malignant Hyperthermia: No Meds Allergies/Adverse Reactions: Allergies Allergy/AdvReac Type Severity Reaction Status Date / Time aspirin Allergy other Verified 09/19/17 13:26 metoclopramide HCl Allergy other Verified 09/19/17 13:26 [From Reglan] shellfish derived Allergy SWELLING Verified 09/19/17 13:26 - Medications Medications: Current Medications Acetaminophen (Tylenol 325mg Tab) 650 mg PO Q6 PRN PRN Reason: Pain, moderate (4-7) Last Admin: 12/17/18 23:57 Dose: 650 mg Acetaminophen (Tylenol 325mg Tab) 325 mg PO Q6 PRN PRN Reason: Pain, Mild (1-3) Acetaminophen (Tylenol 325mg Tab) 975 mg PO Q6 PRN PRN Reason: Pain, severe (8-10) Last Admin: 12/19/18 08:33 Dose: 975 mg Acetaminophen (Tylenol 325mg Tab) 650 mg PO ONCE PRN PRN Reason: Fever >100.4 F Last Admin: 12/19/18 00:13 Dose: 650 mg Albuterol (Ventolin Hfa 90 Mcg/Actuation (8 G)) 2 puff IH Q4 PRN PRN Reason: Shortness of Breath Amlodipine Besylate (Norvasc) 10 mg PO DAILY [facility] Last Admin: 12/19/18 08:40 Dose: 10 mg Cinacalcet (Sensipar) 60 mg PO DAILY [facility] Last Admin: 12/19/18 08:40 Dose: 60 mg Doxercalciferol (Hectorol) 4 mcg IV TTS [facility] Last Admin: 12/18/18 15:36 Dose: 4 mcg Epoetin Shelton (Procrit) 4,000 unit SC TTS [facility] Last Admin: 12/18/18 15:35 Dose: 4,000 unit Ferrous Gluconate (Fergon) 324 mg PO BID [facility] Last Admin: 12/19/18 08:36 Dose: 324 mg Fluticasone Propionate (Flonase) 1 spr SERVANDO BID [facility] Last Admin: 12/19/18 08:36 Dose: 1 spr Heparin Sodium (Porcine) (Heparin) 5,000 units SC Q12 [facility]; Protocol Last Admin: 12/19/18 08:37 Dose: 5,000 units Levothyroxine Sodium (Synthroid) 25 mcg PO DAILY@0630 [facility] Last Admin: 12/19/18 08:41 Dose: 25 mcg Lidocaine (Lidoderm) 1 ea TD DAILY [facility] Last Admin: 12/19/18 08:38 Dose: 1 ea Loratadine (Claritin) 10 mg PO DAILY [facility] Last Admin: 12/19/18 08:35 Dose: 10 mg Metoprolol Succinate (Toprol Xl) 50 mg PO DAILY [facility] Last Admin: 12/19/18 08:41 Dose: 50 mg Nortriptyline HCl (Pamelor) 25 mg PO HS [facility] Last Admin: 12/18/18 23:02 Dose: 25 mg Ondansetron HCl (Zofran Tab) 4 mg PO Q4 PRN PRN Reason: Nausea/Vomiting Oxycodone/Acetaminophen (Percocet 5/325 Mg Tab) 1 tab PO Q6 PRN PRN Reason: Pain, moderate (4-7) Stop: 12/22/18 12:08 Pantoprazole Sodium (Protonix Ec Tab) 40 mg PO DAILY [facility] Last Admin: 12/19/18 08:40 Dose: 40 mg Polyethylene Glycol (Miralax) 17 gm PO DAILY [facility] Vitamin B Complex/Vit C/Folic Acid (Nephro-Maria Del Carmen) 1 tab PO DAILY [facility] Last Admin: 12/19/18 08:39 Dose: 1 tab Physical Exam - Constitutional Appears: Well, No Acute Distress - Head Exam Head Exam: ATRAUMATIC, NORMOCEPHALIC - Eye Exam Eye Exam: EOMI, Normal appearance - ENT Exam ENT Exam: Mucous Membranes Moist - Neck Exam Neck exam: Positive for: Normal Inspection - Respiratory Exam Respiratory Exam: NORMAL BREATHING PATTERN - Extremities Exam Additional comments: L knee: moderate swelling, large effusion no erythema, no warmth ROM 5-30 deg sensation intact SP/DP/TN motor intact EHL/FHL/TA/G pedal pulse intact calves soft NT b/l Results - Vital Signs Recent Vital Signs: Last Vital Signs Temp 98.1 F 12/19/18 08:43 Pulse 80 12/19/18 08:43 Resp 20 12/19/18 08:43 BP 152/84 H 12/19/18 08:43 Pulse Ox 97 12/19/18 08:43 - Labs Result Diagrams: 12/18/18 09:30 12/18/18 09:30 Labs: Laboratory Results - last 24 hr 12/18/18 12/19/18 14:58 12:15 Uric Acid 5.2 Hep Bs Antigen Negative Hep B Core IgM Ab Negative Hepatitis C Antibody Negative - Impressions Impression: Accession No. : [id number] Patient Name / ID : JOSELYN AMOS / [id number] Exam Date : 12/19/2018 12:49:39 ( Approved ) Study Comment : Sex / Age : F / 63Y Creator : Dianne Finnegan Dictator : Dianne Finnegan Litigation Associate : Protective Signal Repairer : Dianne Finnegan Approver2 : Report Date : 12/19/2018 16:54:55 My Comment : Date of service: 12/19/2018 PROCEDURE: Left Knee Radiographs. HISTORY: Pain. COMPARISON: None. FINDINGS: BONES: No fracture appreciated. JOINTS: Tricompartmental osteoarthrosis. Diffuse osteophytosis. JOINT EFFUSION: Suprapatellar joint effusion present OTHER FINDINGS: None. IMPRESSION: Advanced osteoarthrosis. Concomitant chondrocalcinosis possible Joint effusion. No Gross fracture seen. Accession No. : [id number] Patient Name / ID : JOSELYN AMOS / [id number] Exam Date : 12/19/2018 12:49:39 ( Approved ) Study Comment : Sex / Age : F / 63Y Creator : Dianne Finnegan Dictator : Dianne Finnegan Litigation Associate : Protective Signal Repairer : Dianne Finnegan Approver2 : Report Date : 12/19/2018 16:53:39 My Comment : Date of service: 12/19/2018 PROCEDURE: Radiographs of the Left Shoulder HISTORY: L shoulder pain, dec rom, COMPARISON: No prior. FINDINGS: BONES: Normal. No fracture. JOINTS: Glenohumeral and acromioclavicular arthrosis SOFT TISSUES: Normal. OTHER FINDINGS: None. IMPRESSION: No fracture or lytic lesion. Left shoulder arthrosis Assessment & Plan (1) Arthritis, septic, knee Assessment and Plan: -Dr. Mitchell recommends OR tomorrow for arthroscopic washout of left knee -Risks/benefits/alternatives were explained to patient who understands and agrees to proceed with above -Medical/Cardiac clearance -NPO pMN -above d/w Dr. Mitchell in agreement Status: Acute (2) Osteoarthritis of left shoulder Assessment and Plan: PT/OT ROM and strengthening exercises as tolerated NSAID's contraindicated due to ESRD Status: Acute - Date & Time Date: 12/19/18 Time: 12:00
[2018-12-19] MEDS: POLYETHYLENE GLYCOL 3350 17 GM/Dose PACKET PO SCH (13:25)
[2018-12-19] MEDS: Oxycodone/Acetaminophen 5/325 mg Tab PO PRN ×2 (13:27→18:57)
--- NOTE | 2018-12-19 13:42 | CP.PCM.PCO ---
Assessment & Plan - Assessment and Plan (Free Text) Assessment: patient scheduled for L knee arthroscopy in am; Discussed w/ , patient cleared for procedure by NPO past mn
[2018-12-19 15:29] LABS: INR 1.1; PROTHROMBIN TIME 12.2 Seconds (9.8-13.1)
[2018-12-19 15:31] LABS: PARTIAL THROMBOPLASTIN TIME 35.1 Seconds (25.6-37.1)
--- NOTE | 2018-12-19 16:59 | RAD ---
Date of service: 12/19/2018 PROCEDURE: Radiographs of the Left Shoulder HISTORY: L shoulder pain, dec rom, COMPARISON: No prior. FINDINGS: BONES: Normal. No fracture. JOINTS: Glenohumeral and acromioclavicular arthrosis SOFT TISSUES: Normal. OTHER FINDINGS: None. IMPRESSION: No fracture or lytic lesion. Left shoulder arthrosis
--- NOTE | 2018-12-19 17:00 | RAD ---
Date of service: 12/19/2018 PROCEDURE: Left Knee Radiographs. HISTORY: Pain. COMPARISON: None. FINDINGS: BONES: No fracture appreciated. JOINTS: Tricompartmental osteoarthrosis. Diffuse osteophytosis. JOINT EFFUSION: Suprapatellar joint effusion present OTHER FINDINGS: None. IMPRESSION: Advanced osteoarthrosis. Concomitant chondrocalcinosis possible Joint effusion. Gross fracture seen.
--- NOTE | 2018-12-20 02:23 | PN ---
DATE: 12/19/2018 DAILY PROGRESS NOTE SUBJECTIVE: The patient is seen today, 12/19/2018. She is not in any cardiopulmonary distress. The patient had a fever of 102.4 which is maximum temperature during the last 24 hours. The patient also is complaining of pain on the left knee. PHYSICAL EXAMINATION: VITAL SIGNS: Blood pressure 152/84, respiratory rate 20, and pulse 80. HEENT: Pupils equal, reactive to light. Normal-appearing mucosa of the conjunctivae, oropharynx and nasal membrane mucosa. NECK: Supple. No JVD. No carotid bruit. No lymph node. No thyromegaly. CHEST AND LUNGS: Bilateral symmetrical expansion. Good air exchange. No rales. No rhonchi. CARDIOVASCULAR SYSTEM: PMI not localized. S1 and S2. No additional sounds. ABDOMEN: Normoactive bowel sounds. No tenderness. No organomegaly. No masses. EXTREMITIES: No cyanosis, no clubbing, no edema. The patient has left knee swelling. CENTRAL NERVOUS SYSTEM: Alert, awake, oriented x2. No neurological deficit could be appreciated. ASSESSMENT: 1. Left knee monoarthritis, rule out septic arthritis. 2. End-stage renal disease, on hemodialysis. 3. Chest pain, myocardial infarction ruled out. 4. Post-dialysis vomiting which has improved. 5. Hypertension. PLAN: 1. Orthopedic consult and plan for joint tapping. 2. Continue current medications. 3. ID consult as the patient has fever of 102.4. 4. Continue hemodialysis. 5. Discussed with Nephrology and with Orthopedic. Konstantin Brunner MD
--- NOTE | 2018-12-20 02:49 | PN ---
DATE: 12/19/2018 FOLLOWUP RENAL CONSULTATION LOCATION: Room 412, bed 1. REQUESTING PHYSICIAN: Konstantin Brunner MD REASON FOR FOLLOWUP: End-stage renal disease, continuation of hemodialysis. SUBJECTIVE: Ms. Hidalgo is a 63-year-old elderly obese female with a past medical history significant for hypertension, arthritis, COPD, asthma, hypothyroidism, hyperparathyroidism and primary end-stage renal disease, on hemodialysis three times a week, Monday, , and Monday, was admitted with chief complaints of chest discomfort, nausea and vomiting post dialysis and also the left shoulder pain. The patient was ruled out for acute OR by cardiac enzymes x3. Now, the patient is complaining of difficulty to ambulate and pain and swelling of the knee joint since yesterday. Denies any chest pain. Denies any nausea or vomiting today. The patient also complains fever on and off. PHYSICAL EXAMINATION: As follows: VITAL SIGNS: Blood pressure this morning 152/84, pulse 80, respirations 20, temperature 98.1, saturation 97%. Height 5 feet and 4 inches, weight is 266 pounds. GENERAL: Ms. Hidalgo is a 63-year-old obese female, well built, well nourished, not in distress. HEENT: Pupils are normal, reactive to light and accommodation. Conjunctivae pink. Sclerae anicteric. Tongue is moist. Trachea is midline. LUNGS: Symmetrical on both sides. Bilateral breath sounds present. Clear to auscultation. CARDIOVASCULAR SYSTEM: Cactus of the fifth intercostal space, midclavicular line. S1 and S2 audible. No murmur or gallop. ABDOMEN: Normal in appearance. Incisional hernia present. No guarding. No rigidity. No hepatosplenomegaly. Protuberant. CENTRAL NERVOUS SYSTEM: The patient is alert, awake, and oriented x3. Nonfocal neuro examination. Cranial nerves II-XII grossly intact. Sensory, motor system within normal limits. EXTREMITIES: No cyanosis, no clubbing, no edema. Left knee is swollen, warm to touch and tender. CURRENT MEDICATIONS: Include as follows: Claritin 10 mg p.o. daily, ferrous gluconate 324 mg p.o. b.i.d., Flonase one spray b.i.d., Hectorol 4 mcg three times a week, subcu heparin on hold, Lidoderm patch daily, MiraLax, Nephro-Maria Del Carmen one tablet daily, amlodipine 10 mg p.o. daily, Pamelor 25 mg p.o. at bedtime, Percocet one tablet p.o. every 6 hours p.r.n., Procrit 4000 units three times a week, Protonix 40 mg p.o. daily, Sensipar 60 mg p.o. daily, Synthroid 25 mcg p.o. daily, metoprolol XL 50 mg p.o. daily, Tylenol, also Ventolin high-flow nebulizer 2 puffs every 4 hours p.r.n., and Zofran 4 mg p.o. every 4 hours p.r.n. LABORATORY DATA: Include as follows: Influenza A and B antibodies negative. ESR is 59. PT is 12.2 and INR 1.1, PTT 35.1. Serum uric acid level is 5.3. Urine culture is negative and blood culture negative day 1 from 12/18/2018. ASSESSMENT AND PLAN: In summary, Ms. Hidalgo is a 63-year-old obese, elderly female with a history of hypertension, arthritis, primary hyperparathyroidism, hypothyroidism, obesity, asthma, chronic obstructive pulmonary disease, end-stage renal disease on hemodialysis three times a week, was admitted with chest pain, ruled out for acute myocardial infarction by cardiac enzymes x3 with on and off fever for the last two days with left knee swelling and pain and difficult to ambulate, warm to touch and tenderness. No elevated white count. Uric acid is within normal limits. 1. End-stage renal disease. Continue hemodialysis three times a week, Monday, , and Monday. 2. Left knee swelling and pain. Rule out gout versus pseudogout. 3. Hypertension. 4. Chronic obstructive pulmonary disease, asthma. The patient's blood cultures and urine cultures are negative from 12/18/2018, most likely acute gouty arthritis. Follow up with Orthopedic Surgery for possible giant aspiration to rule out acute gouty arthritis and consider Solu-Medrol 40 mg IV b.i.d. for one day and then 40 mg daily x1 day and then tapering dose of p.o. steroids. We will follow with you. Thank you for allowing me to participate in your patient's care. Ember Nicole MD [facility] # [id number]
[2018-12-20] MEDS: Oxycodone/Acetaminophen 5/325 mg Tab PO PRN ×3 (03:26→21:51)
[2018-12-20] MEDS: Levothyroxine 25 MCG TAB PO SCH (06:35)
[2018-12-20] MEDS ORDERED: Succinylcholine 200 mg/10 ml Inj IV ONE (07:20)
[2018-12-20] MEDS ORDERED: Propofol 10 mg/ml Inj (20 ML) ONE (07:20)
[2018-12-20] MEDS ORDERED: Midazolam 2 MG/2 ML VIAL ONE (07:26)
[2018-12-20] MEDS ORDERED: Bupivacaine HCl 0.5% PF (30 ml) Inj ONE (07:33)
[2018-12-20] MEDS ORDERED: Bacitracin Ointment 30 GM TUBE ONE (07:33)
[2018-12-20] MEDS ORDERED: EPINEPHrine 1 mg/ml (1:1000) Inj ONE (07:33)
[2018-12-20] MEDS ORDERED: MethylPREDNISolone Depo 40 mg/ml Inj ONE (07:33)
[2018-12-20] MEDS ORDERED: Sodium Chloride 0.9% 500 ML IV ONE (08:00)
[2018-12-20] MEDS: Metoprolol Succinate 50 mg XL Tab PO SCH (08:30)
[2018-12-20] MEDS ORDERED: Phenylephrine 10 mg/ml Inj ONE (08:32)
[2018-12-20] MEDS ORDERED: Albuterol HFA 90 mcg/actuation (8 g) ONE (08:44)
[2018-12-20] MEDS ORDERED: Neostigmine 1:1000 (1 mg/ml) Inj ONE (08:49)
[2018-12-20] MEDS ORDERED: Lidocaine 2% MPF (5 ml) Inj INJ ONE (09:07)
--- NOTE | 2018-12-20 09:10 | PN ---
DATE: 12/18/2018 LOCATION: The patient is located in room 412, bed 1. REQUESTED BY: Konstantin Brunner MD REASON FOR FOLLOWUP: End-stage renal disease, for continuation of the hemodialysis. HISTORY OF PRESENT ILLNESS: The patient is a 63-year-old elderly obese female with a past medical history significant for arthritis, COPD, asthma, hypertension, diverticulosis, hypothyroidism, primary hyperparathyroidism, end-stage renal disease, on hemodialysis three times a week, Monday, , Monday who was admitted with chief complaints of chest discomfort and left shoulder pain. The patient was admitted to rule out acute CT. The patient was ruled out for acute CT by cardiac enzymes x3, and the patient was evaluated by canal boat operator, Dr. Best, and recommending stress test as an outpatient. The patient is feeling much better today. The patient denies any nausea, vomiting today. No chest pain. No palpitation. No fever. No cough. PHYSICAL EXAMINATION: VITAL SIGNS: As follows: This morning, blood pressure 141/75, pulse 76, respirations 18, temperature 98.4, saturation 100%. Height 5 feet 4 inches, weight is 266 pounds. GENERAL: The patient is a 63-year-old elderly female, well-built, well-nourished, not in acute distress. HEENT: Pupils normal and reactive to light and accommodation. Conjunctivae pink. Sclerae anicteric. Tongue is moist. Trachea is midline. LUNGS: Symmetric on both side. Bilateral breath sounds present. Clear to auscultation. CARDIOVASCULAR SYSTEM: Culver at the fifth intercostal space, midclavicular line. S1, S2 audible. No murmur or gallop. ABDOMEN: Normal in appearance, soft, tympanitic. No guarding. No rigidity. No hepatosplenomegaly. CENTRAL NERVOUS SYSTEM: The patient is alert, awake, and oriented x3. Nonfocal neuro examination. Cranial nerves II through XII grossly intact. Sensory and motor system is within normal limits. EXTREMITIES: No cyanosis, no clubbing, no edema. MEDICATIONS: Her current medications include as follows: Claritin 10 mg p.o. daily, ferrous gluconate 324 mg p.o. b.i.d., Flonase 1 spray nasal b.i.d., subcu heparin 5000 every 12 hours, Hectorol 4 mcg IV three times a week, Lidoderm patch daily, Nephro-Maria Del Carmen daily, amlodipine 10 mg p.o. daily, Pamelor 25 mg p.o. at bedtime, Procrit 4000 units three times a week, Protonix 40 mg p.o. daily, Sensipar 60 mg p.o. daily, levothyroxine 25 mcg p.o. daily, metoprolol 50 mg p.o. daily, Tylenol, albuterol inhaler, and Zofran 4 mg p.o. every 4 hours p.r.n. LABORATORY DATA: Include as follows: As of 12/18/2018, WBC 4.8, hemoglobin 9.7, hematocrit is 32.3, platelets 197. Sodium 131, potassium 4.6, chloride 88, CO2 of 29, BUN 59, and creatinine 9.2, glucose 128, and lactic acid 0.8, calcium 8.9. Hepatitis B surface antigen is negative. Hepatitis B core antibody negative. Hepatitis C antibody is negative. ASSESSMENT AND PLAN: In summary, the patient is a 63-year-old elderly obese female with hypertension, asthma, chronic obstructive pulmonary disease, arthritis, hypothyroidism, hyperparathyroidism, end-stage renal disease, history of multiple adhesions, status post hernia repair in the past, and ventral hernia. Occasional nausea and vomiting post dialysis and chest discomfort, left shoulder pain, ruled out for acute myocardial infarction by cardiac enzymes x3. 1. End-stage renal disease. Continue hemodialysis three times a week, Monday, , and Monday. 2. Hypertension. 3. Left shoulder pain, rule out osteoarthritis, rule out frozen shoulder, and we will schedule for hemodialysis today and discussed with the patient and obtained informed consent for hemodialysis. Continue followup with Gastroenterology and also continue all her current medications. Continue Sensipar, continue Hectorol. We will follow with you. Thank you for allowing me to participate in your patient's care. Ember Nicole MD
--- NOTE | 2018-12-20 09:13 | PN ---
DATE: 12/18/2018 SUBJECTIVE: The patient is seen today, 12/18/2018. She is not in any cardiopulmonary distress. PHYSICAL EXAMINATION: VITAL SIGNS: Blood pressure is 146/72, temperature 98.6, respiratory rate 98, respiratory rate 18, and pulse 75. HEENT: Pupils equal, reactive to light. Normal-appearing mucosa of the conjunctivae, oropharynx and nasal membrane mucosa. NECK: Supple. No JVD. No carotid bruit. No lymph node. No thyromegaly. CHEST AND LUNGS: Bilateral symmetrical expansion. Good air exchange. No rales, no rhonchi. CARDIOVASCULAR SYSTEM: PMI not localized. S1, S2. No additional sounds. ABDOMEN: Normoactive bowel sounds. No tenderness. No organomegaly. No masses. EXTREMITIES: No cyanosis, no clubbing, no edema. CENTRAL NERVOUS SYSTEM: Alert, awake, oriented x2. No neurological deficit could be appreciated. ASSESSMENT: 1. Chest pain, myocardial infarction was ruled out. 2. Epigastric pain with vomiting, likely gastritis. 3. Fever, with no apparent cold so far. Blood culture was done and repeated chest x-ray did not show any active disease. PLAN: We will monitor the patient off antibiotic for tonight. Continue hemodialysis as per information strategist. Continue current medications. Konstantin Brunner MD
[2018-12-20] MEDS ORDERED: Esmolol 100 mg/10ml Inj IV ONE (09:22)
[2018-12-20 09:33] LABS: FLUID TYPE SYNOVIAL FLUID
[2018-12-20] MEDS ORDERED: Bacitracin OINT 15GM TOP ONE (09:40)
--- NOTE | 2018-12-20 09:43 | CP.PCM.PN ---
Subjective - Date & Time of Evaluation Date of Evaluation: 12/19/18 Time of Evaluation: 15:30 - Subjective Subjective: no overnight events Objective - Vital Signs/Intake and Output Vital Signs (last 24 hours): Temp Pulse Resp BP Pulse Ox 98.3 F 77 18 124/66 100 12/20/18 05:52 12/20/18 05:52 12/20/18 05:52 12/20/18 05:52 12/20/18 05:52 - Medications Medications: Current Medications Acetaminophen (Tylenol 325mg Tab) 650 mg PO Q6 PRN PRN Reason: Pain, moderate (4-7) Last Admin: 12/17/18 23:57 Dose: 650 mg Acetaminophen (Tylenol 325mg Tab) 325 mg PO Q6 PRN PRN Reason: Pain, Mild (1-3) Acetaminophen (Tylenol 325mg Tab) 975 mg PO Q6 PRN PRN Reason: Pain, severe (8-10) Last Admin: 12/19/18 08:33 Dose: 975 mg Acetaminophen (Tylenol 325mg Tab) 650 mg PO ONCE PRN PRN Reason: Fever >100.4 F Last Admin: 12/19/18 00:13 Dose: 650 mg Albuterol (Ventolin Hfa 90 Mcg/Actuation (8 G)) 2 puff IH Q4 PRN PRN Reason: Shortness of Breath Amlodipine Besylate (Norvasc) 10 mg PO DAILY [facility] Last Admin: 12/19/18 08:40 Dose: 10 mg Cinacalcet (Sensipar) 60 mg PO DAILY [facility] Last Admin: 12/19/18 08:40 Dose: 60 mg Doxercalciferol (Hectorol) 4 mcg IV TTS [facility] Last Admin: 12/18/18 15:36 Dose: 4 mcg Epoetin Shelton (Procrit) 4,000 unit SC TTS [facility] Last Admin: 12/18/18 15:35 Dose: 4,000 unit Ferrous Gluconate (Fergon) 324 mg PO BID [facility] Last Admin: 12/19/18 17:27 Dose: 324 mg Fluticasone Propionate (Flonase) 1 spr SERVANDO BID [facility] Last Admin: 12/19/18 17:27 Dose: 1 spr Heparin Sodium (Porcine) (Heparin) 5,000 units SC Q12 [facility]; Protocol Last Admin: 12/19/18 08:37 Dose: 5,000 units Levothyroxine Sodium (Synthroid) 25 mcg PO DAILY@0630 [facility] Last Admin: 12/20/18 06:35 Dose: 25 mcg Lidocaine (Lidoderm) 1 ea TD DAILY [facility] Last Admin: 12/19/18 08:38 Dose: 1 ea Loratadine (Claritin) 10 mg PO DAILY [facility] Last Admin: 12/19/18 08:35 Dose: 10 mg Metoprolol Succinate (Toprol Xl) 50 mg PO DAILY [facility] Last Admin: 12/19/18 08:41 Dose: 50 mg Nortriptyline HCl (Pamelor) 25 mg PO HS [facility] Last Admin: 12/19/18 22:00 Dose: 25 mg Ondansetron HCl (Zofran Tab) 4 mg PO Q4 PRN PRN Reason: Nausea/Vomiting Oxycodone/Acetaminophen (Percocet 5/325 Mg Tab) 1 tab PO Q6 PRN PRN Reason: Pain, moderate (4-7) Stop: 12/22/18 12:08 Last Admin: 12/20/18 03:26 Dose: 1 tab Pantoprazole Sodium (Protonix Ec Tab) 40 mg PO DAILY [facility] Last Admin: 12/19/18 08:40 Dose: 40 mg Polyethylene Glycol (Miralax) 17 gm PO DAILY [facility] Last Admin: 12/19/18 13:25 Dose: 17 gm Vitamin B Complex/Vit C/Folic Acid (Nephro-Maria Del Carmen) 1 tab PO DAILY [facility] Last Admin: 12/19/18 08:39 Dose: 1 tab - Labs Labs: 12/18/18 09:30 12/18/18 09:30 PT 12.2 Seconds (9.8-13.1) 12/19/18 14:40 INR 1.1 12/19/18 14:40 APTT 35.1 Seconds (25.6-37.1) 12/19/18 14:40 - Neck Exam Neck Exam: Normal Inspection - Respiratory Exam Respiratory Exam: Clear to Ausculation Bilateral, NORMAL BREATHING PATTERN - Cardiovascular Exam Cardiovascular Exam: REGULAR RHYTHM - GI/Abdominal Exam GI & Abdominal Exam: Soft, Normal Bowel Sounds Assessment and Plan - Assessment and Plan (Free Text) Assessment: 63 yo female with gerd h2B doing well dc planning once able
--- NOTE | 2018-12-20 09:45 | PCM.SURG1 ---
Surgeon's Initial Post Op Note - Surgeon's Notes Surgeon: Parul Creel Clerk: ANN Irving Type of Anesthesia: General Endo Anesthesia Administered By: DR mccarthy Pre-Operative Diagnosis: r/o L knee sepsis. effusion secondary to renal disease(osteodystrophy vs chondrocalcinosis) Operative Findings: as per post op dx Post-Operative Diagnosis: severe synovitis. chondral fx medial femoral condyle. tear medial/tear lateral meniscus. chondrocalcinoosis. loose body Operation Performed: srthroscopic microfrcature medial femoral condyle. arthroscopic partial tricompartmental synovectomy. arthroscopic medial/lateral meniscectomy. arthroscopic excisison loose body. intraarticular injection. applx knee immobilizer and kaylan harrison compression dressing Specimen/Specimens Removed: synovium/loose body/ bone Estimated Blood Loss: EBL {In ML}: 5 Blood Products Given: N/A Drains Used: No Drains Post-Op Condition: Fair Date of Surgery/Procedure: 12/20/18 Time of Surgery/Procedure: 09:05 (timew in room 0800/[place] 0800)
[2018-12-20] MEDS ORDERED: HYDROmorphone 0.5 mg/0.5 ml ISec IVP PRN (09:55)
--- NOTE | 2018-12-20 10:45 | CP.PCM.PN ---
Subjective - Date & Time of Evaluation Date of Evaluation: 12/20/18 Time of Evaluation: 10:45 - Subjective Subjective: ID note- Pt. seen and examined today. pt. is s/p left knee arhtrocenthesis today. she is currently getting her HD . She denies any fever today. Objective - Vital Signs/Intake and Output Vital Signs (last 24 hours): Temp Pulse Resp BP Pulse Ox 98.3 F 77 18 124/66 100 12/20/18 05:52 12/20/18 05:52 12/20/18 05:52 12/20/18 05:52 12/20/18 05:52 Intake and Output: 12/20/18 12/20/18 06:59 18:59 Intake Total 280 Balance 280 - Medications Medications: Current Medications Acetaminophen (Tylenol 325mg Tab) 650 mg PO Q6 PRN PRN Reason: Pain, moderate (4-7) Last Admin: 12/17/18 23:57 Dose: 650 mg Acetaminophen (Tylenol 325mg Tab) 325 mg PO Q6 PRN PRN Reason: Pain, Mild (1-3) Acetaminophen (Tylenol 325mg Tab) 975 mg PO Q6 PRN PRN Reason: Pain, severe (8-10) Last Admin: 12/19/18 08:33 Dose: 975 mg Acetaminophen (Tylenol 325mg Tab) 650 mg PO ONCE PRN PRN Reason: Fever >100.4 F Last Admin: 12/19/18 00:13 Dose: 650 mg Albuterol (Ventolin Hfa 90 Mcg/Actuation (8 G)) 2 puff IH Q4 PRN PRN Reason: Shortness of Breath Amlodipine Besylate (Norvasc) 10 mg PO DAILY [facility] Last Admin: 12/19/18 08:40 Dose: 10 mg Cinacalcet (Sensipar) 60 mg PO DAILY [facility] Last Admin: 12/19/18 08:40 Dose: 60 mg Doxercalciferol (Hectorol) 4 mcg IV TTS [facility] Last Admin: 12/18/18 15:36 Dose: 4 mcg Epoetin Shelton (Procrit) 4,000 unit SC TTS [facility] Last Admin: 12/18/18 15:35 Dose: 4,000 unit Ferrous Gluconate (Fergon) 324 mg PO BID [facility] Last Admin: 12/19/18 17:27 Dose: 324 mg Fluticasone Propionate (Flonase) 1 spr SERVANDO BID [facility] Last Admin: 12/19/18 17:27 Dose: 1 spr Heparin Sodium (Porcine) (Heparin) 5,000 units SC Q12 [facility]; Protocol Last Admin: 12/19/18 08:37 Dose: 5,000 units Hydromorphone HCl (Dilaudid) 0.5 mg IVP Q5M PRN PRN Reason: Pain, severe (8-10) Stop: 12/20/18 11:56 Levothyroxine Sodium (Synthroid) 25 mcg PO DAILY@0630 [facility] Last Admin: 12/20/18 06:35 Dose: 25 mcg Lidocaine (Lidoderm) 1 ea TD DAILY [facility] Last Admin: 12/19/18 08:38 Dose: 1 ea Loratadine (Claritin) 10 mg PO DAILY [facility] Last Admin: 12/19/18 08:35 Dose: 10 mg Metoprolol Succinate (Toprol Xl) 50 mg PO DAILY [facility] Last Admin: 12/19/18 08:41 Dose: 50 mg Nortriptyline HCl (Pamelor) 25 mg PO HS [facility] Last Admin: 12/19/18 22:00 Dose: 25 mg Ondansetron HCl (Zofran Tab) 4 mg PO Q4 PRN PRN Reason: Nausea/Vomiting Ondansetron HCl (Zofran Inj) 4 mg IVP ONCE PRN PRN Reason: Nausea/Vomiting Stop: 12/20/18 11:56 Oxycodone/Acetaminophen (Percocet 5/325 Mg Tab) 1 tab PO Q6 PRN PRN Reason: Pain, moderate (4-7) Stop: 12/22/18 12:08 Last Admin: 12/20/18 03:26 Dose: 1 tab Pantoprazole Sodium (Protonix Ec Tab) 40 mg PO DAILY [facility] Last Admin: 12/19/18 08:40 Dose: 40 mg Polyethylene Glycol (Miralax) 17 gm PO DAILY [facility] Last Admin: 12/19/18 13:25 Dose: 17 gm Vitamin B Complex/Vit C/Folic Acid (Nephro-Maria Del Carmen) 1 tab PO DAILY [facility] Last Admin: 12/19/18 08:39 Dose: 1 tab - Labs Labs: - Additional Findings Additional findings: - Constitutional Appears: No Acute Distress Additional comments: Obese - Head Exam Head Exam: ATRAUMATIC - Eye Exam Eye Exam: EOMI, PERRL - ENT Exam ENT Exam: Normal Oropharynx - Neck Exam Neck exam: Positive for: Full Rom - Respiratory Exam Respiratory Exam: Clear to Auscultation Bilateral, NORMAL BREATHING PATTERN Additional comments: No wheezing - Cardiovascular Exam Cardiovascular Exam: RRR, +S1, +S2 - GI/Abdominal Exam GI & Abdominal Exam: Normal Bowel Sounds, Soft Additional comments: NT, ND - Extremities Exam Additional comments: left knee leg is in post-surgical dressing and immobilizer - Neurological Exam Neurological exam: Alert, Oriented x 3 Laboratory Results - last 72 hr 12/18/18 12/18/18 12/18/18 08:30 09:30 09:30 WBC 4.8 RBC 4.15 Hgb 9.7 L Hct 32.3 L MCV 77.9 L MCH 23.4 L MCHC 30.0 L RDW 17.8 H Plt Count 197 ESR PT INR APTT Sodium 131 L Potassium 4.6 Chloride 88 L Carbon Dioxide 29 Anion Gap 19 BUN 59 H Creatinine 9.2 H* D Est GFR ( Amer) 5 Est GFR (Non-Af Amer) 4 POC Glucose (mg/dL) Random Glucose 128 H Lactic Acid 0.8 Uric Acid Calcium 8.9 Fluid Type Fluid Crystals Synovial WBC Synovial RBC Synovial Neutrophils Synovial Lymphocytes Synov Monos/Macrophage Synovial Crystal Type Synovial Fluid Comment Hep Bs Antigen Hep Bs Antibody, Quant Hep B Core IgM Ab Hepatitis C Antibody Influenza Typ A,B (EIA) Blood Type Antibody Screen BBK History Checked 12/18/18 12/18/18 12/19/18 14:58 14:58 12:15 WBC RBC Hgb Hct MCV MCH MCHC RDW Plt Count ESR PT INR APTT Sodium Potassium Chloride Carbon Dioxide Anion Gap BUN Creatinine Est GFR ( Amer) Est GFR (Non-Af Amer) POC Glucose (mg/dL) Random Glucose Lactic Acid Uric Acid 5.2 Calcium Fluid Type Fluid Crystals Synovial WBC Synovial RBC Synovial Neutrophils Synovial Lymphocytes Synov Monos/Macrophage Synovial Crystal Type Synovial Fluid Comment Hep Bs Antigen Negative Hep Bs Antibody, Quant 42 Hep B Core IgM Ab Negative Hepatitis C Antibody Negative Influenza Typ A,B (EIA) Blood Type Antibody Screen BBK History Checked 12/19/18 12/19/18 12/19/18 14:40 14:40 14:40 WBC RBC Hgb Hct MCV MCH MCHC RDW Plt Count ESR 59 H PT 12.2 INR 1.1 APTT 35.1 Sodium Potassium Chloride Carbon Dioxide Anion Gap BUN Creatinine Est GFR ( Amer) Est GFR (Non-Af Amer) POC Glucose (mg/dL) Random Glucose Lactic Acid Uric Acid Calcium Fluid Type Fluid Crystals Synovial WBC Synovial RBC Synovial Neutrophils Synovial Lymphocytes Synov Monos/Macrophage Synovial Crystal Type Synovial Fluid Comment Hep Bs Antigen Hep Bs Antibody, Quant Hep B Core IgM Ab Hepatitis C Antibody Influenza Typ A,B (EIA) Blood Type O POSITIVE Antibody Screen Negative BBK History Checked Patient has bt 12/19/18 12/19/18 12/20/18 14:40 16:55 09:23 WBC RBC Hgb Hct MCV MCH MCHC RDW Plt Count ESR PT INR APTT Sodium Potassium Chloride Carbon Dioxide Anion Gap BUN Creatinine Est GFR ( Amer) Est GFR (Non-Af Amer) POC Glucose (mg/dL) Random Glucose Lactic Acid Uric Acid 5.3 Calcium Fluid Type Synovial fluid Fluid Crystals Synovial WBC 7515.0 H Synovial RBC 110.0 H Synovial Neutrophils 84.0 H Synovial Lymphocytes 4.0 H Synov Monos/Macrophage 11 H Synovial Crystal Type Synovial Fluid Comment None Hep Bs Antigen Hep Bs Antibody, Quant Hep B Core IgM Ab Hepatitis C Antibody Influenza Typ A,B (EIA) Negative for flu a/b Blood Type Antibody Screen BBK History Checked 12/20/18 12/20/18 09:23 10:10 WBC RBC Hgb Hct MCV MCH MCHC RDW Plt Count ESR PT INR APTT Sodium Potassium Chloride Carbon Dioxide Anion Gap BUN Creatinine Est GFR ( Amer) Est GFR (Non-Af Amer) POC Glucose (mg/dL) 89 Random Glucose Lactic Acid Uric Acid Calcium Fluid Type Fluid Crystals Positive H Synovial WBC Synovial RBC Synovial Neutrophils Synovial Lymphocytes Synov Monos/Macrophage Synovial Crystal Type Calciumpyrophosphate Synovial Fluid Comment Hep Bs Antigen Hep Bs Antibody, Quant Hep B Core IgM Ab Hepatitis C Antibody Influenza Typ A,B (EIA) Blood Type Antibody Screen BBK History Checked Microbiology 12/20/18 09:23 Knee - Left Gram Stain - Final 12/20/18 09:23 Knee - Left Gram Stain - Final 12/20/18 09:23 Knee - Left Gram Stain - Final 12/20/18 09:23 Knee - Left Gram Stain - Final 12/20/18 09:23 Knee - Left Gram Stain - Final 12/20/18 09:23 Body Fluid - Knee-Left Gram Stain - Final 12/20/18 09:23 Knee - Left Gram Stain - Final 12/20/18 09:23 Knee - Left Gram Stain - Final 12/20/18 09:23 Knee - Left Gram Stain - Final 12/19/18 15:00 Blood-Venous Blood Culture - Preliminary NO GROWTH AFTER 24 HOURS 12/19/18 14:55 Blood-Venous Blood Culture - Preliminary NO GROWTH AFTER 24 HOURS 12/20/18 09:23 Aspirate - Knee-Left Gram Stain - Final 12/18/18 09:35 Blood Blood Culture - Preliminary NO GROWTH AFTER 48 HOURS 12/18/18 09:30 Blood-During Dialysis Blood Culture - Preliminary NO GROWTH AFTER 48 HOURS 12/18/18 15:14 Urine,Clean Catch Urine Culture - Final No Growth (<1,000 CFU/ML) Assessment and Plan (1) Fever Status: Acute (2) Swelling of left knee joint Status: Acute (3) Pain and swelling of left knee Status: Acute (4) CRF (chronic renal failure) Status: Acute - Assessment and Plan (Free Text) Assessment: A/P- 63-year-old female with history of hypertension, end-stage renal disease on hemodialysis who is now found to have fevers and new onset left knee edema and pain. s/p left knee arthroscopy today Normal white blood cell count. afebrile today blood cx- neg x 2 OR synovial fluid cx- pending synovial fluid cell count not c/w septic joint. calcium pyrophosphate crystal seen in the fluid. Plan advise to await the result of OR cultures. advise to hold off on antibiotics pending culture results. fever was most likely secondary to inflamamtory process . All above discussed with patient and her questions were answered and she verbalizes full understanding of all the above.
[2018-12-20 11:09] LABS: SF GROSS APPEARANCE CLOUDY (CLEAR)
--- NOTE | 2018-12-20 11:39 | CP.PCM.PN ---
Subjective - Date & Time of Evaluation Date of Evaluation: 12/20/18 Time of Evaluation: 11:39 - Subjective Subjective: pt is seen and examined, follow up consult is dictated #[id number] seen in hd today Objective - Vital Signs/Intake and Output Vital Signs (last 24 hours): Temp Pulse Resp BP Pulse Ox 97.0 F L 67 18 91/52 L 98 12/20/18 10:10 12/20/18 11:10 12/20/18 11:10 12/20/18 11:10 12/20/18 11:10 Intake and Output: 12/20/18 12/20/18 06:59 18:59 Intake Total 280 Balance 280 - Medications Medications: Current Medications Acetaminophen (Tylenol 325mg Tab) 650 mg PO Q6 PRN PRN Reason: Pain, moderate (4-7) Last Admin: 12/17/18 23:57 Dose: 650 mg Acetaminophen (Tylenol 325mg Tab) 325 mg PO Q6 PRN PRN Reason: Pain, Mild (1-3) Acetaminophen (Tylenol 325mg Tab) 975 mg PO Q6 PRN PRN Reason: Pain, severe (8-10) Last Admin: 12/19/18 08:33 Dose: 975 mg Acetaminophen (Tylenol 325mg Tab) 650 mg PO ONCE PRN PRN Reason: Fever >100.4 F Last Admin: 12/19/18 00:13 Dose: 650 mg Albuterol (Ventolin Hfa 90 Mcg/Actuation (8 G)) 2 puff IH Q4 PRN PRN Reason: Shortness of Breath Amlodipine Besylate (Norvasc) 10 mg PO DAILY [facility] Last Admin: 12/19/18 08:40 Dose: 10 mg Cinacalcet (Sensipar) 60 mg PO DAILY [facility] Last Admin: 12/19/18 08:40 Dose: 60 mg Doxercalciferol (Hectorol) 4 mcg IV TTS [facility] Last Admin: 12/18/18 15:36 Dose: 4 mcg Epoetin Shelton (Procrit) 4,000 unit SC TTS [facility] Last Admin: 12/18/18 15:35 Dose: 4,000 unit Ferrous Gluconate (Fergon) 324 mg PO BID [facility] Last Admin: 12/19/18 17:27 Dose: 324 mg Fluticasone Propionate (Flonase) 1 spr SERVANDO BID [facility] Last Admin: 12/19/18 17:27 Dose: 1 spr Heparin Sodium (Porcine) (Heparin) 5,000 units SC Q12 [facility]; Protocol Last Admin: 12/19/18 08:37 Dose: 5,000 units Hydromorphone HCl (Dilaudid) 0.5 mg IVP Q5M PRN PRN Reason: Pain, severe (8-10) Stop: 12/20/18 11:56 Levothyroxine Sodium (Synthroid) 25 mcg PO DAILY@0630 [facility] Last Admin: 12/20/18 06:35 Dose: 25 mcg Lidocaine (Lidoderm) 1 ea TD DAILY [facility] Last Admin: 12/19/18 08:38 Dose: 1 ea Loratadine (Claritin) 10 mg PO DAILY [facility] Last Admin: 12/19/18 08:35 Dose: 10 mg Metoprolol Succinate (Toprol Xl) 50 mg PO DAILY [facility] Last Admin: 12/19/18 08:41 Dose: 50 mg Nortriptyline HCl (Pamelor) 25 mg PO HS [facility] Last Admin: 12/19/18 22:00 Dose: 25 mg Ondansetron HCl (Zofran Tab) 4 mg PO Q4 PRN PRN Reason: Nausea/Vomiting Ondansetron HCl (Zofran Inj) 4 mg IVP ONCE PRN PRN Reason: Nausea/Vomiting Stop: 12/20/18 11:56 Ondansetron HCl (Zofran Inj) 4 mg IVP Q4 PRN PRN Reason: Nausea/Vomiting Oxycodone/Acetaminophen (Percocet 5/325 Mg Tab) 1 tab PO Q6 PRN PRN Reason: Pain, moderate (4-7) Stop: 12/22/18 12:08 Last Admin: 12/20/18 03:26 Dose: 1 tab Pantoprazole Sodium (Protonix Ec Tab) 40 mg PO DAILY [facility] Last Admin: 12/19/18 08:40 Dose: 40 mg Polyethylene Glycol (Miralax) 17 gm PO DAILY [facility] Last Admin: 12/19/18 13:25 Dose: 17 gm Vitamin B Complex/Vit C/Folic Acid (Nephro-Maria Del Carmen) 1 tab PO DAILY [facility] Last Admin: 12/19/18 08:39 Dose: 1 tab - Labs Labs: 12/18/18 09:30 12/18/18 09:30 PT 12.2 Seconds (9.8-13.1) 12/19/18 14:40 INR 1.1 12/19/18 14:40 APTT 35.1 Seconds (25.6-37.1) 12/19/18 14:40
--- NOTE | 2018-12-20 11:50 | CP.PCM.PCO ---
Assessment & Plan - Assessment and Plan (Free Text) Assessment: pt. seen and examined pt. w/ L knee pain swelling, s/p xray L knee + effusion pt. NPO for L knee arthroscopy today afebrile today f/u fluid cx cont. pain control
[2018-12-20 12:31] LABS: CRYSTAL TYPE CalciumPyrophosphate; FLUID CRYSTALS POSITIVE (NEGATIVE)
[2018-12-20] MEDS: POLYETHYLENE GLYCOL 3350 17 GM/Dose PACKET PO SCH (12:42)
[2018-12-20] MEDS: Lidocaine 5% Patch TD SCH (12:42)
[2018-12-20] MEDS: Epoetin Alfa 4000 UNIT/ML Inj SC SCH (12:43)
[2018-12-20] MEDS: Multivitamin Vitamin B Complex (Nephro-Vite) Tab PO SCH (12:43)
[2018-12-20] MEDS: Pantoprazole 40 mg EC Tab PO SCH (12:44)
[2018-12-20 12:49] LABS: SYNOVIAL FLUID MONO/MACROPHAGE 11 % (0-0)
[2018-12-20] MEDS ORDERED: Morphine 4 MG/ML VIAL IVP ONE (14:28)
--- NOTE | 2018-12-20 15:50 | OP ---
PROCEDURE DATE: 12/20/2018 PREOPERATIVE DIAGNOSIS: Massive swelling to the left knee, rule out sepsis, rule out sequela of renal disease. POSTOPERATIVE DIAGNOSES: 1. Tricompartmental osteoarthritis with corinne chondral damage and eburnated bone on the medial femoral condyle. 2. Severe tricompartmental synovitis. 3. Complex tear of medial meniscus, tear of lateral meniscus. 4. Loose body. 5. Tricompartmental synovitis. 6. Chondrocalcinosis. OPERATIVE PROCEDURE: 1. Surgical arthroscopy, microfracture, medial femoral condyle. 2. Surgical arthroscopy, partial tricompartmental synovectomy. 3. Surgical arthroscopy, excision of loose body. 4. Surgical arthroscopy, irrigation and debridement, incision and drainage, rule out sepsis, sepsis was ruled out on stat Gram stain. SURGEON: Darrell Mitchell MD PUT IN BEAT ADJUSTER: KENJI Ordaz TYPE OF ANESTHESIA: General endotracheal anesthesia. ANESTHESIA ADMINISTERED BY: Bassem العلي MD OPERATIVE FINDINGS: 1. Tricompartmental osteoarthritis. 2. Chondral damage, most particularly to the medial femoral condyle. 3. Complex tear of medial meniscus and lateral meniscus. 4. Loose body. COMPLICATIONS: No complications. DRAINS: No drains. OPERATIVE INDICATIONS: Cori Hidalgo was seen by me on 12/19/2018 as a consultation request by Dr. Konstantin Brunner. The patient presented with severe swelling for the last three days of the left knee. The patient presented with pain and swelling of the left knee. The patient did have a temperature spike to 102, but was not consistently febrile. The patient was evaluated, placed buttermaker continuous churn for surgery first thing this morning. Pros, cons, risks, and benefits of the aforementioned surgical approach were discussed. The concept of septic knee versus inflammatory knee was discussed. The concept that in all probability this patient will require secondary procedure, and it was also discussed the effect that the renal disease has on the left knee problem. Pros, cons, risks and benefits were discussed at length. DESCRIPTION OF PROCEDURE: The patient offered informed consent. After the satisfactory induction of the anesthetic, the patient had a mild bout of bronchospasm on intubation. After having identified side, site and procedure and a critical pause/time-out, after the satisfactory induction of the anesthetic, the patient identified as Cori Hidalgo in the supine position with all bony prominences well padded. The left lower extremity was prepped and free draped in the usual fashion for extremity surgery. The tourniquet had been applied, but was not yet inflated. The Tom knee bell was employed. Again, after the satisfactory induction of the anesthetic, after having identified side, site and procedure, and a critical pause/time-out, after the satisfactory induction of the anesthetic, the patient identified as Cori Hidalgo in the supine position with the Tom knee bell employed. The left lower extremity was exsanguinated using a 6-inch Esmarch bandage. The tourniquet which had been applied was inflated to 325 mmHg. The joint was insufflated with 10 mL of 1% lidocaine without epinephrine. The anterolateral portal was developed one thumbs breadth inferior to the lateral aspect and one thumbs breadth lateral to the inferior pole of the patella. The knee was insufflated with 10 mL of 1% lidocaine. Using an #11 blade followed by spreading, followed by introduction of blunt trocar, the arthroscope was introduced. Examination the joint commences. First of all, the incision and drainage portion of the procedure was accomplished. Approximately 70 mL of fluid frankly non-purulent were obtained. There was evidence of cartilage breakdown. By gross examination, it appears like inflammatory exudate. Aerobic, anaerobic, AFB and fungal cultures were obtained x2. Two stat Gram stains for a number of white cells per high-power field were obtained. This having been accomplished, triangulation was accomplished using #18-gauge spinal needle followed by an #11 blade, followed by introduction of the blunt trocar. With the arthroscope anterolaterally, with the surgeon exerting a gentle valgus stress, the anteromedial compartment and the medial compartment were exposed to advantage. There was found to be evidence of a tear of the medial meniscus extending from the deep posterior horn to the mid aspect. Using a combination of straight biting basket forceps, 3.4 mm Dyonics suction punch, a partial medial meniscectomy was accomplished. At this point in time, the arthroscope was transferred to the medial compartment with the surgeon exerting a gentle valgus stress to the left knee. There was found to be complete chondral full-thickness eburnation of the medial femoral condyle. Attention still being turned to the medial meniscus, a complete partial medial meniscectomy was accomplished back to a stable rim using a combination of the straight biting basket forceps, the 3.4 mm Dyonics suction punch, and the arthroscopic shaver. The medial femoral condyle was carefully debrided, the articular cartilage was debrided and chondroplasty was accomplished using the arthroscopic shaver. The anterior cruciate ligament was found to be intact. There was evidence of a loose body in the area of the tibial plateau, which was held by a stalk. Using the quarter-inch curved osteotome, the loose body was freed, the loose body was removed. Arthroscopy of loose body was thus accomplished. There was found to be a stenotic notch with the anterior cruciate ligament intact. With the arthroscope anterolaterally, there was found to be a complex tear of the lateral meniscus with evidence of chondrocalcinosis. Using a combination of the straight biting basket forceps and a side biting basket forceps, a partial lateral meniscectomy was accomplished. Using the arthroscopic shaver, a careful partial tricompartmental synovectomy was completed both to improve visualization and to ablate irritative tissue. With the arthroscope anterolaterally, careful partial tricompartmental synovectomy was completed. Bleeding points were controlled with the arthroscopic wand. At this point in time with the knee flexed, after having performed chondroplasty of the medial femoral condyle, using the arthroscopic shaver, the debridement down to eburnated bone was accomplished using the arthroscopic pick in a honeycomb-type fashion. The honeycomb was accomplished and the microfracture technique was adhered down to bleeding bone. This having been accomplished, final tricompartmental synovectomy was accomplished. The inner free edge of both menisci was smoothed using the arthroscopic wand. Bleeding points were controlled with the arthroscopic wand. Thorough irrigation was carried out. Closures in layers with interrupted Vicryl and nylon. Henry Crump compression dressing and knee immobilizer were applied, and the patient was transferred from the operating table to the stretcher having tolerated the procedure well. Darrell Mitchell MD
--- NOTE | 2018-12-21 00:17 | PN ---
DATE: 12/20/2018 DAILY PROGRESS NOTE SUBJECTIVE: The patient is seen today, 12/20/2018. She is not in any cardiopulmonary distress. She is status post tapping of the left knee. PHYSICAL EXAMINATION: VITAL SIGNS: Blood pressure is 117/77, temperature 98.4, respiratory rate 17, and pulse 90. HEENT: Pupils are equal and reactive to light. Normal-appearing mucosa of the conjunctivae, oropharynx and nasal membrane mucosa. NECK: Supple. No JVD. No carotid bruit. No lymph node. No thyromegaly. CHEST AND LUNGS: Bilateral symmetrical expansion. Good air exchange. No rales. No rhonchi. CARDIOVASCULAR SYSTEM: PMI not localized. S1 and S2. No additional sounds. ABDOMEN: Normoactive bowel sounds. No tenderness. No organomegaly. No masses. EXTREMITIES: No cyanosis, no clubbing, no edema. CENTRAL NERVOUS SYSTEM: Alert, awake, oriented x2. No neurological deficit could be appreciated. ASSESSMENT: 1. Chest pain, myocardial infarction ruled out, unspecified cause. 2. History of bronchial asthma. 3. End-stage renal disease, on hemodialysis. 4. Hypertension. PLAN: Follow the and continue current management including hemodialysis. Konstantin Brunner MD
--- NOTE | 2018-12-21 03:53 | PN ---
DATE: 12/20/2018 FOLLOWUP RENAL CONSULTATION LOCATION: The patient is located in room 412, bed 1. REQUESTED BY: Konstantin Brunner MD REASON FOR FOLLOWUP: End-stage renal disease, continuation of hemodialysis. SUBJECTIVE: Mrs. Hidalgo is a 63-year-old elderly, obese female with a past medical history significant for hypertension, arthritis, hypothyroidism, hyperparathyroidism, end-stage renal disease, history of abdominal surgery and incisional hernia who was admitted with chest discomfort on and off during dialysis and also nausea and vomiting post-dialysis. The patient was ruled out for acute [place] by cardiac enzymes x3. Seen by Cardiology, recommending stress test as an outpatient. The patient is complaining of left knee pain and swelling and also fever on and off. The patient underwent knee joint aspiration this morning and now fluid crystals are positive for calcium pyrophosphate. The patient is being dialyzed about 2 to 3 L as tolerated. PHYSICAL EXAMINATION: VITAL SIGNS: This morning as follows: Blood pressure 91/52, pulse 67, respirations 18, temperature 97.8, saturation 98%. Height 5 feet 4 inches. Weight is 266 pounds. GENERAL: Mrs. Hidalgo is a 63-year-old elderly female, well built, well nourished, not in distress. HEENT: Pupils normal and reactive to light and accommodation. Conjunctivae pink. Sclerae anicteric. Tongue is moist. Trachea is midline. LUNGS: Symmetric on both sides. Bilateral breath sounds present. Clear to auscultation. CARDIOVASCULAR SYSTEM: [place] at the fifth intercostal space, midclavicular line. S1 and S2 audible. No murmur or gallop. ABDOMEN: Normal in appearance. Soft, tympanitic. No guarding. No rigidity. No hepatosplenomegaly. CENTRAL NERVOUS SYSTEM: The patient is alert, awake, and oriented x3. Nonfocal neuro examination. Cranial nerves II through XII grossly intact. Sensory and motor system is within normal limits. EXTREMITIES: No cyanosis, no clubbing, no edema. The patient has swelling and tenderness of the left knee joint, warm to touch. CURRENT MEDICATIONS: Include as follows: Claritin 10 mg p.o. daily, ferrous gluconate 324 mg p.o. b.i.d., Flonase, Hectorol 4 mcg three times a week, subcu heparin on hold, lidocaine patch, MiraLax, Nephro-Maria Del Carmen, amlodipine, Pamelor 25 mg p.o. at bedtime, Percocet one tablet p.o. every 6 hours p.r.n., Procrit 4000 units subcu three times a week and Protonix 40 mg p.o. daily, Sensipar 60 mg p.o. daily and levothyroxine 25 mcg p.o. daily, metoprolol 50 mg daily, albuterol inhaler, Zofran and Tylenol. LABORATORY DATA: Include as follows: As of 12/20/2018, Accu-Chek 89. Synovial fluid analysis is positive for crystals of calcium pyrophosphate. WBC count is 7,515 and RBCs 110, neutrophils 84, lymphs 4 and mono is about 11. Influenza A and B antibody screening is negative again. Hepatitis B surface antigen negative, surface antibody is 42, core antibody is negative. Hepatitis C antibody is negative as of 12/18/2018. ASSESSMENT AND PLAN: In summary Mrs. Hidalgo is a 63-year-old elderly, obese female with a history of hypertension, arthritis, chronic obstructive pulmonary disease, asthma, end-stage renal disease, hypothyroidism, hyperparathyroidism who was admitted with chest pain, occasional nausea and vomiting post-dialysis and ruled out for acute myocardial infarction by cardiac enzymes x3 with left knee pain and swelling, status post and consistent with calcium pyrophosphate crystals in the fluid. 1. End-stage renal disease. Continue hemodialysis three times a week and ultrafiltration as tolerated. 2. Hyperparathyroidism, primary. Cannot rule out underlying secondary hyperparathyroidism. 3. Left knee swelling. Picture consistent with pseudogout. Continue analgesics as per Dr. Brunner. Follow up with Orthopedic Surgery. Thank you for allowing me to participate in your patient's care. Ember Nicole MD
[2018-12-21] MEDS: Levothyroxine 25 MCG TAB PO SCH (06:21)
[2018-12-21] MEDS: Oxycodone/Acetaminophen 5/325 mg Tab PO PRN (08:17)
[2018-12-21] MEDS: Lidocaine 5% Patch TD SCH (08:20)
[2018-12-21] MEDS: POLYETHYLENE GLYCOL 3350 17 GM/Dose PACKET PO SCH (08:21)
[2018-12-21] MEDS: Multivitamin Vitamin B Complex (Nephro-Vite) Tab PO SCH (08:22)
[2018-12-21] MEDS: Pantoprazole 40 mg EC Tab PO SCH (08:23)
[2018-12-21] MEDS: Metoprolol Succinate 50 mg XL Tab PO SCH (08:24)
[2018-12-21 09:10] LABS: HEMOGLOBIN 9.5 g/dL (12.0-16.0); MEAN CELL VOLUME 77.6 fl (81.0-99.0); MEAN CORPUSCULAR HEMOGLOBIN 23.4 pg (27.0-31.0); MEAN CORPUSCULAR HGB CONC 30.2 g/dL (33.0-37.0); RBC 4.06 Mil/uL (3.80-5.20); RED CELL DISTRIBUTION WIDTH 17.7 % (11.5-14.5); WHITE BLOOD COUNT 5.8 K/uL (4.8-10.8)
--- NOTE | 2018-12-21 10:03 | PQF ---
PROVIDER RESPONSE TEXT: Mild intermittent asthma with no status asthmaticus REVIEWER QUERY TEXT: Asthma Specificity and Type ER: Patient reports of having chronic dyspnea due to Asthma. (occasional bilateral expiratory wheeze) noted. RX: Albuterol given in the ER. CXR: No active disease Rx: Ventolin HFA, Flonase. Asthma is documented in the Medical Record. Please specify the type and severity of asthma and indic ate if this is associated with exacerbation or status asthmaticus. Such as: -- Mild intermittent -- Mild persistent -- Moderate persistent -- Severe persistent -- Exercise induced bronchospasm -- Cough variant asthma -- Other, please specify The patient's Clinical Indicators include: ER: Patient reports of having chronic dyspnea due to Asthma. (occasional bilateral expiratory wheeze) noted. RX: Albuterol given in the ER. CXR: No active disease Rx: Ventolin HFA, Flonase Query created by: Shanique Chow on 12/18/2018 8:39 AM Electronically signed by: Konstantin Brunner MD 12/20/2018 10:12 PM
--- NOTE | 2018-12-21 10:03 | PQF ---
PROVIDER RESPONSE TEXT: Unable to further specify REVIEWER QUERY TEXT: Symptom Underlying Cause Please document the underlying diagnosis causing the patient?s documented symptom of CHEST PAIN or u nable to be further specified. The patient's Clinical Indicators include: ER: C/O L sided chest pain. History of L shoulder chronic pain due to arthritis Patient notes of hav ing left shoulder pain that has been radiating down the left arm and left chest since yesterday. Carole ent reports of having chronic dyspnea due to Asthma. Patient notes of additionally getting nauseous e very time she goes to dialysis. Patient additionally notes of having one episode of diarrhea yesterda y. Cardiology: Chest pain. Cardiac enzymes negative. There is no evidence of myocardial ischemia. [place] outpatient stress test EKG: Normal sinus rhythm Possible Inferior infarct, age undetermined ECHO:EF 55-60%-- full report in EMR. Query created by: Shanique Chow on 12/18/2018 8:30 AM Electronically signed by: Konstantin Brunner MD 12/20/2018 10:12 PM
--- NOTE | 2018-12-21 10:03 | PQF ---
PROVIDER RESPONSE TEXT: Patient's chest pain is NOT due to myocardial ischemia. Troponin does not significant NH in this brice ent particularly in the setting of renal failure REVIEWER QUERY TEXT: Symptom Underlying Cause Please document the possible underlying diagnosis causing the patient?s documented symptom of CHEST P AIN or unable to be further specified. The patient's Clinical Indicators include: PMH: ESRD on hemodialysis, HTN, gouty arthritis, morbid obesity s/p gastric bypass ER: 63 y/o female presents to the ED for evaluation of left sided chest pain lasting for about one ho ur.Patient reports she was receiving dialysis(usually Monday, and Monday) when she develo ped the pain and resolved after dialysis. Patient reports of experiencing left shoulder chronic pain due to arthritis. Patient notes of having left shoulder pain that has been radiating down the left arm and left chest since yesterday. Cardiology: Chest pain. Cardiac enzymes are negative. There is no evidence of myocardial ischemia. [facility] for [facility] stress test. PN 3/4 Attending: Chest pain, myocardial infarction was ruled out. EKG: NSR, possible inferior infarct age undetermined Rx: Toprol XL, Tylenol, Percocet Query created by: Shanique Chow on 12/19/2018 1:38 PM Electronically signed by: Chris Best MD 12/20/2018 6:58 PM
--- NOTE | 2018-12-21 10:03 | PQF ---
PROVIDER RESPONSE TEXT: Chronic diastolic CHF REVIEWER QUERY TEXT: CHF Acuity and Type History of Congestive Heart Failure is documented in the Medical Record. Please document the type and acuity (includes probable or suspected) or other explanation Such as: Type: -- Systolic -- Diastolic -- Combined -- Other, please specify Acuity: -- Acute -- Chronic -- Acute on chronic -- Other, please specify Also please document the underlying cause of the CHF (includes probable or suspected) The patient's Clinical Indicators include: History of CHF. ESRD on HD. Medication : none ECHO: difficult study. There is mild to moderate concentric left ventricular hypertrophy.The estimate d ejection fraction is 55-60% Transmitral Doppler flow pattern is Grade II-pseudonormal filling dyn amics.The left atrium is mildly dilated. Mild aortic regurgitation is present.There is at least mild aortic valvular stenosis. Peak aortic velocity is calculated at 3.1 m/sec with mean gradient of 25 m m Hg. Correlate clinically.There is mild tricuspid valve regurgitation noted. RVSP is calculated at 43 mm Hg. Query created by: Shanique Chow on 12/18/2018 8:18 AM Electronically signed by: Konstantin Brunner MD 12/20/2018 10:12 PM
--- NOTE | 2018-12-21 10:31 | CP.PCM.PN ---
Subjective - Date & Time of Evaluation Date of Evaluation: 12/21/18 Time of Evaluation: 09:00 - Subjective Subjective: Patient seen and examined at bedside comfortable. Pain moderate, only had 1 tab of percocet this AM. PT at bedside to begin session. No acute events overnight. Denies CP/SOB/fever/dizziness. Objective - Vital Signs/Intake and Output Vital Signs (last 24 hours): Temp Pulse Resp BP Pulse Ox 97.9 F 90 18 128/76 98 12/21/18 07:58 12/21/18 08:24 12/21/18 07:58 12/21/18 08:24 12/21/18 07:58 Intake and Output: 12/21/18 12/21/18 06:59 18:59 Intake Total 200 Balance 200 - Medications Medications: Current Medications Acetaminophen (Tylenol 325mg Tab) 650 mg PO Q6 PRN PRN Reason: Pain, moderate (4-7) Last Admin: 12/17/18 23:57 Dose: 650 mg Acetaminophen (Tylenol 325mg Tab) 325 mg PO Q6 PRN PRN Reason: Pain, Mild (1-3) Acetaminophen (Tylenol 325mg Tab) 650 mg PO ONCE PRN PRN Reason: Fever >100.4 F Last Admin: 12/19/18 00:13 Dose: 650 mg Albuterol (Ventolin Hfa 90 Mcg/Actuation (8 G)) 2 puff IH Q4 PRN PRN Reason: Shortness of Breath Amlodipine Besylate (Norvasc) 10 mg PO DAILY [facility] Last Admin: 12/21/18 08:22 Dose: 10 mg Cinacalcet (Sensipar) 60 mg PO DAILY [facility] Last Admin: 12/21/18 08:23 Dose: 60 mg Doxercalciferol (Hectorol) 4 mcg IV TTS [facility] Last Admin: 12/18/18 15:36 Dose: 4 mcg Epoetin Shelton (Procrit) 4,000 unit SC TTS [facility] Last Admin: 12/20/18 12:43 Dose: 4,000 unit Ferrous Gluconate (Fergon) 324 mg PO BID [facility] Last Admin: 12/21/18 08:19 Dose: 324 mg Fluticasone Propionate (Flonase) 1 spr SERVANDO BID [facility] Last Admin: 12/21/18 08:20 Dose: 1 spr Heparin Sodium (Porcine) (Heparin) 5,000 units SC Q12 [facility]; Protocol Last Admin: 12/19/18 08:37 Dose: 5,000 units Levothyroxine Sodium (Synthroid) 25 mcg PO DAILY@0630 [facility] Last Admin: 12/21/18 06:21 Dose: 25 mcg Lidocaine (Lidoderm) 1 ea TD DAILY [facility] Last Admin: 12/21/18 08:20 Dose: 1 ea Loratadine (Claritin) 10 mg PO DAILY [facility] Last Admin: 12/21/18 08:19 Dose: 10 mg Metoprolol Succinate (Toprol Xl) 50 mg PO DAILY [facility] Last Admin: 12/21/18 08:24 Dose: 50 mg Morphine Sulfate (Morphine) 2 mg IVP Q4 PRN PRN Reason: Pain, severe (8-10) Nortriptyline HCl (Pamelor) 25 mg PO HS [facility] Last Admin: 12/20/18 21:49 Dose: 25 mg Ondansetron HCl (Zofran Tab) 4 mg PO Q4 PRN PRN Reason: Nausea/Vomiting Ondansetron HCl (Zofran Inj) 4 mg IVP Q4 PRN PRN Reason: Nausea/Vomiting Oxycodone/Acetaminophen (Percocet 5/325 Mg Tab) 2 tab PO Q4 PRN PRN Reason: Pain, moderate (4-7) Stop: 12/24/18 09:57 Oxycodone/Acetaminophen (Percocet 5/325 Mg Tab) 1 tab PO Q4 PRN PRN Reason: Pain, Mild (1-3) Stop: 12/24/18 13:01 Pantoprazole Sodium (Protonix Ec Tab) 40 mg PO DAILY [facility] Last Admin: 12/21/18 08:23 Dose: 40 mg Polyethylene Glycol (Miralax) 17 gm PO DAILY [facility] Last Admin: 12/21/18 08:21 Dose: 17 gm Vitamin B Complex/Vit C/Folic Acid (Nephro-Maria Del Carmen) 1 tab PO DAILY [facility] Last Admin: 12/21/18 08:22 Dose: 1 tab - Labs Labs: 12/21/18 08:15 12/18/18 09:30 PT 12.2 Seconds (9.8-13.1) 12/19/18 14:40 INR 1.1 12/19/18 14:40 APTT 35.1 Seconds (25.6-37.1) 12/19/18 14:40 - Extremities Exam Additional comments: LLE: Knee imm in place, Dressings CDI sensation intact SP/DP/TN motor intact EHL/FHL/TA/G pedal pulses intact calves soft NT b/l Assessment and Plan (1) Arthritis, septic, knee Assessment & Plan: awaiting final cultures Status: Acute (2) Osteoarthritis of left shoulder Assessment & Plan: PT/OT ROM/strengthening pain control Status: Acute (3) Pseudogout of left knee Assessment & Plan: Cytolgy report of OR specimen reveals CPPD crystals consistent with pseodogout OR cultures neg for 24 hrs, awaiting final reports may start oral steroid once cultures finalized negative PT/OT WBAT knee immoblizer at night when in bed, may remove during day DVT ppx above d/w Dr. Mitchell in agreement Status: Acute
[2018-12-21] MEDS ORDERED: methylPREDNISolone 20 MG in Sodium Chloride 0.9% 50 ML IV SCH (11:15)
--- NOTE | 2018-12-21 11:27 | CP.PCM.PN ---
Subjective - Date & Time of Evaluation Date of Evaluation: 12/21/18 Time of Evaluation: 11:27 - Subjective Subjective: no overnight events Objective - Vital Signs/Intake and Output Vital Signs (last 24 hours): Temp Pulse Resp BP Pulse Ox 97.9 F 90 18 128/76 98 12/21/18 07:58 12/21/18 08:24 12/21/18 07:58 12/21/18 08:24 12/21/18 07:58 Intake and Output: 12/21/18 12/21/18 06:59 18:59 Intake Total 200 Balance 200 - Medications Medications: Current Medications Acetaminophen (Tylenol 325mg Tab) 650 mg PO Q6 PRN PRN Reason: Pain, moderate (4-7) Last Admin: 12/17/18 23:57 Dose: 650 mg Acetaminophen (Tylenol 325mg Tab) 325 mg PO Q6 PRN PRN Reason: Pain, Mild (1-3) Acetaminophen (Tylenol 325mg Tab) 650 mg PO ONCE PRN PRN Reason: Fever >100.4 F Last Admin: 12/19/18 00:13 Dose: 650 mg Albuterol (Ventolin Hfa 90 Mcg/Actuation (8 G)) 2 puff IH Q4 PRN PRN Reason: Shortness of Breath Amlodipine Besylate (Norvasc) 10 mg PO DAILY [facility] Last Admin: 12/21/18 08:22 Dose: 10 mg Cinacalcet (Sensipar) 60 mg PO DAILY [facility] Last Admin: 12/21/18 08:23 Dose: 60 mg Doxercalciferol (Hectorol) 4 mcg IV TTS [facility] Last Admin: 12/18/18 15:36 Dose: 4 mcg Epoetin Shelton (Procrit) 4,000 unit SC TTS [facility] Last Admin: 12/20/18 12:43 Dose: 4,000 unit Ferrous Gluconate (Fergon) 324 mg PO BID [facility] Last Admin: 12/21/18 08:19 Dose: 324 mg Fluticasone Propionate (Flonase) 1 spr SERVANDO BID [facility] Last Admin: 12/21/18 08:20 Dose: 1 spr Heparin Sodium (Porcine) (Heparin) 5,000 units SC Q12 [facility]; Protocol Last Admin: 12/19/18 08:37 Dose: 5,000 units Levothyroxine Sodium (Synthroid) 25 mcg PO DAILY@0630 [facility] Last Admin: 12/21/18 06:21 Dose: 25 mcg Lidocaine (Lidoderm) 1 ea TD DAILY [facility] Last Admin: 12/21/18 08:20 Dose: 1 ea Loratadine (Claritin) 10 mg PO DAILY [facility] Last Admin: 12/21/18 08:19 Dose: 10 mg Methylprednisolone (Solu-Medrol) 20 mg IVP Q12H [facility] Metoprolol Succinate (Toprol Xl) 50 mg PO DAILY [facility] Last Admin: 12/21/18 08:24 Dose: 50 mg Morphine Sulfate (Morphine) 2 mg IVP Q4 PRN PRN Reason: Pain, severe (8-10) Last Admin: 12/21/18 10:44 Dose: 2 mg Nortriptyline HCl (Pamelor) 25 mg PO HS [facility] Last Admin: 12/20/18 21:49 Dose: 25 mg Ondansetron HCl (Zofran Tab) 4 mg PO Q4 PRN PRN Reason: Nausea/Vomiting Ondansetron HCl (Zofran Inj) 4 mg IVP Q4 PRN PRN Reason: Nausea/Vomiting Oxycodone/Acetaminophen (Percocet 5/325 Mg Tab) 2 tab PO Q4 PRN PRN Reason: Pain, moderate (4-7) Stop: 12/24/18 09:57 Oxycodone/Acetaminophen (Percocet 5/325 Mg Tab) 1 tab PO Q4 PRN PRN Reason: Pain, Mild (1-3) Stop: 12/24/18 13:01 Pantoprazole Sodium (Protonix Ec Tab) 40 mg PO DAILY [facility] Last Admin: 12/21/18 08:23 Dose: 40 mg Polyethylene Glycol (Miralax) 17 gm PO DAILY [facility] Last Admin: 12/21/18 08:21 Dose: 17 gm Vitamin B Complex/Vit C/Folic Acid (Nephro-Maria Del Carmen) 1 tab PO DAILY [facility] Last Admin: 12/21/18 08:22 Dose: 1 tab - Labs Labs: 12/21/18 08:15 12/18/18 09:30 PT 12.2 Seconds (9.8-13.1) 12/19/18 14:40 INR 1.1 12/19/18 14:40 APTT 35.1 Seconds (25.6-37.1) 12/19/18 14:40 - Head Exam Head Exam: NORMOCEPHALIC - Respiratory Exam Respiratory Exam: Rhonchi, NORMAL BREATHING PATTERN - Cardiovascular Exam Cardiovascular Exam: REGULAR RHYTHM - GI/Abdominal Exam GI & Abdominal Exam: Soft, Normal Bowel Sounds Assessment and Plan - Assessment and Plan (Free Text) Assessment: 63 yo female with gerd doing better tolerating diet dc planning
[2018-12-21] MEDS: MethylPREDNISolone 40 mg Vial IVP SCH ×2 (11:51→22:27)
[2018-12-21] MEDS: Saliva Substitute(Caphosol) 15 ML SOL MM PRN (13:11)
--- NOTE | 2018-12-21 18:16 | CP.PCM.PN ---
Subjective - Date & Time of Evaluation Date of Evaluation: 12/21/18 Time of Evaluation: 14:00 - Subjective Subjective: Id note- Patietnt seen and examined today. denies any fever or chills and states she feels better overall. Objective - Vital Signs/Intake and Output Vital Signs (last 24 hours): Temp Pulse Resp BP Pulse Ox 99.2 F 83 17 134/82 94 L 12/21/18 15:48 12/21/18 15:48 12/21/18 15:48 12/21/18 15:48 12/21/18 15:48 Intake and Output: 12/21/18 12/21/18 06:59 18:59 Intake Total 200 Balance 200 - Medications Medications: Current Medications Acetaminophen (Tylenol 325mg Tab) 650 mg PO Q6 PRN PRN Reason: Pain, moderate (4-7) Last Admin: 12/17/18 23:57 Dose: 650 mg Acetaminophen (Tylenol 325mg Tab) 325 mg PO Q6 PRN PRN Reason: Pain, Mild (1-3) Acetaminophen (Tylenol 325mg Tab) 650 mg PO ONCE PRN PRN Reason: Fever >100.4 F Last Admin: 12/19/18 00:13 Dose: 650 mg Albuterol (Ventolin Hfa 90 Mcg/Actuation (8 G)) 2 puff IH Q4 PRN PRN Reason: Shortness of Breath Amlodipine Besylate (Norvasc) 10 mg PO DAILY [facility] Last Admin: 12/21/18 08:22 Dose: 10 mg Cinacalcet (Sensipar) 60 mg PO DAILY [facility] Last Admin: 12/21/18 08:23 Dose: 60 mg Doxercalciferol (Hectorol) 4 mcg IV TTS [facility] Last Admin: 12/18/18 15:36 Dose: 4 mcg Epoetin Shelton (Procrit) 4,000 unit SC TTS [facility] Last Admin: 12/20/18 12:43 Dose: 4,000 unit Ferrous Gluconate (Fergon) 324 mg PO BID [facility] Last Admin: 12/21/18 16:38 Dose: 324 mg Fluticasone Propionate (Flonase) 1 spr SERVANDO BID [facility] Last Admin: 12/21/18 16:29 Dose: 1 spr Heparin Sodium (Porcine) (Heparin) 5,000 units SC Q12 [facility]; Protocol Last Admin: 12/19/18 08:37 Dose: 5,000 units Levothyroxine Sodium (Synthroid) 25 mcg PO DAILY@0630 [facility] Last Admin: 12/21/18 06:21 Dose: 25 mcg Lidocaine (Lidoderm) 1 ea TD DAILY [facility] Last Admin: 12/21/18 08:20 Dose: 1 ea Loratadine (Claritin) 10 mg PO DAILY [facility] Last Admin: 12/21/18 08:19 Dose: 10 mg Methylprednisolone (Solu-Medrol) 20 mg IVP Q12H [facility] Last Admin: 12/21/18 11:51 Dose: 20 mg Metoprolol Succinate (Toprol Xl) 50 mg PO DAILY [facility] Last Admin: 12/21/18 08:24 Dose: 50 mg Morphine Sulfate (Morphine) 2 mg IVP Q4 PRN PRN Reason: Pain, severe (8-10) Last Admin: 12/21/18 10:44 Dose: 2 mg Nortriptyline HCl (Pamelor) 25 mg PO HS [facility] Last Admin: 12/20/18 21:49 Dose: 25 mg Ondansetron HCl (Zofran Tab) 4 mg PO Q4 PRN PRN Reason: Nausea/Vomiting Ondansetron HCl (Zofran Inj) 4 mg IVP Q4 PRN PRN Reason: Nausea/Vomiting Oxycodone/Acetaminophen (Percocet 5/325 Mg Tab) 2 tab PO Q4 PRN PRN Reason: Pain, moderate (4-7) Stop: 12/24/18 09:57 Oxycodone/Acetaminophen (Percocet 5/325 Mg Tab) 1 tab PO Q4 PRN PRN Reason: Pain, Mild (1-3) Stop: 12/24/18 13:01 Pantoprazole Sodium (Protonix Ec Tab) 40 mg PO DAILY [facility] Last Admin: 12/21/18 08:23 Dose: 40 mg Polyethylene Glycol (Miralax) 17 gm PO DAILY [facility] Last Admin: 12/21/18 08:21 Dose: 17 gm Saliva Substitute (Caphosol 15 Ml) 15 ml MM Q4 PRN PRN Reason: Dry mouth Last Admin: 12/21/18 13:11 Dose: 15 ml Vitamin B Complex/Vit C/Folic Acid (Nephro-Maria Del Carmen) 1 tab PO DAILY [facility] Last Admin: 12/21/18 08:22 Dose: 1 tab - Labs Labs: - Additional Findings Additional findings: - Constitutional Appears: No Acute Distress Additional comments: Obese - Head Exam Head Exam: ATRAUMATIC - Eye Exam Eye Exam: EOMI, PERRL - ENT Exam ENT Exam: Normal Oropharynx - Neck Exam Neck exam: Positive for: Full Rom - Respiratory Exam Respiratory Exam: Clear to Auscultation Bilateral, NORMAL BREATHING PATTERN Additional comments: No wheezing - Cardiovascular Exam Cardiovascular Exam: RRR, +S1, +S2 - GI/Abdominal Exam GI & Abdominal Exam: Normal Bowel Sounds, Soft Additional comments: NT, ND - Extremities Exam Additional comments: left knee leg is in post-surgical dressing - Neurological Exam Neurological exam: Alert, Oriented x 3 Laboratory Results - last 72 hr 12/18/18 12/18/18 12/19/18 14:58 14:58 12:15 WBC RBC Hgb Hct MCV MCH MCHC RDW Plt Count ESR PT INR APTT POC Glucose (mg/dL) Uric Acid 5.2 Fluid Type Fluid Crystals Synovial WBC Synovial RBC Synovial Neutrophils Synovial Lymphocytes Synov Monos/Macrophage Synovial Crystal Type Synovial Fluid Comment Hep Bs Antigen Negative Hep Bs Antibody, Quant 42 Hep B Core IgM Ab Negative Hepatitis C Antibody Negative Influenza Typ A,B (EIA) Blood Type Antibody Screen BBK History Checked 12/19/18 12/19/18 12/19/18 14:40 14:40 14:40 WBC RBC Hgb Hct MCV MCH MCHC RDW Plt Count ESR 59 H PT 12.2 INR 1.1 APTT 35.1 POC Glucose (mg/dL) Uric Acid Fluid Type Fluid Crystals Synovial WBC Synovial RBC Synovial Neutrophils Synovial Lymphocytes Synov Monos/Macrophage Synovial Crystal Type Synovial Fluid Comment Hep Bs Antigen Hep Bs Antibody, Quant Hep B Core IgM Ab Hepatitis C Antibody Influenza Typ A,B (EIA) Blood Type O POSITIVE Antibody Screen Negative BBK History Checked Patient has bt 12/19/18 12/19/18 12/20/18 14:40 16:55 09:23 WBC RBC Hgb Hct MCV MCH MCHC RDW Plt Count ESR PT INR APTT POC Glucose (mg/dL) Uric Acid 5.3 Fluid Type Synovial fluid Fluid Crystals Synovial WBC 7515.0 H Synovial RBC 110.0 H Synovial Neutrophils 84.0 H Synovial Lymphocytes 4.0 H Synov Monos/Macrophage 11 H Synovial Crystal Type Synovial Fluid Comment None Hep Bs Antigen Hep Bs Antibody, Quant Hep B Core IgM Ab Hepatitis C Antibody Influenza Typ A,B (EIA) Negative for flu a/b Blood Type Antibody Screen BBK History Checked 12/20/18 12/20/18 12/21/18 09:23 10:10 08:15 WBC 5.8 RBC 4.06 Hgb 9.5 L Hct 31.5 L MCV 77.6 L MCH 23.4 L MCHC 30.2 L RDW 17.7 H Plt Count 226 ESR PT INR APTT POC Glucose (mg/dL) 89 Uric Acid Fluid Type Fluid Crystals Positive H Synovial WBC Synovial RBC Synovial Neutrophils Synovial Lymphocytes Synov Monos/Macrophage Synovial Crystal Type Calciumpyrophosphate Synovial Fluid Comment Hep Bs Antigen Hep Bs Antibody, Quant Hep B Core IgM Ab Hepatitis C Antibody Influenza Typ A,B (EIA) Blood Type Antibody Screen BBK History Checked Microbiology 12/19/18 14:55 Blood-Venous Blood Culture - Preliminary NO GROWTH AFTER 48 HOURS 12/19/18 15:00 Blood-Venous Blood Culture - Preliminary NO GROWTH AFTER 48 HOURS 12/20/18 09:23 Other: Please Indicate Mycobacterial Culture - Preliminary 12/20/18 09:23 Body Fluid - Knee-Left Gram Stain - Final 12/20/18 09:23 Body Fluid - Knee-Left Body Fluid Culture - Preliminary NO GROWTH AFTER 24 HOURS 12/20/18 09:23 Knee - Left Gram Stain - Final 12/20/18 09:23 Knee - Left Wound Culture - Preliminary NO GROWTH AFTER 24 HOURS 12/18/18 09:35 Blood Blood Culture - Preliminary NO GROWTH AFTER 3 DAYS 12/18/18 09:30 Blood-During Dialysis Blood Culture - Preliminary NO GROWTH AFTER 3 DAYS 12/20/18 09:23 Knee - Left Gram Stain - Final 12/20/18 09:23 Knee - Left Wound Culture - Preliminary NO GROWTH AFTER 24 HOURS 12/20/18 09:23 Knee - Left Gram Stain - Final 12/20/18 09:23 Knee - Left Wound Culture - Preliminary NO GROWTH AFTER 24 HOURS 12/20/18 09:23 Knee - Left Gram Stain - Final 12/20/18 09:23 Knee - Left Wound Culture - Preliminary NO GROWTH AFTER 24 HOURS 12/20/18 09:23 Knee - Left Gram Stain - Final 12/20/18 09:23 Knee - Left Wound Culture - Preliminary NO GROWTH AFTER 24 HOURS 12/20/18 09:23 Knee - Left Gram Stain - Final 12/20/18 09:23 Knee - Left Wound Culture - Preliminary NO GROWTH AFTER 24 HOURS 12/20/18 09:23 Knee - Left Gram Stain - Final 12/20/18 09:23 Knee - Left Wound Culture - Preliminary NO GROWTH AFTER 24 HOURS 12/20/18 09:23 Knee - Left Gram Stain - Final 12/20/18 09:23 Knee - Left Wound Culture - Preliminary NO GROWTH AFTER 24 HOURS 12/20/18 09:23 Aspirate - Knee-Left Gram Stain - Final 12/18/18 15:14 Urine,Clean Catch Urine Culture - Final No Growth (<1,000 CFU/ML) Assessment and Plan (1) Fever Status: Acute (2) Swelling of left knee joint Status: Acute (3) Pain and swelling of left knee Status: Acute (4) CRF (chronic renal failure) Status: Acute - Assessment and Plan (Free Text) Assessment: A/P- 63-year-old female with history of hypertension, end-stage renal disease on hemodialysis who is now found to have fevers and new onset left knee edema and pain. s/p left knee arthroscopy yesterday has remained afebrile Normal white blood cell count. blood cx- neg x 4 OR synovial fluid cx- all cultures negative x 24 hours synovial fluid cell count not c/w septic joint. calcium pyrophosphate crystal seen in the fluid c/w pseudogout Plan hold off on antibiotics as all cx are negative and synovial fluid cell count and crystal c/w pseudogout. if cx remains negative for 48 hours pt. can benefit from some anti-inflammatory regimen. All above discussed with patient and her questions were answered and she verbalizes full understanding of all the above.
--- NOTE | 2018-12-21 19:29 | CP.PCM.PN ---
Subjective - Date & Time of Evaluation Date of Evaluation: 12/21/18 Time of Evaluation: 19:29 - Subjective Subjective: pt is seen and examined, follow up consult is dictated #[id number] \for hd in am Objective - Vital Signs/Intake and Output Vital Signs (last 24 hours): Temp Pulse Resp BP Pulse Ox 99.2 F 83 17 134/82 94 L 12/21/18 15:48 12/21/18 15:48 12/21/18 15:48 12/21/18 15:48 12/21/18 15:48 - Medications Medications: Current Medications Acetaminophen (Tylenol 325mg Tab) 650 mg PO Q6 PRN PRN Reason: Pain, moderate (4-7) Last Admin: 12/17/18 23:57 Dose: 650 mg Acetaminophen (Tylenol 325mg Tab) 325 mg PO Q6 PRN PRN Reason: Pain, Mild (1-3) Acetaminophen (Tylenol 325mg Tab) 650 mg PO ONCE PRN PRN Reason: Fever >100.4 F Last Admin: 12/19/18 00:13 Dose: 650 mg Albuterol (Ventolin Hfa 90 Mcg/Actuation (8 G)) 2 puff IH Q4 PRN PRN Reason: Shortness of Breath Amlodipine Besylate (Norvasc) 10 mg PO DAILY [facility] Last Admin: 12/21/18 08:22 Dose: 10 mg Cinacalcet (Sensipar) 60 mg PO DAILY [facility] Last Admin: 12/21/18 08:23 Dose: 60 mg Doxercalciferol (Hectorol) 4 mcg IV TTS [facility] Last Admin: 12/18/18 15:36 Dose: 4 mcg Epoetin Shelton (Procrit) 4,000 unit SC TTS [facility] Last Admin: 12/20/18 12:43 Dose: 4,000 unit Ferrous Gluconate (Fergon) 324 mg PO BID [facility] Last Admin: 12/21/18 16:38 Dose: 324 mg Fluticasone Propionate (Flonase) 1 spr SERVANDO BID [facility] Last Admin: 12/21/18 16:29 Dose: 1 spr Heparin Sodium (Porcine) (Heparin) 5,000 units SC Q12 [facility]; Protocol Last Admin: 12/19/18 08:37 Dose: 5,000 units Levothyroxine Sodium (Synthroid) 25 mcg PO DAILY@0630 [facility] Last Admin: 12/21/18 06:21 Dose: 25 mcg Lidocaine (Lidoderm) 1 ea TD DAILY [facility] Last Admin: 12/21/18 08:20 Dose: 1 ea Loratadine (Claritin) 10 mg PO DAILY [facility] Last Admin: 12/21/18 08:19 Dose: 10 mg Methylprednisolone (Solu-Medrol) 20 mg IVP Q12H [facility] Last Admin: 12/21/18 11:51 Dose: 20 mg Metoprolol Succinate (Toprol Xl) 50 mg PO DAILY [facility] Last Admin: 12/21/18 08:24 Dose: 50 mg Morphine Sulfate (Morphine) 2 mg IVP Q4 PRN PRN Reason: Pain, severe (8-10) Last Admin: 12/21/18 10:44 Dose: 2 mg Nortriptyline HCl (Pamelor) 25 mg PO HS [facility] Last Admin: 12/20/18 21:49 Dose: 25 mg Ondansetron HCl (Zofran Tab) 4 mg PO Q4 PRN PRN Reason: Nausea/Vomiting Ondansetron HCl (Zofran Inj) 4 mg IVP Q4 PRN PRN Reason: Nausea/Vomiting Oxycodone/Acetaminophen (Percocet 5/325 Mg Tab) 2 tab PO Q4 PRN PRN Reason: Pain, moderate (4-7) Stop: 12/24/18 09:57 Oxycodone/Acetaminophen (Percocet 5/325 Mg Tab) 1 tab PO Q4 PRN PRN Reason: Pain, Mild (1-3) Stop: 12/24/18 13:01 Pantoprazole Sodium (Protonix Ec Tab) 40 mg PO DAILY [facility] Last Admin: 12/21/18 08:23 Dose: 40 mg Polyethylene Glycol (Miralax) 17 gm PO DAILY [facility] Last Admin: 12/21/18 08:21 Dose: 17 gm Saliva Substitute (Caphosol 15 Ml) 15 ml MM Q4 PRN PRN Reason: Dry mouth Last Admin: 12/21/18 13:11 Dose: 15 ml Vitamin B Complex/Vit C/Folic Acid (Nephro-Maria Del Carmen) 1 tab PO DAILY [facility] Last Admin: 12/21/18 08:22 Dose: 1 tab - Labs Labs: 12/21/18 08:15 12/18/18 09:30 PT 12.2 Seconds (9.8-13.1) 12/19/18 14:40 INR 1.1 12/19/18 14:40 APTT 35.1 Seconds (25.6-37.1) 12/19/18 14:40
[2018-12-22] MEDS: Albuterol HFA 90 mcg/actuation (8 g) IH PRN ×2 (01:41→20:05)
[2018-12-22] MEDS: Oxycodone/Acetaminophen 5/325 mg Tab PO PRN ×3 (01:43→18:48)
[2018-12-22] MEDS ORDERED: Albuterol-Ipratrop 3 mg / 0.5 (3 ml) UD INH STA (02:23)
--- NOTE | 2018-12-22 03:33 | PN ---
DATE: 12/21/2018 SUBJECTIVE: The patient is seen today, 12/21/2018. She still has pain in the left knee, status post left knee aspiration. The fluid was positive for calcium pyrophosphate crystal. PHYSICAL EXAMINATION: VITAL SIGNS: Blood pressure 131/81, temperature 98.9, respiratory rate 17, pulse 74. HEENT: Pupils equal and reactive to light. Normal-appearing mucosa of the conjunctivae, oropharynx, and nasal membrane mucosa. NECK: Supple. No JVD. No carotid bruit. No lymph node. No thyromegaly. CHEST AND LUNGS: Bilateral symmetrical expansion. Good air exchange. No rales. No rhonchi. CARDIOVASCULAR SYSTEM: PMI not localized. S1 and S2. No additional sounds. ABDOMEN: Normoactive bowel sounds. No tenderness. No organomegaly. No masses. EXTREMITIES: No cyanosis, no clubbing, no edema. CENTRAL NERVOUS SYSTEM: Alert, awake, oriented x2. No neurological deficits could be appreciated. ASSESSMENT: 1. Pseudogout of the left knee. 2. End-stage renal disease, on hemodialysis. 3. Chest pain, myocardial infarction was ruled out. 4. Hypertension. PLAN: We will start the patient on prednisone 20 mg twice a day. Continue current medication, physical therapy. Plan to discharge to subacute rehabilitation. Konstantin Brunner MD
--- NOTE | 2018-12-22 03:57 | PN ---
DATE: 12/21/2018 FOLLOWUP RENAL CONSULTATION LOCATION: The patient is located in room 412, bed 1. REQUESTED BY: Konstantin Brunner MD. REASON FOR FOLLOWUP: End-stage renal disease, continuation of the dialysis. SUBJECTIVE: Mrs. Hidalgo is a 63-year-old obese female with a past medical history significant for longstanding hypertension, osteoarthritis, COPD, asthma, questionable gout, end-stage renal disease, hypothyroidism, primary hyperparathyroidism with history of incisional hernia who was admitted initially with chief complaints of chest discomfort during dialysis, and also nausea and vomiting post dialysis for the last two months on and off. The patient was ruled out for acute NE by cardiac enzymes x3. was complicated by left knee swelling and pain, status post arthrocentesis and drained about 70 mL of fluid, and fluid is consistent with calcium pyrophosphate crystals. The patient is out of bed to chair, on analgesics. No chest pain. No palpitation. No fever. No cough. No abdominal pain. No nausea, vomiting, or diarrhea. Feeling much better today. PHYSICAL EXAMINATION: VITAL SIGNS: As follows: Blood pressure 134/82, pulse 83, respirations about 17, temperature 99.2, saturations 94%. Height 5 feet 4 inches. Weight is 266 pounds. BMI 45.8. GENERAL: Mrs. Hidalgo is a 63-year-old elderly obese female, well built, well nourished, not in distress. HEENT: Pupils are normal and reactive to light and accommodation. Conjunctivae pink. Sclerae anicteric. Tongue is moist. Trachea is midline. LUNGS: Symmetrical on both sides. Bilateral breath sounds present. Clear to auscultation. CARDIOVASCULAR SYSTEM: [place] at the fifth intercostal space, midclavicular line. S1 and S2 audible. No murmur or gallop. ABDOMEN: Normal in appearance. Soft, tympanitic. No guarding. No rigidity. No hepatosplenomegaly. CENTRAL NERVOUS SYSTEM: The patient is alert, awake, and oriented x3. Nonfocal neuro examination. Cranial nerves II through XII grossly intact. Sensory and motor system is within normal limits. EXTREMITIES: No cyanosis, no clubbing, no edema. Left knee is swollen and mild to moderate tenderness on palpation with increased localized temperature on the knee joint. CURRENT MEDICATIONS: Include as follows: Cepacol 15 mL every 4 hours p.r.n., Claritin 10 mg daily, ferrous gluconate 324 mg p.o. b.i.d., Flonase, Hectorol 4 mcg three times a week, subcutaneous heparin on hold, lidocaine patch, MiraLax, morphine sulfate 2 mg IV every 4 hours p.r.n., Nephro-Maria Del Carmen one tablet daily, amlodipine 10 mg daily, Percocet one to two tablets every 4 hours p.r.n., Procrit 4000 units subcutaneous three times a week, Protonix 40 mg daily, Sensipar, Solu-Medrol 20 mg IV every 12 hours, Synthroid 25 mcg p.o. daily, metoprolol XL 50 mg p.o. daily, Zofran, Tylenol, and albuterol inhaler. LABORATORY DATA: Include as follows: As of 12/21/2018, WBC 5.3, hemoglobin 9.5, hematocrit 31.5, MCV is 77.6, platelets 226. Joint aspiration cultures are negative after 24 hours. ASSESSMENT AND PLAN: In summary, Mrs. Hidalgo is a 63-year-old obese -[place] female with a history of longstanding hypertension, arthritis, chronic obstructive pulmonary disease, asthma, hypothyroidism, hyperparathyroidism, end-stage renal disease with incisional hernia of the abdomen who was admitted with chest discomfort and nausea, vomiting post dialysis on and off with left knee pain and found to have a pseudogout on analgesics and now started on Solu-Medrol 20 mg b.i.d. 1. End-stage renal disease. Continue hemodialysis three times a week, Monday, , and Monday. 2. Hypertension. 3. Chronic obstructive pulmonary disease, asthma. 4. Left knee pain secondary to pseudogout. Continue analgesics and Solu-Medrol as per Dr. Brunner. We will schedule for hemodialysis in a.m. Thank you for allowing me to participate in your patient's care. Ember Nicole MD
[2018-12-22] MEDS: Saliva Substitute(Caphosol) 15 ML SOL MM PRN ×2 (04:17→11:02)
[2018-12-22] MEDS: Levothyroxine 25 MCG TAB PO SCH (05:43)
[2018-12-22] MEDS: Pantoprazole 40 mg EC Tab PO SCH (09:02)
[2018-12-22] MEDS: Multivitamin Vitamin B Complex (Nephro-Vite) Tab PO SCH (09:02)
[2018-12-22] MEDS: Lidocaine 5% Patch TD SCH (09:03)
[2018-12-22] MEDS: POLYETHYLENE GLYCOL 3350 17 GM/Dose PACKET PO SCH (09:04)
[2018-12-22] MEDS: Metoprolol Succinate 50 mg XL Tab PO SCH (09:26)
[2018-12-22] MEDS: MethylPREDNISolone 40 mg Vial IVP SCH ×2 (13:05→22:25)
--- NOTE | 2018-12-22 13:25 | CP.PCM.PN ---
Subjective - Date & Time of Evaluation Date of Evaluation: 12/22/18 Time of Evaluation: 13:15 - Subjective Subjective: S- pt markedly improved Objective - Vital Signs/Intake and Output Vital Signs (last 24 hours): Temp Pulse Resp BP Pulse Ox 97.9 F 80 18 113/67 95 12/22/18 08:09 12/22/18 09:00 12/22/18 08:09 12/22/18 08:09 12/22/18 08:09 - Medications Medications: Current Medications Acetaminophen (Tylenol 325mg Tab) 650 mg PO ONCE PRN PRN Reason: Fever >100.4 F Last Admin: 12/19/18 00:13 Dose: 650 mg Albuterol (Ventolin Hfa 90 Mcg/Actuation (8 G)) 2 puff IH Q4 PRN PRN Reason: Shortness of Breath Last Admin: 12/22/18 01:41 Dose: 2 puff Amlodipine Besylate (Norvasc) 10 mg PO DAILY [facility] Last Admin: 12/22/18 09:26 Dose: Not Given Cinacalcet (Sensipar) 60 mg PO DAILY [facility] Last Admin: 12/22/18 09:05 Dose: 60 mg Doxercalciferol (Hectorol) 4 mcg IV TTS [facility] Last Admin: 12/18/18 15:36 Dose: 4 mcg Epoetin Shelton (Procrit) 4,000 unit SC TTS [facility] Last Admin: 12/20/18 12:43 Dose: 4,000 unit Ferrous Gluconate (Fergon) 324 mg PO BID [facility] Last Admin: 12/22/18 09:02 Dose: 324 mg Fluticasone Propionate (Flonase) 1 spr SERVANDO BID [facility] Last Admin: 12/22/18 09:02 Dose: 1 spr Heparin Sodium (Porcine) (Heparin) 5,000 units SC Q12 [facility]; Protocol Last Admin: 12/19/18 08:37 Dose: 5,000 units Levothyroxine Sodium (Synthroid) 25 mcg PO DAILY@0630 [facility] Last Admin: 12/22/18 05:43 Dose: 25 mcg Lidocaine (Lidoderm) 1 ea TD DAILY [facility] Last Admin: 12/22/18 09:03 Dose: 1 ea Loratadine (Claritin) 10 mg PO DAILY [facility] Last Admin: 12/22/18 09:02 Dose: 10 mg Methylprednisolone (Solu-Medrol) 20 mg IVP Q12H [facility] Last Admin: 12/22/18 13:05 Dose: 20 mg Metoprolol Succinate (Toprol Xl) 50 mg PO DAILY [facility] Last Admin: 12/22/18 09:26 Dose: Not Given Morphine Sulfate (Morphine) 2 mg IVP Q4 PRN PRN Reason: Pain, severe (8-10) Last Admin: 12/21/18 10:44 Dose: 2 mg Nortriptyline HCl (Pamelor) 25 mg PO [facility] Last Admin: 12/21/18 22:27 Dose: 25 mg Ondansetron HCl (Zofran Tab) 4 mg PO Q4 PRN PRN Reason: Nausea/Vomiting Ondansetron HCl (Zofran Inj) 4 mg IVP Q4 PRN PRN Reason: Nausea/Vomiting Oxycodone/Acetaminophen (Percocet 5/325 Mg Tab) 2 tab PO Q4 PRN PRN Reason: Pain, moderate (4-7) Stop: 12/24/18 09:57 Last Admin: 12/22/18 01:43 Dose: 2 tab Oxycodone/Acetaminophen (Percocet 5/325 Mg Tab) 1 tab PO Q4 PRN PRN Reason: Pain, Mild (1-3) Stop: 12/24/18 13:01 Last Admin: 12/22/18 09:45 Dose: 1 tab Pantoprazole Sodium (Protonix Ec Tab) 40 mg PO DAILY [facility] Last Admin: 12/22/18 09:02 Dose: 40 mg Polyethylene Glycol (Miralax) 17 gm PO DAILY [facility] Last Admin: 12/22/18 09:04 Dose: 17 gm Saliva Substitute (Caphosol 15 Ml) 15 ml MM Q4 PRN PRN Reason: Dry mouth Last Admin: 12/22/18 11:02 Dose: 15 ml Vitamin B Complex/Vit C/Folic Acid (Nephro-Maria Del Carmen) 1 tab PO DAILY [facility] Last Admin: 12/22/18 09:02 Dose: 1 tab - Labs Labs: 12/21/18 08:15 12/18/18 09:30 PT 12.2 Seconds (9.8-13.1) 12/19/18 14:40 INR 1.1 12/19/18 14:40 APTT 35.1 Seconds (25.6-37.1) 12/19/18 14:40 - Additional Findings Additional findings: Objective stance/gait defrred ROM improving pt with 100p cwent relief in pain wound benign Assessment and Plan - Assessment and Plan (Free Text) Assessment: - morthopedically stable P- weight bearing to tolerance orthopedically stable
[2018-12-22] MEDS: Epoetin Alfa 4000 UNIT/ML Inj SC SCH (16:25)
[2018-12-22] MEDS: Doxercalciferol 4 mcg/2 ml Inj IV SCH (16:25)
--- NOTE | 2018-12-22 18:57 | CP.PCM.PN ---
Subjective - Date & Time of Evaluation Date of Evaluation: 12/22/18 Time of Evaluation: 18:57 - Subjective Subjective: pt is seen and examined, follow up consult is dictated #[id number] Objective - Vital Signs/Intake and Output Vital Signs (last 24 hours): Temp Pulse Resp BP Pulse Ox 98.4 F 70 18 112/63 94 L 12/22/18 15:49 12/22/18 15:49 12/22/18 15:49 12/22/18 15:49 12/22/18 15:49 - Medications Medications: Current Medications Acetaminophen (Tylenol 325mg Tab) 650 mg PO ONCE PRN PRN Reason: Fever >100.4 F Last Admin: 12/19/18 00:13 Dose: 650 mg Albuterol (Ventolin Hfa 90 Mcg/Actuation (8 G)) 2 puff IH Q4 PRN PRN Reason: Shortness of Breath Last Admin: 12/22/18 01:41 Dose: 2 puff Amlodipine Besylate (Norvasc) 10 mg PO DAILY [facility] Last Admin: 12/22/18 09:26 Dose: Not Given Cinacalcet (Sensipar) 60 mg PO DAILY [facility] Last Admin: 12/22/18 09:05 Dose: 60 mg Doxercalciferol (Hectorol) 4 mcg IV TTS [facility] Last Admin: 12/22/18 16:25 Dose: 4 mcg Epoetin Shelton (Procrit) 4,000 unit SC TTS [facility] Last Admin: 12/22/18 16:25 Dose: 4,000 unit Ferrous Gluconate (Fergon) 324 mg PO BID [facility] Last Admin: 12/22/18 16:26 Dose: Not Given Fluticasone Propionate (Flonase) 1 spr SERVANDO BID [facility] Last Admin: 12/22/18 16:26 Dose: 1 spr Heparin Sodium (Porcine) (Heparin) 5,000 units SC Q12 [facility]; Protocol Last Admin: 12/19/18 08:37 Dose: 5,000 units Levothyroxine Sodium (Synthroid) 25 mcg PO DAILY@0630 [facility] Last Admin: 12/22/18 05:43 Dose: 25 mcg Lidocaine (Lidoderm) 1 ea TD DAILY [facility] Last Admin: 12/22/18 09:03 Dose: 1 ea Loratadine (Claritin) 10 mg PO DAILY [facility] Last Admin: 12/22/18 09:02 Dose: 10 mg Methylprednisolone (Solu-Medrol) 20 mg IVP Q12H [facility] Last Admin: 12/22/18 13:05 Dose: 20 mg Metoprolol Succinate (Toprol Xl) 50 mg PO DAILY [facility] Last Admin: 12/22/18 09:26 Dose: Not Given Morphine Sulfate (Morphine) 2 mg IVP Q4 PRN PRN Reason: Pain, severe (8-10) Last Admin: 12/21/18 10:44 Dose: 2 mg Nortriptyline HCl (Pamelor) 25 mg PO [facility] Last Admin: 12/21/18 22:27 Dose: 25 mg Ondansetron HCl (Zofran Tab) 4 mg PO Q4 PRN PRN Reason: Nausea/Vomiting Ondansetron HCl (Zofran Inj) 4 mg IVP Q4 PRN PRN Reason: Nausea/Vomiting Oxycodone/Acetaminophen (Percocet 5/325 Mg Tab) 2 tab PO Q4 PRN PRN Reason: Pain, moderate (4-7) Stop: 12/24/18 09:57 Last Admin: 12/22/18 01:43 Dose: 2 tab Oxycodone/Acetaminophen (Percocet 5/325 Mg Tab) 1 tab PO Q4 PRN PRN Reason: Pain, Mild (1-3) Stop: 12/24/18 13:01 Last Admin: 12/22/18 18:48 Dose: 1 tab Pantoprazole Sodium (Protonix Ec Tab) 40 mg PO DAILY [facility] Last Admin: 12/22/18 09:02 Dose: 40 mg Polyethylene Glycol (Miralax) 17 gm PO DAILY [facility] Last Admin: 12/22/18 09:04 Dose: 17 gm Saliva Substitute (Caphosol 15 Ml) 15 ml MM Q4 PRN PRN Reason: Dry mouth Last Admin: 12/22/18 11:02 Dose: 15 ml Vitamin B Complex/Vit C/Folic Acid (Nephro-Maria Del Carmen) 1 tab PO DAILY [facility] Last Admin: 12/22/18 09:02 Dose: 1 tab - Labs Labs: 12/21/18 08:15 12/18/18 09:30 PT 12.2 Seconds (9.8-13.1) 12/19/18 14:40 INR 1.1 12/19/18 14:40 APTT 35.1 Seconds (25.6-37.1) 12/19/18 14:40
[2018-12-22] MEDS: Albuterol-Ipratrop 3 mg / 0.5 (3 ml) UD INH PRN (21:15)
[2018-12-23] MEDS: Saliva Substitute(Caphosol) 15 ML SOL MM PRN (00:42)
--- NOTE | 2018-12-23 03:03 | PN ---
DATE: 12/22/2018 FOLLOWUP RENAL CONSULTATION LOCATION: The patient is located in room 412, bed 1. REQUESTED BY: Konstantin Brunner MD SUBJECTIVE: Mrs. Hidalgo is a 63-year-old obese elderly female with a past medical history significant for longstanding hypertension, osteoarthritis, COPD, asthma, hypothyroidism, hyperparathyroidism who was admitted with chest pain, nausea and vomiting. Hospital course is complicated by left knee joint pain and swelling, difficult to ambulate and found to have pseudogout, on steroids and analgesics. The patient is feeling better, not in distress. The patient was seen and examined during dialysis. No chest pain. No palpitation. No fever. No cough. Hemodialysis was discontinued after one and half hours due to clotting of the system and unable to return the blood. The patient refused to continue hemodialysis. PHYSICAL EXAMINATION: GENERAL: Mrs. Hidalgo is a 63-year-old elderly female, moderate built, moderate nourished, not in any distress. VITAL SIGNS: As follows: Blood pressure 112/63, pulse 70, respirations 18, temperature 98.4, saturation 94%. Height 5 feet and 4 inches. Weight is 266 pounds. HEENT: Pupils are normal and reactive to light and accommodation. Conjunctivae pink. Sclerae anicteric. Tongue is moist. Trachea is midline. LUNGS: Symmetrical on both sides. Bilateral breath sounds present. Clear to auscultation. CARDIOVASCULAR SYSTEM: [place] of the fifth intercostal space, midclavicular line. S1 and S2 audible. No murmur or gallop. ABDOMEN: Normal in appearance. Soft, tympanitic. No guarding. No rigidity. No hepatosplenomegaly. CENTRAL NERVOUS SYSTEM: The patient is alert, awake, and oriented x3. Nonfocal neuro examination. Cranial nerves II through XII grossly intact. Sensory and motor system is within normal limits. EXTREMITIES: No cyanosis, no clubbing, no edema. CURRENT MEDICATIONS: Include as follows: Claritin 10 mg p.o. at bedtime, DuoNeb inhaler, ferrous gluconate, Flonase, Hectorol, subcu heparin on hold, lidocaine patch, morphine sulfate 2 mg IV every 4 hours p.r.n., Nephro-Maria Del Carmen, amlodipine, Pamelor, Percocet, Procrit, Protonix, Sensipar, Solu-Medrol 20 mg IV every 12 hours, levothyroxine 25 mcg p.o. daily, Toprol-XL 50 mg p.o. daily, Tylenol, albuterol inhaler, and Zofran. LABORATORY DATA: Include as follows: As of 12/21/2018, WBC 5.8, hemoglobin 9.5, hematocrit is 31.5, MCV of 77.6, and platelets 226. ASSESSMENT AND PLAN: In summary, Mrs. Hidalgo is a 63-year-old elderly obese female with hypertension, osteoarthritis, chronic obstructive pulmonary disease, asthma, hypothyroidism, hyperparathyroidism, end-stage renal disease, on hemodialysis three times a week on Monday, and Monday. 1. End-stage renal disease. Continue hemodialysis three times a week on Monday, and Monday. 2. Pseudogout. Continue Solu-Medrol and analgesics as per Dr. Brunner. 3. Hypertension. 4. Chronic obstructive pulmonary disease and asthma. Continue DuoNeb inhaler. We will follow with you. Thank you for allowing me to participate in your patient's care. The patient was seen and examined during dialysis and completed one and half hours dialysis, had ultrafiltration about 1.5 L today. Ember Nicole MD
[2018-12-23] MEDS: Levothyroxine 25 MCG TAB PO SCH (08:04)
[2018-12-23] MEDS: Lidocaine 5% Patch TD SCH (09:00)
[2018-12-23] MEDS: Metoprolol Succinate 50 mg XL Tab PO SCH (09:05)
[2018-12-23] MEDS: Pantoprazole 40 mg EC Tab PO SCH (09:05)
[2018-12-23] MEDS: Multivitamin Vitamin B Complex (Nephro-Vite) Tab PO SCH (09:07)
[2018-12-23] MEDS: POLYETHYLENE GLYCOL 3350 17 GM/Dose PACKET PO SCH (09:08)
[2018-12-23] MEDS: Oxycodone/Acetaminophen 5/325 mg Tab PO PRN ×2 (10:52→23:59)
[2018-12-23] MEDS: MethylPREDNISolone 40 mg Vial IVP SCH ×2 (10:53→22:29)
[2018-12-23 11:37] LABS: SQUAMOUS EPITHIAL 6 /hpf (0-5); URINE BACTERIA OCC (<OCC); URINE BILIRUBIN NEGATIVE (NEGATIVE); URINE BLOOD NEGATIVE (NEGATIVE); URINE CLARITY CLOUDY (Clear); URINE COLOR YELLOW (YELLOW); URINE GLUCOSE (UA) NEG (NEGATIVE); URINE LEUKOCYTE ESTERASE NEG Leu/uL (Negative); URINE PROTEIN 100 mg/dL (NEGATIVE); URINE UROBILINOGEN 0.2-1.0 mg/dL (0.2-1.0)
[2018-12-23] MEDS: Albuterol HFA 90 mcg/actuation (8 g) IH PRN (12:03)
[2018-12-23] MEDS: Albuterol-Ipratrop 3 mg / 0.5 (3 ml) UD INH PRN (12:24)
--- NOTE | 2018-12-23 16:05 | CP.PCM.PN ---
Subjective - Date & Time of Evaluation Date of Evaluation: 12/23/18 Time of Evaluation: 16:04 - Subjective Subjective: pt is seen and examined, follow up consult is dictated #[id number] Objective - Vital Signs/Intake and Output Vital Signs (last 24 hours): Temp Pulse Resp BP Pulse Ox 98.3 F 72 18 112/63 98 12/23/18 16:03 12/23/18 16:03 12/23/18 16:03 12/23/18 16:03 12/23/18 16:03 - Medications Medications: Current Medications Acetaminophen (Tylenol 325mg Tab) 650 mg PO ONCE PRN PRN Reason: Fever >100.4 F Last Admin: 12/19/18 00:13 Dose: 650 mg Albuterol (Ventolin Hfa 90 Mcg/Actuation (8 G)) 2 puff IH Q4 PRN PRN Reason: Shortness of Breath Last Admin: 12/23/18 12:03 Dose: 2 puff Albuterol/Ipratropium (Duoneb 3 Mg/0.5 Mg (3 Ml) Ud) 3 ml INH RQ6 PRN PRN Reason: Shortness of Breath Last Admin: 12/23/18 12:24 Dose: 3 ml Amlodipine Besylate (Norvasc) 10 mg PO DAILY [facility] Last Admin: 12/23/18 09:06 Dose: 10 mg Cinacalcet (Sensipar) 60 mg PO DAILY [facility] Last Admin: 12/23/18 09:07 Dose: 60 mg Doxercalciferol (Hectorol) 4 mcg IV TTS [facility] Last Admin: 12/22/18 16:25 Dose: 4 mcg Epoetin Shelton (Procrit) 4,000 unit SC TTS [facility] Last Admin: 12/22/18 16:25 Dose: 4,000 unit Ferrous Gluconate (Fergon) 324 mg PO BID [facility] Last Admin: 12/23/18 16:01 Dose: 324 mg Fluticasone Propionate (Flonase) 1 spr SERVANDO BID [facility] Last Admin: 12/23/18 16:01 Dose: 1 spr Heparin Sodium (Porcine) (Heparin) 5,000 units SC Q12 [facility]; Protocol Last Admin: 12/19/18 08:37 Dose: 5,000 units Levothyroxine Sodium (Synthroid) 25 mcg PO DAILY@0630 [facility] Last Admin: 12/23/18 08:04 Dose: 25 mcg Lidocaine (Lidoderm) 1 ea TD DAILY [facility] Last Admin: 12/23/18 09:00 Dose: 1 ea Loratadine (Claritin) 10 mg PO DAILY [facility] Last Admin: 12/23/18 10:50 Dose: 10 mg Methylprednisolone (Solu-Medrol) 20 mg IVP Q12H [facility] Last Admin: 12/23/18 10:53 Dose: 20 mg Metoprolol Succinate (Toprol Xl) 50 mg PO DAILY [facility] Last Admin: 12/23/18 09:05 Dose: 50 mg Morphine Sulfate (Morphine) 2 mg IVP Q4 PRN PRN Reason: Pain, severe (8-10) Last Admin: 12/21/18 10:44 Dose: 2 mg Nortriptyline HCl (Pamelor) 25 mg PO [facility] Last Admin: 12/22/18 22:24 Dose: 25 mg Ondansetron HCl (Zofran Tab) 4 mg PO Q4 PRN PRN Reason: Nausea/Vomiting Ondansetron HCl (Zofran Inj) 4 mg IVP Q4 PRN PRN Reason: Nausea/Vomiting Oxycodone/Acetaminophen (Percocet 5/325 Mg Tab) 2 tab PO Q4 PRN PRN Reason: Pain, moderate (4-7) Stop: 12/24/18 09:57 Last Admin: 12/22/18 01:43 Dose: 2 tab Oxycodone/Acetaminophen (Percocet 5/325 Mg Tab) 1 tab PO Q4 PRN PRN Reason: Pain, Mild (1-3) Stop: 12/24/18 13:01 Last Admin: 12/23/18 10:52 Dose: 1 tab Pantoprazole Sodium (Protonix Ec Tab) 40 mg PO DAILY [facility] Last Admin: 12/23/18 09:05 Dose: 40 mg Polyethylene Glycol (Miralax) 17 gm PO DAILY [facility] Last Admin: 12/23/18 09:08 Dose: 17 gm Saliva Substitute (Caphosol 15 Ml) 15 ml MM Q4 PRN PRN Reason: Dry mouth Last Admin: 12/23/18 00:42 Dose: 15 ml Vitamin B Complex/Vit C/Folic Acid (Nephro-Maria Del Carmen) 1 tab PO DAILY [facility] Last Admin: 12/23/18 09:07 Dose: 1 tab - Labs Labs: 12/21/18 08:15 12/18/18 09:30 PT 12.2 Seconds (9.8-13.1) 12/19/18 14:40 INR 1.1 12/19/18 14:40 APTT 35.1 Seconds (25.6-37.1) 12/19/18 14:40
--- NOTE | 2018-12-23 23:38 | PN ---
DATE: 12/23/2018 SUBJECTIVE: The patient is seen today, 12/23/2018. She is still complaining of pain in the left knee which is improving. PHYSICAL EXAMINATION: VITAL SIGNS: Blood pressure is 112/63, temperature 98.3, respiratory rate 18 and pulse 72. HEENT: Pupils equal, reactive to light. Normal-appearing mucosa of the conjunctivae, oropharynx and nasal membrane mucosa. NECK: Supple. No JVD. No carotid bruit. No lymph node. No thyromegaly. CHEST AND LUNGS: Bilateral symmetrical expansion. Good air exchange. No rales, no rhonchi. CARDIOVASCULAR: PMI not localized. S1, S2. No additional sounds. ABDOMEN: Normoactive bowel sounds. No tenderness. No organomegaly. No masses. EXTREMITIES: No cyanosis, no clubbing, no edema. CENTRAL NERVOUS SYSTEM: Alert, awake, oriented x2. No neurological deficit could be appreciated. ASSESSMENT: 1. Left knee pseudogout with calcium pyrophosphate crystals, currently on methylprednisolone. 2. End-stage renal disease, on hemodialysis. 3. Chest pain, myocardial infarction ruled out. 4. Hypertension. 5. Post-dialysis vomiting which has improved during this hospitalization. PLAN: We will plan for discharging the patient to subacute rehabilitation at [facility] as the patient is still having pain and dysfunctional gait and tendency to fall. Konstantin Brunner MD
[2018-12-24 01:08] VITALS: RESP 18
--- NOTE | 2018-12-24 03:02 | PN ---
DATE: 12/23/2018 FOLLOWUP RENAL CONSULTATION LOCATION: The patient is located in room 412, bed 1. REQUESTED BY: Konstantin Brunner MD REASON FOR RENAL CONSULTATION: End-stage renal disease and continuation of hemodialysis. SUBJECTIVE: Mrs. Hidalgo is a 63-year-old obese elderly -[place] female with a past medical history significant for longstanding hypertension, hyperlipidemia, hyperthyroidism, hyperparathyroidism, COPD, asthma, arthritis who was admitted with chest discomfort post dialysis and also nausea and vomiting on and off post-dialysis. The patient was ruled out for acute GA and her hospital course was complicated by left joint pain and swelling, status post arthrocentesis, and the fluid is positive for clear calcium pyrophosphate crystals consistent with pseudogout, on Solu-Medrol, and also analgesics. The patient is feeling slightly better, not in acute distress, awaiting for the subacute rehab placement. The patient denies any chest pain or palpitations. Denies any fever or cough. No abdominal pain. No nausea, vomiting, or diarrhea. PHYSICAL EXAMINATION: VITAL SIGNS: Blood pressure 112/63, pulse 72, respirations 18, temperature 98.3, saturation 98%, height 5 feet 4 inches, weight is 266 pounds. GENERAL: Mrs. Hidalgo is a 63-year-old elderly obese -[place] female, well built, well nourished, not in acute distress. HEENT: Pupils are normal and reactive to light and accommodation. Conjunctivae pink. Sclerae are anicteric. Tongue is moist. Trachea is midline. LUNGS: Symmetric on both sides. Bilateral breath sounds present. Clear to auscultation. CARDIOVASCULAR SYSTEM: [place] at the fifth intercostal space, midclavicular line. S1 and S2 audible. No murmur or gallop. ABDOMEN: Normal in appearance, soft, tympanitic. No guarding, no rigidity. No hepatosplenomegaly. CENTRAL NERVOUS SYSTEM: The patient is alert, awake, and oriented x3. Nonfocal neuro examination. Cranial nerves II through XII grossly intact. Sensory and motor system is within normal limits. EXTREMITIES: No cyanosis, no clubbing, no edema. The patient has knee immobilizer present. CURRENT MEDICATIONS: Cepacol throat liquid 15 mL every 4 hours p.r.n.; Claritin 10 mg p.o. daily; DuoNeb inhaler; ferrous gluconate 324 mg p.o. b.i.d.; Flonase; Hectorol 4 mcg three times a week, Monday, , Monday; Lidoderm MiraLax; morphine sulfate 2 mg IV every 4 hours p.r.n.; Nephro-Maria Del Carmen one tablet daily; amlodipine 10 mg p.o. daily; Percocet one to two tablets every 4 hours p.r.n.; Procrit 4000 units subcutaneous three times a week; Protonix 40 mg p.o. daily; Sensipar 60 mg p.o. daily; Solu-Medrol 20 mg IV every 12 hours; levothyroxine 25 mcg p.o. daily; Toprol-XL 50 mg p.o. daily; Tylenol; Ventolin; and Zofran. LABORATORY DATA: Include as follows: As of 12/23/2018; urinalysis yellow, cloudy, pH 5, specific gravity 1.017, protein 192, glucose 92, ketones negative, blood negative, nitrites negative, bilirubin negative, urobilinogen 0.2 to 1, leukocyte esterase is negative; wbc's 10, rbc's not reported and epithelial cells 6, bacteria occasional, yeast few. ASSESSMENT AND PLAN: In summary, Mrs. Hidalgo is a 63-year-old obese -[place] female with history of hypertension, arthritis, chronic obstructive pulmonary disease, asthma, hypothyroidism, hyperparathyroidism, end-stage renal disease who was admitted with chest discomfort, nausea, and vomiting on and off, ruled out for acute myocardial infarction by cardiac enzymes x3 with left knee swelling and pain and status post joint aspiration consistent with calcium pyrophosphate crystals and pseudogout. 1. End-stage renal disease. Continue hemodialysis three times a week; Monday, , Monday. 2. Hypertension, blood pressure is stable. Continue antihypertensive medications, metoprolol and amlodipine. 3. Pseudogout. Continue Percocet, morphine, and Solu-Medrol as needed. 4. Hypothyroidism. Continue Synthroid. 5. Secondary hyperparathyroidism versus primary hyperparathyroidism. Continue Sensipar and Hectorol. Most likely at this time secondary hyperparathyroidism. Continue Hectorol and Sensipar. Thank you for allowing me to participate in your patient's care. Check CBC, CMP, phosphorus, and PTH intact level in a.m. Ember Nicole MD [facility] # [id number]
[2018-12-24 05:46] LABS: BASO % 0.1 % (0.0-2.0); LYMPH # 0.5 K/uL (1.0-4.3); LYMPH % 5.9 % (20.0-40.0); MEAN CELL VOLUME 78.1 fl (81.0-99.0); MEAN CORPUSCULAR HEMOGLOBIN 23.9 pg (27.0-31.0); MEAN CORPUSCULAR HGB CONC 30.6 g/dL (33.0-37.0); MEAN PLATELET VOLUME 8.5 fl (7.2-11.7); MONO # 0.3 K/uL (0.0-0.8); MONO % 3.4 % (0.0-10.0); NEUT # 7.5 K/uL (1.8-7.0); NEUT % 90.6 % (50.0-75.0); PLATELET COUNT 277 K/uL (130-400); RBC 3.78 Mil/uL (3.80-5.20); RED CELL DISTRIBUTION WIDTH 17.6 % (11.5-14.5); WHITE BLOOD COUNT 8.3 K/uL (4.8-10.8)
[2018-12-24] MEDS: Levothyroxine 25 MCG TAB PO SCH (06:10)
[2018-12-24 06:11] LABS: ALB/GLOB RATIO 1.1 (1.0-2.1); ALBUMIN 3.5 g/dL (3.5-5.0); CALCIUM 8.6 mg/dL (8.4-10.2)
[2018-12-24] MEDS: Lidocaine 5% Patch TD SCH (08:27)
[2018-12-24] MEDS: POLYETHYLENE GLYCOL 3350 17 GM/Dose PACKET PO SCH (08:28)
[2018-12-24] MEDS: Multivitamin Vitamin B Complex (Nephro-Vite) Tab PO SCH (08:28)
[2018-12-24] MEDS: Pantoprazole 40 mg EC Tab PO SCH (08:29)
--- NOTE | 2018-12-24 09:00 | CP.PCM.PN ---
Subjective - Date & Time of Evaluation Date of Evaluation: 12/24/18 Time of Evaluation: 08:00 - Subjective Subjective: Patient seen and examined at bedside comfortable. Her pain is much improved over the weekend and she is tolerating PT well. No acute events over weekend. Objective - Vital Signs/Intake and Output Vital Signs (last 24 hours): Temp Pulse Resp BP Pulse Ox 98.3 F 71 18 103/61 100 12/24/18 07:47 12/24/18 08:28 12/24/18 07:47 12/24/18 08:28 12/24/18 07:47 - Medications Medications: Current Medications Acetaminophen (Tylenol 325mg Tab) 650 mg PO ONCE PRN PRN Reason: Fever >100.4 F Last Admin: 12/19/18 00:13 Dose: 650 mg Albuterol (Ventolin Hfa 90 Mcg/Actuation (8 G)) 2 puff IH Q4 PRN PRN Reason: Shortness of Breath Last Admin: 12/23/18 12:03 Dose: 2 puff Albuterol/Ipratropium (Duoneb 3 Mg/0.5 Mg (3 Ml) Ud) 3 ml INH RQ6 PRN PRN Reason: Shortness of Breath Last Admin: 12/23/18 12:24 Dose: 3 ml Amlodipine Besylate (Norvasc) 10 mg PO DAILY [facility] Last Admin: 12/24/18 08:28 Dose: 10 mg Cinacalcet (Sensipar) 60 mg PO DAILY [facility] Last Admin: 12/24/18 08:29 Dose: 60 mg Doxercalciferol (Hectorol) 4 mcg IV TTS [facility] Last Admin: 12/22/18 16:25 Dose: 4 mcg Epoetin Shelton (Procrit) 4,000 unit SC TTS [facility] Last Admin: 12/22/18 16:25 Dose: 4,000 unit Ferrous Gluconate (Fergon) 324 mg PO BID [facility] Last Admin: 12/24/18 08:27 Dose: 324 mg Fluticasone Propionate (Flonase) 1 spr SERVANDO BID [facility] Last Admin: 12/24/18 08:27 Dose: 1 spr Heparin Sodium (Porcine) (Heparin) 5,000 units SC Q12 [facility]; Protocol Last Admin: 12/19/18 08:37 Dose: 5,000 units Levothyroxine Sodium (Synthroid) 25 mcg PO DAILY@0630 [facility] Last Admin: 12/24/18 06:10 Dose: 25 mcg Lidocaine (Lidoderm) 1 ea TD DAILY [facility] Last Admin: 12/24/18 08:27 Dose: 1 ea Loratadine (Claritin) 10 mg PO DAILY [facility] Last Admin: 12/24/18 08:27 Dose: 10 mg Methylprednisolone (Solu-Medrol) 20 mg IVP Q12H [facility] Last Admin: 12/23/18 22:29 Dose: 20 mg Metoprolol Succinate (Toprol Xl) 50 mg PO DAILY [facility] Last Admin: 12/23/18 09:05 Dose: 50 mg Morphine Sulfate (Morphine) 2 mg IVP Q4 PRN PRN Reason: Pain, severe (8-10) Last Admin: 12/21/18 10:44 Dose: 2 mg Nortriptyline HCl (Pamelor) 25 mg PO HS [facility] Last Admin: 12/23/18 21:17 Dose: 25 mg Ondansetron HCl (Zofran Tab) 4 mg PO Q4 PRN PRN Reason: Nausea/Vomiting Ondansetron HCl (Zofran Inj) 4 mg IVP Q4 PRN PRN Reason: Nausea/Vomiting Oxycodone/Acetaminophen (Percocet 5/325 Mg Tab) 2 tab PO Q4 PRN PRN Reason: Pain, moderate (4-7) Stop: 12/24/18 09:57 Last Admin: 12/23/18 23:59 Dose: 2 tab Oxycodone/Acetaminophen (Percocet 5/325 Mg Tab) 1 tab PO Q4 PRN PRN Reason: Pain, Mild (1-3) Stop: 12/24/18 13:01 Last Admin: 12/23/18 10:52 Dose: 1 tab Pantoprazole Sodium (Protonix Ec Tab) 40 mg PO DAILY [facility] Last Admin: 12/24/18 08:29 Dose: 40 mg Polyethylene Glycol (Miralax) 17 gm PO DAILY [facility] Last Admin: 12/24/18 08:28 Dose: 17 gm Saliva Substitute (Caphosol 15 Ml) 15 ml MM Q4 PRN PRN Reason: Dry mouth Last Admin: 12/23/18 00:42 Dose: 15 ml Vitamin B Complex/Vit C/Folic Acid (Nephro-Maria Del Carmen) 1 tab PO DAILY [facility] Last Admin: 12/24/18 08:28 Dose: 1 tab - Labs Labs: 12/24/18 05:15 12/24/18 05:15 PT 12.2 Seconds (9.8-13.1) 12/19/18 14:40 INR 1.1 12/19/18 14:40 APTT 35.1 Seconds (25.6-37.1) 12/19/18 14:40 - Extremities Exam Additional comments: LLE: [place] CDI sensation intact SP/DP/TN motor intact EHL/FHL/TA/G pedal pulses intact calves soft NT b/l Assessment and Plan (1) Osteoarthritis of left shoulder Assessment & Plan: -continue conservative mgmt Status: Acute (2) Pseudogout of left knee Assessment & Plan: OR cultures finalized neg, septic knee ruled out may start oral steroid as needed PT/OT WBAT knee immoblizer at night when in bed, may remove during day DVT ppx orthopedically stable for discharge f/u in office within 7-10 days above d/w Dr. Mitchell in agreement Status: Acute
[2018-12-24 10:30] LABS: LYMPHOCYTE 4 % (20-50); MONOCYTE 5 % (0-10); NEUTROPHIL 91 % (42-75); TOTAL CELLS COUNTED 100
[2018-12-24 10:31] LABS: ANISOCYTOSIS SLIGHT; GIANT PLATELETS PRESENT; HYPOCHROMIC SLIGHT; LARGE PLATELETS PRESENT; OVALOCYTES SLIGHT; PLATELET ESTIMATE NORMAL (NORMAL)
[2018-12-24] MEDS: Oxycodone/Acetaminophen 5/325 mg Tab PO PRN (11:22)
[2018-12-24] MEDS: MethylPREDNISolone 40 mg Vial IVP SCH ×2 (11:23→22:35)
--- NOTE | 2018-12-24 12:32 | CP.PCM.PN ---
Subjective - Date & Time of Evaluation Date of Evaluation: 12/24/18 Time of Evaluation: 12:31 - Subjective Subjective: pt is seen and examined, follow up consult is dictated #[id number] 1. esrd 2. hyperkalemia 3. htn 4. pseudogout pt is being dialyzed Objective - Vital Signs/Intake and Output Vital Signs (last 24 hours): Temp Pulse Resp BP Pulse Ox 98.0 F 69 18 122/71 99 12/24/18 11:47 12/24/18 11:47 12/24/18 11:47 12/24/18 11:47 12/24/18 11:47 - Medications Medications: Current Medications Acetaminophen (Tylenol 325mg Tab) 650 mg PO ONCE PRN PRN Reason: Fever >100.4 F Last Admin: 12/19/18 00:13 Dose: 650 mg Albuterol (Ventolin Hfa 90 Mcg/Actuation (8 G)) 2 puff IH Q4 PRN PRN Reason: Shortness of Breath Last Admin: 12/23/18 12:03 Dose: 2 puff Albuterol/Ipratropium (Duoneb 3 Mg/0.5 Mg (3 Ml) Ud) 3 ml INH RQ6 PRN PRN Reason: Shortness of Breath Last Admin: 12/23/18 12:24 Dose: 3 ml Amlodipine Besylate (Norvasc) 10 mg PO DAILY [facility] Last Admin: 12/24/18 08:28 Dose: 10 mg Cinacalcet (Sensipar) 60 mg PO DAILY [facility] Last Admin: 12/24/18 08:29 Dose: 60 mg Doxercalciferol (Hectorol) 4 mcg IV TTS [facility] Last Admin: 12/22/18 16:25 Dose: 4 mcg Epoetin Shelton (Procrit) 4,000 unit SC TTS [facility] Last Admin: 12/22/18 16:25 Dose: 4,000 unit Ferrous Gluconate (Fergon) 324 mg PO BID [facility] Last Admin: 12/24/18 08:27 Dose: 324 mg Fluticasone Propionate (Flonase) 1 spr SERVANDO BID [facility] Last Admin: 12/24/18 08:27 Dose: 1 spr Heparin Sodium (Porcine) (Heparin) 5,000 units SC Q12 [facility]; Protocol Last Admin: 12/19/18 08:37 Dose: 5,000 units Levothyroxine Sodium (Synthroid) 25 mcg PO DAILY@0630 [facility] Last Admin: 12/24/18 06:10 Dose: 25 mcg Lidocaine (Lidoderm) 1 ea TD DAILY [facility] Last Admin: 12/24/18 08:27 Dose: 1 ea Loratadine (Claritin) 10 mg PO DAILY [facility] Last Admin: 12/24/18 08:27 Dose: 10 mg Methylprednisolone (Solu-Medrol) 20 mg IVP Q12H [facility] Last Admin: 12/24/18 11:23 Dose: 20 mg Metoprolol Succinate (Toprol Xl) 50 mg PO DAILY [facility] Last Admin: 12/23/18 09:05 Dose: 50 mg Morphine Sulfate (Morphine) 2 mg IVP Q4 PRN PRN Reason: Pain, severe (8-10) Last Admin: 12/21/18 10:44 Dose: 2 mg Nortriptyline HCl (Pamelor) 25 mg PO HS [facility] Last Admin: 12/23/18 21:17 Dose: 25 mg Ondansetron HCl (Zofran Tab) 4 mg PO Q4 PRN PRN Reason: Nausea/Vomiting Ondansetron HCl (Zofran Inj) 4 mg IVP Q4 PRN PRN Reason: Nausea/Vomiting Oxycodone/Acetaminophen (Percocet 5/325 Mg Tab) 1 tab PO Q4 PRN PRN Reason: Pain, Mild (1-3) Stop: 12/24/18 13:01 Last Admin: 12/24/18 11:22 Dose: 1 tab Pantoprazole Sodium (Protonix Ec Tab) 40 mg PO DAILY [facility] Last Admin: 12/24/18 08:29 Dose: 40 mg Polyethylene Glycol (Miralax) 17 gm PO DAILY [facility] Last Admin: 12/24/18 08:28 Dose: 17 gm Saliva Substitute (Caphosol 15 Ml) 15 ml MM Q4 PRN PRN Reason: Dry mouth Last Admin: 12/23/18 00:42 Dose: 15 ml Vitamin B Complex/Vit C/Folic Acid (Nephro-Maria Del Carmen) 1 tab PO DAILY [facility] Last Admin: 12/24/18 08:28 Dose: 1 tab - Labs Labs: 12/24/18 05:15 12/24/18 05:15 PT 12.2 Seconds (9.8-13.1) 12/19/18 14:40 INR 1.1 12/19/18 14:40 APTT 35.1 Seconds (25.6-37.1) 12/19/18 14:40
[2018-12-24] MEDS: Metoprolol Succinate 50 mg XL Tab PO SCH (16:39)
[2018-12-24] MEDS: Albuterol-Ipratrop 3 mg / 0.5 (3 ml) UD INH PRN (20:00)
--- NOTE | 2018-12-24 21:46 | PQF ---
PROVIDER RESPONSE TEXT: No, it was not present on admission. REVIEWER QUERY TEXT: Present On Admission It is unclear whether a diagnosis was present on admission. Your help is needed. Please clarify the POA status of Pseudogout of the left knee Such as: -- Present on admission -- Not present on admission The patient's Clinical Indicators include: Presented to the ER on 12/15/18 with chest pain and vomiting. 12/17/18 Temp 101.1, 12/19/18 Temp 102.4 WBC 6.1 L shift OR 12/20/18 Synovial fluid: + calcium pyrophosphate crystals, Left knee CS: No growth Rx: Solumedrol Query created by: Shanique Chow on 12/24/2018 2:05 PM Electronically signed by: Konstantin Brunner MD 12/24/2018 9:43 PM
[2018-12-24] MEDS ORDERED: Oxycodone/Acetaminophen 5/325 mg Tab PO ONE (23:55)
[2018-12-24] MEDS ORDERED: Alum-Mag Hydrox-Simethicone Susp (30 mL) PO ONE (23:55)
--- NOTE | 2018-12-25 02:07 | PN ---
DATE: 12/24/2018 FOLLOWUP RENAL CONSULTATION LOCATION: The patient is located in room 412, bed 1. REQUESTING PHYSICIAN: Konstantin Brunner MD REASON FOR FOLLOWUP: End-stage renal disease, hyperkalemia, continuation of hemodialysis. SUBJECTIVE: Mrs. Hidalgo is a 63-year-old elderly obese female with a past medical history significant for longstanding hypertension, osteoarthritis, COPD, asthma, hypertension, ESRD, hypothyroidism, hyperparathyroidism who was admitted with chest discomfort and also occasional nausea and vomiting post dialysis. The patient was ruled out for acute VA by cardiac enzymes x3. Hospital course complicated by left knee swelling and pain, status post arthrocentesis and joint fluid analysis consistent with calcium pyrophosphate crystals consistent with pseudogout, on Solu-Medrol and also analgesics. The patient is feeling slightly better, not in any distress. No chest pain. No palpitation. No fever. No cough. The patient was seen and examined during dialysis. UF goal is about 2 to 2.5 L. PHYSICAL EXAMINATION: As follows: VITAL SIGNS: As follows: Blood pressure this morning 122/71, pulse 69, respirations 18, temperature 98, saturation 99%. Height 5 feet and 4 inches. Weight is 266 pounds. GENERAL: Mrs. Hidalgo is a 63-year-old elderly female, obese, not in any distress. HEENT: Pupils are normal and reactive to light and accommodation. Conjunctivae pink. Sclerae anicteric. Tongue is moist. Trachea is midline. LUNGS: Symmetric on both sides. Bilateral breath sounds present. Clear to auscultation. CARDIOVASCULAR SYSTEM: [place] at the fifth intercostal space, midclavicular line. S1 and S2 audible. No murmur or gallop. ABDOMEN: Normal in appearance. Soft, tympanitic. No guarding. No rigidity. No hepatosplenomegaly. CENTRAL NERVOUS SYSTEM: The patient is alert, awake and oriented x3. Nonfocal neuro examination. Cranial nerves II through XII grossly intact. Sensory and motor system is within normal limits. EXTREMITIES: No cyanosis, no clubbing, no edema. 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 CURRENT MEDICATIONS: Include as follows: Cepacol liquid 15 mL every 4 hours p.r.n., Claritin 10 mg p.o. daily, DuoNeb inhaler, also ferrous gluconate, Flonase, Hectorol, Lidoderm patch, MiraLax, morphine, Nephro-[place], amlodipine, Pamelor, Procrit, Protonix, Sensipar, Solu-Medrol, levothyroxine, metoprolol XL 50 mg p.o. daily, Tylenol, albuterol inhaler, and Zofran. LABORATORY DATA: Include as follows: As of 12/24/2018, WBC 8.3, hemoglobin 9, hematocrit is 29.5, MCV is 78.1, and platelets 277. Sodium 136, potassium is 6.4, chloride 94, CO2 of 27, BUN 91, creatinine 9.5, glucose 115, calcium 8.6, and phosphorus is 10.1. Total bili 0.4, AST 47, ALT 19, alkaline phosphatase 121, total protein 6.6, albumin is 3.5. ASSESSMENT: In summary, Mrs. Hidalgo is a 63-year-old obese female with hypertension, arthritis, chronic obstructive pulmonary disease, hypothyroidism, hyperparathyroidism who was admitted with chest discomfort, nausea, vomiting post dialysis and ruled out for acute myocardial infarction also positive for pseudogout of the left knee. 1. End-stage renal disease. The patient had a partial dialysis on Monday, and the patient is scheduled for another dialysis this morning. The patient was seen and examined during dialysis and completed full treatment. 2. Hyperkalemia, secondary to end-stage renal disease. 3. Pseudogout. 4. Hypertension. 5. Chronic obstructive pulmonary disease, asthma. PLAN: Continue current medications. Continue amlodipine and metoprolol. Also, we will start Renvela 2.4 g p.o. t.i.d. with food. We will follow with you. Thank you for allowing me to participate in your patient's care. Ember Nicole MD
[2018-12-25] MEDS: Levothyroxine 25 MCG TAB PO SCH (05:58)
[2018-12-25] MEDS: Lidocaine 5% Patch TD SCH (08:19)
[2018-12-25] MEDS: Multivitamin Vitamin B Complex (Nephro-Vite) Tab PO SCH (08:20)
[2018-12-25] MEDS: POLYETHYLENE GLYCOL 3350 17 GM/Dose PACKET PO SCH (08:20)
[2018-12-25] MEDS: Pantoprazole 40 mg EC Tab PO SCH (08:21)
[2018-12-25] MEDS: Sevelamer Carb 0.8 gm/Packet PO SCH ×3 (08:22→16:32)
[2018-12-25] MEDS: Metoprolol Succinate 50 mg XL Tab PO SCH (08:23)
[2018-12-25] MEDS: Epoetin Alfa 4000 UNIT/ML Inj SC SCH (08:26)
--- NOTE | 2018-12-25 10:44 | PN ---
DATE: 12/24/2018 DAILY PROGRESS NOTE SUBJECTIVE: The patient is seen today, 12/24/2018 during hemodialysis. PHYSICAL EXAMINATION: VITAL SIGNS: The patient's blood pressure is 155/80, temperature 97.9, respiratory rate 18 and pulse 64. HEENT: Pupils equal and reactive to light. Normal-appearing mucosa of the conjunctivae, oropharynx and nasal membrane mucosa. NECK: Supple. No JVD. No carotid bruit. No lymph node. No thyromegaly. CHEST AND LUNGS: Bilateral symmetrical expansion. Good air exchange. No rales. No rhonchi. CARDIOVASCULAR SYSTEM: PMI not localized. S1 and S2. No additional sounds. ABDOMEN: Normoactive bowel sounds. No tenderness. No organomegaly. No masses. EXTREMITIES: No cyanosis, no clubbing, no edema. CENTRAL NERVOUS SYSTEM: Alert, awake, oriented x2 and no neurological deficit could be appreciated. ASSESSMENT: 1. Pseudogout arthritis of the left knee. 2. Chest pain, myocardial infarction is ruled out. 3. End-stage renal disease, on hemodialysis. 4. Hypertension. PLAN: Continue current medications. We will taper steroids. Physical therapy and the patient is for subacute rehabilitation. Konstantin Brunner MD
--- NOTE | 2018-12-25 12:18 | CP.PCM.PN ---
Subjective - Date & Time of Evaluation Date of Evaluation: 12/25/18 Time of Evaluation: 12:18 - Subjective Subjective: Patient seen and examined at bedside comfortable. Pain well controlled to knee. Tolerating PT well. To be discharged to [facility], delayed due to dialysis. No other complaints. Objective - Vital Signs/Intake and Output Vital Signs (last 24 hours): Temp Pulse Resp BP Pulse Ox 98.4 F 69 18 106/77 96 12/25/18 12:01 12/25/18 12:01 12/25/18 12:01 12/25/18 12:01 12/25/18 12:01 - Medications Medications: Current Medications Acetaminophen (Tylenol 325mg Tab) 650 mg PO ONCE PRN PRN Reason: Fever >100.4 F Last Admin: 12/19/18 00:13 Dose: 650 mg Albuterol (Ventolin Hfa 90 Mcg/Actuation (8 G)) 2 puff IH Q4 PRN PRN Reason: Shortness of Breath Last Admin: 12/23/18 12:03 Dose: 2 puff Albuterol/Ipratropium (Duoneb 3 Mg/0.5 Mg (3 Ml) Ud) 3 ml INH RQ6 PRN PRN Reason: Shortness of Breath Last Admin: 12/24/18 20:00 Dose: 3 ml Amlodipine Besylate (Norvasc) 10 mg PO DAILY [facility] Last Admin: 12/25/18 08:21 Dose: 10 mg Cinacalcet (Sensipar) 60 mg PO DAILY [facility] Last Admin: 12/25/18 08:22 Dose: 60 mg Doxercalciferol (Hectorol) 4 mcg IV TTS [facility] Last Admin: 12/22/18 16:25 Dose: 4 mcg Epoetin [place] (Procrit) 4,000 unit SC TTS [facility] Last Admin: 12/25/18 08:26 Dose: 4,000 unit Ferrous Gluconate (Fergon) 324 mg PO BID [facility] Last Admin: 12/25/18 08:18 Dose: 324 mg Fluticasone Propionate (Flonase) 1 spr SERVANDO BID [facility] Last Admin: 12/25/18 08:19 Dose: 1 spr Heparin Sodium (Porcine) (Heparin) 5,000 units SC Q12 [facility]; Protocol Last Admin: 12/19/18 08:37 Dose: 5,000 units Levothyroxine Sodium (Synthroid) 25 mcg PO DAILY@0630 [facility] Last Admin: 12/25/18 05:58 Dose: 25 mcg Lidocaine (Lidoderm) 1 ea TD DAILY [facility] Last Admin: 12/25/18 08:19 Dose: 1 ea Loratadine (Claritin) 10 mg PO DAILY [facility] Last Admin: 12/25/18 08:18 Dose: 10 mg Methylprednisolone (Solu-Medrol) 20 mg IVP Q12H [facility] Last Admin: 12/24/18 22:35 Dose: 20 mg Metoprolol Succinate (Toprol Xl) 50 mg PO DAILY [facility] Last Admin: 12/25/18 08:23 Dose: 50 mg Morphine Sulfate (Morphine) 2 mg IVP Q4 PRN PRN Reason: Pain, severe (8-10) Last Admin: 12/21/18 10:44 Dose: 2 mg Nortriptyline HCl (Pamelor) 25 mg PO HS [facility] Last Admin: 12/24/18 22:35 Dose: 25 mg Ondansetron HCl (Zofran Tab) 4 mg PO Q4 PRN PRN Reason: Nausea/Vomiting Ondansetron HCl (Zofran Inj) 4 mg IVP Q4 PRN PRN Reason: Nausea/Vomiting Pantoprazole Sodium (Protonix Ec Tab) 40 mg PO DAILY [facility] Last Admin: 12/25/18 08:21 Dose: 40 mg Polyethylene Glycol (Miralax) 17 gm PO DAILY [facility] Last Admin: 12/25/18 08:20 Dose: 17 gm Saliva Substitute (Caphosol 15 Ml) 15 ml MM Q4 PRN PRN Reason: Dry mouth Last Admin: 12/23/18 00:42 Dose: 15 ml Sevelamer Carbonate (Renvela) 2.4 gm PO TIDWM [facility] Last Admin: 12/25/18 08:22 Dose: 2.4 gm Vitamin B Complex/Vit C/Folic Acid (Nephro-[place]) 1 tab PO DAILY [facility] Last Admin: 12/25/18 08:20 Dose: 1 tab - Labs Labs: 12/24/18 05:15 12/24/18 05:15 PT 12.2 Seconds (9.8-13.1) 12/19/18 14:40 INR 1.1 12/19/18 14:40 APTT 35.1 Seconds (25.6-37.1) 12/19/18 14:40 - Extremities Exam Additional comments: LLE: Dressings CDI Incisions CDI with nylon sutures sensation intact SP/DP/TN motor intact EHL/FHL/TA/G pedal pulses intact calves soft NT b/l Assessment and Plan (1) Osteoarthritis of left shoulder Status: Acute (2) Pseudogout of left knee Assessment & Plan: POD# 5 s/p L knee arthroscopic washout Dressings changed PT/OT WBAT DVT ppx orthopedically stable for discharge f/u in office within 7-10 days above d/w Dr. Mitchell in agreement Status: Acute
--- NOTE | 2018-12-25 12:44 | CP.PCM.PN ---
Subjective - Date & Time of Evaluation Date of Evaluation: 12/25/18 Time of Evaluation: 12:44 - Subjective Subjective: pt is seen and examined, follow up consult is dictated #[id number] s/p hd today again Objective - Vital Signs/Intake and Output Vital Signs (last 24 hours): Temp Pulse Resp BP Pulse Ox 98.4 F 69 18 106/77 96 12/25/18 12:01 12/25/18 12:01 12/25/18 12:01 12/25/18 12:01 12/25/18 12:01 - Medications Medications: Current Medications Acetaminophen (Tylenol 325mg Tab) 650 mg PO ONCE PRN PRN Reason: Fever >100.4 F Last Admin: 12/19/18 00:13 Dose: 650 mg Albuterol (Ventolin Hfa 90 Mcg/Actuation (8 G)) 2 puff IH Q4 PRN PRN Reason: Shortness of Breath Last Admin: 12/23/18 12:03 Dose: 2 puff Albuterol/Ipratropium (Duoneb 3 Mg/0.5 Mg (3 Ml) Ud) 3 ml INH RQ6 PRN PRN Reason: Shortness of Breath Last Admin: 12/24/18 20:00 Dose: 3 ml Amlodipine Besylate (Norvasc) 10 mg PO DAILY [facility] Last Admin: 12/25/18 08:21 Dose: 10 mg Cinacalcet (Sensipar) 60 mg PO DAILY [facility] Last Admin: 12/25/18 08:22 Dose: 60 mg Doxercalciferol (Hectorol) 4 mcg IV TTS [facility] Last Admin: 12/22/18 16:25 Dose: 4 mcg Epoetin [place] (Procrit) 4,000 unit SC TTS [facility] Last Admin: 12/25/18 08:26 Dose: 4,000 unit Ferrous Gluconate (Fergon) 324 mg PO BID [facility] Last Admin: 12/25/18 08:18 Dose: 324 mg Fluticasone Propionate (Flonase) 1 spr SERVANDO BID [facility] Last Admin: 12/25/18 08:19 Dose: 1 spr Heparin Sodium (Porcine) (Heparin) 5,000 units SC Q12 [facility]; Protocol Last Admin: 12/19/18 08:37 Dose: 5,000 units Levothyroxine Sodium (Synthroid) 25 mcg PO DAILY@0630 [facility] Last Admin: 12/25/18 05:58 Dose: 25 mcg Lidocaine (Lidoderm) 1 ea TD DAILY [facility] Last Admin: 12/25/18 08:19 Dose: 1 ea Loratadine (Claritin) 10 mg PO DAILY [facility] Last Admin: 12/25/18 08:18 Dose: 10 mg Methylprednisolone (Solu-Medrol) 20 mg IVP Q12H [facility] Last Admin: 12/24/18 22:35 Dose: 20 mg Metoprolol Succinate (Toprol Xl) 50 mg PO DAILY [facility] Last Admin: 12/25/18 08:23 Dose: 50 mg Morphine Sulfate (Morphine) 2 mg IVP Q4 PRN PRN Reason: Pain, severe (8-10) Last Admin: 12/21/18 10:44 Dose: 2 mg Nortriptyline HCl (Pamelor) 25 mg PO HS [facility] Last Admin: 12/24/18 22:35 Dose: 25 mg Ondansetron HCl (Zofran Tab) 4 mg PO Q4 PRN PRN Reason: Nausea/Vomiting Ondansetron HCl (Zofran Inj) 4 mg IVP Q4 PRN PRN Reason: Nausea/Vomiting Pantoprazole Sodium (Protonix Ec Tab) 40 mg PO DAILY [facility] Last Admin: 12/25/18 08:21 Dose: 40 mg Polyethylene Glycol (Miralax) 17 gm PO DAILY [facility] Last Admin: 12/25/18 08:20 Dose: 17 gm Saliva Substitute (Caphosol 15 Ml) 15 ml MM Q4 PRN PRN Reason: Dry mouth Last Admin: 12/23/18 00:42 Dose: 15 ml Sevelamer Carbonate (Renvela) 2.4 gm PO TIDWM [facility] Last Admin: 12/25/18 08:22 Dose: 2.4 gm Vitamin B Complex/Vit C/Folic Acid (Nephro-[place]) 1 tab PO DAILY [facility] Last Admin: 12/25/18 08:20 Dose: 1 tab - Labs Labs: 12/24/18 05:15 12/24/18 05:15 PT 12.2 Seconds (9.8-13.1) 12/19/18 14:40 INR 1.1 12/19/18 14:40 APTT 35.1 Seconds (25.6-37.1) 12/19/18 14:40
[2018-12-25] MEDS: MethylPREDNISolone 40 mg Vial IVP SCH (13:09)
[2018-12-25] MEDS: Albuterol HFA 90 mcg/actuation (8 g) IH PRN (15:00)
[2018-12-25 16:01] VITALS: BP 106/77; PULSE 69; TEMP 98.4; O2SAT 96
--- NOTE | 2018-12-26 06:23 | DS ---
REASON FOR ADMISSION: This is a 63-year-old female with end-stage renal disease on hemodialysis, was admitted for chest pain/epigastric pain and post-dialysis vomiting. COURSE OF HOSPITALIZATION: The patient was admitted to telemetry floor, and myocardial infarction was ruled out. The patient had a cardiology consultation done by Dr. Best. The patient's hospitalization was complicated with high fever of 101 with pain and swelling of the left knee. Orthopedic consult was done, and left knee was aspirated and it was positive for crystals. The patient was given steroid, and left knee remarkably improved. The patient was continued on hemodialysis during this stay as per Dr. Nicole. The patient continued was continued on her home medications. The patient was started on physical therapy and discharged to subacute rehabilitation in a stable condition. FINAL DIAGNOSES: Chest pain, myocardial infarction was ruled out; end-stage renal disease, on hemodialysis; left knee pseudogout with calcium pyrophosphate crystals; hypertension; and morbid obesity. Konstantin Brunner MD
== END 2018-12-25 18:50 | DRG 981 ==
LOC: H.ER 15:52 → H.ERHOLD 18:51 → H.TEL 21:45 → OBSVTOIN 12-17 14:31
PROVIDERS: ADMIT Internal Medicine; ATTEND Internal Medicine
PROC: 5A1D70Z Performance of Urinary Filtration, Intermittent, Less than 6 Hours Per Day (ICD-10-PCS; 2018-12-18)
PROC: 0SBD4ZZ Excision of Left Knee Joint, Percutaneous Endoscopic Approach (ICD-10-PCS; 2018-12-20)
PROC: 0SBD4ZZ Excision of Left Knee Joint, Percutaneous Endoscopic Approach (ICD-10-PCS; 2018-12-20)
PROC: 0SBD4ZZ Excision of Left Knee Joint, Percutaneous Endoscopic Approach (ICD-10-PCS; 2018-12-20)
PROC: 0SCD4ZZ Extirpation of Matter from Left Knee Joint, Percutaneous Endoscopic Approach (ICD-10-PCS; 2018-12-20)
PROC: 0SQD4ZZ Repair Left Knee Joint, Percutaneous Endoscopic Approach (ICD-10-PCS; 2018-12-20)
PROC: 0S9D4ZX Drainage of Left Knee Joint, Percutaneous Endoscopic Approach, Diagnostic (ICD-10-PCS; 2018-12-20)
PROC: 5A1D70Z Performance of Urinary Filtration, Intermittent, Less than 6 Hours Per Day (ICD-10-PCS; 2018-12-20)
PROC: 0SQD4ZZ Repair Left Knee Joint, Percutaneous Endoscopic Approach (ICD-10-PCS; principal; 2018-12-20 07:45)
PROC: 5A1D70Z Performance of Urinary Filtration, Intermittent, Less than 6 Hours Per Day (ICD-10-PCS; 2018-12-24)
PROC: 5A1D70Z Performance of Urinary Filtration, Intermittent, Less than 6 Hours Per Day (ICD-10-PCS; 2018-12-25)
DX: R07.9 Chest pain, unspecified (principal); N18.6 End stage renal disease; Z68.41 Body mass index [BMI] 40.0-44.9, adult; N25.81 Secondary hyperparathyroidism of renal origin; I13.2 Hypertensive heart and chronic kidney disease with heart failure and with stage 5 chronic kidney disease, or end stage renal disease; I50.32 Chronic diastolic (congestive) heart failure; Z99.2 Dependence on renal dialysis; E66.01 Morbid (severe) obesity due to excess calories; M65.862 Other synovitis and tenosynovitis, left lower leg; S83.282A Other tear of lateral meniscus, current injury, left knee, initial encounter; M11.262 Other chondrocalcinosis, left knee; M17.12 Unilateral primary osteoarthritis, left knee; R11.10 Vomiting, unspecified; E87.5 Hyperkalemia; S83.232A Complex tear of medial meniscus, current injury, left knee, initial encounter; E11.22 Type 2 diabetes mellitus with diabetic chronic kidney disease; E03.9 Hypothyroidism, unspecified; E11.40 Type 2 diabetes mellitus with diabetic neuropathy, unspecified; E21.0 Primary hyperparathyroidism; E05.90 Thyrotoxicosis, unspecified without thyrotoxic crisis or storm; E78.5 Hyperlipidemia, unspecified; G89.29 Other chronic pain; J44.9 Chronic obstructive pulmonary disease, unspecified; K21.9 Gastro-esophageal reflux disease without esophagitis; K29.70 Gastritis, unspecified, without bleeding; M10.9 Gout, unspecified; M19.012 Primary osteoarthritis, left shoulder; M65.9 Synovitis and tenosynovitis, unspecified; S83.239A Complex tear of medial meniscus, current injury, unspecified knee, initial encounter; Z79.899 Other long term (current) drug therapy; Z87.891 Personal history of nicotine dependence; Z98.84 Bariatric surgery status; K43.2 Incisional hernia without obstruction or gangrene; J45.20 Mild intermittent asthma, uncomplicated; M25.562 Pain in left knee; R50.9 Fever, unspecified